=== PATIENT | male | born 1945 | race Caucasian/White ===

== ENCOUNTER 2016-10-14 09:47 | Inpatient (IN) | payer MEDICARE, OTHER ==
[~2016-10-14] VITALS: Ht 167.6 cm; Wt 84.5 kg
[2016-10-14] VITALS (12 sets, daily range): BP systolic 137–160; BP diastolic 47–70; PULSE 82–99; RESP 12–20; O2SAT 96–100
--- NOTE | 2016-10-14 09:10 | PCM.HPANE ---
Patient Data Date of Service: Oct 14, 2016 Surgeon Admitting Provider: Attending Provider:Norberto Arora DO Primary Care Physician:Tata Doll MD Other Provider:Kelly Veags Anesthesia Reason for Visit Right Wrist Swelling And Stiffness Ht/WT & BMI Height (Feet): 5 Height (Inches): 6 Weight (Kilograms): 83.552 Body Mass Index 29.00 Allergies Coded Allergies: colchicine (Verified Adverse Reaction, Severe, gi upset, 10/13/16) niacin (Verified Adverse Reaction, Severe, GI UPSET, 10/13/16) Uncoded Allergies: SEASONAL ALLERGIES (Allergy, Severe, ITCH/RASH, 10/13/16) Past Anesthesia History Anesthesia History: Denies:: Abnormal Airway, Anesthesia Reactions, Difficult Intubation, Fam Anesthesia Reaction, Fam Malignant Hypertherm, Malignant Hyperthermia Diabetes History Hx Diabetes?: No MRSA MRSA: No Medications Active Scripts Docusate Sodium (Colace)100 Mg Qfsgunm023 Mg PO BID PRN For Constipation #100 CAPSULE Ref 0 Prov:Unruly Chaparro DO 01/15/16 Ascorbic Acid (Vitamin C)500 Mg Capsule.er500 Mg PO BID 30 Days Prov:Unruly Chaparro DO 01/15/16 Potassium Chloride ER (Klor-Con M10)10 Meq Tabsr10 Meq PO DAILYWM #30 Ref 1 Prov:Thiago Gale MD 08/12/14 Reported Medications Spironolactone 50 Mg Zqatuq96 Mg PO DAILY #30 TABLET Ref 0 10/13/16 oxyCODONE 5 Mg Tablet5 Mg PO Q3H PRN For Pain Ref 0 10/13/16 [Ketaconazole Shampoo] No Conflict Check1 Applic TP WEEKLY 2% 10/13/16 Indomethacin 25 Mg Ntdlyik36 Mg PO TID Ref 0 10/13/16 Gabapentin 300 Mg Bsfqgmh101 Mg PO TID Ref 0 TAKES 300MG AM, NOON & 600MG PM 10/13/16 [Lasix] No Conflict Check40 Mg PO BID PRN PRN 10/13/16 Fluticasone Propionate (Flonase Allergy Relief)50 Mcg/Actuation [place].susp9.9 Ml NS DAILY 10/13/16 Multivitamin (Multivitamins)1 Each Capsule1 Each PO DAILY 01/13/16 Cholecalciferol (Vitamin D3) (Vitamin D3)5,000 Unit Capsule5,000 Unit PO 09/23/15 Sulfacetamide Sodium (Sodium Sulfacetamide)10 % Clnsr.mhj507 Ml TP BID 09/23/15 Spironolactone 50 Mg Wplzqh16 Mg PO DAILY #30 TABLET Ref 0 09/23/15 Discontinued Reported Medications Polyvinyl Alcohol/Povidone/Pf (Refresh Classic Eye Drops)1 Each Droperette1 Each OP PRN For Eye Irritation 01/13/16 Discontinued Scripts Colchicine 0.6 Mg Capsule0.6 Mg PO ONCE #1 CAPSULE Prov:Devon Santacruz MD 07/07/16 Ferrous Sulfate 325 Mg [place]656 Mg PO BID 30 Days Ref 0 Prov:Unruly Chaparro DO 01/15/[address] (Protonix)40 Mg Rkrbnb73 Mg PO BID 30 Days Ref 0 Prov:Unruly Chaparro DO 01/14/16 Furosemide (Lasix)40 Mg Rarhxg38 Mg PO DAILY #30 TABLET Ref 1 Prov:Thiago Gale MD 08/12/14 [Oxycodone Hcl] (Roxycodone)5 MG TABLET No Conflict Check5-15 Mg PO Q4H PRN For Pain #90 TABLET Ref 0 Prov:Thiago Gale MD 08/12/14 Gabapentin (Neurontin)300 Mg Wfldfja579 Mg PO TID #90 CAPSULE Ref 0 Prov:Thiago Gale MD 08/12/14 History History of ENT Problems?: Yes HEENT History: Positive for:: Cataracts (S/P B/L EXTRACTIONS) Sinus Problem Denies:: Abnormal Airway Difficult Intubation Dysphagia Hearing Problem Other HEENT Pertinent History: S/P TONSILLECTOMY Hx of Heart Problems?: Yes Cardiovascular History: Positive for:: Edema Peripheral Vascular (HX B/L VENOUS STASIS ULCERS LE'S) Denies:: AICD Atrial Fibrillation Cardiac Surgery Chest Pain Congestive Heart Failure Heart Murmur (ECHO 11/2013 EF 60-65%) Hypertension Irregular Heartbeat Pacemaker Thrombophlebitis Valvular Heart Disease Other Cardiac History: HX THROMBOCYTOPENIA Hx of Respiratory Problem?: Yes Respiratory History: Positive for:: Pneumonia ( CHILD) Denies:: Asthma COPD Chest Surgery Cough Dyspnea Emphysema Hemoptysis Tuberculosis Use of C-PAP Machine (SNORES) Hx Neurologic Problems?: No Neurological History: Denies:: Alzheimer's Disease CVA Dementia Dizziness Headaches Parkinson's Disease Seizures Hx of GI Problems?: Yes Gastrointestinal History: Positive for:: Cirrhosis (ETOH-INDUCED) Gastrointestinal Bleeding Liver Disease (ETOH hepatitis/cirhosis) Rectal Bleeding (RECENT BLACK STOOL) Denies:: Diverticulitis Gastroesphageal Reflux Heartburn Hepatitis Hiatal Hernia Other GI Pertinent History: S/P APPY Hx of Problems?: Yes Genitourinary History: Positive for:: Urinary Tract Infection (REMOTELY) Denies:: HX of Hemodialysis Kidney Stones HX of Peritoneal Dialysis: No Male Hx: Denies:: Prostate Problems Scrotal Mass Testicular Surgery Skin History: Denies:: History Skin Disorders? (rosacea, psoriasis, exposed to agent orange) Pressure Ulcers (LR VENOUS STASIS ULCERATIONS S/P I&D/DEBRIDEMENT) Hx Musculoskeletal Problems?: Yes Musculoskeletal History: Positive for:: Back Injury (C/OF LOWER BACK PAIN) Musculoskeletal Trauma (shrapnel injuries from [place] S/P LT KNEE SCOPE) Denies:: Joint Replacement Hx of Psycho/Social Problems?: No Psycho Social History: Positive for:: Anxiety (PTSD) Denies:: Bipolar Disorder Hx Depression Suicide Attempt Hx Surgeries?: Yes (eye surgery, back surgery (sciatic nerve) appendectomy,LT KNEE RPR,TONSILS,) Hx Any Other Health Problems?: Yes Other History: Positive for:: Hospitalization Denies:: Cancer Endocrine Disease Thyroid Disease History Blood Transfusions: Denies:: Blood Transfuse Reaction Blood Transfusions Hx Diabetes: No Hx Alcohol Use: Yes (1-3 beers daily (PT SAYS QUIT IN 2014; SAYS DRINKING)) Hx Substance Use: No Smoking Status: Former Smoker Have You Smoked inLast 12 mo: No Stop/Bang Treated for Sleep Apnea?: No Do You Have a CPAP Machine?: No S-Snoring: Do You Snore Loudly: Yes T-Tired: feel tired, fatigued: No O-Obsered: Observed not breath: No P-Blood Pressure: treated: No B- Body Mass Index > 35 kg/m2: No A- Age over 50: Yes N- Neck Large Circumference: No G- Gender Male: Yes AMRITA Total Score: 3 AMRITA Risk Assessment: Low Risk, <3 Yes AMRITA Category 1: Yes Risk Assessment Category Category 1A: Patient has history of documented sleep apnea, and HAS NOT received any narcotic, sedative or anesthesia administration during this stay. Category 1B: Patient has history of documented sleep apnea, and HAS received any narcotic , sedative or anesthesia administration during this stay Category 2: Patient has SUSPECTED Obstructive Sleep Apnea, and HAS received any narcotic , sedative or anesthesia administration during this stay. Category 3: Patient has SUSPECTED Obstructive Sleep Apnea and HAS NOT received narcotic, sedative or anesthesia administration during this stay. Category 4: Outpatient in Procedural Areas with known sleep apnea or who screen positive for High Risk via the STOP/BANG questionnaire. Exam Exam General Appearance: Alert, Oriented X3, Cooperative, No Acute Distress HEENT/AIRWAY: MP 1 Lungs: Clear to Auscultation, Clear to Percussion Heart: Exam Unremarkable, Normal S1, Normal S2 Meds/Labs/Diagnostics Additional Information Cardiac records reviewed: 2017 ECG unchanged from 2016 tracing, NRS, abrupt trnsition, No acute abn EST 2010 77% Ef with normal perfusion TTE 2013 60% EF without valvular abn Plan Impression Patient chart reviewed, patient interviewed and anesthestic plan with risks, benefits, and alternatives discussed, and informed consent obtained. ASA Physical Status: ASA3 Severe Disease Anesthetic Plan: GA Bene/Risks/Altern/Consents: Yes HP Complete Prior to Induction: Yes Unruly José DO Oct 14, 2016 09:10
[~2016-10-14 09:47] MED LIST: ASCO500C6 PO; CHOL5000 PO; CeFAZolin Inj 2 GM in IV Premix 1 EACH IV ONE; DOCU-41 PO; FLUT9.9S NASAL; GABA-502 PO; INDO25CA PO; KETACONAZOLE SHAMPOO TP; LASIX PO; Lactated Ringer's 1,000 ML IV SCH; MULT1CAP33 PO; OXYC5TAB72 PO; POTA10TA14 PO; SPIR50TA2 PO; [UNRECOGNIZED DRUG - CODE] TP
[2016-10-14] MEDS ORDERED: Lactated Ringer's 500 ML IV PRN (10:48)
[2016-10-14] MEDS ORDERED: Lactated Ringer's 1,000 ML IV SCH (10:48)
[2016-10-14] MEDS ORDERED: Atropine 0.4 mg/mL Inj IVPUSH PRN (10:50)
[2016-10-14] MEDS ORDERED: HYDROmorphone 1 mg/mL Inj IVPUSH PRN ×2 (10:50→19:00)
[2016-10-14] MEDS ORDERED: MetoCLOpramide 5 mg/mL 2 mL Inj IVPUSH PRN (10:50)
[2016-10-14] MEDS ORDERED: Ondansetron 2 mg/mL 2 mL Inj IVPUSH PRN ×2 (10:50→19:00)
[2016-10-14] MEDS ORDERED: Labetalol 5 mg/mL 4 mL Inj IV PRN (10:50)
[2016-10-14] MEDS ORDERED: Dexamethasone 4 mg/mL Inj IVPUSH PRN (10:50)
[2016-10-14] MEDS ORDERED: EPHEDrine Sulfate 50 mg/mL Inj IVPUSH PRN (10:50)
[2016-10-14] MEDS ORDERED: Phenylephrine 10,000 mCg/mL Inj IVPUSH PRN (10:50)
[2016-10-14] MEDS ORDERED: Lactated Ringer's 1,000 ML IV ONE (10:52)
[2016-10-14] MEDS ORDERED: CeFAZolin Inj 2 gm / 50mL D5W IV ONE (11:13)
[2016-10-14] MEDS: fentaNYL-PF 50 mCg/mL 2 mL Inj IVPUSH PRN ×3 (13:50→14:45)
--- NOTE | 2016-10-14 14:45 | PCM.ANEP1 ---
Post Anesthesia Phase 1 PACU Phase 1 Assessment Date of Service: Oct 14, 2016 Vital Signs Vital Signs Date Time Temp Pulse Resp B/P Pulse Ox O2 Delivery O2 Flow Rate FiO2 10/14/16 14:29 88 15 147/67 97 Nasal Cannula 3 10/14/16 14:15 89 16 137/47 97 Nasal Cannula 4 10/14/16 14:00 92 17 149/56 99 Nasal Cannula 4 10/14/16 13:45 90 13 143/51 98 Nasal Cannula 4 10/14/16 13:40 87 13 146/59 97 Simple Mask 10 10/14/16 13:35 90 17 140/63 96 Simple Mask 10 10/14/16 13:30 36.5 88 15 146/55 96 Simple Mask 10 10/14/16 10:50 36.5 82 14 148/56 99 Room Air Anesthetic Administered: GA Level of Alertness: Awake, talking TAFOYA's with Equal Strength: Yes Pain: No Nausea or Vomiting: No Oxygen Delivery: Simple Mask Lungs: Clear to Auscultation, Clear to Percussion Dermatome Level: Full Sensation Unruly José DO Oct 14, 2016 14:45
[2016-10-14] MEDS ORDERED: Polyethylene Glycol (PEG) 17 Gm Powder PO PRN (14:55)
[2016-10-14] MEDS ORDERED: Alum-Mag Hydrox-Simeth 30 mL Suspension PO PRN (14:55)
--- NOTE | 2016-10-14 14:59 | PCM.ANEP2 ---
Post Anesthesia Evaluation ASA/CMS Post Anesthesia Date of Service: Oct 14, 2016 VS in Patient's Normal Range?: Yes Resp Stable; Airway Patent?: Yes CV Function & Hydration Stable: Yes Mental Status Recovered?: Yes Pain control Satisfactory?: Yes N/V Control Satisfactory?: Yes Unruly José DO Oct 14, 2016 14:59
[2016-10-14] MEDS ORDERED: Phenylephrine/NS-PF 100 mCg/mL 5 mL Syringe IVPUSH ONE (15:46)
[2016-10-14] MEDS ORDERED: Ondansetron 2 mg/mL 2 mL Inj ONE (15:46)
[2016-10-14] MEDS ORDERED: MeTOProlol 1 mg/mL 5 mL Inj ONE (15:46)
[2016-10-14] MEDS ORDERED: fentaNYL-PF 50 mCg/mL 2 mL Inj ONE (15:46)
[2016-10-14] MEDS ORDERED: Propofol 10,000 mCg/mL 20 mL Inj ONE (15:46)
[2016-10-14] MEDS ORDERED: Dexamethasone 4 mg/mL Inj ONE (15:46)
[2016-10-14 15:47] LABS: BASOPHILS % (AUTO) 0.3 % (0-3); EOSINOPHILS % (AUTO) 0.3 % (0-5); MONOCYTES % (AUTO) 2.4 % (4-12); Mean Corpuscular Hemoglobin 29.9 pg (27.0-35.0); Mean Corpuscular Volume 89.2 fL (81-100); NEUTROPHILS % (AUTO) 87.7 % (40-74); Platelet Count 111 bil/L (150-400)
[2016-10-14] MEDS ORDERED: DAPTOmycin Inj 500 MG in 0.9% Sodium Chloride 50 ML IV SCH (16:10)
[2016-10-14] MEDS ORDERED: Piperacillin-Tazo 3.375 Gm Inj 3.375 GM in Dextrose 5% Minibag Plus 50 ML IV SCH (16:30)
--- NOTE | 2016-10-14 17:19 | PCM.HPMED ---
Subjective Date of Service Oct 14, 2016 Primary Provider: Admitting Physician: Norberto Arora DO Primary Care Physician: Tata Doll MD Attending Physician: Norberto Arora DO Admit Status: Direct Admit Chief Complaint: Right wrist pain and swelling/2 month Status post incision and drainage of right wrist today History of Present Illness: 71-year-old gentleman with past medical history of alcoholic cirrhosis, history of GI bleeding, history of venous stasis ulcer was admitted for elective right wrist incision and drainage. Patient has been having right wrist painful swelling and stiffness for the past 2 months. Swelling sudden onset end of June. Denies trauma. Denies fever He has been followed by orthopedics. MRI was done on 10/07/16 which showed highly suspicious for carpal septic arthritis, with multifocal osteomyelitis of the carpal bones, distal radius and ulna, second through fourth proximal metacarpals. Admitted for elective incision and drainage. Copious amount of pus drained reportedly. Hospitalist service requested for admission for septic arthritis and suspected osteomyelitis. Review of Systems: A comprehensive review of systems performed, pertinent positives and negatives included in history of present illness Allergies Coded Allergies: colchicine (Verified Adverse Reaction, Severe, gi upset, 10/13/16) niacin (Verified Adverse Reaction, Severe, GI UPSET, 10/13/16) Uncoded Allergies: SEASONAL ALLERGIES (Allergy, Severe, ITCH/RASH, 10/13/16) Home Medications Vitamin C 500 mg by mouth daily Potassium chloride 10 make a commitment daily Spironolactone 50 mg by mouth daily oxycodone 5 mg every 4h indomethacin 5 mg by mouth daily Lasix 40 mg by mouth daily Vitamin D3 5000 units daily PMH History of alcohol cirrhosis. On Lasix and spironolactone. No history of significant ascites. History of alcohol abuse. Venous stasis ulcer GI bleeding History of thrombocytopenia Gout Left ankle septic arthritis Anemia Surgical History Appendectomy 1967 Left ankle arthrotomy, irrigation debridement of the peroneal tendon sheath Knee arthroscopy, incision and drainage Tonsillectomy 1952 Left GSV radiofrequency ablation 06/19/2014 Family History Reviewed and unremarkable Social History Hx Alcohol Use: Yes (1-3 beers daily (PT SAYS QUIT IN 2014; SAYS DRINKING)) Hx Substance Use: No Hx Tobacco Use: No (quit 1975) Smoking Status: Former Smoker Exam Vital Signs Vital Sign - Last Date Time Temp Pulse Resp B/P Pulse Ox O2 Delivery O2 Flow Rate FiO2 10/14/16 15:28 36.8 90 12 160/70 100 Nasal Cannula 3.00 Exam Gen. patient is lying comfortably in hospital bed HEENT: Head is normocephalic atraumatic, Pupils equal and reactive, extraocular movements intact, Lungs clear to auscultation bilaterally Heart regular rate and rhythm without murmurs gallops or rubs Abdomen soft nontender without hepatosplenomegaly Extremities right wrist incision and drainage site cleanly dressed ,intact pulses bilaterally Psych alert and oriented to person place and time Neuro cranial nerves II through XII are grossly intact Lymph: There is no lymphadenopathy appreciated in the cervical supra infraclavicular regions : no redd Lab and Diagnostics Result Diagram: 10/14/16 1537 10/14/16 1537 X-Rays, CTs and MRIs MRI WRIST IMPRESSION: 1. Findings highly suspicious for carpal septic arthritis, with multifocal osteomyelitis of the carpal bones, distal radius and ulna, second through fourth proximal metacarpals. 2. Findings suspicious for full thickness tear of the scapholunate ligament. 3. Nonvisualization of the triangular fibrocartilage may be secondary to chronic extensive tear, remote surgical resection, or destruction from septic arthritis. 4. Flexor carpi radialis moderate tenosynovitis. 5. Subluxation of the extensor carpi ulnaris tendon with respect to the distal ulna. Dictated by: Javid Ordonez M.D. on 10/07/2016 at 14:37 Assessment & Plan 71-year-old gentleman with past medical history of alcoholic cirrhosis, history of GI bleeding, history of venous stasis ulcer was admitted for elective right wrist incision and drainage. # Wrist wrist septic arthritis and osteomyelitis of multiple bones now s/p I&D on 10/14/16,poa,subacute -s/p I&D and copious amount of pus drained, -ID consulted by ortho -started on Zosyn and daptomycin by ID -NS at 80ml/h -pain control with dilaudid -culture from wound and blood cultures pending -wbc 6.2 ,neutrophils 87%, -MRI:multifocal osteomyelitis of the carpal bones, distal radius and ulna, second through fourth proximal metacarpals. # History of cirrhosis, chronic, stable -No stigmata of cirrhosis -No significant ascites, unclear if he still needs Lasix and spironolactone. Patient states he has been taking both. Will hold off for now #Thrombocytopenia, chronic, stable #Anemia, chronic, stable # History of alcohol abuse -Patient states he quit drinking 2 1/2 yrs ago when he was diagnosed with cirrhosis. reportedly stated he continues to drink. Will need to verify information. -Watch out for withdrawal Full code, verified with patient Patient admitted under inpatient status with expected length of stay > 2 midnights for severity of present symptoms, complexities of treatment plan and risk for adverse events Pain Evaluation: Adequate Pain Control Resuscitation Status: CPR: Attempt Resuscitation Time spent 55 minutes copies to: Norberto Arora DO; Tata Doll MD, Melaku MD Oct 14, 2016 17:18
--- NOTE | 2016-10-14 17:49 | CONS ---
[address] [address] CONSULTATION REPORT PATIENT: BON CUNHA : 1945 MR#: [id number] ADMIT: 10/14/2016 JOB ID: [id number] DATE OF SERVICE: 10/14/2016 INFECTIOUS DISEASE CONSULTATION: I thank Dr. Arora of [facility] for this consult. REASON FOR CONSULTATION: Septic right wrist. HISTORY OF PRESENT ILLNESS: The patient is a 71-year-old gentleman in compensated health with underlying alcoholic cirrhosis, recurrent venous stasis ulcers of the lower extremities, and gout as his primary history. The patient says he has just recovering from his surgery during which the surprising finding of probable septic arthritis with osteo of the right wrist was made. He still seems to have a bit of a lingering anesthesia effect but can be roused to give the semi reliable history. He tells me that about 2-1/2 or so months ago his right wrist began to hurt. There is interestingly an ER note from July 07, which would be about three months ago, that relates how he came and complained of right wrist pain which had started during the last week of June so this would seem to verify the patient's history. He was told during his ER visit, as well as an urgent care visit apparently, that this was probably gout as he does have a long history of gout and it was managed accordingly. The patient tells me that his wrist really never got better and it continued to worsen until he was evaluated and felt to require a surgical exploration of the right wrist. Today he was taken to the OR by Dr. Arora for an elective evaluation of the tissues in and around the right wrist and to his surprise he found a great deal of purulent material. This is according to a conversation I just had with the PA, who actually asked me for the consultation today. They had not been anticipating a septic joint and so went ahead and washed it out and then placed a large dressing in place and returned the patient to the [place]. Of interest, there is a wrist MRI scan from one week ago today which was done because of chronic right wrist swelling. This showed findings suspicious for a septic arthritis with multifocal osteo of the carpal bone, distal radius, ulna, and 2nd through 4th metacarpals. Some moderate tenosynovitis in the flexor carpi radialis was also seen. The patient is not a good historian at this point, and I am not certain if this is due to his alcoholic liver disease and perhaps some component of hepatic encephalopathy, or whether it is due to the anesthesia. He is really unable to tell me what happened between July 06 when he first started to notice his right wrist hurt and what led him to go to the operating room today under the care of Dr. Arora. He tells me he has not had fevers, chills, or sweats, however, and denies any real constitutional symptoms consistent with infection. He denies having taken any antibiotics up to that time of today's surgery. He states that even though his right wrist has been hurting for almost three months, he has been able to open jars, write out checks, and do other activities as he is a dominant right hand gentleman and really aside from some pain and some stiffness it has not been all that bad. He denies any drainage from that right wrist. He notes that he has had infections in his legs which have required antibiotics and debridement in the past but apparently he has not had any such issue with the wrist. Multiple times during my attempts to obtain a history from the patient he nodded off to sleep and I had to awaken him almost constantly which I think is a function of the anesthesia he received which may have had a really salutary effect given his liver disease. PAST MEDICAL HISTORY: 1. Alcoholic cirrhosis. 2. Venous ulcers of the lower extremities for which he has been [facility]. 3. Gout. 4. History of GI bleeding. 5. History of psoriasis. 6. Thrombocytopenic disorder. 7. History of Agent Newell exposure in [place]. SOCIAL HISTORY: The patient lives with his in the [facility]. He has reportedly stopped drinking, though there are notes from 2016 at least in the chart that suggest that may not be entirely accurate. He is a nonsmoker since his days about 40 years ago. He does not use illicit drugs and he is a retired [employer] employee. FAMILY HISTORY: Negative for tuberculosis and as far as he knows that extends to his parents and siblings. REVIEW OF SYSTEMS: Was done but was difficult as I had to reawaken the patient after every question. He currently denies headache or visual change. He denies sore throat, dysphagia, or odynophagia. He denies significant cough, shortness of breath, or chest pain. He has no fevers, chills, or sweats by his report and has not had any recently. He does not have dysuria or urgency and in fact tells me now he has to urinate as we broached the subject. He notes that his legs are often swollen and he has had trouble with infections in his legs but not lately. He tells me unequivocally that he can get up and walk without any great difficulty. He notes that he has a chronic rash on his face of rosacea type. The remainder of the review of systems was either unobtainable or negative. PHYSICAL EXAMINATION: Physical exam reveals an affable but slightly confused and somewhat somnolent gentleman who appears his stated age of 71. He has changes consistent with acne rosacea on his face. He is oriented x3 and able to provide some history, but as noted he nods off easily. Examination of the skin reveals classic spider angiomata lesions over the upper chest as well as the acne rosacea on the face. His head is without evidence of trauma. His pupils are equal and reactive bilaterally. No conjunctival or scleral abnormalities. His oral cavity is without thrush or hairy leukoplakia. His neck is without adenopathy and is relatively supple. The patient's lungs are clear both anteriorly and posteriorly. His cardiac tones are regular rate and rhythm with a 1/6 systolic murmur heard best along the lower left sternal border. His abdomen is slightly distended, but without clear-cut ascites. I do not appreciate hepatomegaly or splenomegaly. His penis and scrotum are examined and appear normal. The patient does not have any significant cervical, supraclavicular, or inguinal adenopathy. His lower extremities are both notable for some mild edema below the knees, which is equal bilaterally. There are no venous ulcers or skin breakdown noted on the lower extremities. He does have some fungal nail disease on the toenails. The patient's right wrist is in a large inflexible splint which was just placed within the last hour by Dr. Arora. I did not remove this as it was literally just placed moments ago in the operating room. The fingers protruding below the splint are viable and warm and the arm above the elbow on the right side also appears relatively normal. Neurologically, the patient is strong in terms of his lower extremities and is able to provide a somewhat drifty but apparently accurate history. The remainder of the physical exam is noncontributory. LABORATORY DATA: White count 6200, platelets 111, hematocrit 33, the differential white count 87% segs. Chemistry is currently pending and to the pending chemistries I have added a procalcitonin. Urinalysis has not been done. Micro studies include the Gram stain sent from the OR which shows few polys and no organisms on two separate samples. A fungal culture is also pending. In reviewing his micro from prior years, the patient has grown stenotrophomonas, Pseudomonas, and Serratia from leg ulcers in the past but the most recent of these was now a full two years ago. The only imaging we have is the MRI that I discussed earlier which showed findings consistent for carpal septic arthritis with multifocal osteo of the carpal bones. IMPRESSION: This is a difficult case of a gentleman with three months of right wrist pain. The patient is an immunosuppressed host by virtue of his alcoholic liver disease. It was felt that this likely represented arthritis of some type, or particularly the possibility of gouty arthritis, but it sounds as if the pain has waxed and waned but in general the pain and swelling in his right wrist has gotten worse over the past three months. An MRI scan done last week raised the possibility of infection. Today Dr. Arora explored the right wrist to obtain samples and find out more anatomic information and there was a considerable amount of purulence encountered according to the oral report I have from the [facility]. The operative note is not yet available. This is certainly an indolent septic joint if that is the case. Most septic joints are due to Staphylococcus or occasionally Streptococcus and are fairly rapidly destructive and if one is to believe the patient has history he says his wrist was pretty usable up until very recently, with fairly slow progression from where it started three months ago. This would seem perhaps consistent with an organism of less virulence such as possibly a mycobacteria or a fungal process. Though I am reluctant to spend too much money on esoteric laboratory tests, I think this may be a good occasion to use the PCR test available through the [facility]. Our initial Gram stain of the material obtained from the wrist earlier today shows no organisms and few polys, and I am concerned that we may have trouble figuring this one out. The tenosynovitis and wrist involvement is pretty classical for what see sometimes with atypical mycobacteria and this can be a real problem in people with alcoholic liver disease. Also a possibility here would be fungal infection, as it could be very indolent, Staphylococcus or Streptococcus is possible, but this would be an awfully slow progression for that. RECOMMENDATIONS: 1. I have changed the antibiotics to daptomycin and Zosyn, instead of the cefazolin, because the patient has grown some fairly esoteric organisms. 2. Procalcitonin has been added to the laboratory request. 3. A gonorrhea and chlamydia urine sample has been requested. I realize it is a far-fetched possibility but gonococcal arthritis can never be neglected as a possibility. 4. I will order the special studies to be sent to [facility] for bacterial, fungal, and mycobacterial PCR studies. Thank you very much. I look forward to working with you on this complex case as we come up with a plan for treatment.
[2016-10-14] MEDS ORDERED: HYDROcodone-APAP 7.5-325 mg Tablet PO PRN (18:55)
[2016-10-14] MEDS ORDERED: HYDROcodone-APAP 5-325 mg Tablet PO PRN (18:55)
[2016-10-14 19:09] LABS: APPEARANCE,URINE CLEAR (CLEAR,HAZY); COLOR,URINE YELLOW (YELLOW); OCCULT BLOOD,URINE NEGATIVE (NEGATIVE); PH,URINE 7.5 (5.0-8.0)
--- NOTE | 2016-10-14 19:10 | NUR ---
Arrival to Floor Patient arrived to floor from PACU sleepy but abusable by voice. Patient able to follow commands. Patient transferred to OSC bed, pulse oximeter placed. O2 sats upper 90s on 3L via NC. Patient surgical dressing at arm clean dry and intact, with no sign of drainage. Patient able to move affected extremity. IV patient. Patient denies pain, nausea. Care is ongoing.
[2016-10-14] MEDS ORDERED: 0.9% Sodium Chloride 250 ML ONE (19:19)
--- NOTE | 2016-10-14 20:40 | CONS ---
[address] [address] CONSULTATION REPORT PATIENT: BON CUNHA : 1945 MR#: [id number] ADMIT: 10/14/2016 JOB ID: [id number] DATE OF SERVICE: 10/14/2016 CHIEF COMPLAINT: Right wrist pain. HISTORY OF PRESENT ILLNESS: This is a pleasant 71-year-old male that originally presented to me two weeks ago with a nearly three months history of right wrist pain and swelling. He denied any trauma or change in activity and had difficulty moving his hand and wrist due to a significant amount of swelling and pain. He presented multiple times to the emergency department as well as urgent cares and was diagnosed with rheumatoid versus gout and then eventually diagnosis with cellulitis. He was started on multiple medications including colchicine, but had a reaction to the colchicine. He was also prescribed multiple p.o. antibiotics without any resolution in his symptoms. As he presented to me a few months out from his initiating symptoms without any relief and continued to have the persistent symptoms, I ordered an MRI as well as baseline labs for the patient. The patient's labs came back normal as far as his white count, CRP and ESR. The patient's MRI did demonstrate significant effusion with localized pockets of fluid as well as evidence of high likelihood of multifocal osteomyelitis to the carpals and the metacarpals. I discussed with the patient that although his labs were normal that there is a chance that he has an indolent infection. I discussed with him proceeding with an incision and drainage of the right wrist with bone biopsies. He understood the risks include, but are not limited to, neurovascular injury, tendon injury, and failure to resolve the infection, stiffness, persistent pain all of which may require further intervention. The patient had all questions answered. The patient was scheduled for an outpatient surgery. Intraoperatively, it was noted there was a significant amount of purulence. Cultures were obtained as well as tissue sent to Pathology. Bone biopsy was also obtained from the capitate as well as the 3rd metacarpal base. This was all sent off to Pathology. With the amount of purulence that emanated from the wound, I made the decision to ask the hospitalist service who was gracious enough to admit the patient with Infectious Disease to consult. Discussed with the patient's daughter that he will likely need to be hospitalized for a few days and will likely require prolonged IV antibiotic therapy due to the septic arthritis as well as the likelihood of osteomyelitis. PAST MEDICAL HISTORY: 1. Cirrhosis. 2. Peripheral edema. 3. Anemia. 4. History of lower extremity ulcers. 5. History of cellulitis. 6. Anxiety. PAST SURGICAL HISTORY: 1. Appendectomy. 2. Knee arthroscopy. 3. Tonsillectomy. 4. Incision and drainage of the left ankle. 5. Debridement of lower extremity ulcers. FAMILY HISTORY: Noncontributory. SOCIAL HISTORY: The patient denies any current tobacco, alcohol or illicit drug use. He is . MEDICATIONS: Please see electronic medical record for full list of patient medications. ALLERGIES: 1. COLCHICINE. 2. NIACIN. REVIEW OF SYSTEMS: The patient denies any fevers, sweats, chills, chest pain, shortness of breath, nausea, vomiting, diarrhea. Complains mainly of right wrist pain and swelling, as described in the history of present illness. PHYSICAL EXAMINATION: General: The patient is alert, oriented, in no apparent distress. HEENT: Normocephalic, atraumatic. Extraocular movements intact. Nares patent. Lungs: No audible wheezes. No overt signs of respiratory distress. Neuro: Cranial nerves are intact. Extremities: To gross observation of the patient's right wrist, there is a significant amount of swelling and fluctuance of the ulnar and dorsal aspect of the hand and wrist. There is no palpable fluctuance. No erythema, active drainage or signs of obvious infection. Skin is perfused with palpable distal, radial and ulnar pulses. He demonstrates intact sensation in the median, radial, and ulnar nerve distribution. There is tenderness to palpation throughout the wrist including the dorsal aspect of the FL and the LC articulation. There is pain and significant instability with DRUJ Shuck test. Mild tenderness overlying the ulnar aspect of the wrist. Patient cannot demonstrate a full composite fist as he is approximately 2 cm from tip of the palm but may be also limited secondary to the amount of swelling to the hand. Range of motion of the wrist is limited with supination to 10 degrees, full pronation, 10 degrees of dorsiflexion and 10 degrees of volar flexion. DIAGNOSTIC STUDIES: MRI of the right wrist was obtained which demonstrates evidence of effusion as well as cystic changes with an underlying diagnosis of osteomyelitis of the carpals and metacarpals. Previous white count obtained on September 11, 2016 was normal at 9.7. Previous CRP as well as ESR were also obtained and were within normal limits. The patient's CRP was 4.3 on September 28, 2016 and an ESR of 10 on September 28, 2016. IMPRESSION: Status post incision and drainage of the right wrist secondary to septic arthritis as well as multifocal osteomyelitis of the carpals and metacarpals. PLAN: Discussed with the patient and family at length his diagnosis and the findings intraoperatively. He will be admitted to the hospitalist service. Infectious Disease has been consulted and the patient is started on IV antibiotics. We are awaiting final cultures as well as sensitivities. The patient also will likely require prolonged IV antibiotic therapy, but we will await the final culture of sensitives and Infectious Disease's recommendations. The patient's drain will be pulled tomorrow on postoperative day number one, as well as the splint, and he will be started with occupational therapy for range of motion of the hand and wrist.
[2016-10-14] MEDS ORDERED: hydrOXYzine Pamoate 25 mg Capsule PO PRN (21:20)
--- NOTE | 2016-10-14 22:04 | OP ---
[address] [address] OPERATIVE REPORT PATIENT: BON CUNHA : 1945 MR#: [id number] ADMIT: 10/14/2016 JOB ID: [id number] DATE OF SURGERY: 10/14/2016 PREOPERATIVE DIAGNOSIS(ES): Right wrist swelling and stiffness. POSTOPERATIVE DIAGNOSIS(ES): 1. Right wrist septic arthritis. 2. 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 PROCEDURE: 1. Incision and drainage of right wrist septic arthritis. 2. Bone biopsy of the capitate as well as the 3rd metacarpal base. SURGEON: Norberto Arora D.O. ANESTHESIA: General. HISTORY: The patient is a 71-year-old male with a three-month history of right wrist pain and swelling. He denies any specific trauma or change in activity with the onset of his symptoms. He awoke one morning with these complaints. He was seen multiple times in the emergency department as well as urgent care and was diagnosed with gout and also cellulitis. He was treated with colchicine without any relief in his symptoms. He actually had a reaction to the colchicine. He was also treated with anti-inflammatories as well as antibiotics. He continued to not have any improvement in his symptoms and was thus referred to be about two weeks prior. The patient had labs ordered and his labs including a white count, CRP and ESR were all within normal limits. I did order an MRI to further evaluate the joint as well as the ligaments to the wrist. He returned with the results of the MRI which demonstrated significant wrist effusion with multiple pockets of fluid as well as evidence of possible multifocal osteomyelitis to the carpals as well as the metacarpal bases. I discussed with the patient the risks, benefits and indications to proceed with incision and drainage of right wrist with bone biopsy to rule out septic arthritis as well as underlying osteomyelitis. He understood the risks include, but are not limited to, neurovascular injury, tendon injury, infection, failure to resolve the infection, stiffness, and persistent pain all which may require further intervention. The patient had all questions answered. Consent was signed and placed in the chart. PROCEDURE IN DETAIL: The patient was brought to the operating suite and placed supine on the operating table. Surgical time-out was then performed. After appropriate anesthesia was obtained, a right upper arm tourniquet was applied and the right upper extremity was prepped and draped in sterile fashion. Right upper extremity was then elevated and a tourniquet inflated to 250 mmHg. A dorsal longitudinal incision was then made centered at the wrist in line with the 3rd metacarpal as well as ulnar to Silvio's tubercle. Dissection was carried down to the extensor retinaculum. The third dorsal compartment was identified, and the extensor pollicis longus tendon released from the 3rd compartment. The EPL tendon was then retracted radially. The 4th extensor compartment was then elevated off of the distal radius and retracted in ulnar direction. This exposed the capsule, the capsule was entered with an inverted T-shaped capsulotomy. Significant amount of purulence emanated from the wound. Cultures were obtained, both superficial and deep, within the joint. The cultures were sent for Gram stain, aerobic and anaerobic cultures as well as Mycobacterium and fungal. The dissection was carried out through the mid carpal joint. No further purulence was appreciated. Six liters of normal saline was then used to irrigate out the wrist including the radial carpal and the mid carpal joint. There was some erosion to the dorsal distal radial aspect of the capitate. A curette was then used to perform a bone biopsy to this area of erosion. The bone was then sent off to Pathology. A significant amount of synovium was also debrided with a rongeur and sent off to Pathology. Attention was then turned towards the 3rd metacarpal base. Periosteum was elevated. The cortex of the 3rd metacarpal base was intact and a 3.0 mm drill was used to perforate the cortex, and a curette was used to perform a bone biopsy. The cancellous contents were also sent off to Pathology. Further irrigation was then performed. A deep Angus drain was then placed and the capsule closed with 0-Vicryl. Additional superficial drain was placed just superficial to the extensor retinaculum which was closed with 2-0 Monocryl in a [id number] fashion leaving the EPL tendon outside of the sheath. The skin was then loosely closed with 4-0 nylon and the patient placed into a well-padded, well-molded volar resting splint. ESTIMATED BLOOD LOSS: Less than 5 cc. COMPLICATIONS: None. DISPOSITION: The patient tolerated the procedure well. Anesthesia was reversed. The patient was transferred back to recovery. SPECIMENS: The superficial and deep culture from the wrist was sent for aerobic and anaerobic cultures as well as Gram stain, fungal and Mycobacterium. There was additional fluid that was also sent for cell count with differential, as well as crystal analysis. Several pathology specimens were sent including the synovium, bone from the capitate, and bone from the 3rd metacarpal base. POSTOPERATIVE PLAN: The hospitalist service has agreed graciously to admit the patient with ortho consult. We have also asked that Infectious Disease also consult to make further recommendations, but the patient is likely to require long-term IV antibiotic treatment. Postoperative day number one, the splint will be removed and the two drains will be pulled and the patient can start working on outpatient therapy for range of motion of the hand and wrist.
[2016-10-15 00:17] VITALS: BP 131/63; PULSE 89; RESP 18; O2SAT 97
[2016-10-15] MEDS: oxyCODONE-Acetamin 5-325 mg Tablet PO PRN ×3 (00:27→20:05)
[2016-10-15] MEDS ORDERED: Piperacillin-Tazo 3.375 Gm Inj 3.375 GM in Dextrose 5% Minibag Plus 50 ML IV SCH (04:00)
[2016-10-15 04:53] VITALS: BP 131/52; PULSE 81; RESP 20; O2SAT 97
--- NOTE | 2016-10-15 05:13 | NUR ---
Monitor for CIWA necessity Pt states no recent ETOH, per report "2 yr" sober. Pt drowsy but oriented at start of shift, CSM intact to R hand and no visible drainage on KARINA wrap. IV patent, infusing ABX and NS TKO. Pt uses call light appropriately, ambulates to BR 1x assist w/ no device. PRN oxy for pain 1 tablet with vistaril is effective for pain relief. BLE edema, compression stockings from home are on. Pt weaned from 2Lnc to RA and 93%saO2. No SOB/chest pain/GI distress this shift. Awaiting results of culture (cancel orders to [facility] if plates +). Care continues
[2016-10-15 08:49] LABS: BASOPHILS % (AUTO) 0 % (0-3); EOSINOPHILS % (AUTO) 0 % (0-5); MONOCYTES % (AUTO) 8.5 % (4-12); Mean Corpuscular Hemoglobin 29.4 pg (27.0-35.0); Mean Corpuscular Volume 88.5 fL (81-100); NEUTROPHILS % (AUTO) 80.1 % (40-74); Platelet Count 127 bil/L (150-400)
[2016-10-15 09:12] LABS: Magnesium 1.9 mg/dL (1.6-2.6)
--- NOTE | 2016-10-15 09:49 | NUR ---
Evaluation completed. Please go to "Notes" then click on "Assessments and Notes" (bottom left corner of screen). Then select appropriate discipline tab on top of screen.
--- NOTE | 2016-10-15 11:00 | PCM.PNORTH ---
Subjective Date of Service: Oct 15, 2016 Visit Information: Reason for Visit Right Wrist Swelling And Stiffness Surgery/Surgery Date Post-Op Day # Date of Admission: Oct 14, 2016 at 15:45 Hospital Day # Objective Exam Vital Signs and I/O Vital Sign - Last Date Time Temp Pulse Resp B/P Pulse Ox O2 Delivery O2 Flow Rate FiO2 10/15/16 04:53 36.8 81 20 131/52 97 Room Air 10/15/16 00:17 2.00 Intake and Output 10/14/16 10/14/16 10/15/16 Cumulative From/Thru 15:00 23:00 07:00 10/13/16 10:17 - 10/15/16 06:46 Intake Total 1000 ml 851 ml 1851 ml Output Total 750 ml 1400 ml 2150 ml Balance 1000 ml -750 ml -549 ml -299 ml Intake Oral 500 ml 500 ml IV Total 1000 ml 351 ml 1351 ml Output Urine Total 750 ml 1400 ml 2150 ml # Bowel Movements 0 0 Lab & Micro Results Laboratory Tests Test 10/14/16 15:37 10/14/16 17:03 10/14/16 18:44 White Blood Count 6.2th/mm3 (3.8-10.1) Red Blood Count 3.61mil/mm3 (4.40-5.80) Hemoglobin 10.8g/dL (13.8-17.2) Hematocrit 32.2% (41.0-50.0) Mean Corpuscular Volume 89.2fL (81-100) Mean Corpuscular Hemoglobin 29.9pg (27.0-35.0) Mean Corpuscular Hemoglobin Concent 33.5% (32.0-37.0) Red Cell Distribution Width 15.9% (12.3-15.4) Platelet Count 111bil/L (150-400) Neutrophils (%) (Auto) 87.7% (40-74) Lymphocytes (%) (Auto) 9.0% (14-46) Monocytes (%) (Auto) 2.4% (4-12) Eosinophils (%) (Auto) 0.3% (0-5) Basophils (%) (Auto) 0.3% (0-3) Sodium Level 133mEq/L (134-144) Potassium Level 4.5mEq/L (3.5-5.2) Chloride Level 100mEq/L (97-108) Carbon Dioxide Level 21mmol/L (18-29) Blood Urea Nitrogen 14mg/dL (8-27) Creatinine 0.60mg/dL (0.76-1.27) Estimat Glomerular Filtration Rate 142mL/min (>59) Glucose Level 123mg/dL (60-99) Calcium Level 8.7mg/dL (8.5-10.1) Total Bilirubin 1.0mg/dL (0.0-1.2) Aspartate Amino Transf (AST/SGOT) 20U/L (0-50) Alanine Aminotransferase (ALT/SGPT) 9U/L (0-44) Alkaline Phosphatase 78U/L (25-160) Total Protein 7.3g/dL (6.4-8.4) Albumin 3.1g/dL (3.4-5.0) Procalcitonin 0.10ng/mL (0.00-0.08) Ammonia 41ug/dL (18-53) Hold [place] Top Tube Received (Received) Urine Color Yellow (YELLOW) Urine Appearance Clear (CLEAR,HAZY) Urine pH 7.5 (5.0-8.0) Urine Specific [place] 1.015 (1.003-1.035) Urine Protein Negativemg/dL (NEG,TRACE) Urine Glucose (UA) Negativemg/dL (NEGATIVE) Urine Ketones Negativemg/dL (NEGATIVE) Urine Occult Blood Negative (NEGATIVE) Urine Nitrite Negative (NEGATIVE) Urine Bilirubin Negative (NEGATIVE) Urine Urobilinogen 1.0mg/dL (NORMAL) Urine Leukocyte Esterase Negative (NEGATIVE) Urine RBC 0-2/hpf (0-2) Urine WBC 0-5/hpf (0-5) Urine Epithelial Cells None/hpf (NONE-MOD) Urine Crystals None seen (NONE SEEN) Urine Bacteria Few/hpf (NONE-FEW) Urine Hyaline Casts None/lpf (NONE) Urine Granular Casts None seen (NONE SEEN) Urine Waxy Casts None seen (NONE SEEN) Urine Red Blood Cell Casts None seen (NONE SEEN) Urine White Blood Cell Casts None seen (NONE SEEN) Urine Mucus None seen (None Seen) Urine Trichomonas None seen (NONE SEEN) Urine Yeast None (NONE SEEN) Urinalysis Comment None Urine Culture Reflexed Not indicated Microbiology 10/14/16 Blood Culture, Received Pending 10/14/16 Fungal Culture, Received Pending Result Diagram: 10/14/16 1537 10/14/16 1537 SURGICAL WOUND : Drain Location Body Site: Wrist Wound Drainage Type: Angus Assessment & Plan Plan Postop day # 1 from right wrist I&D with bone biopsy performed by Dr. Norberto Arora on 10/14/2016. Weight bearing status: Nonweightbearing on the right upper extremity. No ballistic activities including pushing, pulling, lifting. He may pursue gentle range of motion at wrist hand and fingers. Mobility aid: Single-point cane at left hand. Immobilization: None Precautions: Physical therapy: Physical therapy has evaluated this morning and found patient to be mobile and safe with left hand single-point cane and will not pursue further physical therapy. Occupational therapy will evaluate the patient this morning for range of motion and mobility at the right hand and fingers. Pain control: Continue by mouth pain medication as needed. DVT prophylaxis: Heparin 5000U. Hospitalist to write and manage. Wound care: There is an approximately 4 inch long surgical incision at the dorsal aspect of the right wrist which is closed with nylon suture. Angus drains are removed this morning as well as lower splint and wound is covered with Xeroform with 4 x 4's and a light wrap. No laura bleeding is noted. Infectious DZ: Dr. Drew is consulted on this case and will review pending cultures results from tissue samples obtained in the OR on 10/14/2016 with recommendations for antibiotics. Anticipate possible PICC line placement and 6 weeks IV antibiotics. [place]: None Dressing: Right wrist and splint and dressing are removed this morning and Angus drains are removed. Light flexible dressing is replaced. Drain: None Abduction wedge: None ALEXA hose: None Nursing communication: No mechanical DVT prophy at this time. 2-week follow-up: TBD 6-week follow-up: TBD Plan: Patient will remain in-house until culture results and sensitivities are available from tissue samples taken on 10/14/2016. Dr. Drew will review for antibiotic choices. Orthopedics thanks hospitalist service for their help in the medical management of this patient. Discharge instructions: TBD Discharge plan: Patient will likely discharge early next week when antibiotic selection and routes are determined. VTE Prophylaxis: Sub-Q Heparin (Unfractionated) Resuscitation Status: CPR: Attempt Resuscitation Dar Beck PA-C Oct 15, 2016 08:13
--- NOTE | 2016-10-15 11:53 | PROG NOTE ---
[address] [address] PROGRESS NOTE PATIENT: BON CUNHA : 1945 MR#: [id number] ADMIT: 10/14/2016 JOB ID: [id number] DATE: 10/15/2016 REASON FOR FOLLOWUP: Septic right wrist with osteomyelitis. INTERVAL HISTORY: Overnight, the patient has become more awake, as his anesthetics have worn off. This morning, he says he feels relatively well except for the postop pain in his right wrist. He tells me for weeks his wrist has been steadily declining and becoming less functional. This was not associated apparently with much in the way of fevers, chills, or sweats. Today, he has no new pulmonary or GI symptoms. PHYSICAL EXAMINATION: Reveals an afebrile gentleman, temperature 36.8, pulse 81, respiratory rate 20, blood pressure 131/52. He is saturating well on room air. He is much more alert than yesterday. His oral cavity unremarkable. He continues to have the spider angiomata over his upper chest as expected. His lungs are clear. His cardiac tones are regular rate and rhythm without murmur. His abdomen is soft and nontender without ascites. His right wrist and forearm are in a large postop contraption which I did not remove. He can wiggle the fingers and has sensation in his right hand. LABORATORIES: Include white count 8800, platelets a bit low at 127. His creatinine is 0.53. The blood cultures are negative. The wrist cultures are growing Staph aureus, and we await susceptibilities on these cultures. IMPRESSION: This patient has an extensive septic joint with associated osteomyelitis. He will require six weeks of therapy. Unfortunately, this will need to be intravenous therapy in this rather complex patient with underlying severe alcoholic liver disease. Also note that he lives at home in town with his who is on dialysis and is somewhat debilitated. The patient believes he will be able to manage with IV antibiotics at home. We discussed the implications of long-term antibiotics. Right now, we do not know if this is methicillin-sensitive Staphylococcus aureus or methicillin-resistant Staphylococcus aureus. If this is methicillin-resistant Staphylococcus aureus, I would not be in favor of using vancomycin, even though it would be the standard agent, because I would be very worried about precipitating renal injury and possible hepatorenal syndrome which could prove fatal. Ceftaroline or daptomycin would be reasonable options if this is methicillin-resistant Staphylococcus aureus. Hopefully this will be methicillin-sensitive Staphylococcus aureus and we can treat him with Ancef 2 g IV q.8 h. for the six week duration. RECOMMENDATIONS: 1. Will DC piperacillin today. 2. Will continue with daptomycin daily until we have susceptibilities. 3. A PICC line can be placed tomorrow if his blood cultures remain negative. 4. Once the PICC line is placed and the patient is stable, he can be discharged home. I will be out of town the next three days, unfortunately not returning until the morning of the , so that will not be able to write his specific home infusion orders, as we do not yet know the antibiotic. But in general, we would set him up for home IV antibiotics with either Ancef 2 g IV q.8 h. or daptomycin 500 mg a day to be continued for a full six weeks. 5. Regardless of which antibiotic the patient goes home on, he should see me in clinic on October 27. 6. The patient will need weekly blood work. If he goes home on daptomycin, will need CBC, CMP, CPK, and CRP weekly. If he goes home on Ancef, we can drop the CPK, and all he will need will be CRP, CMP, and CBC. Those labs should be done every Tuesday and sent to my office. 7. Either the infusion solution or the [facility] can be involved to give him the home IV antibiotics. I will be following up with this patient either Tuesday the if he is still here or on an outpatient basis October 27. Note that I will be out of town the next three days. I can be reached by telephone to discuss this or any other patient.
[2016-10-15] MEDS: Heparin 5,000 Unit/mL Inj SUBQ SCH ×2 (12:14→16:47)
[2016-10-15 15:17] VITALS: BP 143/61; PULSE 83; RESP 19; O2SAT 99
--- NOTE | 2016-10-15 18:16 | NUR ---
Pain Patient reported some pain during shift, increased after OT session. Patient states that ordered oral pain medications control pain well. Dressing clean, dry and intact. Care is ongoing.
[2016-10-15 20:39] VITALS: BP 140/61; PULSE 80; RESP 20; O2SAT 98
--- NOTE | 2016-10-15 23:13 | PCM.PNMED ---
Subjective Date of Service Oct 15, 2016 Subjective Patient has no new complaints. He has some postoperative pain in his right wrist to be expected. Exam Vital Signs Vital Sign - Last Date Time Temp Pulse Resp B/P Pulse Ox O2 Delivery O2 Flow Rate FiO2 10/15/16 20:39 36.4 80 20 140/61 98 Room Air 10/15/16 00:17 2.00 Intake and Output 10/14/16 10/14/16 10/15/16 Cumulative From/Thru 15:00 23:00 07:00 10/13/16 10:17 - 10/15/16 06:46 Intake Total 1000 ml 851 ml 1851 ml Output Total 750 ml 1400 ml 2150 ml Balance 1000 ml -750 ml -549 ml -299 ml Intake Oral 500 ml 500 ml IV Total 1000 ml 351 ml 1351 ml Output Urine Total 750 ml 1400 ml 2150 ml # Bowel Movements 0 0 Exam General: Patient is in no apparent distress lying supine in bed with his head elevated approximately 45. HEENT: Head is atraumatic and normocephalic. Eyes: Pupils are equally round and reactive to light and accommodation. Extraocular muscles are intact. Sclera are white, anicteric. Subconjunctival mucosa is pink. Ears and nose are unremarkable. Oropharynx: There is no mucosal lesions, there is no thrush, there is no pharyngitis. Neck: Is supple, there are no nodes, or masses or tenderness. Chest: Is clear to auscultation and percussion. There are no rales, rhonchi, wheezes or rubs. Heart: Rate, rhythm is regular. There is no murmur, rub or gallop. Abdomen: Good bowel sounds are present. Abdomen is soft, nontender, no organomegaly or masses were appreciated. Extremities: The right upper extremity wrist area is bandaged in a postoperative wrap. The dressing is clean dry and intact. There is no swelling or erythema of the hand or digits of that extremity. Patient has support hose on both lower extremities which are significant for 1+ edema with no asymmetry. Neurologic: There are no focal neurological deficits. Cranial nerves II through XII are intact. There are no sensory or motor deficits. Psychiatric: Patients mood is calm and shows no sign of agitation. Genital: Deferred Rectal: Deferred Lab and Diagnostics Result Diagram: 10/15/1683210/15/16832 Microbiology Name: BON CUNHA Age/Sex: 71/M Attend Dr: Norberto Arora DO Acct: [id number] Unit: [id number] Status: ADM IN Location: [facility] 1006-1 Re10/14/16 Disch: Specimen: [id number] Collected: 10/14/16-UNK Status: RES Req#: [id number] Received: 10/14/16135 Source: WRIST Sp Desc : Subm Dr: Norberto Arora DO Ordered: CS & ANAC & GS Comments: Collected by Nurse/Unit? Y/N Y Comment: RIGHT WRIST DEEP Procedure Result Verified Site Microbiology TARIQ GS (GRAM STAIN) Final 10/14/16-1429 GRAM STAIN RESULT RARE POLYS NO ORGANISMS SEEN TARIQ CULT AEROBIC Preliminary 10/15/16-833 PRELIMINARY ID STAPH, PROBABLE STAPH AUREUS COLONY COUNT/QUANTITY SCANT GROWTH Name: BON CUNHA Age/Sex: 71/M Attend Dr: Norberto Arora DO Acct: [id number] Unit: [id number] Status: ADM IN Location: [facility] 1006-1 Re10/14/16 Disch: Specimen: [id number] Collected: 10/14/16 Status: RES Req#: [id number] Received: 10/14/16 Source: BLOOD Sp Desc : KODI Dutta Dr: Balta Lopez MD Ordered: WENDY Comments: Collected by Nurse/Unit? Y/N N Procedure Result Verified Site Microbiology TARIQ CULTURE BLOOD Preliminary 10/15/16-1810 NO GROWTH AFTER 24 HOURS X-Rays, CTs and MRIs MRI WRIST IMPRESSION: 1. Findings highly suspicious for carpal septic arthritis, with multifocal osteomyelitis of the carpal bones, distal radius and ulna, second through fourth proximal metacarpals. 2. Findings suspicious for full thickness tear of the scapholunate ligament. 3. Nonvisualization of the triangular fibrocartilage may be secondary to chronic extensive tear, remote surgical resection, or destruction from septic arthritis. 4. Flexor carpi radialis moderate tenosynovitis. 5. Subluxation of the extensor carpi ulnaris tendon with respect to the distal ulna. Dictated by: Javid Ordonez M.D. on 10/07/2016 at 14:37 Assessment & Plan 71-year-old gentleman with past medical history of alcoholic cirrhosis, history of GI bleeding, history of venous stasis ulcer was admitted for elective right wrist incision and drainage. # Wrist wrist septic arthritis and osteomyelitis of multiple bones now s/p I&D on 10/14/16,poa,subacute -Patient is s/p I&D and copious amount of pus drained, -ID consulted by ortho -Patient is started on Zosyn and daptomycin by ID will continue pending culture results. -Continue NS at 80ml/h -We will continue pain control with dilaudid when necessary -We will check culture from wound and blood cultures pending. It appears the patient has a staph aureus infection final identification and susceptibilities are pending -MRI:multifocal osteomyelitis of the carpal bones, distal radius and ulna, second through fourth proximal metacarpals. # History of cirrhosis, chronic, stable -No stigmata of cirrhosis -No significant ascites, unclear if he still needs Lasix and spironolactone. Patient states he has been taking both. Will hold off for now #Thrombocytopenia, chronic, stable -We will monitor daily CBCs #Anemia, chronic, stable -Monitor daily CBCs # History of alcohol abuse -Patient states he quit drinking 2 1/2 yrs ago when he was diagnosed with cirrhosis. reportedly stated he continues to drink. Will need to verify information. -Watch out for withdrawal -We will add thiamine and folic acid and multivitamin to patient's daily regimen. Full code, verified with patient Disposition: Patient will require long-term IV antibiotics which will depend on culture results and need for further debridement. Pain Evaluation: Adequate Pain Control VTE Prophylaxis: Sub-Q Heparin (Unfractionated) Resuscitation Status: CPR: Attempt Resuscitation LoriBarney MD Oct 15, 2016 23:13
[2016-10-16] MEDS: Heparin 5,000 Unit/mL Inj SUBQ SCH ×3 (01:20→17:27)
[2016-10-16] MEDS: oxyCODONE-Acetamin 5-325 mg Tablet PO PRN ×2 (01:20→18:10)
[2016-10-16] MEDS ORDERED: 0.9% Sodium Chloride 250 ML ONE ×2 (02:10→21:59)
[2016-10-16] MEDS: DAPTOmycin Inj 500 MG in 0.9% Sodium Chloride 50 ML IV SCH (02:18)
--- NOTE | 2016-10-16 04:08 | NUR ---
Pain pt has reported pain in his R hand 4-5/10 in intensity. he manjarrez taken 1-2 Percocet for pain and reports good pain control on oral medication. dressing is C/D/I
[2016-10-16 05:30] VITALS: BP 158/78; PULSE 75; RESP 20; O2SAT 98
[2016-10-16 05:53] LABS: BASOPHILS % (AUTO) 0.3 % (0-3); EOSINOPHILS % (AUTO) 1.9 % (0-5); MONOCYTES % (AUTO) 9.1 % (4-12); Mean Corpuscular Hemoglobin 29.9 pg (27.0-35.0); Mean Corpuscular Volume 89.8 fL (81-100); NEUTROPHILS % (AUTO) 64.9 % (40-74); Platelet Count 65 bil/L (150-400)
[2016-10-16 06:04] LABS: Magnesium 1.8 mg/dL (1.6-2.6)
[2016-10-16 07:16] LABS: ERYTHROCYTE SEDIMENTATION RATE 54 mm/hr (0-30)
[2016-10-16 09:09] VITALS: BP 136/56; PULSE 78; RESP 17; O2SAT 98
--- NOTE | 2016-10-16 10:59 | DRSVH ---
PROCEDURE: X-RAY PICC LINE PLACEMENT BY NURSE ([id number]) INDICATIONS: POOR VENOUS ACCESS COMPARISON: None. FINDINGS: PICC was placed by the intravenous therapy team from the left side. Fluoroscopic spot jamaal m demonstrates tip of PICC projected over the superior vena cava at the cavoatrial junction. IMPRESSION: Tip of PICC is projected over the cavoatrial junction. Dictated by: Quita Quintanilla M.D. on 10/16/2016 at 10:57 Approved by: Quita Quintanilla M.D. on 10/16/2016 at 10:57
--- NOTE | 2016-10-16 11:22 | PCM.PNORTH ---
Subjective Date of Service: Oct 16, 2016 Visit Information: Reason for Visit Right Wrist Swelling And Stiffness Surgery/Surgery Date Post-Op Day # 2 Date of Admission: Oct 14, 2016 at 15:45 Hospital Day # Subjective Patient states he is about to get a PICC line placed. He denies any increased pain or discomfort. He concerns at this time. Postop General: No Complaints, No Shortness of Breath, No Chest Pain Pain Management: PO Objective Exam Objective Patient sitting in wheelchair prior to transport Vital Signs and I/O Vital Sign - Last Date Time Temp Pulse Resp B/P Pulse Ox O2 Delivery O2 Flow Rate FiO2 10/16/16 09:09 36.3 78 17 136/56 98 Room Air 10/15/16 00:17 2.00 Intake and Output 10/15/16 10/15/16 10/16/16 Cumulative From/Thru 15:00 23:00 07:00 10/13/16 10:17 - 10/16/16 06:49 Intake Total 736 ml 465 ml 3052 ml Output Total 640 ml 650 ml 3440 ml Balance 96 ml -185 ml -388 ml Intake Oral 736 ml 400 ml 1636 ml IV Total 65 ml 1416 ml Output Urine Total 640 ml 650 ml 3440 ml # Voids 1 2 3 # Bowel Movements 1 1 Lab & Micro Results Laboratory Tests Test 10/16/16 05:21 White Blood Count 5.7th/mm3 (3.8-10.1) Red Blood Count 3.64mil/mm3 (4.40-5.80) Hemoglobin 10.9g/dL (13.8-17.2) Hematocrit 32.7% (41.0-50.0) Mean Corpuscular Volume 89.8fL (81-100) Mean Corpuscular Hemoglobin 29.9pg (27.0-35.0) Mean Corpuscular Hemoglobin Concent 33.3% (32.0-37.0) Red Cell Distribution Width 16.1% (12.3-15.4) Platelet Count 65bil/L (150-400) Neutrophils (%) (Auto) 64.9% (40-74) Lymphocytes (%) (Auto) 23.6% (14-46) Monocytes (%) (Auto) 9.1% (4-12) Eosinophils (%) (Auto) 1.9% (0-5) Basophils (%) (Auto) 0.3% (0-3) Erythrocyte Sedimentation Rate 54mm/hr (0-30) Sodium Level 137mEq/L (134-144) Potassium Level 4.1mEq/L (3.5-5.2) Chloride Level 104mEq/L (97-108) Carbon Dioxide Level 22mmol/L (18-29) Blood Urea Nitrogen 16mg/dL (8-27) Creatinine 0.51mg/dL (0.76-1.27) Estimat Glomerular Filtration Rate 171mL/min (>59) Glucose Level 119mg/dL (60-99) Calcium Level 8.9mg/dL (8.5-10.1) Magnesium Level 1.8mg/dL (1.6-2.6) Total Bilirubin 0.8mg/dL (0.0-1.2) Aspartate Amino Transf (AST/SGOT) 19U/L (0-50) Alanine Aminotransferase (ALT/SGPT) 7U/L (0-44) Alkaline Phosphatase 74U/L (25-160) Ammonia 130ug/dL (18-53) C-Reactive Protein 3.4mg/dL (0.0-0.5) Total Protein 7.0g/dL (6.4-8.4) Albumin 3.2g/dL (3.4-5.0) Microbiology 10/14/16 Blood Culture - Preliminary, Resulted NO GROWTH AFTER 24 HOURS 10/14/16 Fungal Culture, Received Pending Result Diagram: 10/16/1652010/16/16520 General Appearance: Alert, Oriented X3, Cooperative, No Acute Distress Extremities: Distal Pulses Palpable, Tenderness/Swelling Noted (Fingers/hand/ wrist are moderately swollen) Postop Sensory Motor: Distal Motor Intact, Movement in Fingers, Distal Sensation Intact, NVI Distally SURGICAL WOUND : Drain Location Body Site: Wrist Incision General Appearance: No Direct Observation Assessment & Plan Impression POD#2 left wrist incision and drainage with Dr. Arora Problems: Plan Cultures came back positive for MRSA. Patient is currently being transported to get a PICC line placed. Dr. Garcia is currently out of town but has left detailed instructions on for antibiotic therapy and follow-up with ID. Weightbearing: No strenuous activity with the left hand/wrist. Continue to work on ROM with OT. Wound care: Reinforce as needed Analgesia: Oral pain management preferred. Discharge plan: Discharge when medically stable, will defer to hospitalist team. Ortho is very appreciative of hospitalist team's medical management of this patient as well as Dr. Drew's recommendations. Follow-up plan: In 2 weeks at [facility] with Dr. Arora in 2 weeks, no xrays VTE Prophylaxis: Sub-Q Heparin (Unfractionated) Resuscitation Status: CPR: Attempt Resuscitation Elaina Archer PA-C Oct 16, 2016 11:07
[2016-10-16] MEDS: Lactulose 20 Gm/30 mL 30 mL Syrup PO SCH ×2 (11:53→20:25)
--- NOTE | 2016-10-16 14:31 | NUR ---
ACTIVITY Patient reports pain in R wrist is 1-2/10 and tolerable, hurts more when accidentally banged wrist against chair. Independent in room, good at maintaining NWB to R hand. Has been trying to do ROM exercises with wrist. PICC line placed today in LUE in anticipation of 6 wk IV antibiotic course.
[2016-10-16 15:07] VITALS: BP 132/60; PULSE 83; RESP 17; O2SAT 98
--- NOTE | 2016-10-16 16:06 | NUR ---
SHAKA signed. URIEL Will
--- NOTE | 2016-10-16 16:17 | NUR ---
Social Work-initial assessment: Data:See initial assessment. Pt is a 71 y/o male who was admitted on 10/14/16 for right wrist swelling per H&P. Pt's insurance is [employer] and PCP is Tata Doll MD. EMR Reviewed. Pt's readmission score is 2. SW met with pt and granddaughter Veronika [phone] at bedside to discuss discharge planning, SW role explained. Pt is alert and oriented x3. Pt resides at home with his where he remains independent with ADLs. Pt drives and does cane and fww at baseline. Pt has history with services with [facility] and has been to [facility] in the past. Pt has no intermediate care insurance or VA benefits. SW discussed DPOA/ advanced directive, pt states he has the forms, but needs to complete them. PT and OT have cleared pt for home no needs. MD anticipates pt will need IV abx at discharge. PICC line placed today. SW discussed with pt and granddaughter, Infusion choice list provided. Granddaughter is unsure if this is something that pt will be able to manage at home, but would like company to check benefit. Granddaughter able to help out, but works during the day. SW unsure how often infusion will be, SW to check with MD. Pt and granddaughter have no agency preference, SW referred to rotating calendar and made referral to [facility]. SW called answering service and made referral, access given. [facility] to check benefit and get back with SW. SW to follow up with pt and family. Pt's daughter to provide transport home. SW provided phone number and plan on white board in room. SW will continue to follow. Assessment:Pt who will need IV abx at discharge. Plan:Pt to likely discharge home when medically stable. Referral made to [facility] for home IV abx, [facility] to check pt's insurance benefit and get back to SW. ISA will continue to follow. URIEL Will Addendum: 10/16/16 at 1627 by ALISON SOLIS Amended: Links added.
--- NOTE | 2016-10-16 16:32 | NUR ---
Infusion Choice list provided. URIEL Will
--- NOTE | 2016-10-16 18:55 | PCM.PNMED ---
Subjective Date of Service Oct 16, 2016 Subjective Patient has no new complaints. He has been ambulating in hallway with physical therapy today. The patient's right wrist pain is minimal postoperatively. Exam Vital Signs Vital Sign - Last Date Time Temp Pulse Resp B/P Pulse Ox O2 Delivery O2 Flow Rate FiO2 10/16/16 15:07 36.5 83 17 132/60 98 Room Air 10/15/16 00:17 2.00 Intake and Output 10/15/16 10/15/16 10/16/16 Cumulative From/Thru 15:00 23:00 07:00 10/13/16 10:17 - 10/16/16 06:49 Intake Total 736 ml 465 ml 3052 ml Output Total 640 ml 650 ml 3440 ml Balance 96 ml -185 ml -388 ml Intake Oral 736 ml 400 ml 1636 ml IV Total 65 ml 1416 ml Output Urine Total 640 ml 650 ml 3440 ml # Voids 1 2 3 # Bowel Movements 1 1 Exam General: Patient is in no apparent distress lying supine in bed with his head elevated approximately 45. HEENT: Head is atraumatic and normocephalic. Eyes: Pupils are equally round and reactive to light and accommodation. Extraocular muscles are intact. Sclera are white, anicteric. Subconjunctival mucosa is pink. Ears and nose are unremarkable. Oropharynx: There is no mucosal lesions, there is no thrush, there is no pharyngitis. Neck: Is supple, there are no nodes, or masses or tenderness. Chest: Is clear to auscultation and percussion. There are no rales, rhonchi, wheezes or rubs. Heart: Rate, rhythm is regular. There is no murmur, rub or gallop. Abdomen: Good bowel sounds are present. Abdomen is soft, nontender, no organomegaly or masses were appreciated. Extremities: The right upper extremity wrist area is bandaged in a postoperative wrap. The dressing remains clean dry and intact. There is no swelling or erythema of the hand or digits of that extremity. Patient has support hose on both lower extremities which are significant for 1+ edema with no asymmetry. Neurologic: There are no focal neurological deficits. Cranial nerves II through XII are intact. There are no sensory or motor deficits. Psychiatric: Patients mood is calm and shows no sign of agitation. Genital: Deferred Rectal: Deferred Lab and Diagnostics Result Diagram: 10/16/1652010/16/16 0521 Microbiology Name: BON CUNHA Age/Sex: 71/M Attend Dr: Norberto Arora DO Acct: [id number] Unit: [id number] Status: [place] [facility] [place] Disch: Specimen: [id number] Collected: 10/14/16-UNK Status: RES Req#: [id number] Received: 10/14/16-1354 Source: WRIST Sp Desc : Subm Dr: Norberto Arora DO Ordered: CS & ANAC & GS Comments: Collected by Nurse/Unit? Y/N Y Comment: RIGHT WRIST DEEP Procedure Result Verified Site Microbiology TARIQ GS (GRAM STAIN) Final 10/14/16-1429 GRAM STAIN RESULT RARE POLYS NO ORGANISMS SEEN TARIQ CULT AEROBIC Preliminary 10/16/16 Organism 1 METHICILLIN RESISTANT S AUREUS COLONY COUNT/QUANTITY LIGHT GROWTH METHICILLIN RESISTANT S AUREUS For sensitivities see culture done on same day ANAEROBIC CULTURE Preliminary 10/16/16 No ANAEROBES recovered at 48 hours hold for futher observation Name: BON CUNHA Age/Sex: 71/M Attend Dr: Norberto Arora DO Acct: [id number] Unit: [id number] Status: ADM [place] [facility] [place] Re10/14/16 Disch: Specimen: [id number] Collected: 10/14/16-UNK Status: COMP Req#: [id number] Received: 10/14/16 Source: [facility] Sp Desc : Subm Dr: Norberto Arora DO Ordered: CS & GS Comments: Collected by Nurse/Unit? Y/N Y Comment: RIGHT WRIST SUPERFICIAL Procedure Result Verified Site Microbiology TARIQ GS (GRAM STAIN) Final 10/14/16-1430 GRAM STAIN RESULT FEW POLYS NO ORGANISMS SEEN TARIQ CULT AEROBIC Final 10/16/16-0657 Organism 1 METHICILLIN RESISTANT S AUREUS COLONY COUNT/QUANTITY MODERATE GROWTH Organism 2 WITH NORMAL COLONY COUNT/QUANTITY LIGHT GROWTH Resistance of staphylococci to OXACILLIN predicts resistance to (a) other beta-lactamase stable penicillins such as cloxacillin and dicloxacillin (b)B-lactam/B-lactamase inhibitor combinations such as augmentin and unasyn, (c)cephems such as Cephalexim and cefuroxime and (d)carbapenems such as imipenem and meropenem.(CLSI 2011 M100 S21) 1. METHICILLIN RESISTANT S AUREUS M.I.C Interp --------- ------ * CEFAZOLIN R * CLINDAMYCIN <=0.25 S * ERYTHROMYCIN >=8 R * LINEZOLID 2 S * OXACILLIN TARIQ >=4 R * RIFAMPIN <=0.5 S * TETRACYCLINE <=1 S * TRIMETHOPRIM/SULFAMETHOXAZOLE <=10 S * VANCOMYCIN 1 S X-Rays, CTs and MRIs MRI WRIST IMPRESSION: 1. Findings highly suspicious for carpal septic arthritis, with multifocal osteomyelitis of the carpal bones, distal radius and ulna, second through fourth proximal metacarpals. 2. Findings suspicious for full thickness tear of the scapholunate ligament. 3. Nonvisualization of the triangular fibrocartilage may be secondary to chronic extensive tear, remote surgical resection, or destruction from septic arthritis. 4. Flexor carpi radialis moderate tenosynovitis. 5. Subluxation of the extensor carpi ulnaris tendon with respect to the distal ulna. Dictated by: Javid Ordonez M.D. on 10/07/2016 at 14:37 Assessment & Plan 71-year-old gentleman with past medical history of alcoholic cirrhosis, history of GI bleeding, history of venous stasis ulcer was admitted for elective right wrist incision and drainage. 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 -Patient is s/p I&D and copious amount of pus drained, -ID consulted by ortho -Patient is started on Zosyn and daptomycin by ID will continue pending culture results. -Continue NS at 80ml/h -We will continue pain control with dilaudid when necessary -We will check final culture result. -MRI:multifocal osteomyelitis of the carpal bones, distal radius and ulna, second through fourth proximal metacarpals. # History of cirrhosis, chronic, stable -No stigmata of cirrhosis -No significant ascites, unclear if he still needs Lasix and spironolactone. Patient states he has been taking both. Will hold off for now -We will start lactulose 15 mL twice a day #Thrombocytopenia, chronic, on decline? -We will monitor daily CBCs #Anemia, chronic, stable -Monitor daily CBCs # History of alcohol abuse -Patient states he quit drinking 2 1/2 yrs ago when he was diagnosed with cirrhosis. reportedly stated he continues to drink. Will need to verify information. -Watch out for withdrawal -We will add thiamine and folic acid and multivitamin to patient's daily regimen. Full code, verified with patient Disposition: Patient will require long-term IV antibiotics which will depend on culture results and need for further debridement. Pain Evaluation: Adequate Pain Control VTE Prophylaxis: Sub-Q Heparin (Unfractionated) VTE Mechanical Devices: Anti-Embolic stockings Resuscitation Status: CPR: Attempt Resuscitation Barney Sandoval MD Oct 16, 2016 18:55
[2016-10-16 20:28] VITALS: BP 159/65; PULSE 86; RESP 20; O2SAT 94
[2016-10-16] MEDS: Multivit-Miner-Folic Acid-Iron Tablet PO SCH (22:10)
[2016-10-17] MEDS: DAPTOmycin Inj 500 MG in 0.9% Sodium Chloride 50 ML IV SCH (00:51)
[2016-10-17] MEDS: Heparin 5,000 Unit/mL Inj SUBQ SCH ×3 (01:02→17:34)
[2016-10-17 04:56] LABS: BASOPHILS % (AUTO) 0.5 % (0-3); EOSINOPHILS % (AUTO) 4.7 % (0-5); MONOCYTES % (AUTO) 13.9 % (4-12); Mean Corpuscular Hemoglobin 29.4 pg (27.0-35.0); Mean Corpuscular Volume 90.2 fL (81-100); NEUTROPHILS % (AUTO) 48.2 % (40-74); Platelet Count 116 bil/L (150-400)
[2016-10-17 05:08] VITALS: BP 153/76; PULSE 68; RESP 14; O2SAT 96
[2016-10-17 05:18] LABS: Magnesium 1.6 mg/dL (1.6-2.6)
[2016-10-17] MEDS: Multivit-Miner-Folic Acid-Iron Tablet PO SCH (07:49)
[2016-10-17] MEDS: oxyCODONE-Acetamin 5-325 mg Tablet PO PRN ×2 (07:49→21:02)
[2016-10-17] MEDS: Lactulose 20 Gm/30 mL 30 mL Syrup PO SCH ×2 (08:56→20:49)
--- NOTE | 2016-10-17 09:17 | NUR ---
Social Work-continued d/c planning: Data:EMR Reviewed. Pt is on day 3 of hospitalization for right wrist swelling per H&P. Pt is not medically stable anticipate several more days. PT and OT recommending home no needs. MD anticipates pt will need IV abx at discharge. PICC Line placed yesterday. ISA followed up with Leslee from [employer] this morning who states that liaison Blake Martin will call SW tomorrow and provide information regarding cost,etc. Family would like to know information prior to making a decision. SW will continue to follow. Assessment:Pt who will need IV abx at discharge. Plan:Pt to likely discharge home when medically stable. [employer] to follow up with SW tomorrow regarding IV abx. SW will continue to follow. URIEL Will Addendum: 10/17/16 at 1220 by NILDA BREWER SS ISA spoke with Mary DREW who informs ISA that pt's 2 week post-op appointment is already scheduled for 10/[address] Arora. Cecilia Brewer [employer]
--- NOTE | 2016-10-17 12:04 | PCM.PNORTH ---
Subjective Date of Service: Oct 17, 2016 Visit Information: Reason for Visit Right Wrist Swelling And Stiffness Surgery/Surgery Date Post-Op Day # 3 Date of Admission: Oct 14, 2016 at 15:45 Hospital Day # Subjective Patient states he is feeling less pain than yesterday. He states his hand is still swollen but it is not bothering him. No concerns Postop General: No Complaints, No Shortness of Breath, No Chest Pain, Good Appetite Pain Management: PO Objective Exam Objective Patient sitting up in chair Vital Signs and I/O Vital Sign - Last Date Time Temp Pulse Resp B/P Pulse Ox O2 Delivery O2 Flow Rate FiO2 10/17/16 05:08 36.3 68 14 153/76 96 Room Air 10/15/16 00:17 2.00 Intake and Output 10/16/16 10/16/16 10/17/16 Cumulative From/Thru 14:59 22:59 06:59 10/13/16 10:17 - 10/17/16 06:26 Intake Total 836 ml 425 ml 4313 ml Output Total 400 ml 450 ml 4290 ml Balance 436 ml -25 ml 23 ml Intake Oral 836 ml 300 ml 2772 ml IV Total 125 ml 1541 ml Output Urine Total 400 ml 450 ml 4290 ml # Voids 1 4 # Bowel Movements 1 0 2 Lab & Micro Results Laboratory Tests Test 10/17/16 04:35 White Blood Count 4.0th/mm3 (3.8-10.1) Red Blood Count 3.37mil/mm3 (4.40-5.80) Hemoglobin 9.9g/dL (13.8-17.2) Hematocrit 30.4% (41.0-50.0) Mean Corpuscular Volume 90.2fL (81-100) Mean Corpuscular Hemoglobin 29.4pg (27.0-35.0) Mean Corpuscular Hemoglobin Concent 32.6% (32.0-37.0) Red Cell Distribution Width 16.1% (12.3-15.4) Platelet Count 116bil/L (150-400) Neutrophils (%) (Auto) 48.2% (40-74) Lymphocytes (%) (Auto) 32.5% (14-46) Monocytes (%) (Auto) 13.9% (4-12) Eosinophils (%) (Auto) 4.7% (0-5) Basophils (%) (Auto) 0.5% (0-3) Sodium Level 136mEq/L (134-144) Potassium Level 3.7mEq/L (3.5-5.2) Chloride Level 101mEq/L (97-108) Carbon Dioxide Level 23mmol/L (18-29) Blood Urea Nitrogen 11mg/dL (8-27) Creatinine 0.44mg/dL (0.76-1.27) Estimat Glomerular Filtration Rate 202mL/min (>59) Glucose Level 90mg/dL (60-99) Calcium Level 8.6mg/dL (8.5-10.1) Magnesium Level 1.6mg/dL (1.6-2.6) Total Bilirubin 0.7mg/dL (0.0-1.2) Aspartate Amino Transf (AST/SGOT) 20U/L (0-50) Alanine Aminotransferase (ALT/SGPT) 8U/L (0-44) Alkaline Phosphatase 66U/L (25-160) Total Protein 6.4g/dL (6.4-8.4) Albumin 2.9g/dL (3.4-5.0) Microbiology 10/14/16 Blood Culture - Preliminary, Resulted No growth at 2 days; culture examined... 10/14/16 Fungal Culture, Received Pending Result Diagram: 10/17/165 10/17/16 0435 General Appearance: Alert, Oriented X3, Cooperative, No Acute Distress Extremities: Distal Pulses Palpable, No Compartment Syndrom Noted, Tenderness/ Swelling Noted (Moderate swelling in fingers and hand) Postop Sensory Motor: Distal Motor Intact, Movement in Fingers, Distal Sensation Intact, NVI Distally SURGICAL WOUND : Wound Location/Description Gauze and soft roll dressing clean, dry and intact. Drain Location Body Site: Wrist Incision General Appearance: No Direct Observation Assessment & Plan Impression POD#3 I&D of the right wrist Problems: Plan A PICC line has been placed. Dr. Drew is currently out of town but has left detailed instructions on for antibiotic therapy and follow-up with ID. Weightbearing: No strenuous activity with the left hand/wrist. Continue to work on ROM with OT. Wound care: Change if saturated, probable change before discharge. Analgesia: Oral pain management preferred. Discharge plan: Discharge when medically stable, will defer to hospitalist team. Ortho is very appreciative of hospitalist team's medical management of this patient as well as Dr. Drew's recommendations. Follow-up plan: In 2 weeks at [facility] with Dr. Arora in 2 weeks, no xrays VTE Prophylaxis: Sub-Q Heparin (Unfractionated) Resuscitation Status: CPR: Attempt Resuscitation Elaina Archer PA-C Oct 17, 2016 12:04
[2016-10-17 13:07] VITALS: BP 147/88; PULSE 75; RESP 17; O2SAT 98
[2016-10-17] MEDS: Vancomycin Dose per Pharmacist XX SCH (14:35)
--- NOTE | 2016-10-17 14:46 | PCM.PNMED ---
Subjective Date of Service Oct 17, 2016 Subjective Follow-up follow right upper extremity osteomyelitis, septic arthritis. Patient seen and examined at bedside, plan of care discussed with nursing staff. He is afebrile, no new complaint, no significant overnight events. Exam Vital Signs Vital Sign - Last Date Time Temp Pulse Resp B/P Pulse Ox O2 Delivery O2 Flow Rate FiO2 10/17/16 13:07 36.5 75 17 147/88 98 Room Air 10/15/16 00:17 2.00 Intake and Output 10/16/16 10/16/16 10/17/16 Cumulative From/Thru 15:00 23:00 07:00 10/13/16 10:17 - 10/17/16 06:26 Intake Total 836 ml 425 ml 4313 ml Output Total 400 ml 450 ml 4290 ml Balance 436 ml -25 ml 23 ml Intake Oral 836 ml 300 ml 2772 ml IV Total 125 ml 1541 ml Output Urine Total 400 ml 450 ml 4290 ml # Voids 1 4 # Bowel Movements 1 0 2 Exam General: Patient in bed comfortably, not in distress, pleasant Neck: Supple no JVD, no carotid. Trachea is midline Chest respiratory effort Lung: Clear to auscultation, no wheezing. Heart: S1-S2 regular rhythm no gallop or murmur no rales Abdomen: soft nontender nondistended, audible bowel sounds all quadrants Extremity: Right hand with dressing in place. Fingers are swollen. No cyanosis Neuro: Grossly nonfocal Lab and Diagnostics Result Diagram: 10/17/16 0435 10/17/16 0435 Microbiology Name: BON CUNHA Age/Sex: 71/M Attend Dr: Norberto Arora DO Acct: [id number] Unit: [id number] Status: [place] [facility] [place]10[place] Disch: Specimen: [id number] Collected: 10/14/16-UNK Status: RES Req#: [id number] Received: 10/14/16 Source: WRIST Sp Desc : Subm Dr: Norberto Arora DO Ordered: CS & ANAC & GS Comments: Collected by Nurse/Unit? Y/N Y Comment: RIGHT WRIST DEEP Procedure Result Verified Site Microbiology TARIQ GS (GRAM STAIN) Final 10/14/16 GRAM STAIN RESULT RARE POLYS NO ORGANISMS SEEN TARIQ CULT AEROBIC Preliminary 10/16/16 Organism 1 METHICILLIN RESISTANT S AUREUS COLONY COUNT/QUANTITY LIGHT GROWTH METHICILLIN RESISTANT S AUREUS For sensitivities see culture done on same day ANAEROBIC CULTURE Preliminary 10/16/16 No ANAEROBES recovered at 48 hours hold for futher observation Name: BON CUNHA Age/Sex: 71/M Attend Dr: Norberto Arora DO Acct: [id number] Unit: [id number] Status: ADM [place] [facility] [place] Re10/14/[place] Disch: Specimen: [id number] Collected: 10/14/16-UNK Status: COMP Req#: [id number] Received: 10/14/16-[facility] Source: [facility]RIST Sp Desc : Subm Dr: Norberto Arora DO Ordered: CS & GS Comments: Collected by Nurse/Unit? Y/N Y Comment: RIGHT WRIST SUPERFICIAL Procedure Result Verified Site Microbiology TARIQ GS (GRAM STAIN) Final 10/14/16-1430 GRAM STAIN RESULT FEW POLYS NO ORGANISMS SEEN TARIQ CULT AEROBIC Final 10/16/16-0657 Organism 1 METHICILLIN RESISTANT S AUREUS COLONY COUNT/QUANTITY MODERATE GROWTH Organism 2 WITH NORMAL COLONY COUNT/QUANTITY LIGHT GROWTH Resistance of staphylococci to OXACILLIN predicts resistance to (a) other beta-lactamase stable penicillins such as cloxacillin and dicloxacillin (b)B-lactam/B-lactamase inhibitor combinations such as augmentin and unasyn, (c)cephems such as Cephalexim and cefuroxime and (d)carbapenems such as imipenem and meropenem.(CLSI 2010 M100 S21) 1. METHICILLIN RESISTANT S AUREUS M.I.C Interp --------- ------ * CEFAZOLIN R * CLINDAMYCIN <=0.25 S * ERYTHROMYCIN >=8 R * LINEZOLID 2 S * OXACILLIN TARIQ >=4 R * RIFAMPIN <=0.5 S * TETRACYCLINE <=1 S * TRIMETHOPRIM/SULFAMETHOXAZOLE <=10 S * VANCOMYCIN 1 S X-Rays, CTs and MRIs MRI WRIST IMPRESSION: 1. Findings highly suspicious for carpal septic arthritis, with multifocal osteomyelitis of the carpal bones, distal radius and ulna, second through fourth proximal metacarpals. 2. Findings suspicious for full thickness tear of the scapholunate ligament. 3. Nonvisualization of the triangular fibrocartilage may be secondary to chronic extensive tear, remote surgical resection, or destruction from septic arthritis. 4. Flexor carpi radialis moderate tenosynovitis. 5. Subluxation of the extensor carpi ulnaris tendon with respect to the distal ulna. Dictated by: Javid Ordonez M.D. on 10/07/2016 at 14:37 Assessment & Plan 71-year-old gentleman with past medical history of alcoholic cirrhosis, history of GI bleeding, history of venous stasis ulcer was admitted for elective right wrist incision and drainage. # Wrist wrist septic arthritis and osteomyelitis of multiple bones now s/p I&D on 10/14/16, secondary to MRSA and other "normal " present on admission, subacute -Culture grew MRSA. Blood culture 2 is negative -Patient is s/p I&D and copious amount of pus drained, seen by infectious disease -Initially started on Zosyn and daptomycin by ID and now switched to vancomycin . My intention is to discharge this patient on vancomycin and he will follow- up as outpatient with infectious disease on October 27 as outpatient. -Discontinue IV fluid. # History of cirrhosis, chronic, stable -No stigmata of cirrhosis. Patient stated this to drinking long time ago #Thrombocytopenia, chronic likely secondary to alcoholism and liver disease #Anemia, chronic, stable # History of alcohol abuse -Patient states he quit drinking 2 1/2 yrs ago when he was diagnosed with cirrhosis. reportedly stated he continues to drink. -No withdrawal symptom to date. en. Patient is overall stable and doing better. Culture and sensitivity report reviewed. Antibiotic adjusted Patient anticipated within 24 hours since her management is made for outpatient IV antibiotics. Orthopedist follow-up recommendation noted Pain Evaluation: Adequate Pain Control VTE Prophylaxis: Sub-Q Heparin (Unfractionated) VTE Mechanical Devices: Anti-Embolic stockings Resuscitation Status: CPR: Attempt Resuscitation Time spent 35 minutes Bon Oliva MD Oct 17, 2016 14:46
[2016-10-17 15:45] VITALS: BP 155/87; PULSE 80; RESP 17; O2SAT 98
[2016-10-17] MEDS ORDERED: Vancomycin Inj 1,500 MG in 0.9% Sodium Chloride 500 ML IV ONE (16:30)
--- NOTE | 2016-10-17 17:37 | PCM.CONPHA ---
Subjective Requesting Provider: Thiago Oliva MD Right wrist pain and swelling/2 month Status post incision and drainage of right wrist today Reason for Pharmacy Consult: Vancomycin Dosing Assessment/Plan Assessment/Plan Vancomycin for patient with MRSA osteomyelitis of multiple bones: Ht=66 inches Wt=83K Serum Cr=0.44 (0.8 used for calculations) Creatinine Clearance>100ml/min Vancomycin 1500mg x 1 load then 1250mg IV q 12 hours should produce a trough of approximately 18, within the goal range of 15-20 for osteomyelitis ( calculations confirmed in [facility]). A trough has been ordered for 0430 . A pharmacist will evaluate this and adjust dosing as necessary. Princess Muir [facility] Oct 17, 2016 17:37
--- NOTE | 2016-10-17 18:42 | NUR ---
POST-OP PROGRESS Percocet 2 tabs PO has been effective for pain control. Tolerating liquids PO and his diet well. Denies nausea. No emesis noted. Denies SOB. Patient has been able to ambulate in the room with SBA and a cane. Tolerated activity well. PICC 1 lumen has brisk blood draw and flushes without any problems. Dressing is CDI. Contact precautions continues.
[2016-10-17 20:00] VITALS: BP 187/104; PULSE 82; RESP 17; O2SAT 97
[2016-10-17 20:01] VITALS: BP 151/85
[2016-10-18] MEDS: Heparin 5,000 Unit/mL Inj SUBQ SCH ×3 (01:34→17:17)
[2016-10-18] MEDS: oxyCODONE-Acetamin 5-325 mg Tablet PO PRN ×2 (01:35→21:09)
--- NOTE | 2016-10-18 03:56 | NUR ---
Pain Wrist pain is adequately controlled with prn Percocet, arm elevated on pillows. PICC line patent with brisk blood return. IV antibiotics in use. Hourly rounding ongoing.
[2016-10-18] MEDS ORDERED: 0.9% Sodium Chloride 250 ML ONE (05:40)
[2016-10-18 05:45] VITALS: BP 125/67; PULSE 70; RESP 17; O2SAT 95
[2016-10-18] MEDS: Vancomycin Inj 1,250 MG in 0.9% Sodium Chloride 250 ML IV SCH ×2 (05:50→17:17)
[2016-10-18 06:56] LABS: Magnesium 1.6 mg/dL (1.6-2.6)
[2016-10-18 07:03] LABS: BASOPHILS % (AUTO) 0.7 % (0-3); EOSINOPHILS % (AUTO) 6.7 % (0-5); MONOCYTES % (AUTO) 15.4 % (4-12); Mean Corpuscular Hemoglobin 29.5 pg (27.0-35.0); Mean Corpuscular Volume 90.6 fL (81-100); NEUTROPHILS % (AUTO) 47.3 % (40-74)
[2016-10-18] MEDS: Vancomycin Dose per Pharmacist XX SCH (07:39)
[2016-10-18] MEDS: Multivit-Miner-Folic Acid-Iron Tablet PO SCH (07:39)
[2016-10-18] MEDS: Lactulose 20 Gm/30 mL 30 mL Syrup PO SCH ×2 (08:38→21:09)
--- NOTE | 2016-10-18 10:48 | PCM.PNORTH ---
Subjective Date of Service: Oct 18, 2016 Visit Information: Reason for Visit Right Wrist Swelling And Stiffness Surgery/Surgery Date Right wrist I&D 10/14/2016 Post-Op Day # 4 Date of Admission: Oct 14, 2016 at 15:45 Hospital Day # Subjective He reports swelling is improving. Pain is controlled with Percocet. Postop General: No Complaints, No Shortness of Breath, No Chest Pain, Good Appetite Pain Management: PO Objective Exam Objective Patient is seen sitting up in chair with arm elevated on pillows.He is alert, oriented and cooperative to exam. Afebrile. Right wrist: Dressing is removed. Sutures are intact. There is a small amount of dried serous and sanguinous drainage on the bandage. The wound is cleansed with hydrogen peroxide and dressed with xeroform, 4x4 gauze, miguel a and stockinette. There was a drop or two of sanguinous drainage from the mid-portion of the wound. No purulence seen. There is swelling of the fingers. Sensation is intact to light touch. Radial pulse is 2+. Fingertips are pink and warm. Vital Signs and I/O Vital Sign - Last Date Time Temp Pulse Resp B/P Pulse Ox O2 Delivery O2 Flow Rate FiO2 10/18/16 05:45 36.4 70 17 125/67 95 Room Air 10/15/16 00:17 2.00 Intake and Output 10/17/16 10/17/16 10/18/16 Cumulative From/Thru 15:00 23:00 07:00 10/13/16 10:17 - 10/18/16 05:44 Intake Total 879 ml 450 ml 5642 ml Output Total 800 ml 750 ml 5840 ml Balance 79 ml -300 ml -198 ml Intake Oral 822 ml 450 ml 4044 ml IV Total 57 ml 1598 ml Output Urine Total 800 ml 750 ml 5840 ml # Voids 4 # Bowel Movements 0 2 Lab & Micro Results Laboratory Tests Test 10/18/16 05:45 10/18/16 08:46 White Blood Count 2.9th/mm3 (3.8-10.1) Red Blood Count 3.93mil/mm3 (4.40-5.80) Hemoglobin 11.6g/dL (13.8-17.2) Hematocrit 35.6% (41.0-50.0) Mean Corpuscular Volume 90.6fL (81-100) Mean Corpuscular Hemoglobin 29.5pg (27.0-35.0) Mean Corpuscular Hemoglobin Concent 32.6% (32.0-37.0) Red Cell Distribution Width 16.3% (12.3-15.4) Platelet Count jamar/L (150-400) Neutrophils (%) (Auto) 47.3% (40-74) Lymphocytes (%) (Auto) 29.5% (14-46) Monocytes (%) (Auto) 15.4% (4-12) Eosinophils (%) (Auto) 6.7% (0-5) Basophils (%) (Auto) 0.7% (0-3) Sodium Level 139mEq/L (134-144) Potassium Level 3.8mEq/L (3.5-5.2) Chloride Level 104mEq/L (97-108) Carbon Dioxide Level 24mmol/L (18-29) Blood Urea Nitrogen 10mg/dL (8-27) Creatinine 0.53mg/dL (0.76-1.27) Estimat Glomerular Filtration Rate 163mL/min (>59) Glucose Level 100mg/dL (60-99) Calcium Level 8.4mg/dL (8.5-10.1) Magnesium Level 1.6mg/dL (1.6-2.6) Total Bilirubin 0.7mg/dL (0.0-1.2) Aspartate Amino Transf (AST/SGOT) 19U/L (0-50) Alanine Aminotransferase (ALT/SGPT) 8U/L (0-44) Alkaline Phosphatase 67U/L (25-160) Total Protein 6.1g/dL (6.4-8.4) Albumin 2.8g/dL (3.4-5.0) Ammonia 63ug/dL (18-53) Microbiology 10/14/16 Blood Culture - Preliminary, Resulted No growth at 2 days; culture examined... 10/14/16 Fungal Culture, Received Pending Result Diagram: 10/18/1645 10/18/1645 SURGICAL WOUND : Drain Location Body Site: Dressing & Drainage Status: Changed Catheters: None Assessment & Plan Impression s/p Right wrist I&D POD #4 Problems: Plan A PICC line is in place. Dr. Drew is currently out of town but has left detailed instructions on for antibiotic therapy and follow-up with ID. Weightbearing: No strenuous activity with the right hand/wrist. Continue to work on ROM with OT. Elevate right hand above the elbow to help decrease swelling Wound care: Change if saturated, change before discharge. At discharge, the dressing should be changed every 3 days with xeroform, 4x4 gauze and stockinette Analgesia: Oral pain management preferred. Patient is currently taking Percocet Discharge plan: Discharge when medically stable, will defer to hospitalist team. Ortho is very appreciative of hospitalist team's medical management of this patient as well as Dr. Drew's recommendations. Ortho will sign off for now. If any wound issues arise, please call us. Follow-up plan: In 2 weeks at [facility] with Dr. Arora, no xrays needed Pain Management: Percocet VTE Prophylaxis: Sub-Q Heparin (Unfractionated) Resuscitation Status: CPR: Attempt Resuscitation [place] PA-C Oct 18, 2016 10:48
--- NOTE | 2016-10-18 14:01 | NUR ---
Social Work-continued d/c planning: Data:EMR Reviewed. Pt is on day 4 of hospitalization for right wrist swelling per h&P. Pt is not medically stable, anticipate 1-2 days. PT and OT have cleared pt for home no needs. Pt will need IV abx at discharge, MD to check in with ID regarding this. ISA spoke with Blake from [facility] who state pt would have $150 deducible and then it would be $75 a week. SW updated pt at bedside who requested SW to call his Ana María. SW called Ana aMría to discuss. Ana María is concerned about the cost and would like to speak with [facility] regarding further information. SW explored alternative options with coming into [facility] daily or going to SNF. feels like they may be able to afford this. SW placed a call to granddaughter Veronika and left message as well. SW to follow up with pt regarding HH as well. SW will continue to follow. Assessment:Pt who will need IV abx. Plan:Pt to discharge home when medically stable via POV. [facility] to follow up with pt and today. SW has left message for granddaughter Veronika as well. SW to follow regarding HH. SW will continue to follow. URIEL Will
[2016-10-18 14:30] VITALS: BP 183/82; PULSE 71; RESP 16; O2SAT 99
--- NOTE | 2016-10-18 14:47 | PATH ---
SURGICAL PATHOLOGY Attending Physician:Norberto Arora MD CASE STATUS: Signed Out PATIENT NAME: BON CUNHA PID: [id number] : 1945 DATE COLLECTED:10/14/2016 22:27 SPECIMEN: 1: Synovium 2: Bone, Biopsy 3: Bone, Biopsy CLINICAL HISTORY: RIGHT WRIST SWELLING AND STIFFNESS 1). SYNOVIUM RIGHT WRIST 2). BONE RIGHT WRIST FROM CAPITATE 3). THIRD METACARPAL BONE BIOPSY FINAL DIAGNOSIS: 1.SYNOVIUM, RIGHT WRIST BIOPSY: SEVERE DIFFUSE CHRONIC ACTIVE INFLAMMATION WITH FIBROSIS AND NEOVASCULARIZATION. 2.BONE RIGHT WRIST FROM CAPITATE: SEVERE DIFFUSE CHRONIC ACTIVE OSTEOMYELITIS WITH AREAS OF BONE EROSION. 3.THIRD METACARPAL BONE BIOPSY: SEVERE DIFFUSE CHRONIC ACTIVE OSTEOMYELITIS WITH PROMINENT BONE DESTRUCTION AND NECROSIS. ICD10 CODE M86.68 GROSS DESCRIPTION: The specimen is received in three formalin filled containers labeled with the patient's name. 1). The specimen is sublabeled "synovium right wrist" and consists of multiple portions of tissue which aggregate to 2.0 x 1.5 x 0.6 CM. The specimen is inked blue. Multiple medical collections representative sections are submitted in cassette 1A. 2). The specimen is sublabeled "right wrist bone from capitate" and consists of 3 portions of trotter-duncan tissue and or bone which aggregate to 0.4 x 0.4 x 0.3 CM. The specimen is entirely submitted in cassette 2A. The specimen will be placed in decal for softening. 3). The specimen is sublabeled "third metacarpal bone" and consists of multiple light duncan fragments of tissue and or bone which aggregate to 0.8 x 0.5 x 0.3 CM. The specimen is entirely submitted in cassette 3A. The specimen placed in decal for softening. 10/15/2016 [facility] MICRO DESCRIPTION: See diagnosis. ICD-9 CODES: CPT CODES: 1: 16626 2: 48289, 04445 3: 98174, 98185 Electronically Signed Out Garrett Ambrocio MD [facility] [address], [place] [address] Technical component performed at [facility], [facility] [address], [place], [address]
--- NOTE | 2016-10-18 15:26 | PCM.PNMED ---
Subjective Date of Service Oct 18, 2016 Subjective Follow-up posttraumatic of the right hand, hepatic encephalopathy. Patient seen and examined at bedside. No significant overnight events. He has no new complaint. Afebrile Exam Vital Signs Vital Sign - Last Date Time Temp Pulse Resp B/P Pulse Ox O2 Delivery O2 Flow Rate FiO2 10/18/16 05:45 36.4 70 17 125/67 95 Room Air 10/15/16 00:17 2.00 Intake and Output 10/17/16 10/17/16 10/18/16 Cumulative From/Thru 15:00 23:00 07:00 10/13/16 10:17 - 10/18/16 05:44 Intake Total 879 ml 450 ml 5642 ml Output Total 800 ml 750 ml 5840 ml Balance 79 ml -300 ml -198 ml Intake Oral 822 ml 450 ml 4044 ml IV Total 57 ml 1598 ml Output Urine Total 800 ml 750 ml 5840 ml # Voids 4 # Bowel Movements 0 2 Exam General: Well-nourished male, not in distress, pleasant Neck: Supple no JVD, no carotid. Trachea is midline Chest respiratory effort, no chest wall tenderness Lung: Clear to auscultation, no wheezing., No crackles Heart: S1-S2 regular rate rhythm, no gallop, murmur no rales Abdomen: soft nontender nondistended, bowel sounds normal quadrant Extremity: Right hand with dressing in place. Fingers are swollen. No cyanosis Neuro: Awake and alert. Grossly nonfocal IVs and Medications Medications Reviewed: Medications were reviewed in detail Lab and Diagnostics Result Diagram: 10/18/16 0545 10/18/16 0545 Microbiology Name: BON CUNHA Age/Sex: 71/M Attend Dr: Norberto Arora DO Acct: [id number] Unit: [id number] Status: ADM IN Location: [facility] [place] 1006-1 Re10/14/16 Disch: Specimen: [id number] Collected: 10/14/16-UNK Status: RES Req#: [id number] Received: 10/14/16 Source: WRIST Sp Desc : Subm Dr: Norberto Arora DO Ordered: CS & ANAC & GS Comments: Collected by Nurse/Unit? Y/N Y Comment: RIGHT WRIST DEEP Procedure Result Verified Site Microbiology TARIQ GS (GRAM STAIN) Final 10/14/16 GRAM STAIN RESULT RARE POLYS NO ORGANISMS SEEN TARIQ CULT AEROBIC Preliminary 10/16/16 Organism 1 METHICILLIN RESISTANT S AUREUS COLONY COUNT/QUANTITY LIGHT GROWTH METHICILLIN RESISTANT S AUREUS For sensitivities see culture done on same day ANAEROBIC CULTURE Preliminary 10/16/16 No ANAEROBES recovered at 48 hours hold for futher observation Name: BON CUNHA Age/Sex: 71/M Attend Dr: Norberto Arora DO Acct: [id number] Unit: [id number] Status: ADM IN Location: [facility] [place] 1006-1 Re10/14/16 Disch: Specimen: [id number] Collected: 10/14/16 Status: SAMANTHA Req#: [id number] Received: 10/14/161352 Source: WRIST Sp Desc : Subm Dr: Norberto Arora DO Ordered: CS & GS Comments: Collected by Nurse/Unit? Y/N Y Comment: RIGHT WRIST SUPERFICIAL Procedure Result Verified Site Microbiology TARIQ GS (GRAM STAIN) Final 10/14/16-1430 GRAM STAIN RESULT FEW POLYS NO ORGANISMS SEEN TARIQ CULT AEROBIC Final 10/16/16-0657 Organism 1 METHICILLIN RESISTANT S AUREUS COLONY COUNT/QUANTITY MODERATE GROWTH Organism 2 WITH NORMAL COLONY COUNT/QUANTITY LIGHT GROWTH Resistance of staphylococci to OXACILLIN predicts resistance to (a) other beta-lactamase stable penicillins such as cloxacillin and dicloxacillin (b)B-lactam/B-lactamase inhibitor combinations such as augmentin and unasyn, (c)cephems such as Cephalexim and cefuroxime and (d)carbapenems such as imipenem and meropenem.(CLSI 2011 M100 S21) 1. METHICILLIN RESISTANT S AUREUS M.I.C Interp --------- ------ * CEFAZOLIN R * CLINDAMYCIN <=0.25 S * ERYTHROMYCIN >=8 R * LINEZOLID 2 S * OXACILLIN TARIQ >=4 R * RIFAMPIN <=0.5 S * TETRACYCLINE <=1 S * TRIMETHOPRIM/SULFAMETHOXAZOLE <=10 S * VANCOMYCIN 1 S X-Rays, CTs and MRIs MRI WRIST IMPRESSION: 1. Findings highly suspicious for carpal septic arthritis, with multifocal osteomyelitis of the carpal bones, distal radius and ulna, second through fourth proximal metacarpals. 2. Findings suspicious for full thickness tear of the scapholunate ligament. 3. Nonvisualization of the triangular fibrocartilage may be secondary to chronic extensive tear, remote surgical resection, or destruction from septic arthritis. 4. Flexor carpi radialis moderate tenosynovitis. 5. Subluxation of the extensor carpi ulnaris tendon with respect to the distal ulna. Dictated by: Javid Ordonez M.D. on 10/07/2016 at 14:37 Additional Diagnostics Pathology report noted: Chronic inactive osteomyelitis Assessment & Plan 71-year-old gentleman with past medical history of alcoholic cirrhosis, history of GI bleeding, history of venous stasis ulcer was admitted for elective right wrist incision and drainage. # Wrist wrist septic arthritis and osteomyelitis of multiple bones now s/p I&D on 10/14/16, secondary to MRSA and other "normal " present on admission, subacute -Culture grew MRSA. Blood culture 2 is negative. Pathology report positive for osteomyelitis -Initially started on Zosyn and daptomycin by ID and now switched to vancomycin . On vancomycin for now . Linezolid has been considered as a second option . We will discuss with infectious diseases Dr. Drew about option of antibiotics and discharge .a Orthopedist follow-up recommendation noted # History of cirrhosis, chronic, stable -No stigmata of cirrhosis. Patient stated this to drinking long time ago #Thrombocytopenia, chronic likely secondary to alcoholism and liver disease #Anemia, chronic, stable # Hepatic encephalopathy : Ammonia level 130 on presentation now down to 60s. Continue lactulose # History of alcohol abuse -Patient states he quit drinking 2 1/2 yrs ago when he was diagnosed with cirrhosis. reportedly stated he continues to drink. -No withdrawal symptom to date. Patient is somewhat better today. Ammonia level down to 60 on lactulose. Repeat ammonia level in a.m. Infectious diseases follow-up anticipated for tomorrow and final recommendation for long-term antibiotics Orthopedist follow-up recommendation noted Discharge anticipated within 24 hours VTE Prophylaxis: Sub-Q Heparin (Unfractionated) VTE Mechanical Devices: Anti-Embolic stockings Resuscitation Status: CPR: Attempt Resuscitation Time spent 25 minutes Bon Oliva MD Oct 18, 2016 15:26
[2016-10-18 16:03] VITALS: BP 168/84; PULSE 73
--- NOTE | 2016-10-18 16:16 | NUR ---
Social Work-continued d/c planning: Data:EMR reviewed. Pt is on day 4 of hospitalization for right wrist swelling per H&P. Anticipate 1-2 more days of hsopitalization. Blake from [facility] met with pt and spoke with on phone. Blake also planning on reaching out with granddaughter. SW followed up with pt at bedside to discuss HH, HH choice list provided. Pt will need wound care dressing changes. Pt has uses [facility] in the past and would like to use them again. ISA made referral to Dean Ayala with [facility] [phone] and provided referral for RN,PT, and OT, access given. F2F in folder. SW will continue to follow. Assessment:Pt who will need HH and IV abx. plan:Pt to discharge home when medically stable via POV. [facility] following for home IV abx. Referral made to [facility] for RN,Pt, and OT. F2F in folder. SW will continue to follow. URIEL Will
--- NOTE | 2016-10-18 17:53 | NUR ---
POD4 Patient denies pain. Patient has been tolerating his liquids PO and his diet well. Denies nausea. No emesis noted. Denies SOB. Patient has been ambulating in the hallway with SBA and a cane. Dressing in his R wrist was changed by Felipe Figueroa from Ortho. Mepilex placed over on his skin tear on his L arm. Voiding without any problems.
[2016-10-18 19:52] VITALS: BP 131/77; PULSE 83; RESP 17; O2SAT 98
[2016-10-19] MEDS: Heparin 5,000 Unit/mL Inj SUBQ SCH ×3 (00:16→16:26)
[2016-10-19] MEDS: oxyCODONE-Acetamin 5-325 mg Tablet PO PRN ×4 (03:33→22:53)
--- NOTE | 2016-10-19 04:29 | NUR ---
NOC-PT slept well. PICC in place and flushed and draws great. However, around 0300, there was bleeding noted at insertion site. PRessure dressing applied. Will re-evaluate. Medicated with percocet for R wrist pain with good relief. Afebrile. V/S WNL. Will CTM.
[2016-10-19] MEDS ORDERED: Vancomycin Serum Trough XX ONE (05:00)
[2016-10-19 05:16] LABS: BASOPHILS % (AUTO) 0.5 % (0-3); EOSINOPHILS % (AUTO) 7.4 % (0-5); MONOCYTES % (AUTO) 12.7 % (4-12); Mean Corpuscular Hemoglobin 29.3 pg (27.0-35.0); NEUTROPHILS % (AUTO) 50.2 % (40-74)
[2016-10-19 05:37] VITALS: BP 128/74; PULSE 82; RESP 17; O2SAT 96
[2016-10-19 05:57] LABS: Magnesium 1.7 mg/dL (1.6-2.6)
[2016-10-19] MEDS: Vancomycin Inj 1,250 MG in 0.9% Sodium Chloride 250 ML IV SCH (06:27)
[2016-10-19] MEDS: Multivit-Miner-Folic Acid-Iron Tablet PO SCH (08:27)
[2016-10-19] MEDS: Lactulose 20 Gm/30 mL 30 mL Syrup PO SCH ×2 (08:28→22:42)
[2016-10-19] MEDS: Vancomycin Dose per Pharmacist XX SCH (08:30)
--- NOTE | 2016-10-19 09:01 | NUR ---
SHAKA signed. URIEL Will
--- NOTE | 2016-10-19 11:28 | NUR ---
Social Work-readiness for discharge Data:EMR Reviewed. Pt is on day 5 of hospitalization for right wrist swelling per H&P. Pt may be medically stable later today or tomorrow. SW followed up with pt's granddaughter Veronika this morning regarding assistance with home IV abx. Veronika states she does not feel like she can commit to this because she works long hours. SW spoke with again who feels like she would likely be able to assist with this at home. SW spoke with Blake from [facility] who confirms that he will be down later today and he will re-discuss with pt and to see if they can manage. ID MD Drew to see pt today and make final recommendations. Pt has PICC line in place. Referral made to [facility] for RN,PT and OT, access given. F2F in folder. SW will continue to follow. Assessment:Pt who will need IV abx and HH. Plan:Pt to discharge home when medically stable via POV. [facility] following for home IV abx. Blake from [facility] to come and see pt and speak with again today. Referral made to [facility] for RN,PT and OT, access given. F2F in folder. SW will continue to follow. URIEL Will Addendum: 10/19/16 at 1620 by ALISON SMITH Blake met with family and he feels like family is able to manage assisting pt with this at home. Blake informed SW that cost of IV abx has increased and he will follow up with family regarding cost. ID to see pt today and make final recommendations. SW will continue to follow. URIEL Will
--- NOTE | 2016-10-19 14:40 | PCM.PNMED ---
Subjective Date of Service Oct 19, 2016 Subjective Patient seen and examined at bedside. No interval changes. afebrile Exam Vital Signs Vital Sign - Last Date Time Temp Pulse Resp B/P Pulse Ox O2 Delivery O2 Flow Rate FiO2 10/19/16 05:37 36.6 82 17 128/74 96 Room Air 10/15/16 00:17 2.00 Intake and Output 10/18/16 10/18/16 10/19/16 Cumulative From/Thru 15:00 23:00 07:00 10/13/16 10:17 - 10/19/16 05:36 Intake Total 1380 ml 800 ml 7822 ml Output Total 1 ml 650 ml 6491 ml Balance 1379 ml 150 ml 1331 ml Intake Oral 810 ml 800 ml 5654 ml IV Total 570 ml 2168 ml Output Urine Total 1 ml 650 ml 6491 ml # Voids 2 6 # Bowel Movements 0 2 Exam General: Chronically ill-appearing. Neck: Supple no JVD, no carotid. Trachea is midline Chest : respiratory effort, no chest wall tenderness, no use of accessory muscle Lung: Clear to auscultation bilaterally, no crackles, no wheezing. Heart: S1-S2 regular rhythm no gallop or murmur no rales Abdomen: soft non tender non distended, audible bowel sounds all quadrants Extremity: Right hand with dressing in place. Fingers are swollen. No cyanosis Neuro: Grossly non focal. No acute deficits Lab and Diagnostics Result Diagram: 10/19/1644410/19/16444 Microbiology Name: BON CUNHA Age/Sex: 71/M Attend Dr: Norberto Arora DO Acct: [id number] Unit: [id number] Status: ADM IN Location: [facility] [place] 1006-1 Re10/14/16 Disch: Specimen: [id number] Collected: 10/14/16-UNK Status: RES Req#: [id number] Received: 10/14/16 Source: WRIST Sp Desc : Subm Dr: Norberto Arora DO Ordered: CS & ANAC & GS Comments: Collected by Nurse/Unit? Y/N Y Comment: RIGHT WRIST DEEP Procedure Result Verified Site Microbiology TARIQ GS (GRAM STAIN) Final 10/14/16 GRAM STAIN RESULT RARE POLYS NO ORGANISMS SEEN TARIQ CULT AEROBIC Preliminary 10/16/16 Organism 1 METHICILLIN RESISTANT S AUREUS COLONY COUNT/QUANTITY LIGHT GROWTH METHICILLIN RESISTANT S AUREUS For sensitivities see culture done on same day ANAEROBIC CULTURE Preliminary 10/16/16 No ANAEROBES recovered at 48 hours hold for futher observation Name: BON CUNHA Age/Sex: 71/M Attend Dr: Norberto Arora DO Acct: [id number] Unit: [id number] Status: ADM IN Location: [facility] [place] 1006-1 Re10/14/16 Disch: Specimen: [id number] Collected: 10/14/16-UNK Status: COMP Req#: [id number] Received: 10/14/16[facility] Source: WRIST Sp Desc : Subm Dr: Norberto Arora DO Ordered: CS & GS Comments: Collected by Nurse/Unit? Y/N Y Comment: RIGHT WRIST SUPERFICIAL Procedure Result Verified Site Microbiology TARIQ GS (GRAM STAIN) Final 10/14/16-1430 GRAM STAIN RESULT FEW POLYS NO ORGANISMS SEEN TARIQ CULT AEROBIC Final 10/16/16-0657 Organism 1 METHICILLIN RESISTANT S AUREUS COLONY COUNT/QUANTITY MODERATE GROWTH Organism 2 WITH NORMAL COLONY COUNT/QUANTITY LIGHT GROWTH Resistance of staphylococci to OXACILLIN predicts resistance to (a) other beta-lactamase stable penicillins such as cloxacillin and dicloxacillin (b)B-lactam/B-lactamase inhibitor combinations such as augmentin and unasyn, (c)cephems such as Cephalexim and cefuroxime and (d)carbapenems such as imipenem and meropenem.(CLSI 2010 M100 S21) 1. METHICILLIN RESISTANT S AUREUS M.I.C Interp --------- ------ * CEFAZOLIN R * CLINDAMYCIN <=0.25 S * ERYTHROMYCIN >=8 R * LINEZOLID 2 S * OXACILLIN TARIQ >=4 R * RIFAMPIN <=0.5 S * TETRACYCLINE <=1 S * TRIMETHOPRIM/SULFAMETHOXAZOLE <=10 S * VANCOMYCIN 1 S X-Rays, CTs and MRIs MRI WRIST IMPRESSION: 1. Findings highly suspicious for carpal septic arthritis, with multifocal osteomyelitis of the carpal bones, distal radius and ulna, second through fourth proximal metacarpals. 2. Findings suspicious for full thickness tear of the scapholunate ligament. 3. Nonvisualization of the triangular fibrocartilage may be secondary to chronic extensive tear, remote surgical resection, or destruction from septic arthritis. 4. Flexor carpi radialis moderate tenosynovitis. 5. Subluxation of the extensor carpi ulnaris tendon with respect to the distal ulna. Dictated by: Javid Ordonez M.D. on 10/07/2016 at 14:37 Additional Diagnostics Pathology report noted: Chronic inactive osteomyelitis Assessment & Plan 71-year-old gentleman with past medical history of alcoholic cirrhosis, history of GI bleeding, history of venous stasis ulcer was admitted for elective right wrist incision and drainage. # Wrist wrist septic arthritis and osteomyelitis of multiple bones now s/p I&D on 10/14/16, secondary to MRSA and other "normal " present on admission, subacute -Culture grew MRSA. Blood culture 2 is negative. Pathology report positive for osteomyelitis Vancomycin change to daptomycin Infusion center contacted by ID for close verification. Orthopedist follow-up recommendation noted # History of cirrhosis, chronic, stable -No stigmata of cirrhosis. Patient stated this to drinking long time ago #Thrombocytopenia, chronic likely secondary to alcoholism and liver disease #Anemia, chronic, stable # Hepatic encephalopathy : Ammonia level 130 on presentation now down to 23.. Patient will remain on a maintenance dose of lactulose for his chronic hyperammonemia secondary to liver cirrhosis. # History of alcohol abuse -Patient states he quit drinking 2 1/2 yrs ago when he was diagnosed with cirrhosis. reportedly stated he continues to drink. -No withdrawal symptom to date. Patient is hemodynamically and chronically improved. Ammonia level within normal limits now . Discussed with IV about long-term antibiotics. Possible daptomycin for 6-8 weeks Discharge anticipated within 24 hours VTE Prophylaxis: Sub-Q Heparin (Unfractionated) VTE Mechanical Devices: Anti-Embolic stockings Resuscitation Status: CPR: Attempt Resuscitation Time spent 25 minutes Bon Oliva MD Oct 19, 2016 14:40
--- NOTE | 2016-10-19 16:13 | PROG NOTE ---
[address] [address] PROGRESS NOTE PATIENT: BON CUNHA : 1945 MR#: [id number] ADMIT: 10/14/2016 JOB ID: [id number] DATE: 10/19/2016 INFECTIOUS DISEASE FOLLOW UP NOTE: REASON FOR FOLLOWUP: Severe osteomyelitis right forearm with associated septic joint due to MRSA. INTERVAL HISTORY: Over the weekend, the patient reports there has been some slow decrease in the pain following the debriding surgery done previously. He has no fevers, chills or sweats. He notes he may have been confused at one point, which he attributes to his high ammonia level. He notes that his ammonia level is now down to normal and that he feels sharper than many of the staff here. No pulmonary or GI symptoms. PHYSICAL EXAMINATION: Reveals an afebrile gentleman, in no acute distress. Temperature 36.6, pulse 82, respiratory rate 17, blood pressure 128/74. He is saturating well on room air. The patient is alert and oriented today with no hint of hepatic encephalopathy. His oral cavity unremarkable. Lungs clear. Cardiac tones regular rate and rhythm without murmur. PICC line is present and without inflammation in the left upper extremity. Abdomen essentially benign. No ascites or tenderness. His right wrist is in a large dressing. LABORATORIES: Include a white count of 4200. Platelet count not done today for unclear reasons. Our most recent platelet count was two days ago and was 116,000. His creatinine is 0.49. His LFTs are normal. His ammonia level is 46. Albumin 2.9. Urinalysis without white cells. Urine gonorrhea and chlamydia negative. The cultures from the wrist grew MRSA and I have asked the lab for additional susceptibilities including daptomycin. We know it is susceptible to vanco as well as tetracyclines and Bactrim and clinda. The path has come back on the wrist and it shows unfortunately diffuse chronic active osteo with bone destruction. This is present from both the capitate and the 3rd metacarpal bone biopsy. 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 There is extensive bone destruction and he will certainly require six weeks of IV therapy and perhaps a longer oral. There is much disagreement in ID circles as to what is the ideal drug for MRSA osteomyelitis. Vanco was a traditional choice but I am quite nervous about its use here in a patient with cirrhosis as renal issues caused by aggressive dosing of vanco could cause a lethal hepatorenal syndrome. Daptomycin may be a reasonable alternative. Linezolid would probably not be a reasonable alternative even though it is oral because his platelets are already low and taking it for several weeks would predispose him to unacceptable risks as well. RECOMMENDATIONS: 1. I have asked the micro lab to set up daptomycin susceptibility. 2. Assuming that it is susceptible to dapto, my plan would be to send the patient out with a six week course of IV dapto to be followed by probably a course of oral therapy with tetracycline probably. 3. I will be around tomorrow and I will make a final plan for discharge of this patient with the daptomycin susceptibility data in hand.
[2016-10-19] MEDS ORDERED: Vancomycin Inj 1,500 MG in 0.9% Sodium Chloride 500 ML IV SCH (18:30)
[2016-10-19 18:37] VITALS: BP 137/55; PULSE 85; RESP 18; O2SAT 97
--- NOTE | 2016-10-19 19:24 | NUR ---
Pain Patient continues to have some pain in the right wrist. Patient states that oral pain medications keep the pain at a tolerable level. Patient denies any nausea, vomiting or other difficulty. Care is ongoing.
[2016-10-19 20:23] VITALS: BP 167/90; PULSE 80; RESP 17; O2SAT 96
[2016-10-19] MEDS ORDERED: DAPTOMYCIN IV SCH (20:30)
[2016-10-19] MEDS ORDERED: SODIUM CHLORIDE 0.9% IV SCH (20:30)
[2016-10-20] MEDS: Heparin 5,000 Unit/mL Inj SUBQ SCH ×2 (01:02→09:08)
[2016-10-20 05:14] LABS: BASOPHILS % (AUTO) 1.1 % (0-3); EOSINOPHILS % (AUTO) 8.2 % (0-5); MONOCYTES % (AUTO) 14.5 % (4-12); Mean Corpuscular Hemoglobin 29.3 pg (27.0-35.0); Mean Corpuscular Volume 91.7 fL (81-100); NEUTROPHILS % (AUTO) 50.4 % (40-74); Platelet Count 96 bil/L (150-400)
[2016-10-20 05:32] VITALS: BP 114/61; PULSE 70; RESP 17; O2SAT 95
--- NOTE | 2016-10-20 05:33 | NUR ---
pain pt states his pain is well controlled with the oral percocet. R hand continues to have tremors but pt demonstrated to the nurse his hand exercises and says he feels like it is getting stronger. pt stated that he does his hand exercises every hour. he denies numbness or tingling in fingers and they are warm with good cap refill. dressing intact. care continues.
[2016-10-20 05:40] LABS: Magnesium 1.7 mg/dL (1.6-2.6)
[2016-10-20] MEDS: Multivit-Miner-Folic Acid-Iron Tablet PO SCH (09:07)
[2016-10-20] MEDS: Lactulose 20 Gm/30 mL 30 mL Syrup PO SCH (09:08)
--- NOTE | 2016-10-20 10:24 | PROG NOTE ---
[address] [address] PROGRESS NOTE PATIENT: BON CUNHA : 1945 MR#: [id number] ADMIT: 10/14/2016 JOB ID: [id number] DATE: 10/20/2016 INFECTIOUS DISEASE FOLLOW UP NOTE: REASON FOR FOLLOWUP: Right forearm osteomyelitis with septic wrist. INTERVAL HISTORY: Overnight, the patient has been stable. He denies fevers, chills or sweats. He states he has very minimal pain in his right forearm. No cough, shortness of breath, nausea, vomiting or diarrhea. No muscle ache. PHYSICAL EXAMINATION: Reveals a comfortable, afebrile gentleman. Temperature 36.6, pulse 70, respiratory rate 17, blood pressure 114/61. He is saturating well on room air. Mental status clear. Oral cavity benign. Lungs clear. Left upper extremity PICC line with some blood under the dressing which will be addressed later this morning. The right forearm and wrist in a postop type dressing, but looks benign. The patient has about a 2+/5 mica miner blasting on the right which remains very, very weak postoperatively, but some of this is likely due to pain. LABORATORIES: Include a white count stable at 3800, platelet count 96,000. He has 8% eosinophils. His creatinine is 0.45. LFTs are normal. Albumin 2.9. Vancomycin trough yesterday was 13. The culture from the wrist is growing MRSA. I have asked for daptomycin susceptibility but that will not be out until tomorrow but do note that 100% of our MRSAs we have tested over the past couple years have been quite susceptible to dapto. 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 What to do with this MRSA infection in terms of therapeutics is the difficult part. Vanco would be probably the traditional choice here but I am very concerned in this patient with cirrhosis who recently had a high ammonia level and may have some degree of decompensated hepatic cirrhosis that vanco could be quite a hazardous drug. If we were to significantly bump the patient's creatinine, there could be a risk of hepatorenal syndrome which would likely prove to be fatal. The patient is also extremely motivated to have a once a day regimen rather than b.i.d. I have discussed this case in detail with the pharmacist and they are also of the mind that vanco might not be an optimal agent in this gentleman because of the risk of renal toxicity as well as difficulties in dosing the levels. If we were to use vanco, we would have to check levels at a minimum twice a week which would pose additional difficulties. Daptomycin is not as well studied for MRSA osteo but there are certainly abundant reports of success and it is fairly widely used in some practices. RECOMMENDATIONS: 1. I have written discharge orders for dapto at a dose of 700 mg once a day for six weeks which will take us through November 30, 2016. 2. I have written for weekly laboratories including CPK, CRP, CMP and CBC to be faxed to my office. 3. I have discussed this case in person with a order entry representative from [employer] and they are working on pricing details. 4. This patient could be discharged as soon as this afternoon if everything was in progress. 5. The patient should follow up with me in clinic on October 27 which is next Tuesday to make sure all is going well.
--- NOTE | 2016-10-20 13:42 | NUR ---
Social Work-readiness for discharge Data:EMR Reviewed. Pt is on day 6 of hospitalization for right wrist swelling per H&P. Pt may be medically stable later today or tomorrow. Final recommendations have been made from ANDREW Drew that pt will need IV dapto Q 24. Blake from [facility] checked in with pt and regarding home infusion and cost or coming to [facility] daily. Blake states family to discuss and he will check back in later. Pt has PICC line in place. Referral made to [facility] for RN,PT and OT, access given. F2F in folder. SW will continue to follow. Assessment:Pt who will need IV abx and HH. Plan:Pt to discharge home when medically stable via POV. [facility] following for home IV abx. Blake from [facility] to check back in with pt and again after discussion. Referral made to [facility] for RN,PT and OT, access given. F2F in folder. SW will continue to follow. URIEL Will
[2016-10-20 14:16] VITALS: BP 156/79; PULSE 75; RESP 16; O2SAT 97
--- NOTE | 2016-10-20 14:40 | PCM.DIMED ---
Discharge Instructions Date of Service Oct 20, 2016 Dates of Hospitalization Oct 14, 2016 at 15:45 Discharge Diagnosis Discharge Diagnosis Septic right wrist, MRSA osteomyelitis, hyperammonemia, hepatic encephalopathy, thrombocytopenia, liver cirrhosis, history of alcohol abuse Diet No restrictions, Low fat, Low Sodium Activity No restrictions (no weightbearing of right hand) Call your provider Fever or Chills Patient Instructions Follow-up with orthopedist in 1 week. Follow-up with infectious diseases in 2 weeks Follow-up plan Follow-up with primary care doctor in 1 week. Monitor renal function while on daptomycin Follow-up with PCP in: 1 week (follow-up in 1 week with orthopedist) Thiago Oliva MD Oct 20, 2016 14:40
[2016-10-20] MEDS ORDERED: LACT10SO60 PO (14:43)
--- NOTE | 2016-10-20 14:50 | PCM.DC.MED ---
Discharge Summary Date of Service Oct 20, 2016 Dates of Hospitalization Date of Hospital Admission Oct 14, 2016 at 15:45 Date of Discharge: Oct 20, 2016 Providers: Admitting Physician: Norberto Arora DO Primary Care Physician: Tata Doll MD Attending Physician: Norberto Arora DO Diagnosis at Time of Discharge Diagnosis at Time of Discharge Septic right wrist, MRSA osteomyelitis, hyperammonemia, hepatic encephalopathy, thrombocytopenia, liver cirrhosis, history of alcohol abuse Consultations Orthopedist, infectious diseases, physical therapy. Procedures XRay, CTs & MRIs MRI WRIST IMPRESSION: 1. Findings highly suspicious for carpal septic arthritis, with multifocal osteomyelitis of the carpal bones, distal radius and ulna, second through fourth proximal metacarpals. 2. Findings suspicious for full thickness tear of the scapholunate ligament. 3. Nonvisualization of the triangular fibrocartilage may be secondary to chronic extensive tear, remote surgical resection, or destruction from septic arthritis. 4. Flexor carpi radialis moderate tenosynovitis. 5. Subluxation of the extensor carpi ulnaris tendon with respect to the distal ulna. Dictated by: Javid Ordonez M.D. on 10/07/2016 at 14:37 Other Diagnostics Pathology report noted: Chronic inactive osteomyelitis Brief History 71-year-old gentleman with past medical history of alcoholic cirrhosis, history of GI bleeding, history of venous stasis ulcer was admitted for elective right wrist incision and drainage. Patient has been having right wrist painful swelling and stiffness for the past 2 months. Swelling sudden onset end of June. Denies trauma. Denies fever He has been followed by orthopedics. MRI was done on 10/07/16 which showed highly suspicious for carpal septic arthritis, with multifocal osteomyelitis of the carpal bones, distal radius and ulna, second through fourth proximal metacarpals. Admitted for elective incision and drainage. Copious amount of pus drained reportedly. Hospitalist service requested for admission for septic arthritis and suspected osteomyelitis. Hospital Course 71-year-old gentleman with past medical history of alcoholic cirrhosis, history of GI bleeding, history of venous stasis ulcer was admitted for elective right wrist incision and drainage. # Wrist wrist septic arthritis and osteomyelitis of multiple bones now s/p I&D on 10/14/16, secondary to MRSA and other "normal " present on admission, subacute -Culture grew MRSA. Blood culture 2 is negative. Pathology report positive for osteomyelitis Patient is discharged on IV antibiotics: daptomycin to complete through 2016 Infusion will be done daily at patient's home Orthopedist infectious diseases follow-up as outpatient # History of cirrhosis, chronic, stable Patient stated this to drinking long time ago #Thrombocytopenia, chronic likely secondary to alcoholism and liver disease #Anemia, chronic, stable # Hepatic encephalopathy : Ammonia level down to 23 with lactulose. Patient will remain on a maintenance dose of lactulose 10 ml twice a day Patient is hemodynamically and chronically improved, afebrile and discharged home in stable condition Exam Vital Signs (Last) Date Time Temp Pulse Resp B/P Pulse Ox O2 Delivery O2 Flow Rate FiO2 10/20/16 14:16 36.8 75 16 156/79 97 Room Air 10/15/16 00:17 2.00 Exam General: Not distressed. Pleasant Neck: Supple no JVD, no carotid. Trachea is midline Chest respiratory effort, no chest wall tenderness Lung: Clear to auscultation bilaterally, no wheezing. No cortical Heart: S1-S2 regular rhythm no gallop or murmur no rales Abdomen: soft non tender non distended, no palpable mass Extremity: Right hand with dressing in place. Fingers are swollen. No cyanosis Neuro: No acute deficit Test 10/14/16 15:37 10/14/16 17:03 10/14/16 18:44 10/16/16 05:21 Procalcitonin 0.10ng/mL (0.00-0.08) Hold [place] Top Tube Received (Received) Urine Color Yellow (YELLOW) Urine Appearance Clear (CLEAR,HAZY) Urine pH 7.5 (5.0-8.0) Urine Specific [place] 1.015 (1.003-1.035) Urine Protein Negativemg/dL (NEG,TRACE) Urine Glucose (UA) Negativemg/dL (NEGATIVE) Urine Ketones Negativemg/dL (NEGATIVE) Urine Occult Blood Negative (NEGATIVE) Urine Nitrite Negative (NEGATIVE) Urine Bilirubin Negative (NEGATIVE) Urine Urobilinogen 1.0mg/dL (NORMAL) Urine Leukocyte Esterase Negative (NEGATIVE) Urine RBC 0-2/hpf (0-2) Urine WBC 0-5/hpf (0-5) Urine Epithelial Cells None/hpf (NONE-MOD) Urine Crystals None seen (NONE SEEN) Urine Bacteria Few/hpf (NONE-FEW) Urine Hyaline Casts None/lpf (NONE) Urine Granular Casts None seen (NONE SEEN) Urine Waxy Casts None seen (NONE SEEN) Urine Red Blood Cell Casts None seen (NONE SEEN) Urine White Blood Cell Casts None seen (NONE SEEN) Urine Mucus None seen (None Seen) Urine Trichomonas None seen (NONE SEEN) Urine Yeast None (NONE SEEN) Urinalysis Comment None Urine Culture Reflexed Not indicated Chlamydia trachomatis DNA (MAURISIO) Negative (Negative) Neisseria gonorrhoeae DNA (MAURISIO) Negative (Negative) Erythrocyte Sedimentation Rate 54mm/hr (0-30) C-Reactive Protein 3.4mg/dL (0.0-0.5) Test 10/19/16 04:45 10/20/16 04:55 Ammonia 46ug/dL (18-53) Total Creatine Kinase 27U/L (21-232) Vancomycin Level Trough 13.1mcg/mL White Blood Count 3.8th/mm3 (3.8-10.1) Red Blood Count 3.38mil/mm3 (4.40-5.80) Hemoglobin 9.9g/dL (13.8-17.2) Hematocrit 31.0% (41.0-50.0) Mean Corpuscular Volume 91.7fL (81-100) Mean Corpuscular Hemoglobin 29.3pg (27.0-35.0) Mean Corpuscular Hemoglobin Concent 31.9% (32.0-37.0) Red Cell Distribution Width 16.5% (12.3-15.4) Platelet Count 96bil/L (150-400) Neutrophils (%) (Auto) 50.4% (40-74) Lymphocytes (%) (Auto) 25.5% (14-46) Monocytes (%) (Auto) 14.5% (4-12) Eosinophils (%) (Auto) 8.2% (0-5) Basophils (%) (Auto) 1.1% (0-3) Sodium Level 138mEq/L (134-144) Potassium Level 4.2mEq/L (3.5-5.2) Chloride Level 103mEq/L (97-108) Carbon Dioxide Level 23mmol/L (18-29) Blood Urea Nitrogen 8mg/dL (8-27) Creatinine 0.45mg/dL (0.76-1.27) Estimat Glomerular Filtration Rate 197mL/min (>59) Glucose Level 101mg/dL (60-99) Calcium Level 8.5mg/dL (8.5-10.1) Magnesium Level 1.7mg/dL (1.6-2.6) Total Bilirubin 0.8mg/dL (0.0-1.2) Aspartate Amino Transf (AST/SGOT) 21U/L (0-50) Alanine Aminotransferase (ALT/SGPT) 8U/L (0-44) Alkaline Phosphatase 70U/L (25-160) Total Protein 6.2g/dL (6.4-8.4) Albumin 2.9g/dL (3.4-5.0) Microbiology Results Name: BNO CUNHA Age/Sex: 71/M Attend Dr: Norberto Arora DO Acct: [id number] Unit: [id number] Status: ADM IN Location: [facility] 1006-1 Re10/14/16 Disch: Specimen: [id number] Collected: 10/14/16-UNK Status: RES Req#: [id number] Received: 10/14/16-1354 Source: WRIST Sp Desc : Subm Dr: Norberto Arora DO Ordered: CS & ANAC & GS Comments: Collected by Nurse/Unit? Y/N Y Comment: RIGHT WRIST DEEP Procedure Result Verified Site Microbiology TARIQ GS (GRAM STAIN) Final 10/14/16-1429 GRAM STAIN RESULT RARE POLYS NO ORGANISMS SEEN TARIQ CULT AEROBIC Preliminary 10/16/16 Organism 1 METHICILLIN RESISTANT S AUREUS COLONY COUNT/QUANTITY LIGHT GROWTH METHICILLIN RESISTANT S AUREUS For sensitivities see culture done on same day ANAEROBIC CULTURE Preliminary 10/16/16 No ANAEROBES recovered at 48 hours hold for futher observation Name: BON CUNHA Age/Sex: 71/M Attend Dr: Norberto Arora DO Acct: [id number] Unit: [id number] Status: ADM IN Location: [facility] [place] 1006-1 Re10/14/16 Disch: Specimen: [id number] Collected: 10/14/16-UNK Status: COMP Req#: [id number] Received: 10/14/16-2 Source: WRIST Sp Desc : Subm Dr: Norberto Arora DO Ordered: CS & GS Comments: Collected by Nurse/Unit? Y/N Y Comment: RIGHT WRIST SUPERFICIAL Procedure Result Verified Site Microbiology TARIQ GS (GRAM STAIN) Final 10/14/16-1430 GRAM STAIN RESULT FEW POLYS NO ORGANISMS SEEN TARIQ CULT AEROBIC Final 10/16/16-0694 Organism 1 METHICILLIN RESISTANT S AUREUS COLONY COUNT/QUANTITY MODERATE GROWTH Organism 2 WITH NORMAL COLONY COUNT/QUANTITY LIGHT GROWTH Resistance of staphylococci to OXACILLIN predicts resistance to (a) other beta-lactamase stable penicillins such as cloxacillin and dicloxacillin (b)B-lactam/B-lactamase inhibitor combinations such as augmentin and unasyn, (c)cephems such as Cephalexim and cefuroxime and (d)carbapenems such as imipenem and meropenem.(CLSI 2011 M100 S21) 1. METHICILLIN RESISTANT S AUREUS M.I.C Interp --------- ------ * CEFAZOLIN R * CLINDAMYCIN <=0.25 S * ERYTHROMYCIN >=8 R * LINEZOLID 2 S * OXACILLIN TARIQ >=4 R * RIFAMPIN <=0.5 S * TETRACYCLINE <=1 S * TRIMETHOPRIM/SULFAMETHOXAZOLE <=10 S * VANCOMYCIN 1 S Discharge Medications Discharge Medications ([Ketaconazole Shampoo]) 1 APPLIC TP WEEKLY (Reported) 2% Ascorbic Acid (Vitamin C) 500 Mg Capsule.er 500 MG PO BID Prescribed by: SG HAMLIN DO Fluticasone Propionate (Flonase Allergy Relief) 50 Mcg/Actuation [place].susp 9.9 ML NS DAILY (Reported) Gabapentin (Gabapentin) 300 Mg Capsule 300 MG PO TID (Reported) TAKES 300MG AM, NOON & 600MG PM Indomethacin (Indomethacin) 25 Mg Capsule 25 MG PO TID (Reported) Lactulose (Lactulose) 20 Gm/30 Ml Solution 10 GM PO BID Prescribed by: BON OLIVA MD Multivitamin (Multivitamins) 1 Each Capsule 1 EACH PO DAILY (Reported) Potassium Chloride ER (Klor-Con M10) 10 Meq Tabsr 10 MEQ PO DAILYWM Prescribed by: BON KEENAN MD Spironolactone (Spironolactone) 50 Mg Tablet 50 MG PO DAILY (Reported) Sulfacetamide Sodium (Sodium Sulfacetamide) 10 % Clnsr.gel 355 ML TP BID ( Reported) As needed ([Lasix]) 40 MG PO BID PRN PRN PRN (Reported) oxyCODONE (oxyCODONE) 5 Mg Tablet 5 MG PO Q3H PRN PRN For Pain (Reported) Miscellaneous Medications Cholecalciferol (Vitamin D3) (Vitamin D3) 5,000 Unit Capsule 5,000 UNIT PO ( Reported) Followup Plan Follow-up plan Follow-up with primary care doctor in 1 week. Monitor renal function while on daptomycin Discharge Diet: No restrictions, Low fat, Low Sodium Discharge Activity: No restrictions (no weightbearing of right hand) Patient Instructions Follow-up with orthopedist in 1 week. Follow-up with infectious diseases in 2 weeks Follow-up with PCP in: 1 week (follow-up in 1 week with orthopedist) Time spent 35 minutes Bon Oliva MD Oct 20, 2016 14:50
--- NOTE | 2016-10-20 15:28 | NUR ---
Social Work-discharge: Data:EMR reviewed. Pt is on day 6 of hospitalization for right wrist swelling per H&P. Pt is medically stable to discharge today.PT and OT have cleared pt for home with HH. Blake Martin from [facility] [phone] confirms that pt and family have decided that they would like to pay the out of pocket for home infusion. Blake has all orders from MD and will have pt and family call them once he gets home to get set up for dose of IV abx this evening. ISA informed Dean Ayala liaison [phone] with [facility] of discharge and provided him with orders and F2F for RN,PT, and OT. SW updated pt at bedside, he is agreeable to plan. Pt aware that he will need to call [facility] once he gets home. SW called pt's Ana María and went over plan with her. Ana María states their daughter will come and pick pt up this afternoon. SW updated RN. All updated and agreeable to plan. Assessment:pt who will need home IV abx and HH. Plan:Pt to discharge home today via POV. Home infusion has been set up with [facility], all orders have been received and they will meet with pt at home this evening. Pt and agreeable to cost associated with Home infusion. F2F and orders given to [facility] for RN,PT, and OT. All updated and agreeable to plan. URIEL Will
--- NOTE | 2016-10-20 16:04 | NUR ---
Discharge To home with daughter via private vehicle at 16:00. Steady transfer to wheelchair. Pt and daughter express understanding of all discharge instructions, including medications and followup. Appt scheduled with Dr Drew. Rx given. PICC line left in place for Daptomycin home infusions. R wrist dressing changed per instructions prior to discharge.
== END 2016-10-20 16:00 | disposition home health service (06) | DRG 506 ==
LOC: SAS 09:47 → OSC 15:45
PROVIDERS: ADMIT Orthopaedic Surgery; ATTEND Internal Medicine
PROC: 0PB Upper Bones, Excision (ICD-10-PCS; 2016-10-14)
PROC: 0PB Upper Bones, Excision (ICD-10-PCS; 2016-10-14)
PROC: 0RB Upper Joints, Excision (ICD-10-PCS; 2016-10-14)
PROC: 0R9N0ZZ Drainage of Right Wrist Joint, Open Approach (ICD-10-PCS; principal; 2016-10-14 12:00)
DX: M00.031 Staphylococcal arthritis, right wrist (principal); M86.8X3 Other osteomyelitis, forearm; E72.20 Disorder of urea cycle metabolism, unspecified; K72.90 Hepatic failure, unspecified without coma; Z87.891 Personal history of nicotine dependence; K70.30 Alcoholic cirrhosis of liver without ascites; D69.6 Thrombocytopenia, unspecified; B95.62 Methicillin resistant Staphylococcus aureus infection as the cause of diseases classified elsewhere

== ENCOUNTER 2016-11-05 19:35 | Inpatient (IN) | payer MEDICARE, OTHER ==
[~2016-11-05] VITALS: Ht 170.2 cm; Wt 82.3 kg
[~2016-11-05 19:35] MED LIST changes: -CeFAZolin Inj 2 GM in IV Premix 1 EACH IV ONE; -DOCU-41 PO; +LACT10SO60 PO; -Lactated Ringer's 1,000 ML IV SCH
[2016-11-05 19:41] VITALS: BP 99/51; PULSE 87; RESP 17; O2SAT 95
[2016-11-05] MEDS ORDERED: 0.9% Sodium Chloride 1,000 ML IV ONE ×2 (20:07→23:15)
--- NOTE | 2016-11-05 20:09 | ED.REPORT ---
HPI-General Illness Date of Service Nov 05, 2016 ED Provider: Grayson Rhoades DO 71 year old male with a history of a Septic right wrist, MRSA osteomyelitis currently on IV Daptomycin, hyperammonemia, hepatic encephalopathy, thrombocytopenia, liver cirrhosis, history of alcohol abuse who presents to the ER referred from his PCP, Dr. Doll, due to bilat upper lobe pneumonia diagnosed via chest x-ray. Pt reports generalized weakness and shaking chills. Nursing Notes Stated Complaint: PNEUMONIA Chief Complaint: Respiratory Complaints Nursing Notes Reviewed: Yes Allergies: Coded Allergies: colchicine (Verified Adverse Reaction, Severe, gi upset, 11/05/16) niacin (Verified Adverse Reaction, Severe, GI UPSET, 11/05/16) Uncoded Allergies: SEASONAL ALLERGIES (Allergy, Severe, ITCH/RASH, 10/13/16) Scheduled Ascorbic Acid (Vitamin C) 500 Mg Capsule.er 500 MG PO BID Cholecalciferol (Vitamin D3) (Vitamin D3) 5,000 Unit Capsule 5,000 UNIT PO DAILY Daptomycin (Daptomycin) 500 Mg Vial 700 MG IV HS Fluticasone Propionate (Flonase Allergy Relief) 50 Mcg/Actuation [place].susp 1 SPRAY NASAL DAILY Furosemide (Furosemide) 20 Mg Tab 40 MG PO DAILY Gabapentin (Gabapentin) 300 Mg Capsule 300 MG PO BID AM, NOON Gabapentin (Gabapentin) 300 Mg Capsule 600 MG PO QPM 6PM Ketoconazole (Ketoconazole) 120 Ml Shampoo 1 APPLIC TP WEEKLY Lactulose (Lactulose) 20 Gm/30 Ml Solution 10 GM PO BID Multivitamin (Multivitamins) 1 Each Capsule 1 EACH PO DAILY Pantoprazole DR (Pantoprazole DR) 40 Mg Tablet.dr 40 MG PO BID Potassium Chloride ER (Klor-Con M10) 10 Meq Tabsr 10 MEQ PO DAILYWM Spironolactone (Spironolactone) 50 Mg Tablet 50 MG PO DAILY Sulfacetamide Sodium (Sodium Sulfacetamide) 10 % Clnsr.gel 1 APPLIC TP BID for rosacea Scheduled PRN oxyCODONE (oxyCODONE) 5 Mg Tablet 5 MG PO Q3H PRN PRN For Pain General Time Seen by MD: 20:07 Chief Complaint Weakness, Other (chills) Hx Obtained From: Patient, Primary care provider Arrived By: Walk-in Sudden in Onset?: No Symptom Duration: Since onset Pertinent Negative: Relieved by nothing Past Medical History Past Medical History Alcoholic hepatic cirrhosis Anxiety Gout Venous stasis ulcer Thrombocytopenic disorder Past Surgical History Appendicitis Left Knee derangement Agent orange exposure Miltary serice [place] Smoking History Former Smoker Social History Alcohol Use: In recovery Drug Use: Denies drug use Ambulatory Status Independent Review of Systems Full Review of Systems Constitutional: Reports: Chills, Weakness - generalized Neurologic: Reports: Shaking Complete sys rev & neg: except as marked. Physical Exam Vital Signs Vital Signs Date Time Temp Pulse Resp B/P Pulse Ox O2 Delivery O2 Flow Rate FiO2 11/05/16 19:41 37.7 87 17 99/51 95 Room Air Initial VS: Reviewed Head / Eyes: Atraumatic, Normocephalic, PERRL ENT: Conjunctiva normal, No scleral icterus Neck: Full range of motion Cardiovascular: Regular rate & rhythm, Heart sounds normal, Intact distal pulses Abdomen / GI: Soft, Non-tender Skin: Warm, Dry Psychiatric: Behavior normal, Normal thought content General/Constitutional: Awake, Alert Active shaking chills Communicating Elderly Frail Respiratory / Chest: No respiratory distress Coarse breath sounds bilat Upper Extremities Upper Extremity / MS: Neurologic intact, Vascular intact Skinny limbs IV left arm Neurologic: Oriented X3, Speech NL baseline tremor Interpretation & Diagnostics X-ray from earlier today showed bilat upper lobe pneumonia. Lab Results Interpretation Result Diagram: 11/05/16202311/05/162023 Test 11/05/16 20:24 White Blood Count 9.3th/mm3 (3.8-10.1) Red Blood Count 3.71mil/mm3 (4.40-5.80) Hemoglobin 10.9g/dL (13.8-17.2) Hematocrit 31.8% (41.0-50.0) Mean Corpuscular Volume 85.7fL (81-100) Mean Corpuscular Hemoglobin 29.4pg (27.0-35.0) Mean Corpuscular Hemoglobin Concent 34.3% (32.0-37.0) Red Cell Distribution Width 15.9% (12.3-15.4) Platelet Count 136bil/L (150-400) Neutrophils (%) (Auto) 63.5% (40-74) Lymphocytes (%) (Auto) 12.3% (14-46) Monocytes (%) (Auto) 12.6% (4-12) Eosinophils (%) (Auto) 10.5% (0-5) Basophils (%) (Auto) 0.8% (0-3) Sodium Level 128mEq/L (134-144) Potassium Level 3.3mEq/L (3.5-5.2) Chloride Level 91mEq/L (97-108) Carbon Dioxide Level 23mmol/L (18-29) Blood Urea Nitrogen 10mg/dL (8-27) Creatinine 0.56mg/dL (0.76-1.27) Estimat Glomerular Filtration Rate 153mL/min (>59) Glucose Level 106mg/dL (60-99) Lactic Acid Level 1.3mmol/L (0.4-2.0) Calcium Level 8.4mg/dL (8.5-10.1) Magnesium Level 1.6mg/dL (1.6-2.6) Total Bilirubin 1.6mg/dL (0.0-1.2) Aspartate Amino Transf (AST/SGOT) 48U/L (0-50) Alanine Aminotransferase (ALT/SGPT) 19U/L (0-44) Alkaline Phosphatase 83U/L (25-160) Troponin T 0.014ug/L (0.0-0.011) Pro-B-Type Natriuretic Peptide 100.8pg/mL (0-376) Total Protein 7.2g/dL (6.4-8.4) Albumin 3.2g/dL (3.4-5.0) Procalcitonin 0.08ng/mL (0.00-0.08) General Lab Results Interp 1: Labs reviewed Pulse Oximetry Interpretation Pulse Oximetry: Pulse Ox normal (95), On room air ECG Interpretation Time: 22:04 Interpreted by: ED physician Normal ECG Interpretation: Normal rate (84), Normal sinus rhythm, No acute ischemic changes Rhythm Strip Interpretation : Time: 22:04 Rhythm Strip Interpretation: Interpreted by me, Rate (84), Normal sinus rhythm Re-Eval/Medical Decision Time of Eval: 23:14 Re-Evaluation/Progress Note: Recommended admission. Pt understands and agrees with plan. All questions addressed. Consultation : Referral / Consult Name: Natalie Welch DO Consulted With: Hospitalist Call Returned at: 23:14 Travel Insurance Agent: Will see patient, Agrees with eval, Agrees with plan, Accepts admit Counseled Regarding: Diagnosis, Lab results, Need for admission Discharge & Departure Primary Impression: Bilateral pneumonia Pneumonia type: due to unspecified organism Lung location: upper lobe of lung Qualified Code: J18.9 - Pneumonia, unspecified organism Disposition: ADMITTED TO HOSPITAL Discharge Condition All VS Reviewed: Yes Referrals: Tata Doll MD (PCP) Scribe Attestation Portions of this note were transcribed by Naomy Chaparro. I, (Dr. Rhoades) personally performed the history, physical exam and medical decision-making; I reviewed and confirmed the accuracy of the information in the transcribed note. Signed by: Naomy Chaparro. Liz, 11/05/2016, 2283 copies to: Tata Doll MD, Todd P DO Nov 05, 2016 20:09 Naomy Chaparro Nov 05, 2016 21:13
[2016-11-05] MEDS ORDERED: levoFLOXacin Inj 750 MG in IV Premix 1 EACH IV ONE (20:25)
[2016-11-05] MEDS ORDERED: Cefepime Inj 2 GM in IV Premix 1 EACH IV ONE (20:30)
[2016-11-05] MEDS ORDERED: Cefepime Inj 2 GM in IV Premix 1 EACH IV SCH (20:30)
[2016-11-05 20:34] LABS: BASOPHILS % (AUTO) 0.8 % (0-3); EOSINOPHILS % (AUTO) 10.5 % (0-5); MONOCYTES % (AUTO) 12.6 % (4-12); Mean Corpuscular Hemoglobin 29.4 pg (27.0-35.0); Mean Corpuscular Volume 85.7 fL (81-100); NEUTROPHILS % (AUTO) 63.5 % (40-74); Platelet Count 136 bil/L (150-400)
[2016-11-05 21:05] LABS: TROPONIN T 0.014 ug/L (0.0-0.011)
[2016-11-05] MEDS ORDERED: KETO120S3 TP (21:12)
[2016-11-05] MEDS ORDERED: FUR20 PO (21:12)
[2016-11-05] MEDS ORDERED: GABA-502 PO (21:12)
[2016-11-05] MEDS ORDERED: PANT40TA3 PO (21:15)
[2016-11-05] MEDS ORDERED: DAPT500V2 IV (21:15)
[2016-11-05 21:16] LABS: Magnesium 1.6 mg/dL (1.6-2.6)
[2016-11-05 21:25] VITALS: PULSE 84; RESP 16; O2SAT 93
[2016-11-05 22:12] VITALS: BP 108/55; PULSE 85; RESP 15; O2SAT 93
[2016-11-05] MEDS ORDERED: Ondansetron 2 mg/mL 2 mL Inj IVPUSH PRN (23:25)
[2016-11-05] MEDS ORDERED: Alum-Mag Hydrox-Simeth 30 mL Suspension PO PRN (23:25)
[2016-11-05] MEDS ORDERED: Polyethylene Glycol (PEG) 17 Gm Powder PO PRN (23:25)
[2016-11-05 23:36] VITALS: BP 108/55; PULSE 83; RESP 16; O2SAT 92
[2016-11-05 23:49] VITALS: BP 106/45; PULSE 79; RESP 16; O2SAT 93; O2SAT 95
[2016-11-06] VITALS (7 sets, daily range): BP systolic 113–130; BP diastolic 51–57; PULSE 69–80; RESP 15–20; O2SAT 93–95
[2016-11-06 00:14] LABS: APPEARANCE,URINE CLEAR (CLEAR,HAZY); COLOR,URINE DARK YELLOW (YELLOW); ICTOTEST,URINE POSITIVE (Negative); OCCULT BLOOD,URINE NEGATIVE (NEGATIVE); PH,URINE 5.5 (5.0-8.0)
[2016-11-06] MEDS ORDERED: 0.9% Sodium Chloride 500 ML IV ONE (01:10)
[2016-11-06] MEDS: Vancomycin Dose per Pharmacist XX SCH ×2 (01:15→08:12)
[2016-11-06] MEDS ORDERED: KCl 40 mEq/100 mL (CENTRAL) 40 MEQ in IV Premix 1 EACH IV ONE (01:30)
[2016-11-06] MEDS ORDERED: Potassium Chloride Inj 20 MEQ in Dextrose 5% 250 ML IV ONE (01:30)
[2016-11-06] MEDS: CeFAZolin 2 Gm/50 mL D5W IV Premix IV SCH ×2 (02:17→11:50)
[2016-11-06] MEDS: 0.9% Sodium Chloride 1,000 ML IV SCH ×3 (02:23→15:28)
--- NOTE | 2016-11-06 04:08 | PCM.HPMED ---
Subjective Date of Service Nov 06, 2016 Primary Provider: Admitting Physician: Natalie Welch DO Primary Care Physician: Tata Doll MD Attending Physician: Natalie Welch DO Chief Complaint: Progressive malaise and shortness of breath. 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 Patient reports that a little over a week ago he noticed feeling increasing malaise. He reports this increase the point that he went and saw his primary care provider on 11/04/16 of this week, and reports that blood tests were performed (noted below). He reports that at this time he was experiencing some cold symptoms. He reports its his was also experiencing some cold like symptoms about a week or 2 ago, but she has rapidly improved. Patient reports he received a phone call back from his primary care provider advising him to go to the urgent care building for chest x-ray because his shortness of breath was not improving, and blood values were abnormal. He reports at this time nonproductive cough, shortness of breath that has somewhat improved, but continued weakness/malaise. He reports that his restless legs are somewhat bothersome for which he usually takes nighttime gabapentin. He reports pain in his right wrist which has been chronic in the setting of his infection. Chest x-ray performed at urgent care concerning for pneumonia (as detailed below ). Patient is admitted under inpatient status with expected length of stay greater than 2 midnights due to severity of presenting symptoms, risk of adverse event, and complexity of treatment plan. Review of Systems: Comprehensive review of systems conducted and was negative except for the pertinent positives listed in history of present illness above. Allergies Coded Allergies: colchicine (Verified Adverse Reaction, Severe, gi upset, 11/05/16) niacin (Verified Adverse Reaction, Severe, GI UPSET, 11/05/16) Uncoded Allergies: SEASONAL ALLERGIES (Allergy, Severe, ITCH/RASH, 10/13/16) Home Medications From [employer], an [employer] rec completed: Thiago PottsLv [id number] 11/04/2016 11:30 AM 09/10 ascorbic acid ER 500 mg tablet,extended release Take 1 capsule by mouth twice daily Colace 100 mg capsule take 1 capsule by by mouth twice daily as needed for constipation fluticasone 50 mcg/actuation nasal spray,suspension spray 1 spray by intranasal route every day in each nostril for allergies furosemide 20 mg tablet take 1 tablet by oral route 2 times every day as needed for leg swelling gabapentin 300 mg capsule take 1 capsule by oral route morning, midday and 2 tablets in the evening. ketoconazole 2 % shampoo lather x 5 min then rinse qd x 1 week (when flaring), then BIW thereafter (for maintenance) oxycodone 5 mg tablet take 1 tablet by oral route 8 times every hour as needed for pain potassium chloride ER 10 mEq capsule,extended release take 1 (10MEQ) by oral route every day with food potassium chloride ER 10 mEq tablet,extended release TAKE ONE TABLET BY MOUTH DAILY WITH FOOD SPIRONOLACTONE 50MG TABS TABLET TAKE ONE TABLET BY MOUTH DAILY IN THE MORNING AT 8AM SSS 10%-5% CREAM APPLY APPLY TO AFFECTED AREA TWICE DAILY DIRECTED AFTER WASHING Vitamin D3 5,000 unit tablet take 1 tablet by oral route every day Patient is also on daptomycin as managed by Dr. Drew [facility] 1. Alcoholic cirrhosis. 2. Venous ulcers of the lower extremities for which he has been seen in [facility] repeatedly. 3. Gout. 4. History of GI bleeding. 5. History of psoriasis. 6. Thrombocytopenic disorder. 7. History of Agent [place] exposure in [place]. 8. MRSA Osteomyelitis of the right wrist (currently in outpatient treatment with Dr. Drew of infectious disease-daptomycin). 9. Chronic anemia of chronic disease Surgical History Appendectomy 1968 Left ankle arthrotomy, irrigation debridement of the peroneal tendon sheath Knee arthroscopy, incision and drainage Tonsillectomy 1952 Left GSV radiofrequency ablation 06/19/2014 Family History Negative for tuberculosis and as far as he knows that extends to his parents and siblings. Social History Hx Alcohol Use: Yes (1-3 beers daily (PT SAYS QUIT IN 2014; SAYS DRINKING)) Hx Substance Use: No Hx Tobacco Use: Yes (quit 1975) Smoking Status: Former Smoker Living Arrangement: with Family (lives with his , granddaughter and her [id number], locally) Additional Information SOCIAL HISTORY: The patient lives with his in the [place] area. He has reportedly stopped drinking, though there are notes from 2016 (in some reports from his ) at least in the chart that suggest that may not be entirely accurate. He is a nonsmoker since his [place] days about 40 years ago. He does not use illicit drugs and he is a retired [employer] employee. Reportedly exposed to agent orange in [place]. Exam Vital Signs Vital Sign - Last Date Time Temp Pulse Resp B/P Pulse Ox O2 Delivery O2 Flow Rate FiO2 11/05/16 23:49 37.2 79 16 106/45 95 Room Air Intake and Output 11/05/16 11/05/16 11/06/16 Cumulative From/Thru 15:00 23:00 07:00 11/05/16 19:41 - 11/06/16 00:00 Intake Total 1000 ml 1000 ml Balance 1000 ml 1000 ml Intake IV Total 1000 ml 1000 ml Exam General: Mildly somnolent, Oriented X3, Cooperative, No Acute Distress ( occasionally wince attributed to restless legs/sharp pain in legs, right wrist pain) Head: Normocephalic, atraumatic. External ears normal. Eyes: PERRL, EOMI. Anicteric sclerae. Conjunctivae are not injected Mouth: Mouth Normal, Mucous Membranes Moist/[place] Neck: Neck supple with full range of motion. No Thyromegaly. Chest & Lungs: Diminished breath sounds in the bases with faint crackles on the left. Otherwise normal respiratory effort without use of accessory's Cardiovascular: Regular Rate/Rhythm, Normal S1, Normal S2, No Murmurs/Rubs/ Gallops appreciated at this time. Radial pulses are 2+ bilaterally. Abdomen: Non-tender, Non-distended, No masses, Normoactive bowel tones, Soft Musculoskeletal: Grossly Normal Range of Motion Extremities: No cyanosis/clubbing/edema bilat. Single-lumen PICC in the left upper extremity. Skin: Telangiectasias over bilateral cheeks and upper chest. No jaundice. No evidence of subcutaneous venous distention. No rash. Neurological: Grossly Neurologically Intact, Cranial Nerves 2-12 Intact, Normal Speech Psych: Normal mood and affect. Thought process and content intact. Somewhat somnolent Lab and Diagnostics Labs Outpatient labs on 11/04/16 were: ESR 51, CRP 68, WBC 13.1, hemoglobin 12.1, platelets 132 Sodium 132, potassium 3.8, chloride 94, BUN 11, creatinine 0.73, carbon dioxide 21, total bilirubin 1.6. Laboratory Tests 72 Hours Test 11/05/16 20:24 11/05/16 23:50 White Blood Count 9.3th/mm3 (3.8-10.1) Red Blood Count 3.71mil/mm3 (4.40-5.80) Hemoglobin 10.9g/dL (13.8-17.2) Hematocrit 31.8% (41.0-50.0) Mean Corpuscular Volume 85.7fL (81-100) Mean Corpuscular Hemoglobin 29.4pg (27.0-35.0) Mean Corpuscular Hemoglobin Concent 34.3% (32.0-37.0) Red Cell Distribution Width 15.9% (12.3-15.4) Platelet Count 136bil/L (150-400) Neutrophils (%) (Auto) 63.5% (40-74) Lymphocytes (%) (Auto) 12.3% (14-46) Monocytes (%) (Auto) 12.6% (4-12) Eosinophils (%) (Auto) 10.5% (0-5) Basophils (%) (Auto) 0.8% (0-3) Sodium Level 128mEq/L (134-144) Potassium Level 3.3mEq/L (3.5-5.2) Chloride Level 91mEq/L (97-108) Carbon Dioxide Level 23mmol/L (18-29) Blood Urea Nitrogen 10mg/dL (8-27) Creatinine 0.56mg/dL (0.76-1.27) Estimat Glomerular Filtration Rate 153mL/min (>59) Glucose Level 106mg/dL (60-99) Lactic Acid Level 1.3mmol/L (0.4-2.0) Calcium Level 8.4mg/dL (8.5-10.1) Magnesium Level 1.6mg/dL (1.6-2.6) Total Bilirubin 1.6mg/dL (0.0-1.2) Aspartate Amino Transf (AST/SGOT) 48U/L (0-50) Alanine Aminotransferase (ALT/SGPT) 19U/L (0-44) Alkaline Phosphatase 83U/L (25-160) Troponin T 0.014ug/L (0.0-0.011) Pro-B-Type Natriuretic Peptide 100.8pg/mL (0-376) Total Protein 7.2g/dL (6.4-8.4) Albumin 3.2g/dL (3.4-5.0) Procalcitonin 0.08ng/mL (0.00-0.08) Urine Color Dark yellow (YELLOW) Urine Appearance Clear (CLEAR,HAZY) Urine pH 5.5 (5.0-8.0) Urine Specific [place] 1.025 (1.003-1.035) Urine Protein Negativemg/dL (NEG,TRACE) Urine Glucose (UA) Negativemg/dL (NEGATIVE) Urine Ketones Negativemg/dL (NEGATIVE) Urine Occult Blood Negative (NEGATIVE) Urine Nitrite Negative (NEGATIVE) Urine Bilirubin Small (NEGATIVE) Urine Ictotest Positive (Negative) Urine Urobilinogen 4.0mg/dL (NORMAL) Urine Leukocyte Esterase Negative (NEGATIVE) Urine RBC 0-2/hpf (0-2) Urine WBC 0-5/hpf (0-5) Urine Epithelial Cells Occasional/hpf (NONE-MOD) Urine Crystals None seen (NONE SEEN) Urine Bacteria None/hpf (NONE-FEW) Urine Hyaline Casts None/lpf (NONE) Urine Granular Casts None seen (NONE SEEN) Urine Waxy Casts None seen (NONE SEEN) Urine Red Blood Cell Casts None seen (NONE SEEN) Urine White Blood Cell Casts None seen (NONE SEEN) Urine Mucus None seen (None Seen) Urine Trichomonas None seen (NONE SEEN) Urine Yeast None (NONE SEEN) Urine Culture Reflexed Not indicated Result Diagram: 11/05/16202311/05/162023 Microbiology Rapid flu negative Blood culture pending Respiratory PCR negative X-Rays, CTs and MRIs Date of Service: 11/05/16 1230 PROCEDURE: X-RAY CHEST, TWO VIEWS ([id number]) IMPRESSION: 1. Bilateral upper lobe pneumonia. 2. Left-sided PICC line in position. Dictated by: Ephraim Smith M.D. 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 1. Bilateral upper lobe infiltrates on chest x-ray, acute (not noted on 2 view chest x-ray 01/2016). Present on admission. -Primary concern for atypical pneumonia, likely to be healthcare associated ( please note IDSA guidelines of 2016 mention similar microbial etiology to community acquired pneumonia). -Consideration for tuberculosis, and other nontuberculous mycobacterial infections (given the upper lobe predominance). -Alternative etiologies potentially include: hypersensitivity pneumonitis, respiratory bronchiolitis, allergic bronchopulmonary aspergillosis, pneumoconioses -Chest CT (high-resolution to assess for ILD versus with contrast to assess for lymphadenopathy) is certainly a consideration at this time (none historically) -Added hepatitis C antibody, HIV serologies, QuantiFERON Gold, and FABBY w/ Reflex -Added beta D glucan assay (to assess for fungal etiology) -As cough is nonproductive at this time, doubt we would be able to get any sputum to be sent for AFB with MAURISIO. * Consideration for bronchoscopy if no improvement on empiric antibiotics which include: -Empiric coverage with vancomycin (consideration for not using this given his underlying cirrhosis-if KERLINE, could drive hepatorenal), cefepime, levofloxacin -Await pending cultures -Add peripheral line in addition to his PICC 2. Hyponatremia and hypochloremia, acute. 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 Hypokalemia, acute. Present on admission. -Potential relation to his daily diuretic, with potential contribution from borderline magnesium -Likely related to his decreased by mouth intake over the last several days -40 mEq rider to be given via his PICC -Continue home 20 mEq by mouth. -Continue to monitor labs -Consideration for replacing magnesium 4. Hyperbilirubinemia, acute. Present on admission. -Differential includes: Hemolysis, cholestasis -We will add direct bilirubin -Continue to monitor lab -Consideration for abdominal ultrasound 5. Minimally elevated troponin, acute. Present on admission. -We will trend 3 -potentially related to stress of acute illness. 6. Borderline low blood pressure, acute. Present on admission. -The related to acute illness and decreased by mouth intake over the last several days -We will hold his antihypertensives -IVF as above Chronic conditions: Alcoholic cirrhosis.-Holding diuretics for now given his blood pressure. Checking an ammonia level (consideration for continuing lactulose) Gout. Thrombocytopenic disorder.-Continue to watch labs MRSA Osteomyelitis of the right wrist (currently in outpatient treatment with Dr. Drew of infectious disease-daptomycin).-Holding daptomycin for now, empiric antibiotics as noted above Chronic anemia of chronic disease-continue to watch labs RLS-continue gabapentin and oxycodone PRN MEDICATIONS - Bowel regimen as needed - Antiemetic as needed Patient is admitted under inpatient status with expected length of stay greater than 2 midnights due to severity of presenting symptoms, risk of adverse event, and complexity of treatment plan. Pain Evaluation: Adequate Pain Control GI Prophylaxis: Proton Pump Inhibitor VTE Prophylaxis: Sub-Q Heparin (Unfractionated) VTE Mechanical Devices: Anti-Embolic stockings Resuscitation Status: CPR: Attempt Resuscitation Attending Statement The patient was seen and examined together with house staff on 11/06/2016 and I agree with the history, exam and plan as outlined in the note above. copies to: Tata Doll MD, Collin T DO Nov 06, 2016 03:35 Natalie Welch DO Nov 06, 2016 05:54
--- NOTE | 2016-11-06 06:52 | PCM.CONPHA ---
Subjective Date of Service: Nov 06, 2016 Requesting Provider: Pedro Griggs DO Progressive malaise and shortness of breath. History of Present Illness bilateral pneumonia Reason for Pharmacy Consult: Vancomycin Dosing Objective Vital Signs Date Time Temp Pulse Resp B/P Pulse Ox O2 Delivery O2 Flow Rate FiO2 11/06/16 05:47 80 11/06/16 04:18 37.0 74 16 113/56 93 Room Air 11/05/16 23:49 37.2 79 16 106/45 95 Room Air 11/05/16 23:36 37.7 83 16 108/55 92 Room Air 11/05/16 22:12 85 15 108/55 93 Room Air 11/05/16 21:25 84 16 93 Room Air 11/05/16 19:41 37.7 87 17 99/51 95 Room Air Intake and Output 11/04/16 11/05/16 11/06/16 00:00 00:00 00:00 Intake Total 1000 ml Balance 1000 ml Weight (Kilograms): 76.900 Height (Feet): 5 Height (Inches): 7.00 Test 11/05/16 20:24 11/05/16 23:50 11/06/16 05:38 11/06/16 06:20 Lactic Acid Level 1.3mmol/L (0.4-2.0) Magnesium Level 1.6mg/dL (1.6-2.6) Pro-B-Type Natriuretic Peptide 100.8pg/mL (0-376) Urine Color Dark yellow (YELLOW) Urine Appearance Clear (CLEAR,HAZY) Urine pH 5.5 (5.0-8.0) Urine Specific [place] 1.025 (1.003-1.035) Urine Protein Negativemg/dL (NEG,TRACE) Urine Glucose (UA) Negativemg/dL (NEGATIVE) Urine Ketones Negativemg/dL (NEGATIVE) Urine Occult Blood Negative (NEGATIVE) Urine Nitrite Negative (NEGATIVE) Urine Bilirubin Small (NEGATIVE) Urine Ictotest Positive (Negative) Urine Urobilinogen 4.0mg/dL (NORMAL) Urine Leukocyte Esterase Negative (NEGATIVE) Urine RBC 0-2/hpf (0-2) Urine WBC 0-5/hpf (0-5) Urine Epithelial Cells Occasional/hpf (NONE-MOD) Urine Crystals None seen (NONE SEEN) Urine Bacteria None/hpf (NONE-FEW) Urine Hyaline Casts None/lpf (NONE) Urine Granular Casts None seen (NONE SEEN) Urine Waxy Casts None seen (NONE SEEN) Urine Red Blood Cell Casts None seen (NONE SEEN) Urine White Blood Cell Casts None seen (NONE SEEN) Urine Mucus None seen (None Seen) Urine Trichomonas None seen (NONE SEEN) Urine Yeast None (NONE SEEN) Urine Culture Reflexed Not indicated Assessment/Plan Assessment/Plan A/ - 71 y/o male patient advised to go to hospital from his PCP for increased malaise, general weakness, possible bilateral pneumonia. Patient is currently under Daptomycin treatment with Dr. Drew for MRSA osteomyelitis of R wrist - In ED, patient received once Cefepime and Levaquin, Ancef also initiated and continue - Wt: 76.9 kg, Ht: 170 cm, SCr: 0.56 mg/dL, est. clearance ~120 ml/min, Vd ~ 54 L P/ - Give Vancomycin 1.5G q 12h. Trough level ordered before 4th dose @ 1900 on 11/07. Pharmacy will continue to follow and make necessary adjustment. Thank you for consulting clinical pharmacy in the care of this patient Leo Bennett, SenD, [facility] Tony Bennett Nov 06, 2016 06:45
[2016-11-06 06:55] LABS: INR 1.3 ratio
[2016-11-06 07:07] LABS: BASOPHILS % (AUTO) 0.7 % (0-3); EOSINOPHILS % (AUTO) 10.6 % (0-5); Mean Corpuscular Hemoglobin 29.5 pg (27.0-35.0); Mean Corpuscular Volume 87.3 fL (81-100); NEUTROPHILS % (AUTO) 59.2 % (40-74); Platelet Count 70 bil/L (150-400)
[2016-11-06 07:10] LABS: TROPONIN T 0.01 ug/L (0.0-0.011)
--- NOTE | 2016-11-06 07:18 | NUR ---
Admit Note Pt arrived to PCC room 2019 around 2345, admission and med rec done prior to arrival. Pt denied pain but stated chills. BP low but stable, MD aware and ordered bolus and continuous fluids. Pt afebrile since admitted to floor. Pt started on clear liquid diet per orders and tolerating well. Tele SR 70s-80s, sats mid 90s on RA. Once interventions done pt appeared to sleep comfortably.
[2016-11-06 07:21] LABS: Phosphorus 2.6 mg/dL (2.5-4.9)
[2016-11-06] MEDS: Vancomycin Inj 1,500 MG in 0.9% Sodium Chloride 500 ML IV SCH ×2 (08:01→21:14)
[2016-11-06] MEDS: Sodium Chloride LOK Flush 10 mL Syringe IVFLUSH SCH ×2 (08:37→16:30)
[2016-11-06] MEDS: Heparin 5,000 Unit/mL Inj SUBQ SCH ×2 (08:37→17:39)
[2016-11-06] MEDS: Pantoprazole 40 mg ER24 Tablet PO SCH ×2 (08:38→21:14)
--- NOTE | 2016-11-06 12:07 | PCM.PNMED ---
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 Patient reports that a little over a week ago he noticed feeling increasing malaise. He reports this increase the point that he went and saw his primary care provider on 11/04/16 of this week, and reports that blood tests were performed (noted below). He reports that at this time he was experiencing some cold symptoms. He reports its his was also experiencing some cold like symptoms about a week or 2 ago, but she has rapidly improved. Patient reports he received a phone call back from his primary care provider advising him to go to the urgent care building for chest x-ray because his shortness of breath was not improving, and blood values were abnormal. He reports at this time nonproductive cough, shortness of breath that has somewhat improved, but continued weakness/malaise. He reports that his restless legs are somewhat bothersome for which he usually takes nighttime gabapentin. He reports pain in his right wrist which has been chronic in the setting of his infection. Chest x-ray performed at urgent care concerning for pneumonia (as detailed below ). Patient is admitted under inpatient status with expected length of stay greater than 2 midnights due to severity of presenting symptoms, risk of adverse event, and complexity of treatment plan. Exam Vital Signs Vital Sign - Last Date Time Temp Pulse Resp B/P Pulse Ox O2 Delivery O2 Flow Rate FiO2 11/06/16 09:14 72 11/06/16 08:29 36.8 16 118/56 93 Room Air Intake and Output 11/05/16 11/05/16 11/06/16 Cumulative From/Thru 15:00 23:00 07:00 11/05/16 19:41 - 11/06/16 04:57 Intake Total 1000 ml 0 ml 1000 ml Output Total 720 ml 720 ml Balance 1000 ml -720 ml 280 ml Intake Oral 0 ml 0 ml IV Total 1000 ml 1000 ml Output Urine Total 720 ml 720 ml # Bowel Movements 0 0 Exam General: Oriented X3, Cooperative, No Acute Distress (occasionally wince attributed to restless legs/sharp pain in legs, right wrist pain) Head: Normocephalic, atraumatic. External ears normal. Eyes: PERRL, EOMI. Anicteric sclerae. Conjunctivae are not injected Mouth: Mouth Normal, Mucous Membranes Moist/[place] Neck: Neck supple with full range of motion. No Thyromegaly. Chest & Lungs: Diminished breath sounds in the bases with faint crackles on the left. Otherwise normal respiratory effort without use of accessory's Cardiovascular: Regular Rate/Rhythm, Normal S1, Normal S2, No Murmurs/Rubs/ Gallops appreciated at this time. Radial pulses are 2+ bilaterally. Abdomen: Non-tender, Non-distended, No masses, Normoactive bowel tones, Soft Musculoskeletal: Grossly Normal Range of Motion Extremities: No cyanosis/clubbing/edema bilat. Single-lumen PICC in the left upper extremity. Skin: Telangiectasias over bilateral cheeks and upper chest. No jaundice. No evidence of subcutaneous venous distention. No rash. Neurological: Grossly Neurologically Intact, Cranial Nerves 2-12 Intact, Normal Speech Psych: Normal mood and affect. Thought process and content intact. Somewhat somnolent IVs and Medications Medications Reviewed: Medications were reviewed in detail Lab and Diagnostics Result Diagram: 11/06/1653711/06/16537 Microbiology Rapid flu negative Blood culture pending Respiratory PCR negative X-Rays, CTs and MRIs Date of Service: 11/05/16 1230 PROCEDURE: X-RAY CHEST, TWO VIEWS ([id number]) IMPRESSION: 1. Bilateral upper lobe pneumonia. 2. Left-sided PICC line in position. Dictated by: Ephraim Smith M.D. on 11/05/2016 at 12:45 ROCEDURE: CT ANGIO CHEST PULMONARY EMBOLISM ([id number]) INDICATIONS: dyspnea TECHNIQUE: After the administration of intravenous contrast, 2 mm thick sections acquired from the pulmonary apices to the posterior costophrenic angles. 3-dimensional maximum intensity projection (MIP) coronal and sagittal reformats were then acquired through the thorax. For radiation dose reduction, the following was used: automated exposure control, adjustment of mA and/or kV according to patient size. COMPARISON: None. FINDINGS: Image quality: Excellent. Pulmonary arteries: Pulmonary arteries are normal in size, and demonstrate no intraluminal filling defects to suggest central pulmonary embolism. Lungs and pleura: There are small bilateral pleural effusions. Severe multifocal air space opacity within the bilateral mid and upper lungs is present. Central and peripheral airways are patent. Mediastinum: Heart size is normal, without pericardial effusion. There is calcification of the coronary vasculature. No mediastinal or hilar adenopathy. Thoracic aorta is normal in caliber and enhancement. Esophagus is normal in caliber, without hiatal hernia. Bones and chest wall: No suspicious bony lesions. Ribs and thoracic spine appear intact throughout. Thyroid gland is within normal limits. No axillary or supraclavicular adenopathy. Abdomen: Visualized portions of the upper abdomen demonstrate a nodular hepatic contour, and are otherwise within normal limits. IMPRESSION: 1. No pulmonary embolus. 2. Multifocal pneumonia. Continued plain film surveillance is recommended to ensure resolution, and to exclude underlying or central malignancy. 3. Cirrhosis. Dictated by: Flakito Trujillo M.D. 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 1. Health care Associated pneumonia,poa -Bilateral upper lobe infiltrates on chest x-ray, multifocal consolidation of CT ,recent hospitalization - Consideration for tuberculosis - Pending- hepatitis C antibody, HIV serologies, QuantiFERON Gold, and FABBY w/ Reflex - Added beta D glucan assay (to assess for fungal etiology) - CXR as above. - Chest CTA multifocal pneumonia - recieved doses of cefepime, levofloxacin.will start zosyn to cover HCAP and continue vancomycin for MRSA osteomyelitis - PICC in place. 2.Recent MRSA cellulitis and osteomyelitis on home dapto -continue vanco for now 3. Hypokalemia, acute. Present on admission. Resolved. - Potential relation to his daily diuretic, with potential contribution from borderline magnesium - Likely related to his decreased by mouth intake over the last several days - 40 mEq rider to be given via his PICC - Continue home 20 mEq by mouth. - Continue to monitor labs - Consideration for replacing magnesium 4. Hyperbilirubinemia, acute. Present on admission. Improved. -due to cirrhosis - Continue to monitor lab - Consideration for abdominal ultrasound 5. Minimally elevated troponin, acute. Present on admission. resolved. - We will trend 3 - potentially related to stress of acute illness. 6. Borderline low blood pressure, acute. Present on admission. - The related to acute illness and decreased by mouth intake over the last several days - We will hold his antihypertensives - IVF as above 7. Hyponatremia and hypochloremia, acute. Present on admission. Resolved. 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 Checking an ammonia level (consideration for continuing lactulose) Gout. Thrombocytopenic disorder.-Continue to watch labs MRSA Osteomyelitis of the right wrist (currently in outpatient treatment with Dr. Drew of infectious disease-daptomycin).-Holding daptomycin for now, empiric antibiotics as noted above Chronic anemia of chronic disease-continue to watch labs RLS-continue gabapentin and oxycodone PRN MEDICATIONS - Bowel regimen as needed - Antiemetic as needed Patient is admitted under inpatient status with expected length of stay greater than 2 midnights due to severity of presenting symptoms, risk of adverse event, and complexity of treatment plan. Pain Evaluation: Adequate Pain Control GI Prophylaxis: Proton Pump Inhibitor VTE Prophylaxis: Sub-Q Heparin (Unfractionated) VTE Mechanical Devices: Anti-Embolic stockings Resuscitation Status: CPR: Attempt Resuscitation Attending Statement The patient was seen and examined together with Dr. Orta on 11/06/2016 and I agree with the history, exam and plan as outlined in the note above. SHAW ORTA DO Nov 06, 2016 12:07 Balta Lopez MD Nov 06, 2016 16:22
--- NOTE | 2016-11-06 12:37 | NUR ---
CT Scan He left [facility] 2019 about 1230 via wheelchair and transporter to get a CT scan. He returned to his room and was settled into bed about 1237. Care continues.
--- NOTE | 2016-11-06 12:37 | DRSVH ---
PROCEDURE: CT ANGIO CHEST PULMONARY EMBOLISM ([id number]) INDICATIONS: dyspnea TECHNIQUE: After the administration of intravenous contrast, 2 mm thick sections acquired from the pulmonary [place] to the posterior costophrenic angles. 3-dimensional maximum intensity projection (MIP) coronal a nd sagittal reformats were then acquired through the thorax. For radiation dose reduction, the follo wing was used: automated exposure control, adjustment of mA and/or kV according to patient size. COMPARISON: None. FINDINGS: Image quality: Excellent. Pulmonary arteries: Pulmonary arteries are normal in size, and demonstrate no intraluminal filling d efects to suggest central pulmonary embolism. Lungs and pleura: There are small bilateral pleural effusions. Severe multifocal air space opacity wi thin the bilateral mid and upper lungs is present. Central and peripheral airways are patent. Mediastinum: Heart size is normal, without pericardial effusion. There is calcification of the [place] vasculature. No mediastinal or hilar adenopathy. Thoracic aorta is normal in caliber and enhanc ement. Esophagus is normal in caliber, without hiatal hernia. Bones and chest wall: No suspicious bony lesions. Ribs and thoracic spine appear intact throughout. Thyroid gland is within normal limits. No axillary or supraclavicular adenopathy. Abdomen: Visualized portions of the upper abdomen demonstrate a nodular hepatic contour, and are oth erwise within normal limits. IMPRESSION: 1. No pulmonary embolus. 2. Multifocal pneumonia. Continued plain film surveillance is recommended to ensure resolution, and t o exclude underlying or central malignancy. 3. Cirrhosis. Dictated by: Flakito Trujillo M.D. on 11/06/2016 at 12:28 Approved by: Flakito Trujillo M.D. on 11/06/2016 at 12:31
--- NOTE | 2016-11-06 13:48 | PCM.CONORT ---
Subjective Surgeon Admitting Provider:Natalie Welch DO Attending Provider:Natalie Welch DO Primary Care Physician:Tata Doll MD Other Provider: Reason for Consultation: Right hand pain Allergy Allergies: Coded Allergies: colchicine (Verified Adverse Reaction, Severe, gi upset, 11/05/16) niacin (Verified Adverse Reaction, Severe, GI UPSET, 11/05/16) Uncoded Allergies: SEASONAL ALLERGIES (Allergy, Severe, ITCH/RASH, 10/13/16) Medications Ascorbic Acid (Vitamin C) 500 Mg Capsule.er 500 MG PO BID Prescribed by: SG HAMLIN DO Last Taken: Unknown Dose on 11/05/16 0800 Cholecalciferol (Vitamin D3) ( Vitamin D3) 5,000 Unit Capsule 5,000 UNIT PO DAILY (Reported) Last Taken: Unknown Dose on 11/05/16 0800 Daptomycin (Daptomycin) 500 Mg Vial 700 MG IV HS (Reported) Last Taken: Unknown Dose on 11/04/16 1900 Fluticasone Propionate (Flonase Allergy Relief) 50 Mcg/Actuation [place].susp 1 SPRAY NASAL DAILY (Reported) Last Taken: Unknown Dose on Unknown Date & Time Furosemide (Furosemide) 20 Mg Tab 40 MG PO DAILY (Reported) Last Taken: Unknown Dose on 11/05/16 0800 Gabapentin (Gabapentin) 300 Mg Capsule 300 MG PO BID (Reported) AM, NOON Last Taken: Unknown Dose on 11/05/16 0800 Gabapentin (Gabapentin) 300 Mg Capsule 600 MG PO QPM (Reported) 6PM Last Taken: Unknown Dose on 11/04/16 1800 Ketoconazole (Ketoconazole) 120 Ml Shampoo 1 APPLIC TP WEEKLY (Reported) Last Taken: Unknown Dose on 11/01/16 0800 Lactulose (Lactulose) 20 Gm/30 Ml Solution 10 GM PO BID Prescribed by: BON STARKS MD Last Taken: Unknown Dose on 11/05/16 0800 Multivitamin (Multivitamins) 1 Each Capsule 1 EACH PO DAILY (Reported) Last Taken: Unknown Dose on 11/05/[address] (Pantoprazole DR) 40 Mg Tablet.dr 40 MG PO BID (Reported) Last Taken: Unknown Dose on 11/05/16 0800 Potassium Chloride ER (Klor-Con M10 ) 10 Meq Tabsr 10 MEQ PO DAILYWM Prescribed by: BON KEENAN MD Last Taken: Unknown Dose on 11/04/16 0800 Spironolactone (Spironolactone) 50 Mg Tablet 50 MG PO DAILY (Reported) Last Taken: Unknown Dose on 11/05/16 0800 Sulfacetamide Sodium (Sodium Sulfacetamide) 10 % Clnsr.gel 1 APPLIC TP BID (Reported) for rosacea Last Taken: Unknown Dose on 11/05/16 0800 oxyCODONE (oxyCODONE) 5 Mg Tablet 5 MG PO Q3H PRN PRN For Pain (Reported) Last Taken: Unknown Dose on Unknown Date & Time Discontinued Medications ([Lasix]) 40 MG PO BID PRN PRN PRN (Reported) ([Ketaconazole Shampoo]) 1 APPLIC TP WEEKLY (Reported) 2% Indomethacin (Indomethacin) 25 Mg Capsule 25 MG PO TID (Reported) History History of ENT Problems?: Yes HEENT History: Positive for:: Cataracts (S/P B/L EXTRACTIONS) Sinus Problem Denies:: Abnormal Airway Difficult Intubation Dysphagia Hearing Problem Hx of Heart Problems?: Yes Cardiovascular History: Positive for:: Edema Denies:: AICD Atrial Fibrillation Cardiac Surgery Chest Pain Congestive Heart Failure Heart Murmur (ECHO 11/2013 EF 60-65%) Hypertension Irregular Heartbeat Pacemaker Thrombophlebitis Valvular Heart Disease Hx of Respiratory Problem?: Yes Respiratory History: Positive for:: Pneumonia Denies:: Asthma COPD Chest Surgery Cough Dyspnea Emphysema Hemoptysis Tuberculosis Use of C-PAP Machine (SNORES) Hx Neurologic Problems?: No Neurological History: Denies:: Alzheimer's Disease CVA Dementia Dizziness Headaches Parkinson's Disease Seizures Hx of GI Problems?: Yes Gastrointestinal History: Positive for:: Cirrhosis (ETOH-INDUCED) Gastrointestinal Bleeding Rectal Bleeding (RECENT BLACK STOOL) Denies:: Diverticulitis Gastroesphageal Reflux Heartburn Hepatitis Hiatal Hernia Hx of Problems?: Yes Genitourinary History: Positive for:: Urinary Tract Infection (REMOTELY) Denies:: HX of Hemodialysis Kidney Stones HX of Peritoneal Dialysis: No Male Hx: Denies:: Prostate Problems Scrotal Mass Testicular Surgery Skin History: Denies:: History Skin Disorders? 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 This has been progressing over the past several weeks after he developed osteomyelitis of the right wrist with subsequent irrigation and debridement of by Dr. Arora 3 weeks ago. Moreover, the pain is exacerbated by activities, especially with others grabbing his hand. Rest seems to improve the symptoms. There is no reports numbness, tingling, or weakness to the affected distal upper extremity. He reports that his pain has not increased since his surgery and is simply a dull ache currently being treated with antibiotics with mild improvement. Hx of Psycho/Social Problems?: Yes Psycho Social History: Positive for:: Anxiety (PTSD) Denies:: Bipolar Disorder Hx Depression Suicide Attempt Hx Surgeries?: Yes (eye surgery, back surgery (sciatic nerve) appendectomy,LT KNEE RPR,TONSILS,) Hx Any Other Health Problems?: Yes Other History: Positive for:: Hospitalization Denies:: Cancer Endocrine Disease Thyroid Disease History Blood Transfusions: Positive for:: Accept Blood Products? Denies:: Blood Transfuse Reaction Blood Transfusions Hx Diabetes: No Hx Alcohol Use: Yes (1-3 beers daily (PT SAYS QUIT IN 2014; SAYS DRINKING)) Hx Substance Use: No Smoking Status: Former Smoker Have You Smoked inLast 12 mo: No Objective Exam Vital Signs & I/O Vital Sign- Last 8 Hours Date Time Temp Pulse Resp B/P Pulse Ox O2 Delivery O2 Flow Rate FiO2 11/06/16 09:14 72 11/06/16 08:29 36.8 69 16 118/56 93 Room Air 11/06/16 05:47 80 Intake and Output- Last 8 Hour 11/06/16 Cumulative From/Thru 07:00 11/05/16 19:41 - 11/06/16 04:57 Intake Total 0 ml 1000 ml Output Total 720 ml 720 ml Balance -720 ml 280 ml Intake Oral 0 ml 0 ml IV Total 1000 ml Output Urine Total 720 ml 720 ml # Bowel Movements 0 0 Lab & Micro Results Laboratory Tests Test 11/05/16 20:24 11/05/16 23:50 11/06/16 05:38 11/06/16 06:20 White Blood Count 9.3th/mm3 (3.8-10.1) 5.6th/mm3 (3.8-10.1) Red Blood Count 3.71mil/mm3 (4.40-5.80) 3.22mil/mm3 (4.40-5.80) Hemoglobin 10.9g/dL (13.8-17.2) 9.5g/dL (13.8-17.2) Hematocrit 31.8% (41.0-50.0) 28.1% (41.0-50.0) Mean Corpuscular Volume 85.7fL (81-100) 87.3fL (81-100) Mean Corpuscular Hemoglobin 29.4pg (27.0-35.0) 29.5pg (27.0-35.0) Mean Corpuscular Hemoglobin Concent 34.3% (32.0-37.0) 33.8% (32.0-37.0) Red Cell Distribution Width 15.9% (12.3-15.4) 15.6% (12.3-15.4) Platelet Count 136bil/L (150-400) 70bil/L (150-400) Neutrophils (%) (Auto) 63.5% (40-74) 59.2% (40-74) Lymphocytes (%) (Auto) 12.3% (14-46) 15.1% (14-46) Monocytes (%) (Auto) 12.6% (4-12) 14.0% (4-12) Eosinophils (%) (Auto) 10.5% (0-5) 10.6% (0-5) Basophils (%) (Auto) 0.8% (0-3) 0.7% (0-3) Sodium Level 128mEq/L (134-144) 134mEq/L (134-144) Potassium Level 3.3mEq/L (3.5-5.2) 3.9mEq/L (3.5-5.2) Chloride Level 91mEq/L (97-108) 100mEq/L (97-108) Carbon Dioxide Level 23mmol/L (18-29) 21mmol/L (18-29) Blood Urea Nitrogen 10mg/dL (8-27) 8mg/dL (8-27) Creatinine 0.56mg/dL (0.76-1.27) 0.53mg/dL (0.76-1.27) Estimat Glomerular Filtration Rate 153mL/min (>59) 163mL/min (>59) Glucose Level 106mg/dL (60-99) 97mg/dL (60-99) Lactic Acid Level 1.3mmol/L (0.4-2.0) Calcium Level 8.4mg/dL (8.5-10.1) 7.9mg/dL (8.5-10.1) Magnesium Level 1.6mg/dL (1.6-2.6) Total Bilirubin 1.6mg/dL (0.0-1.2) 1.3mg/dL (0.0-1.2) Aspartate Amino Transf (AST/SGOT) 48U/L (0-50) 36U/L (0-50) Alanine Aminotransferase (ALT/SGPT) 19U/L (0-44) 15U/L (0-44) Alkaline Phosphatase 83U/L (25-160) 70U/L (25-160) Troponin T 0.014ug/L (0.0-0.011) 0.010ug/L (0.0-0.011) Pro-B-Type Natriuretic Peptide 100.8pg/mL (0-376) Total Protein 7.2g/dL (6.4-8.4) 6.0g/dL (6.4-8.4) Albumin 3.2g/dL (3.4-5.0) 2.7g/dL (3.4-5.0) Procalcitonin 0.08ng/mL (0.00-0.08) 0.06ng/mL (0.00-0.08) Urine Color Dark yellow (YELLOW) Urine Appearance Clear (CLEAR,HAZY) Urine pH 5.5 (5.0-8.0) Urine Specific [place] 1.025 (1.003-1.035) Urine Protein Negativemg/dL (NEG,TRACE) Urine Glucose (UA) Negativemg/dL (NEGATIVE) Urine Ketones Negativemg/dL (NEGATIVE) Urine Occult Blood Negative (NEGATIVE) Urine Nitrite Negative (NEGATIVE) Urine Bilirubin Small (NEGATIVE) Urine Ictotest Positive (Negative) Urine Urobilinogen 4.0mg/dL (NORMAL) Urine Leukocyte Esterase Negative (NEGATIVE) Urine RBC 0-2/hpf (0-2) Urine WBC 0-5/hpf (0-5) Urine Epithelial Cells Occasional/hpf (NONE-MOD) Urine Crystals None seen (NONE SEEN) Urine Bacteria None/hpf (NONE-FEW) Urine Hyaline Casts None/lpf (NONE) Urine Granular Casts None seen (NONE SEEN) Urine Waxy Casts None seen (NONE SEEN) Urine Red Blood Cell Casts None seen (NONE SEEN) Urine White Blood Cell Casts None seen (NONE SEEN) Urine Mucus None seen (None Seen) Urine Trichomonas None seen (NONE SEEN) Urine Yeast None (NONE SEEN) Urine Culture Reflexed Not indicated Urine Legionella pneumophilia Ag Negative (Negative) Prothrombin Time 14.0sec (8.1-12.5) Prothromb Time International Ratio 1.30ratio Phosphorus Level 2.6mg/dL (2.5-4.9) Ammonia 76ug/dL (18-53) Microbiology 11/05/16 Blood Culture, Received Pending 11/05/16 Influenza Screen - Final, Complete 11/05/16 Streptococcus pneumoniae Ag Screen - Final, Complete Result Diagram: 11/06/16 0538 11/06/16 0538 Review of Systems: Constitutional: Negative, except as otherwise mentioned in the history above. Ophthalmologic: Negative, except as otherwise mentioned in the history above. Cardiovascular: Negative, except as otherwise mentioned in the history above. Respiratory: Negative, except as otherwise mentioned in the history above. Gastrointestinal: Negative, except as otherwise mentioned in the history above. Genitourinary: Negative, except as otherwise mentioned in the history above. Musculoskeletal: Negative, except as otherwise mentioned in the history above. Neurological: Negative, except as otherwise mentioned in the history above. Psychiatric: Negative, except as otherwise mentioned in the history above. Hematologic/Lymphatic: Negative, except as otherwise mentioned in the history above. Allergic/Immunologic: Negative, except as otherwise mentioned in the history above. H&P Surgical Exam Exam Musculoskeletal: CONST: WD,WN, NAD, A+OX3 OCULAR: EOMI, no conjunctivitis/icterus ENT: no deformities, scars or lesions CARDIAC: Pulse is regular. No cyanosis,clubbing,edema RESP: regular,unlabored MSK: normal light touch median, ulnar, radial, lateral antebrachial, axillary nerve distribution. Intact AIN, PIN, u, r, ax motor. C5-T1 intact, 2+ r/u pulse Right hand : Healed dorsal vertical scars, -discoloration/temp, - swelling, - atrophy or asymmetry, - cascade sign, no global ligamentous laxity, TTP mildly along incision site ROM right Ext-flex Resisted Strength/Pain 0-85 MCP 5/5 / - 0-110 PIP 5/5 / - 0-65 DIP 5/5 / - 60 -60 Wrist 5/5 / - 50 deg of radioulnar arc mild painful arc, - crepitus Signs grind:- Aubrey's sign: - [facility] test: - Schaefer's test: Gamekeeper's test: - Tinel's test: - Phalen's test: - Froment's test: - Wartenberg's: - H&P Preop Plan Impression Right wrist pain, history of septic arthritis status post irrigation debridement 3 weeks ago Problems: Risks & Benefits * We have reviewed the risks and benefits as well as the alternatives to surgery. All questions were answered to the patient's satisfaction and a counseling note to that effect. The patient has provided informed consent. * I have counseled the patient regarding the deleterious effects that smoking during the perioperative period can have upon wound healing, infection rates, and the overall rate of complications. Plan Continue weight-bear as tolerated right upper extremity Continue antibiotics per Dr. Drew Recommend repeat x-rays and/or MRI with contrast if symptoms worsen Patient can follow up in clinic as an outpatient in 1-2 weeks Please keep the affected extremity elevated when possible. You may use ice and/or heat as needed for comfort. All questions and concerns were addressed. Please feel free to call with any questions, comments, and/or concerns. Barney Hooker MD Nov 06, 2016 13:48
--- NOTE | 2016-11-06 15:30 | NUR ---
Social Work-initial assessment: Data & Assessment: See initial assessment. EMR Reviewed. Pt is a 71 y/o male who was admitted on 11/05/16 for bilateral pneumonia H&P. Pt's insurance is [employer]. and PCP is Tata Doll MD. SW met with patient and patient's to discuss discharge planning, SW role explained, and initial assessment complete. Pt is alert and oriented x3. Pt resides at home with in a single level home with three steps to enter where pt remains independent with basic ADLs. Pt has a cane that he is supposed to use at baseline and does drive. Patient's reported that patient does not always use his cane. Patient is on service with [facility] and has been to [facility] in the past. Pt has not completed DPOA/ advanced directive and accepted information. Pt has no roasterman care insurance. Patient does have VA benefits. Patient to resume home health with [facility] when discharged. SW gave [facility] access. Pt's family to provide transport home at discharge. SW provided phone number and plan on white board in room. SW will continue to follow. Plan:Pt to likely discharge home and resume [facility]. Pt's family is supportive. SW will continue to follow. Miles Church LMSW, BARBARA Addendum: 11/07/16 at 1541 by MILES CHURCH SS Amended: Links added.
[2016-11-06] MEDS: Piperacillin-Tazo 3.375 Gm Inj 3.375 GM in Dextrose 5% Minibag Plus 50 ML IV SCH (17:40)
[2016-11-06] MEDS ORDERED: Sodium Chloride LOK Flush 10 mL Syringe IVFLUSH PRN ×2 (17:55)
[2016-11-07] VITALS (9 sets, daily range): BP systolic 103–126; BP diastolic 42–55; PULSE 66–78; RESP 15–20; O2SAT 92–98
[2016-11-07] MEDS: Heparin 5,000 Unit/mL Inj SUBQ SCH ×3 (00:30→17:01)
[2016-11-07] MEDS: Piperacillin-Tazo 3.375 Gm Inj 3.375 GM in Dextrose 5% Minibag Plus 50 ML IV SCH ×3 (01:08→17:01)
[2016-11-07] MEDS: Sodium Chloride LOK Flush 10 mL Syringe IVFLUSH SCH ×3 (01:08→17:01)
[2016-11-07] MEDS: LacriLube S.O.P. 3.5 Gm Ophthalmic Ointment BOTH_EYES PRN (01:22)
[2016-11-07] MEDS: 0.9% Sodium Chloride 1,000 ML IV SCH (03:35)
[2016-11-07 05:17] LABS: BASOPHILS % (AUTO) 1.3 % (0-3); EOSINOPHILS % (AUTO) 15.3 % (0-5); MONOCYTES % (AUTO) 10.9 % (4-12); Mean Corpuscular Hemoglobin 29.2 pg (27.0-35.0); Mean Corpuscular Volume 87.5 fL (81-100); NEUTROPHILS % (AUTO) 56.8 % (40-74); Platelet Count 126 bil/L (150-400)
[2016-11-07 05:40] LABS: Magnesium 1.6 mg/dL (1.6-2.6); Phosphorus 2.5 mg/dL (2.5-4.9)
--- NOTE | 2016-11-07 07:55 | NUR ---
Tele/Pain Pt had no c/o chest pain, tele SR 70s, MT reported 5 beats VTach, pt asymptomatic. aware and also notified that Mag was borderline when last checked. MD ordered Mag to labs for this morning. Pt given PRN oxycodone x2 for 8 wrist pain. This seemed effective as pt was noted to sleep and appeared comfortable after med. Addendum: 11/08/16 at 0642 by JENNI DE LEON RN Daptomycin added to allergy list with concern for pulmonary toxicity per Dr. Drew. Night aware.
[2016-11-07] MEDS: Vancomycin Dose per Pharmacist XX SCH (08:30)
[2016-11-07] MEDS: Vancomycin Inj 1,500 MG in 0.9% Sodium Chloride 500 ML IV SCH ×2 (09:30→21:28)
[2016-11-07] MEDS: Pantoprazole 40 mg ER24 Tablet PO SCH ×2 (09:31→21:32)
--- NOTE | 2016-11-07 11:57 | PCM.PNMED ---
Subjective Date of Service Nov 07, 2016 Subjective Afebrile. Breathing improving. CT scan shows multifocal bilateral upper lobe pneumonia. Exam Vital Signs Vital Sign - Last Date Time Temp Pulse Resp B/P Pulse Ox O2 Delivery O2 Flow Rate FiO2 11/07/16 09:57 68 11/07/16 09:30 36.4 20 115/53 94 Room Air Intake and Output 11/06/16 11/06/16 11/07/16 Cumulative From/Thru 15:00 23:00 07:00 11/05/16 19:41 - 11/07/16 04:40 Intake Total 999 ml 2574 ml 320 ml 4893 ml Output Total 1900 ml 950 ml 3570 ml Balance 999 ml 674 ml -630 ml 1323 ml Intake Oral 1040 ml 320 ml 1360 ml IV Total 999 ml 1534 ml 3533 ml Output Urine Total 1900 ml 950 ml 3570 ml # Bowel Movements 2 1 3 Exam General: Oriented X3, Cooperative, No Acute Distress (occasionally wince attributed to restless legs/sharp pain in legs, right wrist pain) Head: Normocephalic, atraumatic. External ears normal. Eyes: PERRL, EOMI. Anicteric sclerae. Conjunctivae are not injected Mouth: Mouth Normal, Mucous Membranes Moist/[place] Neck: Neck supple with full range of motion. No Thyromegaly. Chest & Lungs: Diminished breath sounds in the bases with faint crackles on the left. Otherwise normal respiratory effort without use of accessory's Cardiovascular: Regular Rate/Rhythm, Normal S1, Normal S2, No Murmurs/Rubs/ Gallops appreciated at this time. Radial pulses are 2+ bilaterally. Abdomen: Non-tender, Non-distended, No masses, Normoactive bowel tones, Soft Musculoskeletal: Grossly Normal Range of Motion,right wrist surgical site clean ,mild tenderness on passive movement of right wrist Extremities: No cyanosis/clubbing/edema bilat. Single-lumen PICC in the left upper extremity. Skin: Telangiectasias over bilateral cheeks and upper chest. No jaundice. No evidence of subcutaneous venous distention. No rash. Neurological: Grossly Neurologically Intact, Cranial Nerves 2-12 Intact, Normal Speech Psych: Normal mood and affect. Thought process and content intact. Somewhat somnolent IVs and Medications Medications Reviewed: Medications were reviewed in detail Lab and Diagnostics Result Diagram: 11/07/16 0505 11/07/16 0505 Microbiology Rapid flu negative Blood culture pending Respiratory PCR negative X-Rays, CTs and MRIs Date of Service: 11/05/16 1230 PROCEDURE: X-RAY CHEST, TWO VIEWS ([id number]) IMPRESSION: 1. Bilateral upper lobe pneumonia. 2. Left-sided PICC line in position. Dictated by: Ephraim Smith M.D. on 11/05/2016 at 12:45 ROCEDURE: CT ANGIO CHEST PULMONARY EMBOLISM ([id number]) INDICATIONS: dyspnea TECHNIQUE: After the administration of intravenous contrast, 2 mm thick sections acquired from the pulmonary apices to the posterior costophrenic angles. 3-dimensional maximum intensity projection (MIP) coronal and sagittal reformats were then acquired through the thorax. For radiation dose reduction, the following was used: automated exposure control, adjustment of mA and/or kV according to patient size. COMPARISON: None. FINDINGS: Image quality: Excellent. Pulmonary arteries: Pulmonary arteries are normal in size, and demonstrate no intraluminal filling defects to suggest central pulmonary embolism. Lungs and pleura: There are small bilateral pleural effusions. Severe multifocal air space opacity within the bilateral mid and upper lungs is present. Central and peripheral airways are patent. Mediastinum: Heart size is normal, without pericardial effusion. There is calcification of the coronary vasculature. No mediastinal or hilar adenopathy. Thoracic aorta is normal in caliber and enhancement. Esophagus is normal in caliber, without hiatal hernia. Bones and chest wall: No suspicious bony lesions. Ribs and thoracic spine appear intact throughout. Thyroid gland is within normal limits. No axillary or supraclavicular adenopathy. Abdomen: Visualized portions of the upper abdomen demonstrate a nodular hepatic contour, and are otherwise within normal limits. IMPRESSION: 1. No pulmonary embolus. 2. Multifocal pneumonia. Continued plain film surveillance is recommended to ensure resolution, and to exclude underlying or central malignancy. 3. Cirrhosis. Dictated by: Flakito Trujillo M.D. 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 1. Health care Associated pneumonia,poa -Bilateral upper lobe infiltrates on chest x-ray, multifocal consolidation on CT ,recent hospitalization - Consideration for tuberculosis - hepatitis C antibody and HIV negative, pending QuantiFERON Gold, and FABBY w/ Reflex - Added beta D glucan assay (to assess for fungal etiology) -He has eosinophilia.Dr Drew called and discussed case. Daptomycin can cause eosinophilia. Initiation of steroid to treat possible Eosinophilic interstitial pneumonitis can be considered if patient worsens . Daptomycin switched to vancomycin on admission. - CXR as above. - Chest CTA multifocal pneumonia - recieved doses of cefepime, levofloxacin.now on zosyn to cover HCAP and continue vancomycin for MRSA osteomyelitis -strept pneumo Ag negative, blood culture negative, viral PCR negative - PICC in place. 2.Recent MRSA cellulitis and osteomyelitis on home dapto -continue vanco for now 3,Alcoholic cirrhosis.-Holding diuretics for now given his blood pressure. Checking an ammonia level (consideration for continuing lactulose) 4. Hyperbilirubinemia, acute. Present on admission. Improved. -due to cirrhosis - Continue to monitor lab 5. Minimally elevated troponin, acute. Present on admission. resolved. - We will trend 3 - potentially related to stress of acute illness. 6. Borderline low blood pressure, acute. Present on admission. - The related to acute illness and decreased by mouth intake over the last several days - We will hold his antihypertensives - IVF as above 7. Hyponatremia and hypochloremia, acute. Present on admission. Resolved. 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 Discontinue now - Continue to monitor labs closely 7. Hypokalemia, acute. Present on admission. Resolved. - Potential relation to his daily diuretic, with potential contribution from borderline magnesium - Likely related to his decreased by mouth intake over the last several days - Continue home 20 mEq by mouth. Chronic conditions: Gout. Thrombocytopenic disorder.-Continue to watch labs MRSA Osteomyelitis of the right wrist (currently in outpatient treatment with Dr. Drew of infectious disease-daptomycin).-Holding daptomycin for now, empiric antibiotics as noted above Chronic anemia of chronic disease-continue to watch labs RLS-continue gabapentin and oxycodone PRN MEDICATIONS - Bowel regimen as needed - Antiemetic as needed Possible discharge in 2-3 days. Will be continued on vancomycin or daptomycin upon discharge. GI Prophylaxis: Proton Pump Inhibitor VTE Prophylaxis: Sub-Q Heparin (Unfractionated) VTE Mechanical Devices: Anti-Embolic stockings Resuscitation Status: CPR: Attempt Resuscitation Balta Lopez MD Nov 07, 2016 11:57
--- NOTE | 2016-11-07 12:51 | NUR ---
[facility] Signed
--- NOTE | 2016-11-07 18:43 | NUR ---
Diet/Pain Diet changed from clear liquid to heart healthy/Carb consistent. Pt tolerating eating half a burger with a side salad for dinner. Pt report 3/10 wrist pain but sating being fine for now. No pain med requested. right extremity elevated on pillow.
[2016-11-07] MEDS ORDERED: Vancomycin Serum Trough XX ONE (19:00)
[2016-11-08] VITALS (7 sets, daily range): BP systolic 106–127; BP diastolic 48–60; PULSE 69–80; RESP 18–20; O2SAT 92–95
[2016-11-08] MEDS: Heparin 5,000 Unit/mL Inj SUBQ SCH ×3 (01:15→17:28)
[2016-11-08] MEDS: Piperacillin-Tazo 3.375 Gm Inj 3.375 GM in Dextrose 5% Minibag Plus 50 ML IV SCH ×2 (01:15→08:26)
[2016-11-08] MEDS: Sodium Chloride LOK Flush 10 mL Syringe IVFLUSH SCH ×3 (01:16→17:28)
--- NOTE | 2016-11-08 06:42 | NUR ---
Pain/Activity Pt reported 8/10 wrist pain at start of shift, given oxycodone x1 w/ effective pain relief as pt able to sleep for some time after. Pt appeared to rest comfortably between care interventions most of the night. No further pain complaints. Pt up to BR w/ SBA and FWW. Pt had steady gait and able to stand on own. Pt reported he was not SOB w/ activity. All vitals stable.
[2016-11-08] MEDS ORDERED: Vancomycin Serum Trough XX ONE (07:00)
[2016-11-08] MEDS: Pantoprazole 40 mg ER24 Tablet PO SCH ×2 (08:24→21:23)
[2016-11-08] MEDS: Vancomycin Dose per Pharmacist XX SCH (08:30)
[2016-11-08] MEDS: Vancomycin Inj 1,500 MG in 0.9% Sodium Chloride 500 ML IV SCH (08:40)
--- NOTE | 2016-11-08 15:44 | NUR ---
Evaluation completed. Please go to "Notes" then click on "Assessments and Notes" (bottom left corner of screen). Then select appropriate discipline tab on top of screen.
[2016-11-08] MEDS ORDERED: predniSONE 20 mg Tablet PO SCH (16:15)
[2016-11-08] MEDS ORDERED: DEXTROSE 5% IV SCH (16:15)
[2016-11-08] MEDS ORDERED: DOXYCYCLINE IV SCH (16:15)
[2016-11-08] MEDS: predniSONE 10 mg Tablet PO SCH (20:07)
--- NOTE | 2016-11-08 20:34 | PCM.PNMED ---
Subjective Date of Service Nov 08, 2016 Subjective Hospital Day 4 Overnight: No acute events Today: The patient states that he has no pain as long as nobody grabs his right wrist. He believes that his breathing has improved. He states that he understands his MRSA osteomyelitics needs to have a new antibiotic added for avoid nephrotoxicity. Review of [employer] records indicate that Dr. Drew of [place] had considered Vancomycin but wanted to avoid the nephrotoxicity. Given the likelyhood of nephrotoxicity on Vancomycin and Zosyn the patient will be converted to Linezolid IV today. Exam Vital Signs Vital Sign - Last Date Time Temp Pulse Resp B/P Pulse Ox O2 Delivery O2 Flow Rate FiO2 11/08/16 03:41 36.8 73 18 118/52 92 Room Air Intake and Output 11/07/16 11/07/16 11/08/16 Cumulative From/Thru 15:00 23:00 07:00 11/05/16 19:41 - 11/08/16 06:25 Intake Total 1538 ml 1430 ml 1624 ml 9485 ml Output Total 1100 ml 650 ml 5320 ml Balance 1538 ml 330 ml 974 ml 4165 ml Intake Oral 880 ml 100 ml 2340 ml IV Total 1538 ml 550 ml 1524 ml 7145 ml Output Urine Total 1100 ml 650 ml 5320 ml # Voids 1 1 # Bowel Movements 1 4 Exam General: Alert and Oriented X3, Cooperative, No Acute Distress (occasionally wince if right wrist is manipulated) Head: Normocephalic, atraumatic. External ears normal. Eyes: PERRL, EOMI. Anicteric sclerae. Conjunctivae are not injected Mouth: Mouth Normal, Mucous Membranes Moist/[place] Neck: Neck supple with full range of motion. No Thyromegaly. Chest & Lungs: Diminished breath sounds in the bases with faint crackles in superior lung michelle bilaterally. Otherwise normal respiratory effort without use of accessory muscles Cardiovascular: Regular Rate/Rhythm, Normal S1, Normal S2, No Murmurs/Rubs/ Gallops appreciated at this time. Radial pulses are 2+ bilaterally at radial and dorsalis pedis Abdomen: Non-tender, Non-distended, No masses, Normoactive bowel tones, Soft Musculoskeletal: Grossly Normal Range of Motion in left upper extremity, decreased collections professional ROM and supination of right wrist Extremities: No cyanosis/clubbing/edema bilat. Single-lumen PICC in the left upper extremity. Right wrist with intact sensation and cap refill less than 3 seconds with good radial pulse Skin: Telangiectasias over bilateral cheeks and upper chest. No jaundice. No evidence of subcutaneous venous distention. No rash. Neurological: Grossly Neurologically Intact, Cranial Nerves 2-12 Intact, Normal Speech Psych: Normal mood and affect. Thought process and content intact. Lab and Diagnostics Result Diagram: 11/07/16 0505 11/07/16 0505 Microbiology Rapid flu negative Blood culture pending Respiratory PCR negative X-Rays, CTs and MRIs Date of Service: 11/05/16 1230 PROCEDURE: X-RAY CHEST, TWO VIEWS ([id number]) IMPRESSION: 1. Bilateral upper lobe pneumonia. 2. Left-sided PICC line in position. Dictated by: Ephraim Smith M.D. on 11/05/2016 at 12:45 ROCEDURE: CT ANGIO CHEST PULMONARY EMBOLISM ([id number]) INDICATIONS: dyspnea TECHNIQUE: After the administration of intravenous contrast, 2 mm thick sections acquired from the pulmonary apices to the posterior costophrenic angles. 3-dimensional maximum intensity projection (MIP) coronal and sagittal reformats were then acquired through the thorax. For radiation dose reduction, the following was used: automated exposure control, adjustment of mA and/or kV according to patient size. COMPARISON: None. FINDINGS: Image quality: Excellent. Pulmonary arteries: Pulmonary arteries are normal in size, and demonstrate no intraluminal filling defects to suggest central pulmonary embolism. Lungs and pleura: There are small bilateral pleural effusions. Severe multifocal air space opacity within the bilateral mid and upper lungs is present. Central and peripheral airways are patent. Mediastinum: Heart size is normal, without pericardial effusion. There is calcification of the coronary vasculature. No mediastinal or hilar adenopathy. Thoracic aorta is normal in caliber and enhancement. Esophagus is normal in caliber, without hiatal hernia. Bones and chest wall: No suspicious bony lesions. Ribs and thoracic spine appear intact throughout. Thyroid gland is within normal limits. No axillary or supraclavicular adenopathy. Abdomen: Visualized portions of the upper abdomen demonstrate a nodular hepatic contour, and are otherwise within normal limits. IMPRESSION: 1. No pulmonary embolus. 2. Multifocal pneumonia. Continued plain film surveillance is recommended to ensure resolution, and to exclude underlying or central malignancy. 3. Cirrhosis. Dictated by: Flakito Trujillo M.D. 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 1. 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, present on admission , improving - less likely Health care Associated pneumonia given procalcitonin was not evelated - review of records indicate that the patient has had a significant eosinophilia 4 weeks after starting Daptomycin which causes Eosinophilic Pneumonia - Bilateral upper lobe infiltrates on chest x-ray, multifocal bilateral upper lobe consolidation on CT - Consideration for tuberculosis - hepatitis C antibody and HIV negative, pending QuantiFERON Gold, and FABBY w/ Reflex - Added beta D glucan assay and cryptococcal assay (to assess for fungal etiology) - Dr Drew called by previous hospitalist and and discussed case. Daptomycin can cause Eosinophilic Pneumonia. Initiation of steroid to treat possible Eosinophilic interstitial pneumonitis can be considered if patient worsens . Daptomycin switched to vancomycin and Zosyn on admission. Given eosinophilia of >2500 likely diagnosis is eosinophilic pneumonia or ABPA however ABPA less likely given the rapid course of lung involvement and improvement without antifungal medicine - recieved doses of cefepime, levofloxacin.now on zosyn to cover HCAP and vancomycin for MRSA osteomyelitis, both converted to Linezolid IV with oral prednisone and monitor - strep pneumo Ag negative, blood culture negative, viral PCR negative - PICC in place, will discuss with ID on return 2. Recent MRSA cellulitis and osteomyelitis, - cultures and sensitivities from prior surgical cultures in October 2016 - on home daptomycin DC due to above eosinophilic pneumonia - DC vanco due to risk of nephrotoxicity and started Linezolid IV - PICC in place, will discuss with ID on return - continue home oxycodone for pain 3. possible Alcoholic cirrhosis, present on admission, under evaluation - elevated Bili, INR suppressed platelets all consistent with liver pathology - US in 01/18 showed heterogeneous liver - Hepatitis panel ordered - Holding diuretics for now given his blood pressure. - monitor ammonia level (consideration for continuing lactulose) 4. Hyperbilirubinemia, acute. Present on admission. Improved. - due to cirrhosis - Continue to monitor lab 5. Minimally elevated troponin, acute. Present on admission. resolved. - We will trend 3 - potentially related to stress of acute illness. 6. Borderline low blood pressure, acute. Present on admission. - The related to acute illness and decreased by mouth intake over the last several days - We will hold his antihypertensives - IVF as above 7. Hyponatremia and hypochloremia, acute. Present on admission. Resolved. 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 Discontinue /5 - Continue to monitor labs closely 8. Hypokalemia, acute. Present on admission. Resolved. - Potential relation to his daily diuretic, with potential contribution from borderline magnesium - Likely related to his decreased by mouth intake over the last several days - Continue home KCL 20 mEq by mouth. 9. thrombocytopenia, presnet on admission, chronic - likely due to cirrhosis -Continue to watch labs 10 anemia of chronic disease, chronic - continue to watch labs 11 Restless Leg Syndrome - continue gabapentin PRN MEDICATIONS - Bowel regimen as needed - Antiemetic as needed Possible discharge in 2-3 days. Will be continued on linezolid upon discharge pending ID approval, could be converted to minocycline and rifampin oral however no good evidence on ID recommendations online. GI Prophylaxis: Proton Pump Inhibitor VTE Prophylaxis: Sub-Q Heparin (Unfractionated) VTE Mechanical Devices: Anti-Embolic stockings Resuscitation Status: CPR: Attempt Resuscitation Attending Statement The patient was seen and examined together with Dr. Salinas on 11/08/2016 and I agree with the history, exam and plan as outlined in the note above. . Eros Salinas DO Nov 08, 2016 07:50 Trell Lovell MD Nov 13, 2016 16:29
[2016-11-08] MEDS ORDERED: 0.9% Sodium Chloride 250 ML ONE (20:41)
[2016-11-08] MEDS: Linezolid Inj 600 MG in IV Premix 1 EACH IV SCH (21:23)
--- NOTE | 2016-11-08 23:15 | NUR ---
Arrived to [facility] rm 1031 at 2310 in own bed. Report received from Vidhya ROSSI at 2250. Chart, belongings, and medications arrived with pt. Pt stable, AOx3, and oriented to room and unit. Care continues
--- NOTE | 2016-11-09 00:13 | NUR ---
transfer Patient transferred with belongings, chart, and medication down to 1031. Transfer uneventful. Report to Natalie ROSSI.
[2016-11-09] MEDS: Sodium Chloride LOK Flush 10 mL Syringe IVFLUSH SCH ×3 (00:38→17:06)
[2016-11-09] MEDS: Heparin 5,000 Unit/mL Inj SUBQ SCH ×3 (00:38→17:06)
[2016-11-09 05:25] VITALS: BP 130/62; PULSE 70; RESP 20; O2SAT 94
[2016-11-09 06:10] LABS: BASOPHILS % (AUTO) 0.3 % (0-3); EOSINOPHILS % (AUTO) 0.3 % (0-5); MONOCYTES % (AUTO) 2.6 % (4-12); Mean Corpuscular Hemoglobin 29.1 pg (27.0-35.0); Mean Corpuscular Volume 86.4 fL (81-100); NEUTROPHILS % (AUTO) 78.6 % (40-74); Platelet Count 140 bil/L (150-400)
--- NOTE | 2016-11-09 08:19 | DRSVH ---
PROCEDURE: X-RAY CHEST ONE VIEW, PORTABLE ([id number]) INDICATIONS: pneumonia TECHNIQUE: One view of the chest was acquired. COMPARISON: [facility], CR, XR CHEST 2VW, 11/05/2016, 12:27. FINDINGS: Surgical changes and devices: No change in position of left PICC. Lungs and pleura: Upper lobe airspace opacities present and slightly decreased from prior examination . New air space opacity involves the left lung base. No pneumothorax. Mediastinum: Mediastinal contours appear normal. Heart size is normal. Bones and chest wall: No suspicious bony lesions. Overlying soft tissues appear unremarkable. IMPRESSION: 1. Slight decrease in upper lobe confluent airspace opacities with new density within the left lung b ase suspicious for aspiration versus pneumonia. Dictated by: Gonsalo CALIXTO Interpreted: Bela Vázquez MD on 11/09/2016 at 8:17 Transcribed by: CASSIE on 11/09/2016 at 8:19 Approved by: Bela Vázquez M.D. on 11/11/2016 at 16:06
--- NOTE | 2016-11-09 08:28 | NUR ---
Social Work Note: Readiness for Discharge Data& Assessment: Per pt is getting closer to being medically ready for discharge. SW met with pt at bedside to confirm discharge plan and assess for any unmet needs. Per pt will likely discharge with continued IV abx. Pt states that he is already open with [facility] and he prefers to continue with their services. Pt also confirmed he would like to continue [facility] services at time of discharge as well. Access has already been provided to [facility] and [facility]. SW to notify [facility] liaison of MD final IV abx recommendations for pt and of estimate discharge date. Pt confirmed his family will be transporting him home when medically ready. Pt denies any other needs at this time. SW to continue to follow if any needs arise. Plan: Per pt is getting closer to being medically ready for discharge. Anticipated discharge home via POV with resume [facility] for IV ABX and resume [facility] and RN. Pt denies any other needs at this time. SW to continue to follow if any needs arise. Neha Montenegro MSW
[2016-11-09] MEDS ORDERED: 0.9% Sodium Chloride 250 ML ONE (10:54)
[2016-11-09] MEDS: Linezolid Inj 600 MG in IV Premix 1 EACH IV SCH (11:03)
[2016-11-09] MEDS: Pantoprazole 40 mg ER24 Tablet PO SCH ×2 (11:04→21:40)
[2016-11-09] MEDS: predniSONE 10 mg Tablet PO SCH (11:18)
--- NOTE | 2016-11-09 13:08 | PCM.CHPMED ---
Subjective Date of Service: Nov 09, 2016 Primary Physician: Admitting Physician: Natalie Welch DO Primary Care Physician: Tata Doll MD Attending Physician: Natalie Welch DO Chief Complaint: Chief Complaint: Pneumonia. . History of Present Illness: Pulmonary Consultation Note: Attending Dr. Moreno. Thiago Potts is a 71-year-old male with a past medical history significant for alcoholic cirrhosis and secondary complications including thrombocytopenia, history of GI bleed, and anemia, recent MRSA osteomyelitis of the right wrist on daptomycin until time of admission and psoriasis who presented to [facility] Emergency Department on 11/06/2016 at the recommendation of his PCP for 1 week of progressive shortness of breath and malaise. The patient reports that 4 days prior to going to his PCPs office on November 04 he began to experience shortness of breath, generalized weakness, and productive cough of yellow sputum. He describes pleuritic chest pain when coughing or sneezing. He also had accompanying rhinitis, fever, chills, and drenching night sweats 3 days. He reports that his had a "bad cold" prior to him becoming ill. The patient was being treated as an outpatient for osteomyelitis of his right wrist with daptomycin per infectious disease, Dr. Drwe. Exposure History: Review of Systems: A comprehensive review of systems was conducted with the patient and found to be negative except as above in the History of Present Illness. . [facility] Past Medical History 1. Alcoholic cirrhosis. 2. Venous ulcers of the lower extremities for which he has been seen [facility] repeatedly. 3. Gout. 4. History of GI bleeding. 5. History of psoriasis. 6. Thrombocytopenic disorder. 7. History of Agent Benson exposure in [place]. 8. MRSA Osteomyelitis of the right wrist (Dr. Drew of infectious disease was treating as an outpatient with daptomycin). 9. Anemia of chronic disease. 10. Rosacea. . Surgical History 1. Appendectomy 1967. 2. Left ankle arthrotomy, irrigation debridement of the peroneal tendon sheath 08/22/2012. 3. Knee arthroscopy, incision and drainage. 4. Tonsillectomy 1952. 5. Left GSV radiofrequency ablation . Allergies: Coded Allergies: daptomycin (Verified Allergy, Severe, Pulmonary toxicity, 11/06/16) colchicine (Verified Adverse Reaction, Severe, gi upset, 11/05/16) niacin (Verified Adverse Reaction, Severe, GI UPSET, 11/05/16) Uncoded Allergies: SEASONAL ALLERGIES (Allergy, Severe, ITCH/RASH, 10/13/16) Social History Hx Alcohol Use: Yes (1-3 beers daily (PT SAYS QUIT IN 2014; SAYS DRINKING)) Hx Substance Use: NoHx Tobacco Use: Yes (quit 1975) Smoking Status: Former Smoker Living Arrangement: with Family (lives with his , granddaughter and her [id number], locally) Exam Vital Signs Vital Sign - Last Date Time Temp Pulse Resp B/P Pulse Ox O2 Delivery O2 Flow Rate FiO2 11/09/16 05:25 36.4 70 20 130/62 94 Room Air Intake and Output 11/08/16 11/08/16 11/09/16 Cumulative From/Thru 15:00 23:00 07:00 11/05/16 19:41 - 11/09/16 06:49 Intake Total 1080 ml 200 ml 64443 ml Output Total 700 ml 1200 ml 7220 ml Balance 380 ml -1000 ml 3545 ml Intake Oral 530 ml 200 ml 3070 ml IV Total 550 ml 7695 ml Output Urine Total 700 ml 1200 ml 7220 ml # Voids 1 # Bowel Movements 4 General: Alert, Oriented X3, Cooperative, No Acute Distress Head: Normal Eyes: PERRLA, EOMI, Scleral Anicteric Nose: Mucous Membr Moist/Coral, Other (rosacea) Chest & Lungs: Coarse breath sounds (bilaterally in upper anterior and posterior lung michelle, no wheeze or rales) Cardiovascular: Regular Rate/Rhythm, Normal S1, Normal S2, No Murmurs/Rubs/ Gallops Pulses: NL carotid, radial, femoral, DP, PT Abdomen: Non-tender, Non-distended, Normoactive bowel tones, Soft Genitourinary: Madison Absent Musculoskeletal: Wrist (right wrist swollen and slightly erythematous vertical surgical scar on the dorsum of hand healing well) Extremities: No cyanosis/clubbing/edma bilat, Other (bilateral stasis dermatitis) Neurological: Cranial Nerves 2-12 Intact, Normal Speech Lab and Diagnostics Labs Item Value Date Time Calcium Level 8.6 mg/dL 11/09/16 0545 Total Bilirubin 0.8 mg/dL 11/09/16 0545 Aspartate Amino Transf (AST/SGOT) 26 U/L 11/09/16 05 Alanine Aminotransferase (ALT/SGPT) 13 U/L 11/09/16 05 Alkaline Phosphatase 74 U/L 11/09/16544 Total Protein 6.5 g/dL 11/09/16 05 Albumin 3.0 g/dL L 11/09/16544 Result Diagram: 11/09/1654411/09/16544 Assessment & Plan Pain Evaluation: Adequate Pain Control GI Prophylaxis: Proton Pump Inhibitor VTE Prophylaxis: Sub-Q Heparin (Unfractionated) VTE Mechanical Devices: Anti-Embolic stockings Resuscitation Status: CPR: Attempt Resuscitation Yadira Rodriguez DO Nov 09, 2016 13:08
[2016-11-09 14:18] VITALS: BP 104/53; PULSE 70; RESP 18; O2SAT 93
--- NOTE | 2016-11-09 15:34 | NUR ---
NUTRITION ASSESSMENT: ASSESS: 71YO M admit with pneumonia. PMHX: Cirrhosis, GI bleed, gout, anemia, venous ulcer of lower extremity DIET: Heart Healthy Diabetic. PO 75-100% LABS: Glu 174, Alb 3.0, Cr 0.59, Na 132, Ammonia 76 MEDS: Reviewed. GI: 1 bm / WEIGHT: 80.9kg; admit wt:76.9kg BMI: 27.9 EST.NEEDS: CIRRHOSIS 9230-1990 kcal, 90-115g pro NUTRITION DIAGNOSIS: (1) Increased energy/protein needs related to increased demand for nutrients as evidenced by Cirrhosis. INTERVENTION: (1) Snacks added BID. MONITOR/EVALUATE: PO intake, lab values. F/U per moderate risk.
--- NOTE | 2016-11-09 16:39 | PCM.PNMED ---
Subjective Date of Service Nov 09, 2016 Subjective no overnight event, remained HD stable, afebrile, Exam Vital Signs Vital Sign - Last Date Time Temp Pulse Resp B/P Pulse Ox O2 Delivery O2 Flow Rate FiO2 11/09/16 14:18 36.5 70 18 104/53 93 Room Air Intake and Output 11/08/16 11/08/16 11/09/16 Cumulative From/Thru 15:00 23:00 07:00 11/05/16 19:41 - 11/09/16 06:49 Intake Total 1080 ml 200 ml 84773 ml Output Total 700 ml 1200 ml 7220 ml Balance 380 ml -1000 ml 3545 ml Intake Oral 530 ml 200 ml 3070 ml IV Total 550 ml 7695 ml Output Urine Total 700 ml 1200 ml 7220 ml # Voids 1 # Bowel Movements 4 Exam NAD, comfortably laying down on the bed no JVD, MMM, no LAD RRR, nl s1, s2 no mrg CTAB, no w,c S,ND,NT,normoactive BS+ warm, no edema, pulses 2/2 MSK: LUE distally, scabbed ulcer, mild edema on Rt wrist, tender IVs and Medications Medications Reviewed: Medications were reviewed in detail Lab and Diagnostics Result Diagram: 11/09/16 0545 11/09/16 0545 Microbiology Rapid flu negative Blood culture pending Respiratory PCR negative X-Rays, CTs and MRIs Date of Service: 11/05/16 1230 PROCEDURE: X-RAY CHEST, TWO VIEWS ([id number]) IMPRESSION: 1. Bilateral upper lobe pneumonia. 2. Left-sided PICC line in position. Dictated by: Ephraim Smith M.D. on 11/05/2016 at 12:45 ROCEDURE: CT ANGIO CHEST PULMONARY EMBOLISM ([id number]) INDICATIONS: dyspnea TECHNIQUE: After the administration of intravenous contrast, 2 mm thick sections acquired from the pulmonary apices to the posterior costophrenic angles. 3-dimensional maximum intensity projection (MIP) coronal and sagittal reformats were then acquired through the thorax. For radiation dose reduction, the following was used: automated exposure control, adjustment of mA and/or kV according to patient size. COMPARISON: None. FINDINGS: Image quality: Excellent. Pulmonary arteries: Pulmonary arteries are normal in size, and demonstrate no intraluminal filling defects to suggest central pulmonary embolism. Lungs and pleura: There are small bilateral pleural effusions. Severe multifocal air space opacity within the bilateral mid and upper lungs is present. Central and peripheral airways are patent. Mediastinum: Heart size is normal, without pericardial effusion. There is calcification of the coronary vasculature. No mediastinal or hilar adenopathy. Thoracic aorta is normal in caliber and enhancement. Esophagus is normal in caliber, without hiatal hernia. Bones and chest wall: No suspicious bony lesions. Ribs and thoracic spine appear intact throughout. Thyroid gland is within normal limits. No axillary or supraclavicular adenopathy. Abdomen: Visualized portions of the upper abdomen demonstrate a nodular hepatic contour, and are otherwise within normal limits. IMPRESSION: 1. No pulmonary embolus. 2. Multifocal pneumonia. Continued plain film surveillance is recommended to ensure resolution, and to exclude underlying or central malignancy. 3. Cirrhosis. Dictated by: Flakito Trujillo M.D. 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 review of records indicate that the patient has had a significant eosinophilia 4 weeks after starting Daptomycin which causes Eosinophilic Pneumonia. Bilateral upper lobe infiltrates on chest x-ray, multifocal bilateral upper lobe consolidation on CT -today pt remained stable respiratory stand point, 93%on RA, -O2 supplement as needed, target>95% -continue prednisone 40mg daily for now -awaits infectious w/u so far ngtd: hepatitis C antibody and HIV negative, pending QuantiFERON Gold, and FABBY w/ Reflex - Added beta D glucan assay and cryptococcal assay (to assess for fungal etiology),strep pneumo Ag negative, blood culture negative, viral PCR negative -s/p cefepime, levofloxacin.switched to zosyn to cover HCAP and vancomycin for MRSA osteomyelitis, both converted to Linezolid IV #Recent MRSA cellulitis and osteomyelitis, cultures and sensitivities from prior surgical cultures in October 2016, s/p home daptomycin DC due to above eosinophilic pneumonia. DC vanco due to risk of nephrotoxicity and started Linezolid IV - PICC in place, appreciate ID recs on abx choice - continue home oxycodone for pain #Borderline low blood pressure, acute. Present on admission. [id number], held antihypertensives chronic, stable #possible Alcoholic cirrhosis, POA, elevated Bili, INR suppressed platelets all consistent with liver pathology-US in 01/18 showed heterogeneous liver. viral hep panel so far ngtd. - Holding diuretics for now given his blood pressure. - no signs of HE, hold off on lactulose. #Hyperbilirubinemia, acute. Present on admission. in the setting of acute illness, resolved #Minimally elevated troponin, acute. Present on admission. likely demand ischemia, resolved. #Hyponatremia and hypochloremia, acute. Present on admission. Resolved. suspected SIADH, s/p IVF stopped 11/07. # Hypokalemia, likely due to GI loss, Present on admission. Resolved. Continue home KCL 20 mEq by mouth. #thrombocytopenia, presnet on admission, chronic, likely due to cirrhosis #anemia of chronic disease, chronic #Restless Leg Syndrome, continue gabapentin dispo: appreciate ID recs, likely 1-2days as pt is clinically stable dvt ppx: HSQ diet:DASH, diabetic Full Code GI Prophylaxis: Proton Pump Inhibitor VTE Prophylaxis: Sub-Q Heparin (Unfractionated) VTE Mechanical Devices: Anti-Embolic stockings Resuscitation Status: CPR: Attempt Resuscitation Time spent 35min Meeta Powers MD Nov 09, 2016 16:14
--- NOTE | 2016-11-09 19:06 | NUR ---
Activity Pain well controlled today and rated 0/10 consistently. Denies SOB and reports a return to his baseline energy level. Pt up to chair for dinner and tolerated well. Pt states "it feels like I'm walking on stubs". SBA from bed to chair. Encouraged pt to ambulate before getting back in to bed for the night.
--- NOTE | 2016-11-09 19:06 | CONS ---
[address] [address] CONSULTATION REPORT PATIENT: BON CUNHA : 1945 MR#: [id number] ADMIT: 11/05/2016 JOB ID: [id number] DATE OF SERVICE: 11/09/2016 INFECTIOUS DISEASE FOLLOWUP NOTE: I thank Dr. Salinas for this timely consult. REASON FOR CONSULTATION: Pulmonary infiltrates in a patient receiving daptomycin for MRSA osteomyelitis. HISTORY OF THE PRESENT ILLNESS: The patient is a 71-year-old gentleman well known to me from an admission last month. During that admission it was discovered the patient had a very extensive MRSA osteomyelitis of his right forearm involving the right wrist. Because of underlying cirrhosis and thrombocytopenia, I wanted to avoid the use of vancomycin for fear of producing hepatorenal syndrome and also avoid linezolid for fear of causing worsening of his baseline thrombocytopenia. For that reason I decided to treat the patient with daptomycin as a single IV outpatient antibiotic. During the course of his last admission, which lasted from October 14 through October 20, the patient did quite well, but towards the end of that admission he started to have some mild eosinophilia. I saw the patient in my clinic after discharge one time on October 27 and he was doing quite well. Unfortunately, on or about October 31 or he started to develop progressive fatigue, shortness of breath, and a dry cough. This eventually led to his outpatient physician, Dr. Doll, ordering a chest x-ray which confirmed that he had progressive pulmonary infiltrates and he was readmitted on November 06 with concern for pneumonia. The patient reports that both he and his had developed a cold on or about October 31 or October 27 and that, though she got better in terms of her sneezing and upper respiratory tract symptoms, he progressively just got worse and worse with respect to his increasing shortness of breath which was most notable with exertion. Despite this increasing shortness of breath with exertion and dry cough, the patient states he had no fevers, chills, or sweats, and no sputum production at all. There was no associated GI toxicity, no skin rash, and just diffuse weakness. He did not have, however, myalgias or arthralgias specifically but just a general feeling of weakness. Since admission the patient has been switched off of daptomycin. I was on vacation in [place] but was contacted by e-mail and telephone about this patient and recommended that the daptomycin be stopped and the patient be labeled as DAPTOMYCIN ALLERGIC as I felt that the eosinophilia he had developed subsequent to starting daptomycin might be a marker for a daptomycin-induced eosinophilic pneumonia which is a life-threatening and very rare reaction. Since the patient's dapto has been stopped, and he has been switched to other antimicrobial agents directed at hospital-associated pneumonia, he has dramatically improved and today tells me he is rapidly approaching his baseline respiratory status. PAST MEDICAL HISTORY: 1. MRSA osteomyelitis right forearm and wrist diagnosed October 2016 after a three month history of worsening pain. 2. Alcoholic cirrhosis. 3. Venous ulcers of the lower extremities. 4. Gout. 5. History of GI bleeds. 6. Psoriasis. 7. Thrombocytopenia. SOCIAL HISTORY: The patient and his live here in [facility]. The patient states he is no longer drinking alcohol, though there are some mixed views about that in the record over the last few months. He was stationed in [place] during the [place] and quit smoking at that time, about 40 years ago. He is a retired [employer] employee and does not use illicit drugs. FAMILY HISTORY: Negative for TB in 1st-degree relatives. REVIEW OF SYSTEMS: Was done. The patient denies headache or visual problems. He has no sore throat, dysphagia, or odynophagia. He does note he has a dry cough which has been present for a week or two and was getting worse until his readmission and is now getting better. No sputum production whatsoever. No pleuritic chest pain. No fevers, chills, or sweats. No symptoms. Denies urgency frequency or dysuria. He has recurrent swelling of his lower extremities, which is a chronic problem, and he has had infections in his legs before but not lately. He denies any recent problems with ambulation except for his increasing shortness of breath which has limited his ambulatory status. The remainder of the review of systems is negative. PHYSICAL EXAMINATION: Reveals an afebrile gentleman. He was readmitted on the . At that time his temperature was 37.7, but he has been completely afebrile ever since and is currently 36.5. Pulse 76, respiratory rate 18, blood pressure 104/53, saturating 93% on room air. Mental status exam: The patient is completely clear this afternoon. He is in a good mood and denies any confusion or clouding of the sensorium. His head is without trauma notable. No notable abnormalities. Eyes: Without scleral icterus or conjunctivitis. Nose: Normal. Oral cavity: No thrush, pharyngitis, or hairy leukoplakia. Neck: Supple, without adenopathy. Lungs: Notable for a few fine crackles diffusely. Cardiac: Regular rate and rhythm, without any murmur. Abdomen: Without overt ascites, though he did have more of that as I recall during his last admission, but today not much in the way of ascites. No hepatosplenomegaly is noted. He does not have a Madison catheter. Does not have suprapubic fullness. Lower extremities are edematous, though it is improved over when I saw him in clinic on October 27, when he had considerable lower extremity edema. There is no evidence for cellulitis or skin breakdown of the lower extremities. His strength is 4+/5 bilaterally and reasonably intact. No evidence of synovitis or inflammation of the joints, except for his right wrist. The patient's right wrist is much less tender than it was three weeks ago, when I first saw it, and he has increasing educational consultant strength which is now bout 3.5/5, which is much better than what it was a month ago. He has increasing flexibility in the right wrist as well, and the wrist is neither warm nor tender, nor is his forearm. LABORATORIES: Include white blood count 3100, hematocrit 32, platelet count 140,000 which has actually improved over his prior levels. Creatinine 0.59. LFTs normal. Albumin 3.0. Procalcitonin 0.09. HIV and hep C are negative. QuantiFERON Gold is pending. Micro studies include a MRSA screen of the nose that was just done and negative. Pneumococcal urine antigen is negative. Blood cultures negative. Respiratory viral PCR panel negative. Recall that back on October 14 his right wrist was explored and the cultures grew MRSA, which was susceptible to daptomycin. We did not check ceftaroline unfortunately. Vanco TARIQ was 1 for that organism. IMAGING: Includes a CT of the chest that was done on November 06, shortly after readmission, that shows multifocal pneumonia. It is a scattered interstitial type of process. A repeat chest x-ray was done today which shows slight decrease in the upper lobe airspace opacities. IMPRESSION: This patient was readmitted on November 06 with increasing shortness of breath and new pulmonary infiltrates. This in association with a worsening eosinophilia that he has had since he started on daptomycin suggests to me the very rare entity of eosinophilic pneumonia secondary to daptomycin. This has only reported a couple dozen times in the 15 years or so that daptomycin has been on the market, but it seems to be a real entity, which can be fatal if the daptomycin therapy is not stopped. When I was contacted about this case while on vacation the last few days in [facility], I recommended that the daptomycin be stopped and the patient be labeled as DAPTOMYCIN ALLERGIC. I communicated this to the nurses. I also recommended that if he did not get better, steroids be started. He was improving as of yesterday, but one of the house staff went ahead and added steroids anyway, which of course has led to complete resolution of his eosinophilia. RECOMMENDATIONS: 1. The patient's chart has been labeled DAPTOMYCIN ALLERGIC and he should not receive any additional daptomycin. 2. What to do about his MRSA osteo, which is nursing home done being treated, is now the problem. I notice that he has been started on linezolid at this time, but I am not comfortable with that given the risk of thrombocytopenia and/or metabolic acidosis in this cirrhotic patient who already has low platelets. 3. I had originally avoided the use of vancomycin in this patient because I was concerned about renal toxicity and possible hepatorenal syndrome, but I think that now represent our best option, will go ahead and ask the pharmacy to appropriately dose vancomycin with an intention of going through November 30. 4. I do not think any additional therapy for his pulmonary infiltrates is indicated, as I suspect they are not infectious, but rather secondary to this rare reaction to daptomycin. 5. If his pulmonary status should fail to adequately improve, it may be reasonable to consult pulmonary and consider a bronch, but at this point I do not think it is necessary. 6. How long to continue his steroids is unclear. I have reviewed some literature on daptomycin-induced lung injury, but these cases are so sporadic and few and far between it is hard to know what the best therapy is beyond stopping daptomycin. I think it is reasonable to probably give a few days of steroids but would probably not favor its long-term years in this patient with a history of cirrhosis and GI bleeding in the past.
[2016-11-09 20:18] VITALS: BP 113/61; PULSE 76; RESP 20; O2SAT 94
[2016-11-10] MEDS: Sodium Chloride LOK Flush 10 mL Syringe IVFLUSH SCH ×4 (01:18→23:29)
[2016-11-10] MEDS: Heparin 5,000 Unit/mL Inj SUBQ SCH ×3 (01:21→18:05)
--- NOTE | 2016-11-10 04:47 | NUR ---
Activity Up in chair for dinner, ambulates to BR and bed with SBA. No complaints of pain, SOB, or chest pain. PICC line intact and awaiting IV Therapy for dressing change, peripheral IV DC'd. Addendum: 11/10/16 at 0631 by AYAAN MEZA RN Pt informs RN of itching redness in groin, no drainage at this time. Calmoseptine provided to thigh crease and baby powder. Pt reports relief of itching sensation.
[2016-11-10 05:05] VITALS: BP 107/52; PULSE 77; RESP 16; O2SAT 94
[2016-11-10 06:06] LABS: BASOPHILS % (AUTO) 1.6 % (0-3); EOSINOPHILS % (AUTO) 8.5 % (0-5); Mean Corpuscular Hemoglobin 28.7 pg (27.0-35.0); Mean Corpuscular Volume 87.9 fL (81-100); NEUTROPHILS % (AUTO) 61.6 % (40-74); Platelet Count 131 bil/L (150-400)
[2016-11-10 06:24] LABS: Magnesium 1.8 mg/dL (1.6-2.6)
[2016-11-10] MEDS: Pantoprazole 40 mg ER24 Tablet PO SCH ×2 (10:00→20:00)
--- NOTE | 2016-11-10 10:42 | PROG NOTE ---
[address] [address] PROGRESS NOTE PATIENT: BON CUNHA : 1945 MR#: [id number] ADMIT: 11/05/2016 JOB ID: [id number] DATE: 11/10/2016 INFECTIOUS DISEASE FOLLOWUP NOTE: REASON FOR FOLLOWUP: Severe MRSA infection, right forearm and wrist, as well as daptomycin pulmonary toxicity. INTERVAL HISTORY: The patient reports he is continuing to feel better and stronger. He has no additional fevers, chills, or sweats. He states he really has no cough or shortness of breath at this point, and he feels his lungs are rapidly getting back to normal. No GI toxicity. He has good appetite. No nausea, vomiting, or diarrhea. PHYSICAL EXAMINATION: The patient's temperature is 36.4, he has been afebrile. Blood pressure 107/52. He is saturating well on room air. Mental status is clear. Oral cavity negative. Lungs clear to auscultation posteriorly. Cardiac tones without new murmur. Abdomen is slightly distended, without clear-cut ascites, and nontender. LABORATORIES: Include a white count of 4900. His neutrophil count has rebounded to 8% despite being on steroids. Creatinine is 0.7. LFT entirely normal. Albumin 2.8. Procalcitonin has been less than 0.01 on two occasions. Fungitell negative. Hep C negative. HIV negative. Urine legionella antigen negative. MRSA screen negative. Urine pneumococcal antigen negative. Blood cultures negative. Respiratory viral PCR panel negative. IMAGING: Chest x-ray done yesterday shows decrease in the pulmonary infiltrates. 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 He is about correction into his expected six weeks of daptomycin therapy with improvement in his right wrist when he developed progressive shortness of breath and malaise. Chest x-ray showed multifocal infiltrate which I strongly suspect is due to daptomycin, as he also developed eosinophilia in conjunction with these infiltrates, and he is improved now that the daptomycin has been stopped. Unfortunately, the treatment of methicillin-resistant Staphylococcus aureus osteomyelitis is a very unclear science. Vancomycin is regarded as a traditional agent but has a fairly high failure rate. Vancomycin will be difficult to use in this patient because of his cirrhosis and concerns about the possibility of developing hepatorenal syndrome through the use of a nephrotoxic agents, so will need to be very careful. Daptomycin is clearly out, as this can be a life-threatening pneumonia and can never be used again in this patient. Linezolid would be hazardous, as he has a baseline thrombocytopenia due to his cirrhosis and splenomegaly. Ceftaroline has not been well studied but would likely work based on the limited animal studies that have been published but it would involve treatment every 8 hours, and would be very difficult and expensive for the patient. Overall, I think the easiest way to do this is with vancomycin and close followup. RECOMMENDATIONS: 1. I have asked the Pharmacy to try and dose the vancomycin once a day but if we have to, we will give it twice a day IV with an intention of going through November 30. 2. Once the vancomycin dosing is figured out, I think the patient could be discharged with close followup in my clinic. 3. I plan to put the patient on oral doxycycline after he finishes with his prolonged course of IV daptomycin and vancomycin, which will end, I expect, on November 30. 4. Will continue to follow this patient with you and hope to discharge him this week as his vancomycin levels are in dosing or adjusted. It will be of paramount importance here to be very careful with respect to his vancomycin and not produce nephrotoxicity, which could lead him to hepatorenal syndrome and .
[2016-11-10] MEDS ORDERED: Vancomycin Inj 1,750 MG in 0.9% Sodium Chloride 500 ML IV ONE (11:00)
[2016-11-10] MEDS: Vancomycin Dose per Pharmacist XX SCH (11:01)
[2016-11-10] MEDS: predniSONE 20 mg Tablet PO SCH (11:34)
--- NOTE | 2016-11-10 11:50 | PCM.PNMED ---
Subjective Date of Service Nov 10, 2016 Subjective no overnight event, decreasing pain on Rt wrist, no fever overnight, Exam Vital Signs Vital Sign - Last Date Time Temp Pulse Resp B/P Pulse Ox O2 Delivery O2 Flow Rate FiO2 11/10/16 05:05 36.4 77 16 107/52 94 Room Air Intake and Output 11/09/16 11/09/16 11/10/16 Cumulative From/Thru 15:00 23:00 07:00 11/05/16 19:41 - 11/10/16 05:19 Intake Total 436 ml 01566 ml Output Total 450 ml 7670 ml Balance -14 ml 3531 ml Intake Oral 436 ml 3506 ml IV Total 7695 ml Output Urine Total 450 ml 7670 ml # Voids 1 # Bowel Movements 4 Exam NAD, comfortably laying down on the bed no JVD, MMM, no LAD RRR, nl s1, s2 no mrg CTAB, no w,c S,ND,NT,normoactive BS+ warm, no edema, pulses 2/2 MSK: LUE distally, scabbed ulcer, mild edema on Rt wrist, mildly tender --- improved from yesterday IVs and Medications Medications Reviewed: Medications were reviewed in detail Lab and Diagnostics Result Diagram: 11/10/16 0550 11/10/16 0550 Microbiology Rapid flu negative Blood culture pending Respiratory PCR negative X-Rays, CTs and MRIs Date of Service: 11/05/16 1230 PROCEDURE: X-RAY CHEST, TWO VIEWS ([id number]) IMPRESSION: 1. Bilateral upper lobe pneumonia. 2. Left-sided PICC line in position. Dictated by: Ephraim Smith M.D. on 11/05/2016 at 12:45 ROCEDURE: CT ANGIO CHEST PULMONARY EMBOLISM ([id number]) INDICATIONS: dyspnea TECHNIQUE: After the administration of intravenous contrast, 2 mm thick sections acquired from the pulmonary apices to the posterior costophrenic angles. 3-dimensional maximum intensity projection (MIP) coronal and sagittal reformats were then acquired through the thorax. For radiation dose reduction, the following was used: automated exposure control, adjustment of mA and/or kV according to patient size. COMPARISON: None. FINDINGS: Image quality: Excellent. Pulmonary arteries: Pulmonary arteries are normal in size, and demonstrate no intraluminal filling defects to suggest central pulmonary embolism. Lungs and pleura: There are small bilateral pleural effusions. Severe multifocal air space opacity within the bilateral mid and upper lungs is present. Central and peripheral airways are patent. Mediastinum: Heart size is normal, without pericardial effusion. There is calcification of the coronary vasculature. No mediastinal or hilar adenopathy. Thoracic aorta is normal in caliber and enhancement. Esophagus is normal in caliber, without hiatal hernia. Bones and chest wall: No suspicious bony lesions. Ribs and thoracic spine appear intact throughout. Thyroid gland is within normal limits. No axillary or supraclavicular adenopathy. Abdomen: Visualized portions of the upper abdomen demonstrate a nodular hepatic contour, and are otherwise within normal limits. IMPRESSION: 1. No pulmonary embolus. 2. Multifocal pneumonia. Continued plain film surveillance is recommended to ensure resolution, and to exclude underlying or central malignancy. 3. Cirrhosis. Dictated by: Flakito Trujillo M.D. 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 review of records indicate that the patient has had a significant eosinophilia 4 weeks after starting Daptomycin which causes Eosinophilic Pneumonia. Bilateral upper lobe infiltrates on chest x-ray, multifocal bilateral upper lobe consolidation on CT -today pt remained stable respiratory stand point, 93%on RA, -O2 supplement as needed, target>95% -continue prednisone 40mg daily for now -awaits infectious w/u so far ngtd: hepatitis C antibody and HIV negative, pending QuantiFERON Gold, and FABBY w/ Reflex - Added beta D glucan assay and cryptococcal assay (to assess for fungal etiology),strep pneumo Ag negative, blood culture negative, viral PCR negative -s/p cefepime, levofloxacin.switched to zosyn to cover HCAP and vancomycin for MRSA osteomyelitis, both converted to Linezolid IV then eventually vancomycin. no abx needed per ID for PNA. #Recent MRSA cellulitis and osteomyelitis, cultures and sensitivities from prior surgical cultures in October 2016, s/p home daptomycin DC due to above eosinophilic pneumonia. DC vanco due to risk of nephrotoxicity and started Linezolid IV - PICC in place, appreciate ID recs on abx choice, currently on vancomycin iv, clinically stable. - continue home oxycodone for pain #Borderline low blood pressure, acute. Present on admission. 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 viral hep panel so far ngtd. - Holding diuretics for now given his blood pressure. - no signs of HE, hold off on lactulose. #Hyperbilirubinemia, acute. Present on admission. in the setting of acute illness, resolved #Minimally elevated troponin, acute. Present on admission. likely demand ischemia, resolved. #Hyponatremia and hypochloremia, acute. Present on admission. Resolved. suspected SIADH, s/p IVF stopped 11/07. # Hypokalemia, likely due to GI loss, Present on admission. Resolved. Continue home KCL 20 mEq by mouth. #thrombocytopenia, presnet on admission, chronic, likely due to cirrhosis #anemia of chronic disease, chronic #Restless Leg Syndrome, continue gabapentin dispo: likely 1-2days once optimizing vancomycin dose check trough prior to 4th dose per pharm dvt ppx: HSQ diet:DASH, diabetic Full Code GI Prophylaxis: Proton Pump Inhibitor VTE Prophylaxis: Sub-Q Heparin (Unfractionated) VTE Mechanical Devices: Anti-Embolic stockings Resuscitation Status: CPR: Attempt Resuscitation Time spent 35min Meeta Powers MD Nov 10, 2016 11:50
--- NOTE | 2016-11-10 13:09 | PCM.CONPHA ---
Assessment/Plan Assessment/Plan Pharmacy Kinetic Dosing Vancomycin Indication: extensive methicillin-resistant Staphylococcus aureus infection of his right wrist and forearm including osteomyelitis Vanc goal trough: 15-20mcg/mL Pt wt: 80.6 kg Other ABX: NONE Cultures: Blood ALL NEGATIVE SCr: 91.8 mg/dL PER BARRERA: This patient has extensive methicillin-resistant Staphylococcus aureus infection of his right wrist and forearm including osteomyelitis. Vancomycin will be difficult to use in this patient because of his cirrhosis and concerns about the possibility of developing hepatorenal syndrome through the use of a nephrotoxic agents, so will need to be very careful. I had originally avoided the use of vancomycin in this patient because I was concerned about renal toxicity and possible hepatorenal syndrome, but I think that now represent our best option, will go ahead and ask the pharmacy to appropriately dose vancomycin with an intention of going through November 30 Assessment/Plan: - Loading dose of Vancomycin 1750 mg given (20 mg/kg dosing) -Will continue Vancomycin 1250 mg Q12H (15 mg/kg dosing) with trough scheduled prior to 4th dose on @2300 Pharmacy appreciates consult and will continue to monitor. Natalie Toro PharmD Nov 10, 2016 13:09
[2016-11-10 13:37] VITALS: BP 119/54; PULSE 69; RESP 18; O2SAT 93
--- NOTE | 2016-11-10 16:40 | NUR ---
Social Work Note/Discharge Readiness: D&A: Reviewed chart. Discussed case in AM rounds and it is anticipated that pt. will need IV vanco thru 3-28. MACHINERY ENGINEER notified Blake with [facility]. He reports that they will continue to follow and coordinate infusion. P: Anticipate home with IV abx through [facility] when stable. URIEL Suazo
--- NOTE | 2016-11-10 19:19 | NUR ---
Pain Pt denies pain in RUE most of the time but reports occasional "tightness in arm" that radiates from wrist to mid bicep. Roxicodone given and was effective.
[2016-11-10 19:40] VITALS: BP 124/55; PULSE 77; RESP 17; O2SAT 96
[2016-11-10] MEDS: Nystatin 100,000 Unit/Gm 15 Gm Powder TOPICAL SCH (20:30)
[2016-11-10] MEDS: Vancomycin Inj 1,250 MG in 0.9% Sodium Chloride 250 ML IV SCH (23:29)
[2016-11-10] MEDS: LacriLube S.O.P. 3.5 Gm Ophthalmic Ointment BOTH_EYES PRN (23:34)
--- NOTE | 2016-11-11 00:25 | NUR ---
Nystatin Order for Nystatin Powder BID. Per pharmacy, we don't have any Nystatin currently in stock. Unsure when it will be restocked. Addendum: 11/11/16 at 1517 by SEUN CHAUDHARI RN Nystatin powder delivered this afternoon, currently in pt room for application.
[2016-11-11] MEDS: Heparin 5,000 Unit/mL Inj SUBQ SCH (01:15)
[2016-11-11 05:41] VITALS: BP 129/59; PULSE 75; RESP 17; O2SAT 93
[2016-11-11 06:10] LABS: BASOPHILS % (AUTO) 0.3 % (0-3); MONOCYTES % (AUTO) 10.1 % (4-12); Mean Corpuscular Hemoglobin 28.7 pg (27.0-35.0); NEUTROPHILS % (AUTO) 73.8 % (40-74); Platelet Count 121 bil/L (150-400)
[2016-11-11 06:28] LABS: Magnesium 1.7 mg/dL (1.6-2.6); Phosphorus 3.1 mg/dL (2.5-4.9)
[2016-11-11] MEDS: Nystatin 100,000 Unit/Gm 15 Gm Powder TOPICAL SCH ×2 (08:30→20:30)
[2016-11-11] MEDS: Vancomycin Dose per Pharmacist XX SCH (08:30)
--- NOTE | 2016-11-11 09:30 | PROG NOTE ---
[address] [address] PROGRESS NOTE PATIENT: BON CUNHA : 1945 MR#: [id number] ADMIT: 11/05/2016 JOB ID: [id number] DATE: 11/11/2016 INFECTIOUS DISEASE FOLLOW UP NOTE: REASON FOR FOLLOW UP: A daptomycin-induced eosinophilic pneumonia. INTERVAL HISTORY: Overnight, the patient has been doing quite well. He is being transitioned back to vancomycin. We are attempting to figure out the proper dose in preparation for discharge. Meanwhile the patient reports no fevers, chills or sweats. He notes that his cough and shortness of breath have completely resolved at this point. He had no GI symptoms. No urinary symptoms. PHYSICAL EXAMINATION: Reveals a comfortable gentleman lying in his bed. He is afebrile as he has been really since admission. Temperature 36.9, pulse 75, respiratory rate 17, blood pressure 129/59, saturating well on room air. Examination of the oral cavity is unremarkable. The patient does have numerous spider type lesions over his upper chest consistent with his history of cirrhosis. His lungs are quite clear. Cardiac tones without new murmur. Abdomen soft and nontender without obvious ascites. He does have a great deal of inguinal Sunni and topical nystatin has been ordered to deal with this. His lungs are quite clear today. LABORATORIES: Include white count 6000, platelet count 121, creatinine is 0.65 and stable. LFTs are normal. Galactomannan has come back negative. Fungitell is negative. Hepatitis C, HIV negative. Micro studies include negative MRSA and blood cultures which are negative. IMAGING: Includes the chest x-ray from the which was yesterday which we reviewed carefully on the view screen ourselves. It shows decreasing infiltrates. IMPRESSION: This patient has MRSA osteo of his right wrist and forearm. We have treated with daptomycin for about 2-1/2 weeks before the patient was admitted with any eosinophilic pneumonia which I believe is secondary to the dapto. He has been improving ever since he was switched from dapto back to vanco. Steroids were started fairly late in this process and he was already improving so I am not certain we need to continue these and I think continuing the steroids could actually be somewhat hazardous in this cirrhotic gentleman. RECOMMENDATIONS: 1. Will be checking a vanco trough tonight and if that is okay I think we will make tentative plans to get the patient out tomorrow if the hospitalist agrees. 2. The total duration of the vanco will be through November 30, and at that point, I will switch him to oral doxycycline for a somewhat longer course of oral antibiotics. 3. The prednisone can be stopped at this time. 4. I agree with nystatin for the groin Sunni. I would probably not give this patient any systemic agent for antifungal purposes as he already has rather severe liver disease and has suffered a life-threatening complication of one antibiotic already this month.
[2016-11-11] MEDS: Pantoprazole 40 mg ER24 Tablet PO SCH ×2 (10:18→20:29)
[2016-11-11] MEDS: predniSONE 20 mg Tablet PO SCH (10:18)
[2016-11-11] MEDS: Sodium Chloride LOK Flush 10 mL Syringe IVFLUSH SCH ×2 (10:18→16:30)
[2016-11-11] MEDS ORDERED: 0.9% Sodium Chloride 250 ML ONE (12:54)
[2016-11-11 13:11] VITALS: BP 128/61; PULSE 71; RESP 18; O2SAT 94
[2016-11-11] MEDS: Vancomycin Inj 1,250 MG in 0.9% Sodium Chloride 250 ML IV SCH (13:27)
--- NOTE | 2016-11-11 15:17 | NUR ---
Mepilex on sacrum Pt sacrum reddened, placed mepilex foam prophylactically to reduce redness. Also, dressed abrasion on R elbow with non-stick gauze and tegaderm. Encouraged pt to turn and move more frequently. Pt currently sitting up in chair. WCTM for skin irritation/breakdown.
--- NOTE | 2016-11-11 16:04 | PCM.PNMED ---
Subjective Date of Service Nov 11, 2016 Subjective no overnight event Exam Vital Signs Vital Sign - Last Date Time Temp Pulse Resp B/P Pulse Ox O2 Delivery O2 Flow Rate FiO2 11/11/16 13:11 36.4 71 18 128/61 94 Room Air Intake and Output 11/10/16 11/10/16 11/11/16 Cumulative From/Thru 15:00 23:00 07:00 11/05/16 19:41 - 11/11/16 05:40 Intake Total 1036 ml 826 ml 1057 ml 32144 ml Output Total 650 ml 550 ml 550 ml 9420 ml Balance 386 ml 276 ml 507 ml 4700 ml Intake Oral 536 ml 826 ml 800 ml 5668 ml IV Total 500 ml 257 ml 8452 ml Output Urine Total 650 ml 550 ml 550 ml 9420 ml # Voids 2 6 1 10 # Bowel Movements 1 1 6 Exam NAD, comfortably laying down on the bed no JVD, MMM, no LAD RRR, nl s1, s2 no mrg CTAB, no w,c S,ND,NT,normoactive BS+ warm, no edema, pulses 2/2 MSK: LUE distally, scabbed ulcer, mild edema on Rt wrist, mildly tender --- improved from yesterday IVs and Medications Medications Reviewed: Medications were reviewed in detail Lab and Diagnostics Result Diagram: 11/11/16 0530 11/11/16 0530 Microbiology Rapid flu negative Blood culture pending Respiratory PCR negative X-Rays, CTs and MRIs Date of Service: 11/05/16 1230 PROCEDURE: X-RAY CHEST, TWO VIEWS ([id number]) IMPRESSION: 1. Bilateral upper lobe pneumonia. 2. Left-sided PICC line in position. Dictated by: Ephraim Smith M.D. on 11/05/2016 at 12:45 ROCEDURE: CT ANGIO CHEST PULMONARY EMBOLISM ([id number]) INDICATIONS: dyspnea TECHNIQUE: After the administration of intravenous contrast, 2 mm thick sections acquired from the pulmonary apices to the posterior costophrenic angles. 3-dimensional maximum intensity projection (MIP) coronal and sagittal reformats were then acquired through the thorax. For radiation dose reduction, the following was used: automated exposure control, adjustment of mA and/or kV according to patient size. COMPARISON: None. FINDINGS: Image quality: Excellent. Pulmonary arteries: Pulmonary arteries are normal in size, and demonstrate no intraluminal filling defects to suggest central pulmonary embolism. Lungs and pleura: There are small bilateral pleural effusions. Severe multifocal air space opacity within the bilateral mid and upper lungs is present. Central and peripheral airways are patent. Mediastinum: Heart size is normal, without pericardial effusion. There is calcification of the coronary vasculature. No mediastinal or hilar adenopathy. Thoracic aorta is normal in caliber and enhancement. Esophagus is normal in caliber, without hiatal hernia. Bones and chest wall: No suspicious bony lesions. Ribs and thoracic spine appear intact throughout. Thyroid gland is within normal limits. No axillary or supraclavicular adenopathy. Abdomen: Visualized portions of the upper abdomen demonstrate a nodular hepatic contour, and are otherwise within normal limits. IMPRESSION: 1. No pulmonary embolus. 2. Multifocal pneumonia. Continued plain film surveillance is recommended to ensure resolution, and to exclude underlying or central malignancy. 3. Cirrhosis. Dictated by: Flakito Trujillo M.D. 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 review of records indicate that the patient has had a significant eosinophilia 4 weeks after starting Daptomycin which causes Eosinophilic Pneumonia. Bilateral upper lobe infiltrates on chest x-ray, multifocal bilateral upper lobe consolidation on CT -today pt remained stable respiratory stand point, -O2 supplement as needed, target>95% -continue prednisone 40mg daily for now -awaits infectious w/u so far ngtd: hepatitis C antibody and HIV negative, pending QuantiFERON Gold, and FABBY w/ Reflex - Added beta D glucan assay and cryptococcal assay (to assess for fungal etiology),strep pneumo Ag negative, blood culture negative, viral PCR negative -s/p cefepime, levofloxacin.switched to zosyn to cover HCAP and vancomycin for MRSA osteomyelitis, both converted to Linezolid IV then eventually vancomycin. no abx needed per ID for PNA. #Recent MRSA cellulitis and osteomyelitis, cultures and sensitivities from prior surgical cultures in October 2016, s/p home daptomycin DC due to above eosinophilic pneumonia. DC vanco due to risk of nephrotoxicity and started Linezolid IV - PICC in place, appreciate ID recs on abx choice, currently on vancomycin iv, clinically stable. - continue home oxycodone for pain - determine dosage prior to d/c tomorrow, appreciate pharmacy input #Borderline low blood pressure, acute. Present on admission. 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 viral hep panel so far ngtd. - Holding diuretics for now given his blood pressure. - no signs of HE, hold off on lactulose. #Hyperbilirubinemia, acute. Present on admission. in the setting of acute illness, resolved #Minimally elevated troponin, acute. Present on admission. likely demand ischemia, resolved. #Hyponatremia and hypochloremia, acute. Present on admission. Resolved. suspected SIADH, s/p IVF stopped 11/07. # Hypokalemia, likely due to GI loss, Present on admission. Resolved. Continue home KCL 20 mEq by mouth. #thrombocytopenia, presnet on admission, chronic, likely due to cirrhosis #anemia of chronic disease, chronic #Restless Leg Syndrome, continue gabapentin dispo: likely tomorrow home infusion. dvt ppx: HSQ diet:DASH, diabetic Full Code GI Prophylaxis: Proton Pump Inhibitor VTE Prophylaxis: Sub-Q Heparin (Unfractionated) VTE Mechanical Devices: Anti-Embolic stockings Resuscitation Status: CPR: Attempt Resuscitation Time spent 35min Meeta Powers MD Nov 11, 2016 16:04
[2016-11-11 19:25] VITALS: BP 123/63; PULSE 74; RESP 20; O2SAT 95
[2016-11-11] MEDS ORDERED: Vancomycin Serum Trough XX ONE (23:00)
[2016-11-12] MEDS: Sodium Chloride LOK Flush 10 mL Syringe IVFLUSH SCH ×2 (01:26→11:30)
[2016-11-12] MEDS: Vancomycin Inj 1,250 MG in 0.9% Sodium Chloride 250 ML IV SCH ×2 (02:04→11:30)
--- NOTE | 2016-11-12 02:04 | PCM.PHAPRO ---
Progress Pneumonia. . VANCOMYCIN DOSING PER PHARMACY Vanc trough: 16.1 Will continue vancomycin 1250mg q12hrs. Pharmacy will continue to monitor. Max Quintana Nov 12, 2016 02:04
--- NOTE | 2016-11-12 02:18 | NUR ---
Vancomycin Per pharmacist, hold off on drawing Vancomycin trough until 0100 d/t last dose being hung later. Vanco trough back at 16.1. Pharmacist okay with hanging current dose.
[2016-11-12 04:30] LABS: BASOPHILS % (AUTO) 0.3 % (0-3); EOSINOPHILS % (AUTO) 1.3 % (0-5); MONOCYTES % (AUTO) 10.6 % (4-12); Mean Corpuscular Hemoglobin 28.5 pg (27.0-35.0); Mean Corpuscular Volume 88.4 fL (81-100); Platelet Count 156 bil/L (150-400)
[2016-11-12 05:03] VITALS: BP 143/55; PULSE 69; RESP 20; O2SAT 98
[2016-11-12 05:13] LABS: Magnesium 1.8 mg/dL (1.6-2.6); Phosphorus 3.1 mg/dL (2.5-4.9)
--- NOTE | 2016-11-12 08:23 | PROG NOTE ---
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 INTERVAL HISTORY: Overnight, the patient has felt quite well. No fevers, chills, shortness of breath, cough or chest pain. His right wrist continues to slowly but steadily improve. No GI symptoms and no problems with the PICC line. PHYSICAL EXAMINATION: Reveals an afebrile gentleman, temperature 36.6, pulse 69, respiratory rate 20, blood pressure 143/55. He is in no acute distress. Awake and alert. Oral cavity negative. Lungs clear. Cardiac tones without new murmur. PICC line left upper extremity benign. Abdomen soft and nontender. Right wrist without significant tenderness, warmth or erythema. Increasing range of motion of right wrist is noted. LABORATORIES: Include a white count of 5900, hematocrit 30, platelet count 156,000 which is his best in quite a while. Creatinine 0.72. LFTs are normal. Procalcitonin 0.09. Last night's vanco level was 16.1 on a dose of 1250 q.12. Follow up cultures are entirely negative including blood cultures and a MRSA screen of the nares. IMPRESSION: This patient has done quite well with respect to his dapto induced eosinophilic pneumonia. He did receive a couple days of steroids but improvement had started even before that just with the withdrawal of the daptomycin. This is an extremely rare toxicity and the patient should never ever again receive daptomycin under any circumstance. Because MRSA osteo is difficult to treat, we are forced to use vanco in this patient which I am not enthusiastic about because of the attendant risk of nephrotoxicity in this cirrhotic gentleman. Nonetheless we have little in the way of viable options and will continue very carefully with this as an outpatient. RECOMMENDATIONS: 1. The patient can be discharged from an ID point of view. 2. I have rewritten his home IV antibiotic orders in great detail for the home infusion company. Because of the risk of nephrotoxicity, we are going to check creatinine and vanco troughs twice a week and I have written these orders. 3. I need to see the patient in my office on November 24 with the completion date of the vanco tentatively scheduled for November 30. 4. Note that following completion of the IV vanco on November 30 I intend to keep the patient on a month or so long course of oral doxycycline. This is not completely standard in the literature but I do think that in view of the severity and chronicity of the right wrist forearm infection it would be prudent.
[2016-11-12] MEDS: Vancomycin Dose per Pharmacist XX SCH (08:30)
[2016-11-12] MEDS ORDERED: PRED-508 PO (08:46)
[2016-11-12] MEDS ORDERED: VANC1.5P11 IV (08:46)
--- NOTE | 2016-11-12 09:28 | PCM.DIMED ---
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 Your condition has improved, stable on new antibiotics. Please note that new IV antibiotics will be continued until as per infectious disease doctor . Please also follow up with in the clinic. Follow-up plan Please follow-up with her primary doctor in 2 weeks Follow-up Provider: Ludwig Drew MD Follow-up with PCP in: 2 weeks Provider: Tata Doll MD, Jongwoo MD Nov 12, 2016 09:26
--- NOTE | 2016-11-12 10:47 | NUR ---
Social Work- Discharge Data: EMR reviewed. Pt is on day 7 of hospitalization for bilateral pneumonia per H&P. Pt to discharge today. Pt is open with [facility] and [facility]. ISA faxed orders to [facility] for IV vanco. ISA received call from Gonsalo at [facility] stating that he will be meeting with pt at pt's home this afternoon, requested that RN hold 2 pm vanco dose. ISA called Dean Ayala, [facility] liaison, updating him of pt's discharge and resume HH RN PT OT orders. ISA updated RN and pt, all agreeable to plan. Pt to discharge home with granddaughter Veronika to transport home via POV. Assessment: Pt who will resume services with [facility] RN PT OT and IV abx with [facility] Plan: Pt to discharge home with [facility] PT OT and [facility]. RN to hold pt's 2 pm vanco dose. ISA updated RN and pt, all agreeable to plan. Pt to discharge home with granddaughter Veronika to transport home via POV. Cecilia Brewer KITCHEN STEWARDESS
[2016-11-12 11:55] VITALS: BP 110/45; PULSE 74; RESP 20; O2SAT 94
[2016-11-12] MEDS: predniSONE 20 mg Tablet PO SCH (12:00)
[2016-11-12] MEDS: Pantoprazole 40 mg ER24 Tablet PO SCH (12:00)
[2016-11-12] MEDS: Nystatin 100,000 Unit/Gm 15 Gm Powder TOPICAL SCH (12:09)
--- NOTE | 2016-11-12 13:24 | PCM.DC.MED ---
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 Bilateral upper lobe pneumonia. 2. Left-sided PICC line in position. Dictated by: Ephraim Smith M.D. on 11/05/2016 at 12:45 ROCEDURE: CT ANGIO CHEST PULMONARY EMBOLISM ([id number]) INDICATIONS: dyspnea TECHNIQUE: After the administration of intravenous contrast, 2 mm thick sections acquired from the pulmonary apices to the posterior costophrenic angles. 3-dimensional maximum intensity projection (MIP) coronal and sagittal reformats were then acquired through the thorax. For radiation dose reduction, the following was used: automated exposure control, adjustment of mA and/or kV according to patient size. COMPARISON: None. FINDINGS: Image quality: Excellent. Pulmonary arteries: Pulmonary arteries are normal in size, and demonstrate no intraluminal filling defects to suggest central pulmonary embolism. Lungs and pleura: There are small bilateral pleural effusions. Severe multifocal air space opacity within the bilateral mid and upper lungs is present. Central and peripheral airways are patent. Mediastinum: Heart size is normal, without pericardial effusion. There is calcification of the coronary vasculature. No mediastinal or hilar adenopathy. Thoracic aorta is normal in caliber and enhancement. Esophagus is normal in caliber, without hiatal hernia. Bones and chest wall: No suspicious bony lesions. Ribs and thoracic spine appear intact throughout. Thyroid gland is within normal limits. No axillary or supraclavicular adenopathy. Abdomen: Visualized portions of the upper abdomen demonstrate a nodular hepatic contour, and are otherwise within normal limits. IMPRESSION: 1. No pulmonary embolus. 2. Multifocal pneumonia. Continued plain film surveillance is recommended to ensure resolution, and to exclude underlying or central malignancy. 3. Cirrhosis. Dictated by: Flakito Trujillo M.D. 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 Patient reports that a little over a week ago he noticed feeling increasing malaise. He reports this increase the point that he went and saw his primary care provider on 11/04/16 of this week, and reports that blood tests were performed (noted below). He reports that at this time he was experiencing some cold symptoms. He reports its his was also experiencing some cold like symptoms about a week or 2 ago, but she has rapidly improved. Patient reports he received a phone call back from his primary care provider advising him to go to the urgent care building for chest x-ray because his shortness of breath was not improving, and blood values were abnormal. He reports at this time nonproductive cough, shortness of breath that has somewhat improved, but continued weakness/malaise. He reports that his restless legs are somewhat bothersome for which he usually takes nighttime gabapentin. He reports pain in his right wrist which has been chronic in the setting of his infection. Chest x-ray performed at urgent care concerning for pneumonia (as detailed below ). Patient is admitted under inpatient status with expected length of stay greater than 2 midnights due to severity of presenting symptoms, risk of adverse event, and complexity of treatment plan. 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 review of records indicate that the patient has had a significant eosinophilia 4 weeks after starting Daptomycin which causes Eosinophilic Pneumonia. Bilateral upper lobe infiltrates on chest x-ray, multifocal bilateral upper lobe consolidation on CT. patient received cefepime, levofloxacin.switched to zosyn to cover HCAP and vancomycin for MRSA osteomyelitis, both converted to Linezolid IV then eventually vancomycin. no abx indicated per ID for PNA. patient was started on [id number], this will be continued for unknown duration, pt remained stable from respiratory stand point, didn't require-O2 supplement, safe for d/c home. #Recent MRSA cellulitis and osteomyelitis, cultures and sensitivities from prior surgical cultures in October 2016, s/p home daptomycin DC due to above eosinophilic pneumonia. patient started Linezolid IV but stopped given cirrhosis with thrombocytopenia then switch to vancomycin iv, renal function was stable, didn't have allergy or infusion reaction. PICC was placed. plan is to continue vancomycin 1250mg q12h until 11/30 then likely switch to doxycyclin per ID, home infusion were set up, Rx sent by . patient also will be follow up by in the clinic. chronic problems #possible Alcoholic cirrhosis, POA, elevated Bili, INR suppressed platelets all consistent with liver pathology-US in 01/18 showed heterogeneous liver. viral hep panel so far ngtd, held diuretics due to low BP then resumed upon d/c as HD was more stable. #Hyperbilirubinemia, acute. Present on admission. in the setting of acute illness, resolved #Minimally elevated troponin, acute. Present on admission. likely demand ischemia, resolved. #Hyponatremia and hypochloremia, acute. Present on admission. Resolved. suspected SIADH, s/p IVF stopped 11/07. # Hypokalemia, likely due to GI loss, Present on admission. Resolved. Continue home KCL 20 mEq by mouth. #thrombocytopenia, presnet on admission, chronic, likely due to cirrhosis #anemia of chronic disease, chronic #Restless Leg Syndrome, continue gabapentin Exam Vital Signs (Last) Date Time Temp Pulse Resp B/P Pulse Ox O2 Delivery O2 Flow Rate FiO2 11/12/16 05:03 36.6 69 20 143/55 98 Room Air Exam NAD, comfortably laying down on the bed no JVD, MMM, no LAD RRR, nl s1, s2 no mrg CTAB, no w,c S,ND,NT,normoactive BS+ warm, no edema, pulses 2/2 MSK: LUE distally, scabbed ulcer, mild edema on Rt wrist, nontender Test 11/05/16 20:24 11/05/16 23:50 11/06/16 05:38 11/06/16 06:20 Lactic Acid Level 1.3mmol/L (0.4-2.0) Pro-B-Type Natriuretic Peptide 100.8pg/mL (0-376) Urine Color Dark yellow (YELLOW) Urine Appearance Clear (CLEAR,HAZY) Urine pH 5.5 (5.0-8.0) Urine Specific [place] 1.025 (1.003-1.035) Urine Protein Negativemg/dL (NEG,TRACE) Urine Glucose (UA) Negativemg/dL (NEGATIVE) Urine Ketones Negativemg/dL (NEGATIVE) Urine Occult Blood Negative (NEGATIVE) Urine Nitrite Negative (NEGATIVE) Urine Bilirubin Small (NEGATIVE) Urine Ictotest Positive (Negative) Urine Urobilinogen 4.0mg/dL (NORMAL) Urine Leukocyte Esterase Negative (NEGATIVE) Urine RBC 0-2/hpf (0-2) Urine WBC 0-5/hpf (0-5) Urine Epithelial Cells Occasional/hpf (NONE-MOD) Urine Crystals None seen (NONE SEEN) Urine Bacteria None/hpf (NONE-FEW) Urine Hyaline Casts None/lpf (NONE) Urine Granular Casts None seen (NONE SEEN) Urine Waxy Casts None seen (NONE SEEN) Urine Red Blood Cell Casts None seen (NONE SEEN) Urine White Blood Cell Casts None seen (NONE SEEN) Urine Mucus None seen (None Seen) Urine Trichomonas None seen (NONE SEEN) Urine Yeast None (NONE SEEN) Urine Culture Reflexed Not indicated Urine Legionella pneumophilia Ag Negative (Negative) Prothrombin Time 14.0sec (8.1-12.5) Prothromb Time International Ratio 1.30ratio Troponin T 0.010ug/L (0.0-0.011) Fungal Antibodies 42pg/mL (.) Hepatitis C Antibody 0.2s/co ratio (0.0-0.9) HIV (1&2) Ag and Ab, 4th Generation Non reactive (Non Reactive) Ammonia 76ug/dL (18-53) Test 11/08/16 05:40 11/08/16 08:10 11/09/16 05:45 11/12/16 00:55 TB Test (QFT) Gold In Tube Negative (Negative) TB Test (QFT) Incubation Comment (.) TB Test (QFT) Mitogen 4.14IU/mL (.) TB Test (QFT) Antigen 0.06IU/mL (.) TB Test (QFT) Antigen Minus Nil 0.00IU/mL (.) TB Test (QFT) TB - Nil 0.06IU/mL (.) TB Test (QFT) Positive Criteria Comment (.) TB Test (QFT) Interpretation Comment (.) Aspergillus galactomannan Antigen 0.04Index (0.00-0.49) Procalcitonin 0.09ng/mL (0.00-0.08) Vancomycin Level Trough 16.1mcg/mL Test 11/12/16 04:20 White Blood Count 5.9th/mm3 (3.8-10.1) Red Blood Count 3.37mil/mm3 (4.40-5.80) Hemoglobin 9.6g/dL (13.8-17.2) Hematocrit 29.8% (41.0-50.0) Mean Corpuscular Volume 88.4fL (81-100) Mean Corpuscular Hemoglobin 28.5pg (27.0-35.0) Mean Corpuscular Hemoglobin Concent 32.2% (32.0-37.0) Red Cell Distribution Width 16.1% (12.3-15.4) Platelet Count 156bil/L (150-400) Neutrophils (%) (Auto) 72.0% (40-74) Lymphocytes (%) (Auto) 15.5% (14-46) Monocytes (%) (Auto) 10.6% (4-12) Eosinophils (%) (Auto) 1.3% (0-5) Basophils (%) (Auto) 0.3% (0-3) Sodium Level 135mEq/L (134-144) Potassium Level 4.0mEq/L (3.5-5.2) Chloride Level 104mEq/L (97-108) Carbon Dioxide Level 21mmol/L (18-29) Blood Urea Nitrogen 13mg/dL (8-27) Creatinine 0.72mg/dL (0.76-1.27) Estimat Glomerular Filtration Rate 115mL/min (>59) Glucose Level 102mg/dL (60-99) Calcium Level 8.6mg/dL (8.5-10.1) Phosphorus Level 3.1mg/dL (2.5-4.9) Magnesium Level 1.8mg/dL (1.6-2.6) Total Bilirubin 0.5mg/dL (0.0-1.2) Aspartate Amino Transf (AST/SGOT) 20U/L (0-50) Alanine Aminotransferase (ALT/SGPT) 12U/L (0-44) Alkaline Phosphatase 61U/L (25-160) Total Protein 6.0g/dL (6.4-8.4) Albumin 2.9g/dL (3.4-5.0) Microbiology Results Rapid flu negative Blood culture pending Respiratory PCR negative Discharge Medications Discharge Medications Ascorbic Acid (Vitamin C) 500 Mg Capsule.er 500 MG PO BID Prescribed by: SG HAMLIN DO Cholecalciferol (Vitamin D3) (Vitamin D3) 5,000 Unit Capsule 5,000 UNIT PO DAILY (Reported) Fluticasone Propionate (Flonase Allergy Relief) 50 Mcg/Actuation [place].susp 1 SPRAY NASAL DAILY (Reported) Furosemide (Furosemide) 20 Mg Tab 40 MG PO DAILY (Reported) Gabapentin (Gabapentin) 300 Mg Capsule 300 MG PO BID (Reported) AM, NOON Gabapentin (Gabapentin) 300 Mg Capsule 600 MG PO QPM (Reported) 6PM Ketoconazole (Ketoconazole) 120 Ml Shampoo 1 APPLIC TP WEEKLY (Reported) Lactulose (Lactulose) 20 Gm/30 Ml Solution 10 GM PO BID Prescribed by: BON STARKS MD Multivitamin (Multivitamins) 1 Each Capsule 1 EACH PO DAILY (Reported) Pantoprazole DR (Pantoprazole DR) 40 Mg Tablet.dr 40 MG PO BID (Reported) Potassium Chloride ER (Klor-Con M10) 10 Meq Tabsr 10 MEQ PO DAILYWM Prescribed by: BON KEENAN MD Prednisone (Deltasone) 20 Mg Tablet 40 MG PO DAILY Prescribed by: METEA FINNEY MD Spironolactone (Spironolactone) 50 Mg Tablet 50 MG PO DAILY (Reported) Sulfacetamide Sodium (Sodium Sulfacetamide) 10 % Clnsr.gel 1 APPLIC TP BID ( Reported) for rosacea Vancomycin HCl/D5w (Vancomycin 1.5 Gram/250 ml-D5w) 1.5 Gram/250 Ml Plast..bag 1.25 GM IV Q12H Prescribed by: MEETA FINNEY MD As needed oxyCODONE (oxyCODONE) 5 Mg Tablet 5 MG PO Q3H PRN PRN For Pain (Reported) Additional med instructions Please continue Prednisone 40mg until you are told to stop Followup Plan Disposition: home Follow-up plan Please follow-up with her primary doctor in 2 weeks Discharge Diet: No restrictions Discharge Activity: No restrictions Patient Instructions You were hospitalized with persistent MRSA infection, lung toxicity developed from antibiotics. Your condition has improved, stable on new antibiotics. Please note that new IV antibiotics will be continued until as per infectious disease doctor . Please also follow up with in the clinic. Follow-up Provider: Ludwig Drew MD Follow-up with PCP in: 2 weeks Provider: Tata Doll MD Time spent 65min Meeta Finney MD Nov 12, 2016 11:41
--- NOTE | 2016-11-12 16:57 | NUR ---
Discharge Patient discharged home with family. Pt given discharge instructions and agrees to understanding them. Pt will have home iv antibiotics given from [facility]. Pt will follow up with infection control Dr in 2weeks as directed.
== END 2016-11-12 16:29 | disposition home health service (06) | DRG 206 ==
LOC: SED 19:35 → PCC 21:13 → OSC 11-08 22:25
PROVIDERS: ADMIT Internal Medicine; ATTEND Internal Medicine
DX: J70.4 Drug-induced interstitial lung disorders, unspecified (principal); E87.1 Hypo-osmolality and hyponatremia; M86.8X3 Other osteomyelitis, forearm; Z77.098 Contact with and (suspected) exposure to other hazardous, chiefly nonmedicinal, chemicals; E87.8 Other disorders of electrolyte and fluid balance, not elsewhere classified; E87.6 Hypokalemia; E80.6 Other disorders of bilirubin metabolism; K70.30 Alcoholic cirrhosis of liver without ascites; G25.81 Restless legs syndrome; B95.62 Methicillin resistant Staphylococcus aureus infection as the cause of diseases classified elsewhere; T36.8X5A Adverse effect of other systemic antibiotics, initial encounter

== ENCOUNTER 2017-01-04 14:55 | Inpatient (IN) | payer MEDICARE, OTHER ==
[~2017-01-04] VITALS: Ht 167.6 cm; Wt 79.1 kg
[~2017-01-04 14:55] MED LIST changes: +FUR20 PO; -INDO25CA PO; -KETACONAZOLE SHAMPOO TP; +KETO120S3 TP; -LASIX PO; +PANT40TA3 PO; +PRED-508 PO; +VANC1.5P11 IV
[2017-01-04 18:00] VITALS: BP 137/78; PULSE 97; RESP 18; O2SAT 100
[2017-01-04] MEDS ORDERED: HYDROcodone-APAP 5-325 mg Tablet PO PRN (18:25)
[2017-01-04] MEDS ORDERED: Alum-Mag Hydrox-Simeth 30 mL Suspension PO PRN (18:25)
[2017-01-04] MEDS ORDERED: Polyethylene Glycol (PEG) 17 Gm Powder PO PRN (18:25)
[2017-01-04] MEDS ORDERED: Ondansetron 2 mg/mL 2 mL Inj IVPUSH PRN (18:25)
[2017-01-04 19:06] LABS: BASOPHILS % (AUTO) 0.9 % (0-3); MONOCYTES % (AUTO) 10.9 % (4-12); Mean Corpuscular Hemoglobin 27.8 pg (27.0-35.0); Mean Corpuscular Volume 83.1 fL (81-100); NEUTROPHILS % (AUTO) 58.6 % (40-74); Platelet Count 150 bil/L (150-400)
[2017-01-04 19:25] VITALS: BP 136/71; PULSE 98; RESP 17; O2SAT 98
[2017-01-04 19:28] LABS: Magnesium 1.6 mg/dL (1.6-2.6)
[2017-01-04 19:43] LABS: TROPONIN T < 0.010 ug/L (0.0-0.011)
--- NOTE | 2017-01-04 20:20 | DRSVH ---
PROCEDURE: US VEINOUS LEG DUPLEX UNILATERAL, LEFT INDICATIONS: swelling TECHNIQUE: Real-time imaging, as well as color and pulse Doppler interrogation, were performed of the lower extr emity deep veins from the inguinal ligament to the popliteal fossa. COMPARISON: None. FINDINGS: The deep veins are normally compressible, and free of intraluminal thrombus. Color and pu lse Doppler demonstrate normal phasic intraluminal flow. There is normal augmentation response to di stal compression maneuver. There is left lateral ankle soft tissue edema. IMPRESSION: No evidence of deep venous thrombosis. Dictated by: Rickie Booker M.D. on 01/04/2017 at 20:17 Approved by: Rickie Booker M.D. on 01/04/2017 at 20:18
--- NOTE | 2017-01-04 20:36 | CONS ---
[address] [address] CONSULTATION REPORT PATIENT: BON CUNHA : 1945 MR#: [id number] ADMIT: 01/04/2017 JOB ID: [id number] DATE OF SERVICE: 01/04/[address] Maxwell as well as Dr. Norberto Arora for this consult. HISTORY OF PRESENT ILLNESS: The patient is a 71-year-old gentleman with longstanding history of alcoholic cirrhosis. I 1st met the patient back in October of this year. At that time, he had been complaining of a tender swollen right wrist which had been going on for 2-1/2 months. Eventually, the patient was taken to the operating room by Dr. Arora of Orthopedics for an exploration and, surprisingly, purulent material was found and it became obvious the patient had a septic joint, perhaps with some associated osteomyelitis. The patient was then extensively debrided by Dr. Arora and started on antibiotics. Because he had underlying alcoholic cirrhosis and chronic thrombocytopenia, I elected to use daptomycin rather than vancomycin for this MRSA. 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 The patient was subsequently readmitted after his initial discharge and treated for the eosinophilic pneumonia with a short course of steroids as well as cessation of his daptomycin. At that point, there was little else to do but to switch to vancomycin which we administered very judiciously to complete a full course of therapy. At the conclusion of this therapy at the end of six weeks in late November, the patient's wrist basically returned to normal in that he had full range of motion with essentially no tenderness. This was surprising given the degree of the chronic osteo and septic joint he had. No additional oral antibiotics were given following the cessation of the six weeks of IV antibiotics as the patient felt and looked well with a completely normal CRP, white count and absence of respiratory symptoms. Following the end of all antibiotics about one month ago, the patient reported he did fine and had return to full use of his right forearm. He notes about four days ago though, his wrist started to swell, became red and tender and painful again. This was not associated with any constitutional symptoms and specifically no fevers, chills, sweats, cough, or GI symptomatology. The patient then made an appointment with Dr. Arora and saw him today. Dr. Arora thought the patient was extremely concerned that there had been a recrudescence of his septic joint or osteo and ordered plain films which showed what appears to be progression and worsening of the osteo and infection. The patient was then emergently admitted and scheduled for surgery tomorrow. PAST MEDICAL HISTORY: 1. 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 2. Alcoholic cirrhosis. 3. Venous stasis ulcers of lower extremities. 4. Gout. 5. History of GI bleeds. 6. Psoriasis. 7. Chronic thrombocytopenia. SOCIAL HISTORY: The patient lives with his in [facility]. He has reportedly stopped drinking. He has been a nonsmoker for 40 years. He is retired from [employer] and does not use any illicit drugs. FAMILY HISTORY: Negative for tuberculosis in parents and siblings. REVIEW OF SYSTEMS: Was done. The patient says he has an occasional mild headache. No visual change. No sore throat, odynophagia or dysphagia. He has had no GI bleeding lately. No cough, shortness of breath, nausea, vomiting or diarrhea. No dysuria, urgency, or frequency. No trauma and specifically no trauma to the right wrist. He has noted some significant swelling in his left lower extremity below the knee just over the past four days which he states may have started when he dropped a mirror off a counter onto his left great toe which caused an injury there, though the rest of his foot was not impacted. He has been able to ambulate, but he has not been able to make much use of his right hand over the past four days. Remainder of the review of systems is negative. PHYSICAL EXAMINATION: Reveals an afebrile gentleman, temperature 36.4, pulse 97, respiratory rate 18, blood pressure 137/78, saturating 100% on room air. No acute distress. He is cheerful as usual and oriented. Head without trauma. Eyes without conjunctivitis. Oral cavity without thrush, hairy leukoplakia or petechia. The neck is supple. No cervical adenopathy. His upper chest has numerous spider-type lesions consistent with his psoriasis. His lungs are quite clear. Cardiac tones: Regular rate and rhythm. Abdomen: Soft and nontender. No ascites is appreciated today. No suprapubic fullness. No evidence of synovitis anywhere except, of course, in his right wrist which will be described later. The lower extremities are notable for pronounced venous stasis changes. The right lower extremity has minimal edema below the knee, but on the left it is much more pronounced. The left great toe was erythematous and he says thi relates to when he dropped a mirror onto it a few days ago. He has reasonable sensation and strength in all four extremities. The right upper extremity is notable for diffuse erythema, tenderness and warmth which envelops the right wrist and extends onto the dorsal aspect of the hand as well as several centimeters up the forearm from the right wrist. He has reduced ability to make a fist with his right hand and some pain with palpation of this erythematous wrist and adjacent structures. This was all much worse than when I saw him five weeks ago the last time in clinic. The remainder of the exam is unremarkable. Labs include pending CBC, CMP and CRP which I just ordered. Note that during his last admission we had a negative QuantiFERON Gold. Brenda just ordered a MRSA screen of his nares. Otherwise, I do not have any micro data back. Note that during his last admission, his wrist grew a MRSA which was sensitive to clindamycin, daptomycin, linezolid, rifampin, tetracycline, Bactrim and Vanco. The vancomycin TARIQ was 1 and the daptomycin TARIQ was 0.5. IMAGING: Imaging done today by Dr. Gutierrez in clinic shows multifocal osteo of the wrist similar to the MRI scan done back in October before we treated him. IMPRESSION: This patient seems to have suffered a relapse of the severe methicillin-resistant Staphylococcus aureus infection which involved his right forearm and wrist back in October. Recall that this pain and tenderness all began in the fall of 2015, but was not diagnosed as a methicillin-resistant Staphylococcus aureus osteomyelitis with septic joint until early October. At that time, there was inefficient debridement followed by a long course of antibiotics which was only complicated by the DAPTOMYCIN-induced lung toxicity. At the conclusion of all this therapy in late November, the patient's wrist had returned to an amazingly functional state and he felt great with a normal CRP. Now, just over a month later, we have a startling reactivation of this process. RECOMMENDATIONS: 1. I discussed this case in person tonight with both the hospitalist and Dr. Arora. 2. I would hold off on antibiotics until preop tomorrow and then give the patient a full loading dose of vancomycin with pharmacy to carefully follow levels so as to avoid nephrotoxicity in this cirrhotic gentleman. 3. I anticipate will once again need a PICC line and a prolonged course of antibiotics intravenously with very judicious measurement of the vancomycin levels. This would then be followed by a very long course of antibiotics which I might extend for months this time. The data about following six weeks of efficient treatment for osteo or septic joint with prolonged courses of antibiotics is really very scant and not compelling, but I think in this case we do not have much choice given what has just transpired. Possible choices for prolonged oral antibiotics here would include clindamycin or perhaps doxycycline. Note that in no event can we use DAPTOMYCIN as he had a life-threatening reaction to it last time.
--- NOTE | 2017-01-04 21:14 | PCM.HPMED ---
Subjective Date of Service January 04, 2017 Primary Provider: Admitting Physician: Tamela Maxwell DO Primary Care Physician: Tata Leonardo MD Attending Physician: Tamela Maxwell DO Admit Status: Direct Admit Chief Complaint: Septic right wrist joints History of Present Illness: 72-year-old male with past medical history of a prior recent admission for right wrist debridement, alcoholic liver disease, venous stasis ulcers is presenting with complaints of swollen right wrist, and states that when he was discharged from the hospital he was on IV antibiotics per Dr. Drew for several weeks. He recently stopped his antibiotics and he states that his symptoms have returned since then. He states that his hand and wrist are swollen much more so in the last 4 days and pain has increased he has a follow-up with Dr. leonardo and on 01/27. He states that he has no numbness or tingling in the wrist but it is some numbness in the elbow, he states that he has baseline tremor in his right hand that is not new. He states that he has some weakness very limited range of motion. Appears that he was seen by orthopedics and Dr. Darling has done an x-ray of the hand and felt that should be admitted for the procedure. Dr. Drew is familiar with the case and they ask for us to consult Dr. Drew and also obtain an MRI with and without of the right wrist. Review of Systems: Review of systems: Positive for weakness in right hand and wrist, pain in right hand and wrist, numbness and elbow, urinary difficulty and hesitancy, swollen left leg. He denies diarrhea, constipation, fevers, chills, recent weight loss, weight gain, chest pain, shortness of breath. He denies thyroid problems, heart disease, prior cancer. Allergies Coded Allergies: daptomycin (Verified Allergy, Severe, Pulmonary toxicity, 11/06/16) colchicine (Verified Adverse Reaction, Severe, gi upset, 11/05/16) niacin (Verified Adverse Reaction, Severe, GI UPSET, 11/05/16) Uncoded Allergies: SEASONAL ALLERGIES (Allergy, Severe, ITCH/RASH, 10/13/16) PMH Liver cirrhosis, alcoholic liver disease, chronic kidney disease questionable, venous stasis ulcers, gout, septic right wrist Surgical History Previous stress debridement, appendectomy, nerve surgery on the inner thigh Family History Mom's estimated from 73 patient thinks she was very fatigued Dad 89 and alive, has dementia Social History Hx Alcohol Use: Yes (1-3 beers daily (PT SAYS QUIT IN 2015; SAYS DRINKING)) Hx Substance Use: No Hx Tobacco Use: Yes (quit 1975) Smoking Status: Former Smoker Living Arrangement: with Family Exam Vital Signs Vital Sign - Last Date Time Temp Pulse Resp B/P Pulse Ox O2 Delivery O2 Flow Rate FiO2 01/04/17 18:00 36.4 97 18 137/78 100 Room Air Exam Gen.: No acute distress sitting up in bed pleasant HEENT: Normocephalic, atraumatic Heart: Regular rate and rhythm no S3-S4 murmurs Lungs: Clear to auscultation bilaterally no crackles or wheezes Abdomen: Nontender nondistended normal bowel sounds are present Extremities: Left lower extremity is more swollen than the right, Vascular: dorsalis pedis pulses are palpable MSK: 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 Denies altered sensation over the arms Psych: Negative for anxiety Neuro: No focal deficits Lab and Diagnostics X-Rays, CTs and MRIs PROCEDURE: X-RAY RIGHT WRIST, TWO VIEWS ([id number]) INDICATIONS: OSTEOMYELITIS OF RIGHT WRIST IMPRESSION: Multifocal osteomyelitis redemonstrated similar to prior MRI and worsened compared to prior wrist series dated July 2016. Dictated by: Gonsalo Archer RRBrenda Interpreted: Bela Vázquez MD on 01/04/2017 at 14: 14 Transcribed by: CASSIE on 01/04/2017 at 14:16 Assessment & Plan This is a 72-year-old male with history of prior debridement procedure for septic joint is presenting due to concern for Rolando chronic multifocal osteomyelitis, as a direct admit from Dr. Arora's office Assessment #1 worsened chronic osteomyelitis, septic joint concern, POA -- CBC, comp -- MRI with and without of the right wrist -- Dr. Drew from infectious diseases is consulted: He is aware and will see the patient -- Pro calcitonin, ESR labs -- Oxycodone for pain control -- Orthopedic consult -- EKG, chest x-ray preop workup -- Nothing by mouth after midnight -- He will not need any by mouth medications prior to surgery Assessment #2 chronic venous stasis, present on admission -- Patient takes furosemide 40 mg at night. He will be given a dose tonight -- Patient also takes spironolactone 25 mg daily, to be ordered after medications are verified -- We will order home medications tomorrow a.m. after the admission nurse reveals the home medications -- Patient takes potassium tablets in the a.m.: Will order after meds are verified Assessment #3 chronic neuropathy -- His night dose of gabapentin is given -- Will order after meds are verified Assessment #4 ALCOHOLIC liver disease, chronic -- Patient is on 10 mg daily lactulose for next gen Will order after meds are verified CODE STATUS: Full code POA: Daughter Libia IV fluids: Patient is on a lot of diuretics at home, will hold until labs return Disposition: Patient may return home after surgical procedure and antibiotic determination Pain Evaluation: Adequate Pain Control VTE Prophylaxis: Sub-Q Heparin (Unfractionated) Resuscitation Status: CPR: Attempt Resuscitation Time spent 45 minutes Tamela Maxwell DO January 04, 2017 18:35
[2017-01-04] MEDS: Heparin 5,000 Unit/mL Inj SUBQ SCH (21:26)
--- NOTE | 2017-01-04 21:36 | DRSVH ---
PROCEDURE: MRI WRIST RIGHT WITH AND WITHOUT CONTRAST ([id number]) INDICATIONS: Septic joint of right wrist TECHNIQUE: Noncontrast coronal proton density fast spin echo and T2 fast spin echo with fat saturation; coronal 3-D gradient echo, axial T1 spin echo and T2 fast spin echo with fat saturation, axial T1 spin echo w ith fat saturation, sagittal T1 spin echo through the wrist. Post-contrast axial, coronal, and sagit wendi T1 spin echo with fat saturation through the wrist. COMPARISON: [facility], CR, XR WRIST 2VW RT, 01/04/2017, 14:03. FINDINGS: Image quality: Excellent. There is extensive, diffuse marrow signal change, throughout the carpus with loss of normal fat marro w fat signal intensity on T1 weighted pulse sequences within all of the carpal bones except for the p isiform. There is also similar marrow signal change, with corresponding enhancement, seen in the dist al radius and ulna as well as the base of the second, third, fourth and fifth metacarpals. There is r elative sparing of the first metacarpal. There is fluid surrounding the extensor digitorum slips in keeping with tenosynovitis. There is thick ening and intrasubstance signal change of the flexor carpi radialis tendon in keeping with tendinopat hy. Distal radial ulnar joint effusion is seen. There is extensive diffuse synovial enhancement throughou t the carpus, and surrounding soft tissue edema. The TFCC, and the scapholunate ligament are not well -seen, possibly ruptured IMPRESSION: Marrow signal changes and enhancement pattern involving the carpal bones, metacarpals and distal radi us and ulna as detailed above, compatible with severe, diffuse osteomyelitis of the wrist. Extensor digitorum tenosynovitis. Flexor carpi radialis tendinopathy. TFCC and scapholunate ligament not well-visualized and may be ruptured. Distal radial ulnar joint effusion. Dictated by: Rickie Booker M.D. on 01/04/2017 at 21:23 Approved by: Rickie Booker M.D. on 01/04/2017 at 21:34
--- NOTE | 2017-01-04 22:34 | PCM.CONPHA ---
Subjective Date of Service: January 04, 2017 Requesting Provider: Ludwig Drew MD Septic right wrist joints Objective Vital Signs Date Time Temp Pulse Resp B/P Pulse Ox O2 Delivery O2 Flow Rate FiO2 01/04/17 19:25 36.7 98 17 136/71 98 Room Air 01/04/17 18:00 36.4 97 18 137/78 100 Room Air Weight (Kilograms): 78.100 Height (Feet): 5 Height (Inches): 6.00 Test 01/04/17 19:00 White Blood Count 5.5th/mm3 (3.8-10.1) Red Blood Count 4.13mil/mm3 (4.40-5.80) Hemoglobin 11.5g/dL (13.8-17.2) Hematocrit 34.3% (41.0-50.0) Mean Corpuscular Volume 83.1fL (81-100) Mean Corpuscular Hemoglobin 27.8pg (27.0-35.0) Mean Corpuscular Hemoglobin Concent 33.5% (32.0-37.0) Red Cell Distribution Width 17.5% (12.3-15.4) Platelet Count 150bil/L (150-400) Neutrophils (%) (Auto) 58.6% (40-74) Lymphocytes (%) (Auto) 27.1% (14-46) Monocytes (%) (Auto) 10.9% (4-12) Eosinophils (%) (Auto) 2.0% (0-5) Basophils (%) (Auto) 0.9% (0-3) Erythrocyte Sedimentation Rate 42mm/hr (0-30) Sodium Level 128mEq/L (134-144) Potassium Level 3.3mEq/L (3.5-5.2) Chloride Level 92mEq/L (97-108) Carbon Dioxide Level 21mmol/L (18-29) Blood Urea Nitrogen 11mg/dL (8-27) Creatinine 0.50mg/dL (0.76-1.27) Estimat Glomerular Filtration Rate 175mL/min (>59) Glucose Level 95mg/dL (60-99) Calcium Level 9.3mg/dL (8.5-10.1) Magnesium Level 1.6mg/dL (1.6-2.6) Total Bilirubin 1.9mg/dL (0.0-1.2) Aspartate Amino Transf (AST/SGOT) 24U/L (0-50) Alanine Aminotransferase (ALT/SGPT) 11U/L (0-44) Alkaline Phosphatase 69U/L (25-160) Troponin T < 0.010ug/L (0.0-0.011) C-Reactive Protein 2.5mg/dL (0.0-0.5) Total Protein 6.9g/dL (6.4-8.4) Albumin 3.1g/dL (3.4-5.0) Procalcitonin 0.06ng/mL (0.00-0.08) Hold [place] Top Tube Received (Received) Assessment/Plan Assessment/Plan Vanco per Rx Indication: Osteo or Septic Joint (recurrent)/MRSA To start at Pre-Op 1330 on 01/05/17 SCR 0.5 on 01/04; LD on 01/05 to be 1750mg, full dose, per Dr Drew Pharmacy to carefully monitor levels to avoid nephrotoxicity Russ Kenny PharmD January 04, 2017 22:34
--- NOTE | 2017-01-04 22:52 | CONS ---
[address] [address] CONSULTATION REPORT PATIENT: BON CUNHA : 1945 MR#: [id number] ADMIT: 01/04/2017 JOB ID: [id number] DATE OF SERVICE: 01/04/2017 CHIEF COMPLAINT: Right wrist and hand pain as well as swelling. PRESENT ILLNESS: This is a pleasant, 71-year-old male, that is well known to the clinic. I originally saw him back in late September to early October with a monthlong history of right wrist pain, swelling and stiffness similar to what he is presenting with today. MRI was obtained at that time, demonstrating evidence of septic arthritis as well as multifocal osteomyelitis. The patient was taken back for an irrigation and debridement, as well as bone biopsy. He was continued on IV antibiotics and seen by the Infectious Disease in consultation, Dr. Drew. The patient made progress following surgery and with antibiotic utilization. I last saw him in the office over a month ago and, shortly afterwards, Dr. Drew also saw the patient, and as he was not doing well, discontinued his PICC line as well as his antibiotics. He was doing very well until about four days ago. He presented to me today with this history, stating that he noticed increasing pain and swelling to the wrist and hand, and felt that it was similar to what he presented to me with initially, although he denies any constitutional symptoms including any fever, sweats or chills. He states he has not had any nausea or vomiting, and has had normal appetite as well as bowel and bladder function. His symptoms were worsening over the last few days. He has tried utilizing a compressive wrist wrap, but it has not helped with any of his symptoms. With his worsening of symptoms, I contacted the hospital and had him admitted to the hospitalist service. Dr. Drew has been be re-consulted as well as myself, with a plan after obtaining labs as well as an MRI to take the patient back to surgery for further exploration, irrigation and debridement, with the possibility of adding antibiotic-impregnated calcium sulfate to the regimen. His case was discussed with Dr. Drew. PAST MEDICAL HISTORY: Right wrist septic arthritis and multifocal osteomyelitis as stated in the history of present illness, cirrhosis, anemia, anxiety, gout. PAST SURGICAL HISTORY: Irrigation and debridement of the right wrist as well as bone biopsy as stated in the history of present illness, appendectomy, knee arthroscopy, tonsillectomy, debridement of bilateral lower extremities, arthrotomy, and irrigation and debridement of the left ankle. FAMILY HISTORY: Noncontributory. SOCIAL HISTORY: The patient admits to past treatment alcohol utilization. Denies any current tobacco or illicit drug use. MEDICATIONS: Please see electronic medical record for full list of the patient's medications. ALLERGIES: 1. COLCHICINE. 2. DAPTOMYCIN. 3. NIACIN. REVIEW OF SYSTEMS: The patient denies any fevers, sweats, chills, chest pain, short of breath nausea, vomiting, diarrhea. Complains mainly of right wrist pain, swelling and stiffness as described in history of present illness. PHYSICAL EXAMINATION: General: The patient is alert, oriented, in no apparent distress. HEENT: Normocephalic, atraumatic. Extraocular movements intact. Nares patent. Lungs: No audible wheezes or signs of respiratory distress. Neuro: Cranial nerves 2-12 intact. Extremities: In gross observation of the patient's right wrist, the previous dorsal incision has well healed. There is warmth to the right wrist as well as diffuse swelling compared to the contralateral wrist and hand. There is mild palpable fluctuance surrounding the DRUJ dorsally as well as significant DRUJ instability. The hand is perfused with palpable distal radial and ulnar pulses. He does demonstrate intact sensation in the median, radial, and ulnar nerve distribution. There is tenderness throughout the wrist including the radiocarpal articulation as well as the DRUJ. The patient has significant stiffness to the hand as well as the wrist. He is unable to demonstrate a full composite fist as he had swelling to the hand as well as the fingers. Range of motion of the wrist is also limited to neutral supination, 60 degrees of pronation and very limited dorsiflexion or volar flexion of the wrist. DIAGNOSTIC STUDIES: Two views of the right wrist was obtained in the clinic today, demonstrating significant joint space narrowing between the radiocarpal articulation as well the scapholunate interval. There is also sclerotic changes of the carpal as well as metacarpal bases with lytic lesions to the 3rd metacarpal and the capitate. There is also significant erosive changes, specifically to DRUJ. All significant findings compared to previous radiographs that were obtained. Labs obtained at hospital admission today demonstrate a normal white count 5.5. A CRP is elevated at 2.5, and an ESR also elevated at 42. IMPRESSION: Right wrist recurrent septic arthritis with multifocal osteomyelitis. PLAN: Will defer antibiotic treatment to Dr. Drew. I did discuss with him it is opted to hold off on any antibiotics until the procedure tomorrow to ensure good cultures to be obtained. His past cultures from the previous irrigation and debridement yielded MRSA that was susceptible to vancomycin. I discussed with the patient the risks, benefits, and indications to repeat the procedure for a repeat irrigation and debridement with debridement also of stone and placement of calcium sulfate-impregnated antibiotics consisting of vancomycin, to apply more local antibiotic coverage at the sites of infection. He will also likely require prolonged IV antibiotic treatment, but again will defer this to Dr. Drew. We will obtain an MRI of the right wrist to further evaluate the joints, but also to look and see if there has been progression of osteomyelitis of further surrounding bone.
[2017-01-05] VITALS (18 sets, daily range): BP systolic 110–157; BP diastolic 43–70; PULSE 71–84; RESP 12–18; O2SAT 94–100
[2017-01-05 00:19] LABS: APPEARANCE,URINE HAZY (CLEAR,HAZY); COLOR,URINE DARK YELLOW (YELLOW); OCCULT BLOOD,URINE NEGATIVE (NEGATIVE)
[2017-01-05] MEDS: Heparin 5,000 Unit/mL Inj SUBQ SCH ×3 (05:27→22:48)
[2017-01-05] MEDS ORDERED: Vancomycin Inj 1,250 MG in 0.9% Sodium Chloride 250 ML IV SCH (05:30)
[2017-01-05 06:32] LABS: Mean Corpuscular Hemoglobin 27.9 pg (27.0-35.0); Mean Corpuscular Volume 83.8 fL (81-100)
--- NOTE | 2017-01-05 09:34 | DRSVH ---
PROCEDURE: X-RAY CHEST, TWO VIEWS ([id number]) INDICATIONS: preoperative TECHNIQUE: 2 views of the chest were acquired. COMPARISON: [facility], CT, CT ANGIO CHEST PE, 11/06/2016, 12:22. [facility] S, CR, XR CHEST 2VW, 11/05/2016, 12:27. [facility], CR, XR CHEST 1VW (PORTABLE), 7, 5:53. FINDINGS: Surgical changes and devices: None. Lungs and pleura: No pleural effusions or pneumothorax. Lungs are clear. Mediastinum: Mediastinal contours are normal. Heart size is normal. Bones and chest wall: No suspicious bony abnormalities. Soft tissues appear unremarkable. IMPRESSION: No acute cardiopulmonary disease. Dictated by: Gonsalo Archer Brenda Interpreted: Den Jones MD on 01/05/2017 at 9:32 Transcribed by: SUZI on 01/05/2017 at 9:34 Approved by: Den Jones M.D. on 01/05/2017 at 11:19
[2017-01-05] MEDS ORDERED: Lactated Ringer's 500 ML IV PRN (09:43)
[2017-01-05] MEDS ORDERED: HYDROmorphone 1 mg/mL Inj IVPUSH PRN (09:45)
[2017-01-05] MEDS ORDERED: EPHEDrine Sulfate 50 mg/mL Inj IVPUSH PRN (09:45)
[2017-01-05] MEDS ORDERED: hydrALAZINE 20 mg/mL Inj IVPUSH PRN (09:45)
[2017-01-05] MEDS ORDERED: Ondansetron 2 mg/mL 2 mL Inj IVPUSH PRN (09:45)
[2017-01-05] MEDS ORDERED: Dexamethasone 4 mg/mL Inj IVPUSH PRN (09:45)
[2017-01-05] MEDS ORDERED: MetoCLOpramide 5 mg/mL 2 mL Inj IVPUSH PRN (09:45)
[2017-01-05] MEDS ORDERED: Phenylephrine 10,000 mCg/mL Inj IVPUSH PRN (09:45)
[2017-01-05] MEDS ORDERED: Labetalol 5 mg/mL 4 mL Inj IV PRN (09:45)
[2017-01-05] MEDS: Lactated Ringer's 1,000 ML IV SCH ×3 (10:06→20:25)
[2017-01-05] MEDS ORDERED: LACT10SO27 PO (12:32)
[2017-01-05] MEDS ORDERED: FURO40TA4 PO (12:32)
[2017-01-05] MEDS ORDERED: POTA10TA12 PO (12:32)
[2017-01-05] MEDS ORDERED: ASCO-294 PO (12:36)
[2017-01-05] MEDS ORDERED: Vancomycin Inj 1,750 MG in 0.9% Sodium Chloride 500 ML IV ONE (13:30)
--- NOTE | 2017-01-05 13:46 | PCM.PNMED ---
Subjective Date of Service January 05, 2017 Subjective Patient is seen and examined. He is getting IV fluids and waiting for surgery. His arm actually looks better today, he feels that because his resting it more and elevating it more. He is not yet seen the infectious diseases expecting to see them after the surgery. No other concerns today Exam Vital Signs Vital Sign - Last Date Time Temp Pulse Resp B/P Pulse Ox O2 Delivery O2 Flow Rate FiO2 01/05/17 05:30 36.6 74 17 115/64 95 Room Air Intake and Output 01/04/17 01/04/17 01/05/17 Cumulative From/Thru 14:59 22:59 06:59 01/04/17 17:59 - 01/05/17 05:30 Intake Total 0 ml 400 ml 400 ml Output Total 0 ml 650 ml 650 ml Balance 0 ml -250 ml -250 ml Intake Oral 0 ml 400 ml 400 ml Output Urine Total 0 ml 650 ml 650 ml # Bowel Movements 0 0 Exam Gen.: No acute distress laying in bed watching TV HEENT: Normocephalic, atraumatic Heart: Regular rate and rhythm no S3-S4 sounds Lungs clear to auscultation bilaterally no crackles or wheezes abdomen: Soft with sounds in all 4 quadrants, nondistended nontender Extremities: Trace edema is present Neck negative for JVD Psych negative for anxiety Neuro no focal deficits IVs and Medications IV Fluids 120 mL per hour lactated Ringer's Medications Reviewed: Medications were reviewed in detail Lab and Diagnostics Result Diagram: 01/04/17189901/04/171899 X-Rays, CTs and MRIs PROCEDURE: X-RAY RIGHT WRIST, TWO VIEWS ([id number]) INDICATIONS: OSTEOMYELITIS OF RIGHT WRIST IMPRESSION: Multifocal osteomyelitis redemonstrated similar to prior MRI and worsened compared to prior wrist series dated July 2016. Dictated by: Gonsalo CALIXTO Interpreted: Bela Vázquez MD on 01/04/2017 at 14: 14 Transcribed by: CASSIE on 01/04/2017 at 14:16 [facility] Diagnostic Imaging Department [place], [place] [id number] Patient Name: BON CUNHA MR#: [id number] [place] [facility] [place] Phys: Norberto Arora DO Date of Service: 01/04/172026 PROCEDURE: MRI WRIST RIGHT WITH AND WITHOUT CONTRAST ([id number]) I IMPRESSION: Marrow signal changes and enhancement pattern involving the carpal bones, metacarpals and distal radius and ulna as detailed above, compatible with severe , diffuse osteomyelitis of the wrist. Extensor digitorum tenosynovitis. Flexor carpi radialis tendinopathy. TFCC and scapholunate ligament not well-visualized and may be ruptured. Distal radial ulnar joint effusion. Dictated by: Rickie Booker M.D. on 01/04/2017 at 21:23 Approved by: Rickie Booker M.D. on 01/04/2017 at 21:34 Assessment & Plan This is a 72-year-old male with history of prior debridement procedure for septic joint is presenting due to concern for Rolando chronic multifocal osteomyelitis, as a direct admit from Dr. Arora's office Assessment #1 worsened chronic osteomyelitis, septic joint concern, POA -- CBC, comp -- MRI with and without of the right wrist: Showed multifocal osteomyelitis. " Marrow signal changes and enhancement pattern involving the carpal bones, metacarpals and distal radius and ulna as detailed above, compatible with severe , diffuse osteomyelitis of the wrist.Extensor digitorum tenosynovitis.vFlexor carpi radialis tendinopathy. TFCC and scapholunate ligament not well-visualized and may be ruptured. Distal radial ulnar joint effusion." -- Dr. Drew from infectious diseases is consulted: He is aware and will see the patient: We appreciate the recommendations -- Pro calcitonin, ESR labs: Elevated as expected, we will continue to trend -- Oxycodone for pain control, morphine IV for pain control -- Orthopedic consult -- EKG, chest x-ray preop workup: reviewed this AM -- Nothing by mouth after midnight -- He will not need any by mouth medications prior to surgery: Patient is awaiting surgery, labs, EKG, chest x-ray, previous echo are reviewed. Patient is cleared for surgery Assessment #2 chronic venous stasis, present on admission -- Her medications at the consult for tomorrow a.m. Assessment #3 chronic neuropathy --- Home medication gabapentin as ordered for tomorrow a.m. Assessment #4 ALCOHOLIC liver disease, chronic -- Patient is on 10 mg daily lactulose, will be continued here CODE STATUS: Full code POA: Daughter Libia IV fluids: Patient is on a lot of diuretics at home, will hold until labs return Disposition: Patient may return home after surgical procedure and antibiotic determination Pain Evaluation: Adequate Pain Control VTE Prophylaxis: Sub-Q Heparin (Unfractionated) Resuscitation Status: CPR: Attempt Resuscitation Tamela Maxwell DO January 05, 2017 06:07
[2017-01-05] MEDS ORDERED: Lactulose 20 Gm/30 mL 30 mL Syrup PO PRN (13:50)
[2017-01-05] MEDS ORDERED: Propofol 10,000 mCg/mL 20 mL Inj ONE (14:45)
[2017-01-05] MEDS ORDERED: Ondansetron 2 mg/mL 2 mL Inj ONE (14:45)
[2017-01-05] MEDS ORDERED: Phenylephrine 10,000 mCg/mL Inj ONE (14:45)
[2017-01-05] MEDS ORDERED: fentaNYL-PF 50 mCg/mL 2 mL Inj ONE (14:45)
--- NOTE | 2017-01-05 17:14 | PCM.HPANE ---
Patient Data Date of Service: January 05, 2017 Surgeon Admitting Provider:Tamela Maxwell DO Attending Provider:Tamela Maxwell DO Primary Care Physician:Tata Doll MD Other Provider: Reason for Visit Right Wrist Septic Arthritis Ht/WT & BMI Height (Feet): 5 Height (Inches): 6.00 Weight (Kilograms): 78.100 Body Mass Index 27.67 Allergies Coded Allergies: daptomycin (Verified Allergy, Severe, Pulmonary toxicity, 11/06/16) colchicine (Verified Adverse Reaction, Severe, gi upset, 11/05/16) niacin (Verified Adverse Reaction, Severe, GI UPSET, 11/05/16) Uncoded Allergies: SEASONAL ALLERGIES (Allergy, Severe, ITCH/RASH, 10/13/16) Past Anesthesia History Anesthesia History: Denies:: Abnormal Airway, Anesthesia Reactions, Difficult Intubation, Fam Anesthesia Reaction, Fam Malignant Hypertherm, Malignant Hyperthermia Diabetes History Hx Diabetes?: No MRSA MRSA: Yes (oct 2016) Medications Hypertension Medication: No Home Meds Incl Beta Grace: No Reported Medications Ascorbate Calcium (Vitamin C)500 Mg Hwvttx137 Mg PO DAILY 01/05/17 Potassium Chloride ER 10 Meq Vwwyku85 Meq PO DAILY #30 01/05/17 Furosemide 40 Mg Dvsqby83 Mg PO BID #30 01/05/17 Lactulose 10 Gm/15 Ml Vsfzfxvl25 Gm PO PRN For Constipation #473 01/05/17 Gabapentin 300 Mg Hiprzxz333 Mg PO HS 6PM 11/05/16 Ketoconazole 120 Ml Shampoo1 Applic TP WEEKLY 11/05/16 Spironolactone 50 Mg Tnxplr73 Mg PO DAILY 10/13/16 oxyCODONE 5 Mg Tablet5 Mg PO Q3H PRN For Pain 10/13/16 Gabapentin 300 Mg Pqklcbl503 Mg PO BID AM, NOON 10/13/16 Fluticasone Propionate (Flonase Allergy Relief)50 Mcg/Actuation [place].susp1 [place] NASAL DAILY CONGESTION 10/13/16 Multivitamin (Multivitamins)1 Each Capsule1 Each PO DAILY 01/13/16 Cholecalciferol (Vitamin D3) (Vitamin D3)5,000 Unit Capsule5,000 Unit PO DAILY 09/23/15 Sulfacetamide Sodium (Sodium Sulfacetamide)10 % Clnsr.gel1 Applic TP BID for rosacea 09/23/15 Discontinued Reported Medications Pantoprazole DR 40 Mg Tablet.dr40 Mg PO BID 11/05/16 Furosemide 20 Mg Tab40 Mg PO DAILY 11/05/16 Discontinued Scripts Vancomycin HCl/D5w (Vancomycin 1.5 Gram/250 ml-D5w)1.5 Gram/250 Ml Plast..bag1.25 Gm IV Q12H 19 Days Prov:Meeta Powers MD 11/12/16 Prednisone (Deltasone)20 Mg Flikjt10 Mg PO DAILY 30 Days Prov:Meeta Powers MD 11/12/16 Lactulose 20 Gm/30 Ml Rrxoeqdt05 Gm PO BID 30 Days Prov:Thiago Oliva MD 10/20/16 Ascorbic Acid (Vitamin C)500 Mg Capsule.er500 Mg PO BID 30 Days Prov:Unruly Chaparro DO 01/15/16 Potassium Chloride ER (Klor-Con M10)10 Meq Tabsr10 Meq PO DAILYWM #30 Ref 1 Prov:Thiago Gale MD 08/12/14 History History of ENT Problems?: Yes HEENT History: Positive for:: Cataracts (S/P B/L EXTRACTIONS) Sinus Problem Denies:: Abnormal Airway Difficult Intubation Dysphagia Hearing Problem Denture Type: None Teeth Condition: Missing Teeth Hx of Heart Problems?: Yes Cardiovascular History: Positive for:: Edema Denies:: AICD Atrial Fibrillation Cardiac Surgery Chest Pain Congestive Heart Failure Heart Murmur (ECHO 11/2013 EF 60-65%) Hypertension Irregular Heartbeat Pacemaker Thrombophlebitis Valvular Heart Disease Hx of Respiratory Problem?: Yes Respiratory History: 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) Denies:: Asthma COPD Chest Surgery Cough Dyspnea Emphysema Hemoptysis Tuberculosis Use of C-PAP Machine (SNORES) Hx Neurologic Problems?: No Neurological History: Denies:: Alzheimer's Disease CVA Dementia Dizziness Headaches Parkinson's Disease Seizures Hx of GI Problems?: Yes Gastrointestinal History: Positive for:: Cirrhosis Hx of Problems?: Yes Genitourinary History: Positive for:: Urinary Tract Infection (hx) Denies:: HX of Hemodialysis Kidney Stones HX of Peritoneal Dialysis: No Male Hx: Denies:: Prostate Problems Scrotal Mass Testicular Surgery Skin History: Denies:: History Skin Disorders? (rosacea, psoriasis, exposed to agent orange) Pressure Ulcers (LR VENOUS STASIS ULCERATIONS S/P I&D/DEBRIDEMENT) Other Skin Pertinent History: MRSA colinization of R wrist Oct 2016 Hx Musculoskeletal Problems?: Yes Musculoskeletal History: Positive for:: Back Injury (C/OF LOWER BACK PAIN) Musculoskeletal Trauma (shrapnel injuries from [place] S/P LT KNEE SCOPE) Denies:: Joint Replacement Hx of Psycho/Social Problems?: Yes Psycho Social History: Positive for:: Anxiety (PTSD [place]) Denies:: Bipolar Disorder Hx Depression Suicide Attempt Hx Surgeries?: Yes Hx Any Other Health Problems?: Yes Other History: Positive for:: Hospitalization Denies:: Cancer Endocrine Disease Thyroid Disease History Blood Transfusions: Denies:: Blood Transfuse Reaction Blood Transfusions Hx Diabetes: No Other Pertinent History: eye surgery, back surgery (sciatic nerve) appendectomy,LT KNEE RPR,TONSILS, I/D R wrist Hx Alcohol Use: Yes (1-3 beers daily (PT SAYS QUIT IN 2014; SAYS DRINKING)) Hx Substance Use: No Smoking Status: Former Smoker Have You Smoked inLast 12 mo: No Stop/Bang Treated for Sleep Apnea?: No Do You Have a CPAP Machine?: No AMRITA Risk Assessment: Low Risk, <3 Yes Risk Assessment Category Category 1A: Patient has history of documented sleep apnea, and HAS NOT received any narcotic, sedative or anesthesia administration during this stay. Category 1B: Patient has history of documented sleep apnea, and HAS received any narcotic , sedative or anesthesia administration during this stay Category 2: Patient has SUSPECTED Obstructive Sleep Apnea, and HAS received any narcotic , sedative or anesthesia administration during this stay. Category 3: Patient has SUSPECTED Obstructive Sleep Apnea and HAS NOT received narcotic, sedative or anesthesia administration during this stay. Category 4: Outpatient in Procedural Areas with known sleep apnea or who screen positive for High Risk via the STOP/BANG questionnaire. Exam Exam Vital Signs Vital Signs Date Time Temp Pulse Resp B/P Pulse Ox O2 Delivery O2 Flow Rate FiO2 01/05/17 14:15 36.9 71 18 110/58 95 Room Air 01/05/17 09:40 36.6 72 18 118/61 01/05/17 09:40 36.6 72 18 118/61 94 Room Air General Appearance: Alert, Oriented X3, Cooperative HEENT/AIRWAY: MP 3, Neck Movement (OK), Mouth Opening (Wide) Lungs: Clear to Auscultation, Normal Air Movement Heart: Regular Rate/Rhythm, Normal S1, Normal S2 Meds/Labs/Diagnostics Admission Meds Current Medications Heparin Sodium (Porcine) (Heparin Inj) 5,000 unit Q8H SUBQ Last administered on 01/05/17 05:27; Start 01/04/17 at 21:00 Furosemide (Lasix) 40 mg 08,1630 PO Last administered on 01/05/17 09:19; Start 01/04/17 at 18:45; Stop 01/05/17 at 13:30; Status DC Gabapentin 600 mg 600 mg HS PO Last administered on 01/04/17 21:23; Start at 21:00 Lactated Ringer's 1,000 ml @ 120 mls/hr Q8H20M IV Last administered on 10:06; Start 01/05/17 at 09:43; Stop 01/05/17 at 17:42 Potassium Chloride/Dextrose/ Water (Potassium Chloride Inj/D5W) 105 ml @ 100 mls/hr OT ONCE IV Last administered on 01/05/17 11:21; Start 01/05/17 at 10:55 ; Stop 01/05/17 at 11:57; Status DC Labs Test 01/04/17 19:00 01/05/17 00:09 01/05/17 06:00 Neutrophils (%) (Auto) 58.6% (40-74) Lymphocytes (%) (Auto) 27.1% (14-46) Monocytes (%) (Auto) 10.9% (4-12) Eosinophils (%) (Auto) 2.0% (0-5) Basophils (%) (Auto) 0.9% (0-3) Erythrocyte Sedimentation Rate 42mm/hr (0-30) Total Bilirubin 1.9mg/dL (0.0-1.2) Aspartate Amino Transf (AST/SGOT) 24U/L (0-50) Alanine Aminotransferase (ALT/SGPT) 11U/L (0-44) Alkaline Phosphatase 69U/L (25-160) Troponin T < 0.010ug/L (0.0-0.011) C-Reactive Protein 2.5mg/dL (0.0-0.5) Total Protein 6.9g/dL (6.4-8.4) Albumin 3.1g/dL (3.4-5.0) Procalcitonin 0.06ng/mL (0.00-0.08) Hold [place] Top Tube Received (Received) Urine Color Dark yellow (YELLOW) Urine Appearance Hazy (CLEAR,HAZY) Urine pH 6.0 (5.0-8.0) Urine Specific [place] 1.015 (1.003-1.035) Urine Protein Negativemg/dL (NEG,TRACE) Urine Glucose (UA) Negativemg/dL (NEGATIVE) Urine Ketones Negativemg/dL (NEGATIVE) Urine Occult Blood Negative (NEGATIVE) Urine Nitrite Negative (NEGATIVE) Urine Bilirubin Negative (NEGATIVE) Urine Urobilinogen 1.0mg/dL (NORMAL) Urine Leukocyte Esterase Negative (NEGATIVE) Urine RBC 0-2/hpf (0-2) Urine WBC 0-5/hpf (0-5) Urine Epithelial Cells Occasional/hpf (NONE-MOD) Urine Crystals None seen (NONE SEEN) Urine Bacteria None/hpf (NONE-FEW) Urine Hyaline Casts None/lpf (NONE) Urine Granular Casts None seen (NONE SEEN) Urine Waxy Casts None seen (NONE SEEN) Urine Red Blood Cell Casts None seen (NONE SEEN) Urine White Blood Cell Casts None seen (NONE SEEN) Urine Mucus None seen (None Seen) Urine Trichomonas None seen (NONE SEEN) Urine Yeast None (NONE SEEN) Urinalysis Comment None Urine Culture Reflexed Not indicated White Blood Count 3.9th/mm3 (3.8-10.1) Red Blood Count 3.65mil/mm3 (4.40-5.80) Hemoglobin 10.2g/dL (13.8-17.2) Hematocrit 30.6% (41.0-50.0) Mean Corpuscular Volume 83.8fL (81-100) Mean Corpuscular Hemoglobin 27.9pg (27.0-35.0) Mean Corpuscular Hemoglobin Concent 33.3% (32.0-37.0) Red Cell Distribution Width 17.4% (12.3-15.4) Platelet Count 135bil/L (150-400) Sodium Level 135mEq/L (134-144) Potassium Level 3.4mEq/L (3.5-5.2) Chloride Level 96mEq/L (97-108) Carbon Dioxide Level 24mmol/L (18-29) Blood Urea Nitrogen 11mg/dL (8-27) Creatinine 0.59mg/dL (0.76-1.27) Estimat Glomerular Filtration Rate 144mL/min (>59) Glucose Level 99mg/dL (60-99) Calcium Level 8.7mg/dL (8.5-10.1) Magnesium Level 1.6mg/dL (1.6-2.6) Plan Impression Patient chart reviewed, patient interviewed and anesthestic plan with risks, benefits, and alternatives discussed, and informed consent obtained. NPO per Anesth. Guidelines: Yes ASA Physical Status: ASA3 Severe Disease Bene/Risks/Altern/Consents: Yes HP Complete Prior to Induction: Yes Other Abx to be given after tissue culture obtained Smith Sim MD January 05, 2017 16:00
[2017-01-05] MEDS ORDERED: Bupivacaine-MPF 0.25%/EPI 30 mL Inj INFILTRATE ONE (19:20)
--- NOTE | 2017-01-05 19:33 | PCM.ANEP1 ---
Post Anesthesia Phase 1 PACU Phase 1 Assessment Date of Service: January 05, 2017 Vital Signs Vital Signs Date Time Temp Pulse Resp B/P Pulse Ox O2 Delivery O2 Flow Rate FiO2 01/05/17 14:15 36.9 71 18 110/58 95 Room Air Anesthetic Administered: GA Level of Alertness: Sleepy, easy to arouse TAFOYA's with Equal Strength: Yes Pain: No (SLEEPING) Nausea or Vomiting: No Cardiovascular Function and Hy: Yes Oxygen Delivery: Simple Mask Lungs: Normal Air Movement Complications: No Follow up Care: No Patient Instructions Provided: Yes Smith Sim MD January 05, 2017 19:33
[2017-01-05] MEDS ORDERED: Sodium Biphos-Phos 133 mL Enema RECTAL PRN (19:35)
[2017-01-05] MEDS ORDERED: Polyethylene Glycol (PEG) 17 Gm Powder PO PRN (19:35)
[2017-01-05] MEDS ORDERED: diphenhydrAMINE 25 mg Capsule PO PRN (19:35)
[2017-01-05] MEDS ORDERED: Magnesium Hydroxide 10 mL Oral Concentration PO PRN (19:35)
[2017-01-05] MEDS: fentaNYL-PF 50 mCg/mL 2 mL Inj IVPUSH PRN ×2 (19:50→20:15)
[2017-01-05] MEDS ORDERED: SODIUM SULFACETAMIDE TOPICAL SCH (20:30)
--- NOTE | 2017-01-05 21:04 | PCM.PHAPRO ---
Progress Date of Service: January 05, 2017 Requesting Provider: Ludwig Drew MD Septic right wrist joints Vanco per Rx LD 1750mg given @ 1730 Vd 50 eCrCl 105 Will be conservative for now, dose 1250mg Q12H 1st trough @ 0500 on 01/07/17, before the 4th dose Russ Kenny PharmD January 05, 2017 21:04
[2017-01-05] MEDS: Vancomycin Dose per Pharmacist XX SCH (22:20)
[2017-01-05] MEDS: Senna-Docusate 8.6-50 mg Tablet PO SCH (22:51)
[2017-01-06] VITALS: BP 161/69; PULSE 82; RESP 17; O2SAT 95
[2017-01-06] MEDS: Sodium Chloride LOK Flush 10 mL Syringe IV SCH ×4 (00:30→23:32)
[2017-01-06] MEDS ORDERED: Ketorolac 15 mg/mL Inj IVPUSH PRN (01:10)
[2017-01-06] MEDS ORDERED: HYDROmorphone 1 mg/mL Inj IVPUSH PRN (01:10)
[2017-01-06] MEDS: Acetaminophen IV 1,000 MG in IV Premix 1 EACH IV PRN ×2 (01:40→08:58)
[2017-01-06 05:25] LABS: BASOPHILS % (AUTO) 0.5 % (0-3); EOSINOPHILS % (AUTO) 1.1 % (0-5); MONOCYTES % (AUTO) 12.4 % (4-12); Mean Corpuscular Hemoglobin 28.2 pg (27.0-35.0); Mean Corpuscular Volume 84.7 fL (81-100); NEUTROPHILS % (AUTO) 69.2 % (40-74); Platelet Count 150 bil/L (150-400)
[2017-01-06 05:49] VITALS: BP 149/72; PULSE 85; RESP 17; O2SAT 96
[2017-01-06] MEDS: Vancomycin Inj 1,250 MG in 0.9% Sodium Chloride 250 ML IV SCH ×2 (05:51→16:33)
[2017-01-06] MEDS: Heparin 5,000 Unit/mL Inj SUBQ SCH ×3 (05:53→21:24)
[2017-01-06 07:55] VITALS: BP 103/51; PULSE 77; RESP 16; O2SAT 93
[2017-01-06] MEDS: Fluticasone 0.05% 15 Spray/2 Gm 16 Gm Nasal Spray NASAL SCH (08:30)
[2017-01-06] MEDS: Vancomycin Dose per Pharmacist XX SCH (08:30)
[2017-01-06] MEDS: Ascorbic Acid 500 mg Tablet PO SCH (09:04)
[2017-01-06] MEDS: Senna-Docusate 8.6-50 mg Tablet PO SCH ×2 (09:04→21:19)
--- NOTE | 2017-01-06 10:07 | PCM.PNORTH ---
Subjective Date of Service: January 06, 2017 Visit Information: Reason for Visit Right Wrist Septic Arthritis Surgery/Surgery Date Post-Op Day # Date of Admission: January 04, 2017 at 17:36 Hospital Day # Subjective Status post day #1 right wrist incision and drainage. Patient states that he is feeling much better than yesterday since having the Joseph wrap loosened. Patient is comfortable and states he understands he will need to wait to make sure this infection gets cleared up. Postop General: No Complaints, No Shortness of Breath, No Chest Pain Objective Exam Objective Patient is alert and oriented 3. Answering questions appropriately. Patient is sitting up and is not in acute distress today. Right wrist dressing is clean dry and intact. Patient able to wiggle fingers, 1.5+/4 residual edema of the right wrist and fingers. No erythema. Sensation and pulses intact, capillary refill less than 3 seconds. Cultures from surgery pending. Vital Signs and I/O Vital Sign - Last Date Time Temp Pulse Resp B/P Pulse Ox O2 Delivery O2 Flow Rate FiO2 01/06/17 07:55 36.6 77 16 103/51 93 01/06/17 05:49 Room Air 01/05/17 19:50 8 Intake and Output 01/05/17 01/05/17 01/06/17 Cumulative From/Thru 15:00 23:00 07:00 01/04/17 17:59 - 01/06/17 05:55 Intake Total 2062 ml 590 ml 3052 ml Output Total 1450 ml 950 ml 3050 ml Balance 612 ml -360 ml 2 ml Intake Oral 0 ml 400 ml 800 ml IV Total 2062 ml 190 ml 2252 ml Output Urine Total 1450 ml 950 ml 3050 ml # Bowel Movements 0 0 0 Lab & Micro Results Laboratory Tests Test 01/06/17 04:45 White Blood Count 5.6th/mm3 (3.8-10.1) Red Blood Count 3.86mil/mm3 (4.40-5.80) Hemoglobin 10.9g/dL (13.8-17.2) Hematocrit 32.7% (41.0-50.0) Mean Corpuscular Volume 84.7fL (81-100) Mean Corpuscular Hemoglobin 28.2pg (27.0-35.0) Mean Corpuscular Hemoglobin Concent 33.3% (32.0-37.0) Red Cell Distribution Width 17.6% (12.3-15.4) Platelet Count 150bil/L (150-400) Neutrophils (%) (Auto) 69.2% (40-74) Lymphocytes (%) (Auto) 16.4% (14-46) Monocytes (%) (Auto) 12.4% (4-12) Eosinophils (%) (Auto) 1.1% (0-5) Basophils (%) (Auto) 0.5% (0-3) Sodium Level 133mEq/L (134-144) Potassium Level 3.7mEq/L (3.5-5.2) Chloride Level 93mEq/L (97-108) Carbon Dioxide Level 25mmol/L (18-29) Blood Urea Nitrogen 8mg/dL (8-27) Creatinine 0.60mg/dL (0.76-1.27) Estimat Glomerular Filtration Rate 142mL/min (>59) Glucose Level 132mg/dL (60-99) Calcium Level 8.9mg/dL (8.5-10.1) Microbiology 01/05/17 Blood Culture - Preliminary, Resulted NO GROWTH AFTER 24 HOURS 01/05/17 MRSA (PCR) - Preliminary, Resulted Presumptive Mrsa Pcr 01/05/17 , Received Pending 01/05/17 Acid Fast Bacilli Smear, Received Pending 01/05/17 Acid Fast Bacilli Culture, Received Pending Result Diagram: 01/06/17 0445 01/06/17 0445 Assessment & Plan Impression Status post day #1 right wrist incision and drainage. Patient is stable awaiting cultures. Problems: Plan We will continue to manage pain with current antibiotic regimen. Patient will remain on IV antibiotics while cultures are pending. We will await culture results and recommendation from infectious disease. Orthopedics will plan to see the patient tomorrow, anticipate dressing change. Anticipated that the patient will remain in hospital for 1-2 more days until we have a clear outpatient plan for antibiotics once the cultures are received. Thank you to hospitalist team for managing his other medical concerns. VTE Prophylaxis: Sub-Q Heparin (Unfractionated) Resuscitation Status: CPR: Attempt Resuscitation Higinio Magdaleno PA-C January 06, 2017 10:07
--- NOTE | 2017-01-06 11:06 | PROG NOTE ---
[address] [address] PROGRESS NOTE PATIENT: BON CUNHA : 1945 MR#: [id number] ADMIT: 01/04/2017 JOB ID: [id number] DATE: 01/06/2017 REASON FOR FOLLOWUP: Extensive right wrist and forearm infection with osteomyelitis. 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 One month following cessation of antibiotics in late November, the patient developed a rather fulminant infection of the right wrist and forearm which by MRI scan was osteomyelitis with extensive destruction of bone. This led to his trip to the operating room last night. The operative note is not yet in the computer though I understand there was extensive debridement as well as incision and drainage and the cultures are pending. The patient tells me he had absolutely agonizing pain overnight which he describes as 100 on the 1-10 scale. This morning is down to about 4/10. He denies any fevers, chills, sore throat, cough, nausea, vomiting or diarrhea. PHYSICAL EXAMINATION: Reveals a reasonably comfortable gentleman sitting up with his right wrist in a complicated postop dressing, lying elevated on a pillow at his bedside. Vital signs: Temperature 36.6, pulse 76, respiratory rate 16, blood pressure 103/51. He is saturating 93% on room air. His oral cavity is unremarkable. His lungs are quite clear. His abdomen is benign. No skin rash noted. LABORATORIES: Include white count this morning 5600, platelet count 150,000. Creatinine 0.6. CRP is 2.5. Urinalysis without red cells or white cells. Micro: The patient's nasal culture is positive for MRSA. Blood cultures done on admission are negative. Tissue from the surgery is pending, but the initial Gram stain shows moderate polys, no organisms and culture pending. IMPRESSION: This patient is admitted through a debridement of his right wrist and forearm. We await the cultures and susceptibilities but in the meantime, will treat empirically for Methicillin-resistant Staphylococcus aureus. RECOMMENDATIONS: 1. We will continue with vancomycin as our sole agent at this point. 2. 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 3. We will need to carefully watch his renal function during when will probably be a very long course of vancomycin because he has underlying cirrhosis and is at risk for hepatorenal syndrome. 4. This patient should be in MRSA isolation and I am not certain why he is not, but I will order that this morning.
[2017-01-06 12:51] VITALS: BP 105/64; PULSE 88; RESP 18; O2SAT 93
--- NOTE | 2017-01-06 14:38 | PCM.PNMED ---
Subjective Date of Service January 06, 2017 Subjective Patient is seen and examined. He states that he had a lot of pain last night but medications were given and eventually the pain is not under control by this morning. He had no fevers chills. He is passing gas and tolerating normal diet. Patient is in MRSA isolation during yesterday's visit and today's visit No other concerns Exam Vital Signs Vital Sign - Last Date Time Temp Pulse Resp B/P Pulse Ox O2 Delivery O2 Flow Rate FiO2 01/06/17 12:51 36.4 88 18 105/64 93 Room Air 01/05/17 19:50 8 Intake and Output 01/05/17 01/05/17 01/06/17 Cumulative From/Thru 15:00 23:00 07:00 01/04/17 17:59 - 01/06/17 05:55 Intake Total 2062 ml 590 ml 3052 ml Output Total 1450 ml 950 ml 3050 ml Balance 612 ml -360 ml 2 ml Intake Oral 0 ml 400 ml 800 ml IV Total 2062 ml 190 ml 2252 ml Output Urine Total 1450 ml 950 ml 3050 ml # Bowel Movements 0 0 0 Exam Gen.: No acute distress sitting up eating lunch Heart regular rate and rhythm no S3-S4 sounds Lungs mild bilateral basilar crackles, no wheezing Abdomen soft, nontender Extremities: 1+ edema is present, along with venous stasis changes, he is able to move his forearm and arm but cannot move the right hand. Fingers appear swollen, not tender to touch. Skin: He has a superficial hemorrhage around his bicep tricep area on the left side Neuro no focal deficits Psychiatric negative for anxiety IVs and Medications Medications Reviewed: Medications were reviewed in detail Lab and Diagnostics Result Diagram: 01/06/175 01/06/175 X-Rays, CTs and MRIs PROCEDURE: X-RAY RIGHT WRIST, TWO VIEWS ([id number]) INDICATIONS: OSTEOMYELITIS OF RIGHT WRIST IMPRESSION: Multifocal osteomyelitis redemonstrated similar to prior MRI and worsened compared to prior wrist series dated July 2016. Dictated by: Gonsalo CALIXTO Interpreted: Bela Vázquez MD on 01/04/2017 at 14: 14 Transcribed by: CASSIE on 01/04/2017 at 14:16 [facility] Diagnostic [place] [address] Patient Name: BON CUNHA MR#: [id number] [place] [facility] [place] Ordering Phys: Maite Norberto Trav HAIDER Date of Service: 01/04/172026 PROCEDURE: MRI WRIST RIGHT WITH AND WITHOUT CONTRAST ([id number]) I IMPRESSION: Marrow signal changes and enhancement pattern involving the carpal bones, metacarpals and distal radius and ulna as detailed above, compatible with severe , diffuse osteomyelitis of the wrist. Extensor digitorum tenosynovitis. Flexor carpi radialis tendinopathy. TFCC and scapholunate ligament not well-visualized and may be ruptured. Distal radial ulnar joint effusion. Dictated by: Rickie Booker M.D. on 01/04/2017 at 21:23 Approved by: Rickie Booker M.D. on 01/04/2017 at 21:34 Assessment & Plan G This is a 72-year-old male with history of prior debridement procedure for septic joint is presenting due to concern for Rolando chronic multifocal osteomyelitis, as a direct admit from Dr. Arora's office Assessment #1 worsened chronic osteomyelitis, septic joint concern, POA -- CBC, comp -- MRI with and without of the right wrist: Showed multifocal osteomyelitis. " Marrow signal changes and enhancement pattern involving the carpal bones, metacarpals and distal radius and ulna as detailed above, compatible with severe , diffuse osteomyelitis of the wrist.Extensor digitorum tenosynovitis.vFlexor carpi radialis tendinopathy. TFCC and scapholunate ligament not well-visualized and may be ruptured. Distal radial ulnar joint effusion." -- Dr. Drew from infectious diseases is consulted: He is aware and will see the patient: We appreciate the recommendations. 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 -- Patient is now postop day #1 after right wrist incision and drainage. Currently on vancomycin per ID. Cultures from surgery are pending -- Pro calcitonin, ESR labs: Elevated as expected, we will continue to trend -- Oxycodone for pain control, morphine IV for pain control -- Orthopedic consult: -- EKG, chest x-ray preop workup: reviewed 01/05/17 AM, patient is pod#1 -- blood cx from 01/05 NG td. Gram stain, fluid crystals, acid-fast bacilli from the tissue culture from 01/05. MRSA nasal swab positive -- Patient is on Dilaudid, oxycodone for pain control per surgery Assessment #2 chronic venous stasis, present on admission -- Her medications at the consult for tomorrow a.m. Assessment #3 chronic neuropathy --- Home medication gabapentin as ordered for tomorrow a.m. Assessment #4 ALCOHOLIC liver disease, chronic -- Patient is on 10 mg daily lactulose, will be continued here CODE STATUS: Full code POA: Daughter Libia IV fluids: Disposition: Patient may return home after surgical procedure and antibiotic determination per ID Pain Evaluation: Adequate Pain Control VTE Prophylaxis: Sub-Q Heparin (Unfractionated) VTE Mechanical Devices: Anti-Embolic stockings Resuscitation Status: CPR: Attempt Resuscitation Time spent 25 minutes Tamela Maxwell DO January 06, 2017 14:38
[2017-01-06 16:41] VITALS: BP 132/75; PULSE 84; RESP 18; O2SAT 97
[2017-01-06 19:40] VITALS: BP 112/62; PULSE 83; RESP 17; O2SAT 97
--- NOTE | 2017-01-06 23:22 | OP ---
[address] [address] OPERATIVE REPORT PATIENT: BON CUNHA : 1945 MR#: [id number] ADMIT: 01/04/2017 JOB ID: [id number] DATE OF SURGERY: 01/05/2017 PREOPERATIVE DIAGNOSIS(ES): 1. Right wrist septic arthritis. 2. Right wrist multifocal osteomyelitis involving the distal radius, distal ulna, carpals and the base of the 2nd through 5th metacarpals. POSTOPERATIVE DIAGNOSIS(ES): 1. Right wrist septic arthritis. 2. Right wrist multifocal osteomyelitis involving the distal radius, distal ulna, carpals and the base of the 2nd through 5th metacarpals. PROCEDURE: 1. Irrigation and debridement of the right wrist with arthrotomy of the radial carpal and distal radial ulnar joint. 2. Irrigation and debridement with craterization of the 2nd, 3rd, 4th and 5th metacarpal bases, distal radius, distal ulna and carpal bones x5. SURGEON: Norberto Arora DO. ANESTHESIA: General. HISTORY: The patient is 71-year-old male that originally presented to me several months ago with a month-long history of right wrist pain, stiffness and swelling. MRI was ordered demonstrating evidence of septic arthritis and multifocal osteomyelitis. He was taken back for irrigation and debridement, and was placed on IV antibiotics. He progressed very well and at three months after the surgery, had near full range of motion of the right wrist and hand. He was thus discontinued off the IV antibiotics per the infectious Disease physician, Dr. Drew, and was discharged. He re-presented to me a month later with a 4-day history of recurrent symptoms. I discussed with the patient the risks, benefits, and indications to proceed with a repeat irrigation and debridement of the right wrist including the multiple bones involved with his multifocal osteomyelitis. He understood the risks include, but are not limited to, neurovascular injury, tendon injury, failure to resolve the infection, stiffness, persistent pain all of which may require further intervention. The patient had all questions answered. He was sent over to the hospital for admission and for a stat MRI and stat labs to be obtained. Infectious Disease, doctor, Dr. Drew, was also reconsulted and was aware of the patient's admission and pending surgery. PROCEDURE IN DETAIL: The patient was brought to the operative suite and placed supine on the operating table. Surgical time-out performed and everyone in the room was in agreement. After appropriate anesthesia was obtained, a right upper arm tourniquet was applied and the right upper extremity was prepped and draped in a sterile fashion. The right arm was then elevated and the tourniquet inflated to 250 mmHg. The patient's previous longitudinal dorsal incision was utilized and extended both proximally and distally. Dissection was carried down to the extensor retinaculum. Large skin flaps were then raised. The 3rd dorsal compartment was entered, and the EPL tendon retracted radially. Next, the 4th dorsal compartment was retracted ulnarly and the 2nd retracted radially. The capsule was next identified and incised in an inverted T-shaped fashion. Copious amount of purulence emanated from the joint. This was cultured and excess fluid was also sent for Gram stain, aerobic and anaerobic cultures, fungal mycobacteria and crystal analysis as well as cell count with differential. The radiocarpal and mid carpal joint was identified and copiously irrigated. There was significant hypertrophic synovium and purulence at both articulations. The scapholunate and lunotriquetral ligaments were found to be completely degraded. There was evidence of diffuse chondrosis to the carpals as well as the distal radius. Next, the DRUJ was entered and, again, copious amount of purulence emanated from this articulation. Copious irrigation was performed. Next, the bases of the 2nd through 5th metacarpals were exposed as well as their retrospective CMC joints. This was performed utilizing a longitudinal incision over the periosteum and performing a transverse capsulotomy. The bases of the 2nd through 5th metacarpals as well as the CMC joints demonstrated significant amount of purulence as well as degraded bone. Copious irrigation was performed at this point. Attention was then turned towards the areas that were identified on the MRI as having osteomyelitic changes. Silvio's tubercle was debrided and the distal radius then entered dorsally into the metaphysis. A curette was used to perform a craterization followed by copious irrigation. This procedure was also performed to the distal ulna bases of the 2nd through 5th metacarpals first by utilizing a 2.7 mm drill to broach the cortex and then utilizing multiple curets to craterize the bone and to remove any excess purulence. A smaller drill was used to penetrate the multiple carpals including the capitate, hamate, scaphoid lunate and the triquetrum. A much smaller hole was utilized due to the size of the bulge itself and only a small amount of craterization was performed. Next, a Blanco calcium sulfate substitute was mixed with 1 g of vancomycin as well as 1.2 g of tobramycin. Small pellet-sized beads were then created and packed within the areas that were previously craterized including the distal radius, the distal ulna. Smaller beads were placed within the carpals as well as the base of the 2nd through 5th metacarpals. Excess beads were placed within the DRUJ as well as dorsally overlying the carpal bones. The incisions overlying the base of the 2nd through 5th metacarpals as well as the carpal metacarpal joint joints were closed with 4-0 Monocryl. The dorsal capsule next closed with 2-0 Prolene and the extensor retinaculum also closed with 2-0 Monocryl, leaving the extensor pollicis longus outside of the retinacular sheath. Overlying skin was then closed with 4-0 nylon, and the patient placed in a well-padded, well-molded volar resting splint. ESTIMATED BLOOD LOSS: Less than 5 cc. COMPLICATIONS: None. DISPOSITION: The patient tolerated the procedure well. Anesthesia was reversed. The patient was transferred to PACU for recovery. POSTOPERATIVE PLAN: The patient will be admitted back to the floor with infectious disease consultation for likely prolonged IV antibiotics. We will monitor him along with his ESR and CRP to see if he is responding to this new treatment. I have encouraged him to work on range of motion and edema control to the fingers and will leave him in the volar resting splint until his 1st postoperative appointment in two weeks. JACOB
[2017-01-07] MEDS ORDERED: Vancomycin Serum Trough XX ONE (05:00)
[2017-01-07 05:20] LABS: Mean Corpuscular Hemoglobin 28.2 pg (27.0-35.0); Mean Corpuscular Volume 84.2 fL (81-100)
[2017-01-07] MEDS: Vancomycin Inj 1,250 MG in 0.9% Sodium Chloride 250 ML IV SCH (05:30)
[2017-01-07 06:00] LABS: Vancomycin, Trough 21.1 mcg/mL
[2017-01-07 06:01] VITALS: BP 119/70; PULSE 80; RESP 17; O2SAT 96
[2017-01-07] MEDS: Heparin 5,000 Unit/mL Inj SUBQ SCH ×3 (06:22→21:43)
--- NOTE | 2017-01-07 07:04 | PCM.PHAPRO ---
Progress Date of Service: January 07, 2017 Septic right wrist joints Vancomycin Management Per Pharmacy: Indication: Septic Arthritis Goal Trough: 15-20 mg/dL Labs: WBC: 5.6 SrCr: 0.59->0.6->0.89 (bump of 0.3 points) Sed Rate/CRP: 49/7.4 Est CrCl: ~65 mL/min Vancomycin Trough: 21.1 mg/dL (high) Vitals: All Stable Nephrotoxic Medications: Lasix and spironolactone Nephrotoxic Risk Factors: Cirrhosis Recommendation: Decrease vancomycin from 1250 mg IV Q12h to 750 mg IV Q12h due to supratherapeutic trough, bump in SrCr by 0.3 points, as well as risk of hepatorenal syndrome in this patient. Vanco Trough: Draw repeat vancomycin trough prior to 3rd adjusted dose on @ 0730. Pharmacy to continue to monitor and adjust dose as needed. Thank You, Ruchi Rodrigues, Pharm D. Ruchi Rodrigues January 07, 2017 07:04
[2017-01-07 08:02] VITALS: BP 110/68; PULSE 84; RESP 18; O2SAT 94
[2017-01-07] MEDS: Vancomycin Dose per Pharmacist XX SCH (08:30)
[2017-01-07] MEDS: Fluticasone 0.05% 15 Spray/2 Gm 16 Gm Nasal Spray NASAL SCH (08:30)
[2017-01-07] MEDS: Sodium Chloride LOK Flush 10 mL Syringe IV SCH ×2 (08:30→17:00)
[2017-01-07] MEDS: Vancomycin Inj 750 MG in 0.9% Sodium Chloride 250 ML IV SCH ×2 (09:01→21:43)
--- NOTE | 2017-01-07 09:22 | PCM.PNORTH ---
Subjective Date of Service: January 07, 2017 Visit Information: Reason for Visit Right Wrist Septic Arthritis Surgery/Surgery Date right wrist I&D 01/04/2017 Post-Op Day # 2 Date of Admission: January 04, 2017 at 17:36 Hospital Day # Subjective Pain is improving. He is in good spirits. IV access was lost this morning so he is a little late with morning dose of vancomycin. IV has been re-established. Postop General: No Complaints, No Shortness of Breath, No Chest Pain Pain Management: PO Objective Exam Objective Patient is seen sitting up in a chair with his daughter at bedside. Vital Signs and I/O Vital Sign - Last Date Time Temp Pulse Resp B/P Pulse Ox O2 Delivery O2 Flow Rate FiO2 01/07/17 08:02 36.8 84 18 110/68 94 Room Air 01/05/17 19:50 8 Intake and Output 01/06/17 01/06/17 01/07/17 Cumulative From/Thru 15:00 23:00 07:00 01/04/17 17:59 - 01/07/17 06:01 Intake Total 1440 ml 1400 ml 5892 ml Output Total 600 ml 800 ml 4450 ml Balance 840 ml 600 ml 1442 ml Intake Oral 1440 ml 1400 ml 3640 ml IV Total 2252 ml Output Urine Total 600 ml 800 ml 4450 ml # Bowel Movements 1 1 Lab & Micro Results Laboratory Tests Test 01/07/17 04:42 White Blood Count 5.6th/mm3 (3.8-10.1) Red Blood Count 3.54mil/mm3 (4.40-5.80) Hemoglobin 10.0g/dL (13.8-17.2) Hematocrit 29.8% (41.0-50.0) Mean Corpuscular Volume 84.2fL (81-100) Mean Corpuscular Hemoglobin 28.2pg (27.0-35.0) Mean Corpuscular Hemoglobin Concent 33.6% (32.0-37.0) Red Cell Distribution Width 18.1% (12.3-15.4) Platelet Count 137bil/L (150-400) Erythrocyte Sedimentation Rate 49mm/hr (0-30) Sodium Level 133mEq/L (134-144) Potassium Level 3.5mEq/L (3.5-5.2) Chloride Level 95mEq/L (97-108) Carbon Dioxide Level 27mmol/L (18-29) Blood Urea Nitrogen 16mg/dL (8-27) Creatinine 0.89mg/dL (0.76-1.27) Estimat Glomerular Filtration Rate 90mL/min (>59) Glucose Level 117mg/dL (60-99) Calcium Level 8.7mg/dL (8.5-10.1) C-Reactive Protein 7.4mg/dL (0.0-0.5) Vancomycin Level Trough 21.1mcg/mL Microbiology 01/05/17 Blood Culture - Preliminary, Resulted No growth at 2 days; culture examined... 01/05/17 MRSA (PCR) - Final, Complete Mrsa Positive By Pcr 01/05/17 , Received Pending 01/05/17 Acid Fast Bacilli Smear, Received Pending 01/05/17 Acid Fast Bacilli Culture, Received Pending Result Diagram: 01/07/1744101/07/17441 General Appearance: Alert, Oriented X3, Cooperative, No Acute Distress Extremities: Distal Pulses Palpable, Tenderness/Swelling Noted (dorsum right hand) Postop Sensory Motor: Distal Motor Intact, NVI Distally SURGICAL WOUND : Wound Location/Description Right wrist: Surgical dressing and splint are removed. There is mild serosanguineous drainage dried on the dressing. There are a couple drops of clear drainage from the wound. Sutures are intact. No purulence seen. The wound is cleansed with hydrogen peroxide and dressed with Adaptic, 4 x 4 gauze and wrapped with cast padding. There is moderate swelling of the wrist and forearm. The skin is a dusky red. There are no red streaks up the arm. Patient is able to move the fingers. Volar splint was reapplied and the hand was wrapped with elastic bandage from the MCP joints to the forearm. Catheters: None Assessment & Plan Impression Status post right wrist I&D Problems: Plan Surgical dressing was changed today Continue with splint for 2 weeks Continue antibiotics with pharmacy dosing of vancomycin per Dr. Drew We appreciate Dr. Drew management of this case If patient is still here tomorrow, I will do another wound check. Follow-up: At [facility] with Dr. Arora in 2 weeks Pain Management: Oxycodone, gabapentin VTE Prophylaxis: Sub-Q Heparin (Unfractionated) Resuscitation Status: CPR: Attempt Resuscitation [place], Laya M PA-C January 07, 2017 09:22
[2017-01-07] MEDS: Senna-Docusate 8.6-50 mg Tablet PO SCH ×2 (10:57→22:02)
[2017-01-07] MEDS: Ascorbic Acid 500 mg Tablet PO SCH (10:57)
[2017-01-07] MEDS ORDERED: Sodium Chloride LOK Flush 10 mL Syringe IVFLUSH PRN ×2 (13:20)
[2017-01-07 13:35] VITALS: BP 138/70; RESP 18; O2SAT 97
--- NOTE | 2017-01-07 15:02 | PROG NOTE ---
[address] [address] PROGRESS NOTE PATIENT: BON CUNHA : 1945 MR#: [id number] ADMIT: 01/04/2017 JOB ID: [id number] DATE: 01/07/2017 REASON FOR FOLLOWUP: Severe osteomyelitis and septic joint involving the right wrist, hand, and forearm. 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 Unfortunately following the cessation of his IV therapy, he did well for about a month and then had relapse with swelling, tenderness, and erythema. He was taken to the operating room approximately [address] Arora, who found extensive involvement of bones as well as soft tissues and a thorough debridement was done. Vancomycin-impregnated material was implanted in the wrist to try and speed healing. Today, the patient states he has some minimal pain in his right wrist which is still wrapped in a complex postop dressing. He has no fevers, chills, cough, shortness of breath, nausea, vomiting, or diarrhea. PHYSICAL EXAMINATION: Reveals an afebrile gentleman, temperature 36.8, pulse 84, respiratory rate 18, blood pressure 138/70. He is saturating well on room air. Examination of the mental status reveals it to be clear. His oral cavity is negative. Lungs are clear. Cardiac tones: Regular rate and rhythm. The abdomen is relatively benign. His right wrist is wrapped as noted and I cannot examine it though he can move the fingers that protrude from the dressing. LABORATORIES: Include a white count 5600, sed rate 49, platelet count 137 in this cirrhotic gentleman. Creatinine has jumped to 0.89 from a baseline level of about 0.5, which is of course of concern. CRP is 7.4. A vancomycin trough this morning 21. Review of the operative note by Dr. Arora shows that there was a great deal of purulent material from the joint. The scaphoid and the lunotriquetral ligaments were found to be completely dissolved or degraded. There was diffuse chondrosis to the carpals as well as the distal radius. Osteomyelitic changes were also noted in multiple areas and these areas were appropriately debrided. All in all, I spoke to Dr. Arora about this and he said that the wrist was really a mess with diffuse involvement of soft tissues, joints, and bones. Tentative early culture results were just relayed to me by the micro lab, and they report there appears to Staph aureus now growing from the wound. IMPRESSION: This is a horrible case of a gentleman who had months of wrist pain and was eventually found to have a methicillin-resistant Staphylococcus aureus septic joint with osteomyelitis. He was treated appropriately with six weeks of antibiotics. We had hoped to use daptomycin to avoid nephrotoxicity in this cirrhotic gentleman, but nursing home through our daptomycin course, he developed daptomycin-induced eosinophilic pneumonia which was quite severe and we were forced to finish out with vancomycin which seemed to work. Unfortunately, one month after finishing all this therapy, he relapsed and now has even worse destruction of the soft tissues and bones involving the right wrist and adjacent structures. Management of this case will be difficult as we cannot use daptomycin and vancomycin is fraught with hazard in nephrotic gentleman whose creatinine is already starting to bump. RECOMMENDATIONS: 1. Will continue with vancomycin as our work-horse antibiotic here. 2. A recent article in [facility] suggested that clindamycin and vancomycin can be synergistic in certain cases of serious MRSA infection, and I think it may be worth trying here given the rapidity with which he relapsed and our complete inability to cure him with our last course of vancomycin. 3. Our main backup here would be ceftaroline, and I have asked the micro lab to check on ceftaroline susceptibilities. 4. A PICC line is reasonable and I have ordered that. 5. I would keep the patient around, at least until January 10, to make absolutely sure his creatinine has stabilized and that we can proceed with the vancomycin. The other option, of course, is we will have to switch to ceftaroline, which has not been terribly well studied in this situation.
--- NOTE | 2017-01-07 16:22 | DRSVH ---
PROCEDURE: X-RAY PICC LINE PLACEMENT BY NURSE ([id number]) INDICATIONS: abx COMPARISON: None. FINDINGS: PICC was placed by the intravenous therapy team from the left side. Fluoroscopic spot jamaal m demonstrates tip of PICC in the mid SVC. IMPRESSION: Tip of PICC lies within the expected location. Dictated by: Ephraim Smith M.D. on 01/07/2017 at 16:20 Approved by: Ephraim Smith M.D. on 01/07/2017 at 16:21
[2017-01-07] MEDS ORDERED: 0.9% Sodium Chloride 250 ML ONE (16:54)
[2017-01-07] MEDS: Clindamycin Inj 900 MG in IV Premix 1 EACH IV SCH (17:00)
--- NOTE | 2017-01-07 17:26 | PCM.PNMED ---
Subjective Date of Service January 07, 2017 Subjective Patient is doing well. States he is up and moving. No nausea vomiting no fevers or chills. Denies shortness of breath had a large bowel movement yesterday. Pain is under control. Exam Vital Signs Vital Sign - Last Date Time Temp Pulse Resp B/P Pulse Ox O2 Delivery O2 Flow Rate FiO2 01/06/17 19:40 36.7 83 17 112/62 97 Room Air 01/05/17 19:50 8 Intake and Output 01/06/17 01/06/17 01/07/17 Cumulative From/Thru 15:00 23:00 07:00 01/04/17 17:59 - 01/07/17 00:32 Intake Total 1440 ml 4492 ml Output Total 600 ml 3650 ml Balance 840 ml 842 ml Intake Oral 1440 ml 2240 ml IV Total 2252 ml Output Urine Total 600 ml 3650 ml # Bowel Movements 0 Exam Gen.: No acute distress sitting up eating lunch Heart regular rate and rhythm no S3-S4 sounds Lungs mild bilateral basilar crackles, no wheezing Abdomen soft, nontender Extremities: 1+ edema is present, along with venous stasis changes, he is able to move his forearm and arm but cannot move the right hand. Fingers appear swollen, not tender to touch. Skin: He has a superficial hemorrhage around his bicep tricep area on the left side,. Positive for onychomycosis Neuro no focal deficits Psychiatric negative for anxiety IVs and Medications IV Fluids None Medications Reviewed: Medications were reviewed in detail Lab and Diagnostics Result Diagram: 01/07/1744101/07/17441 X-Rays, CTs and MRIs PROCEDURE: X-RAY RIGHT WRIST, TWO VIEWS ([id number]) INDICATIONS: OSTEOMYELITIS OF RIGHT WRIST IMPRESSION: Multifocal osteomyelitis redemonstrated similar to prior MRI and worsened compared to prior wrist series dated July 2016. Dictated by: Gonsalo Archer RRBrenda Interpreted: Bela Vázquez MD on 01/04/2017 at 14: 14 Transcribed by: CASSIE on 01/04/2017 at 14:[address] [facility] Diagnostic Imaging Department [place], [place] [id number] Patient Name: BON CUNHA MR#: [id number] [place] [facility] [place] Phys: Norberto Arora DO Date of Service: 01/04/172026 PROCEDURE: MRI WRIST RIGHT WITH AND WITHOUT CONTRAST ([id number]) I IMPRESSION: Marrow signal changes and enhancement pattern involving the carpal bones, metacarpals and distal radius and ulna as detailed above, compatible with severe , diffuse osteomyelitis of the wrist. Extensor digitorum tenosynovitis. Flexor carpi radialis tendinopathy. TFCC and scapholunate ligament not well-visualized and may be ruptured. Distal radial ulnar joint effusion. Dictated by: Rickie Booker M.D. on 01/04/2017 at 21:23 Approved by: Rickie Booker M.D. on 01/04/2017 at 21:34 Assessment & Plan G This is a 72-year-old male with history of prior debridement procedure for septic joint is presenting due to concern for Rolando chronic multifocal osteomyelitis, as a direct admit from Dr. Arora's office Assessment #1 worsened chronic osteomyelitis, septic joint concern, POA -- CBC, comp -- MRI with and without of the right wrist: Showed multifocal osteomyelitis. " Marrow signal changes and enhancement pattern involving the carpal bones, metacarpals and distal radius and ulna as detailed above, compatible with severe , diffuse osteomyelitis of the wrist.Extensor digitorum tenosynovitis.vFlexor carpi radialis tendinopathy. TFCC and scapholunate ligament not well-visualized and may be ruptured. Distal radial ulnar joint effusion." -- Dr. Drew from infectious diseases is consulted: He is aware and will see the patient: We appreciate the recommendations. 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 -- Patient is now postop day #1 after right wrist incision and drainage. Currently on vancomycin per ID. Cultures from surgery are pending -- Pro calcitonin, ESR labs: Elevated as expected, we will continue to trend -- Oxycodone for pain control, morphine IV for pain control -- Orthopedic consult: -- EKG, chest x-ray preop workup: reviewed 01/05/17 AM, patient is pod#1 -- blood cx from 01/05 NG td. Gram stain, fluid crystals, acid-fast bacilli from the tissue culture from 01/05. MRSA nasal swab positive -- Patient is on Dilaudid, oxycodone for pain control per surgery -- Blood cultures are still NGT d on 01/07. Patient now has a PICC line -- Per Dr. Drew's note, he would like to try clindamycin and vancomycin for synergistic effect. Possible DC on 01/10 -- Decreased pain medication Dilaudid 0.5 mg every 4 hours when necessary Assessment #2 chronic venous stasis, present on admission -- Continue home medications Assessment #3 chronic neuropathy --- Home medication gabapentin as ordered for tomorrow a.m. Assessment #4 ALCOHOLIC liver disease, chronic -- Patient is on 10 mg daily lactulose, will be continued here CODE STATUS: Full code POA: Daughter Libia IV fluids: Disposition: Patient may return home after surgical procedure and antibiotic determination per ID. It appears the current plan is to discharge him home on on Vanc+clinda after monitoring his renal function closely. Dr. Coronel will check Teflaro sensitivities as an alternative Pain Evaluation: Adequate Pain Control VTE Prophylaxis: Sub-Q Heparin (Unfractionated) VTE Mechanical Devices: Anti-Embolic stockings Resuscitation Status: CPR: Attempt Resuscitation Time spent 20 minutes Tamela Maxwell DO January 07, 2017 05:50
[2017-01-07 19:40] VITALS: BP 122/74; PULSE 79; RESP 17; O2SAT 95
[2017-01-07] MEDS ORDERED: HYDROmorphone 0.5 mg/0.5 mL iSecure Syringe IVPUSH PRN (20:40)
[2017-01-08] MEDS: Sodium Chloride LOK Flush 10 mL Syringe IV SCH ×3 (00:22→17:01)
[2017-01-08] MEDS: Clindamycin Inj 900 MG in IV Premix 1 EACH IV SCH ×3 (01:02→17:01)
[2017-01-08 05:44] VITALS: BP 100/64; PULSE 82; RESP 17; O2SAT 93
[2017-01-08] MEDS: Heparin 5,000 Unit/mL Inj SUBQ SCH ×3 (06:05→21:04)
[2017-01-08] MEDS ORDERED: Vancomycin Serum Trough XX ONE (07:30)
[2017-01-08] MEDS: Vancomycin Dose per Pharmacist XX SCH (08:30)
[2017-01-08] MEDS: Fluticasone 0.05% 15 Spray/2 Gm 16 Gm Nasal Spray NASAL SCH (08:30)
[2017-01-08] MEDS: Vancomycin Inj 1,000 MG in IV Premix 1 EACH IV SCH ×2 (08:30→21:07)
--- NOTE | 2017-01-08 09:14 | PCM.PHAPRO ---
Progress Septic right wrist joints Vancomycin trough returned at 0730 on 01/08 of 15.6. previous dose late admin thus created false elevation. True value likely below 15.6. Adjusting to 1g q12. Pharmacy will continue to follow. Landon Bethea Pharm.D January 08, 2017 09:14
[2017-01-08] MEDS ORDERED: Potassium Chloride 20 mEq SR Tablet PO ONE (09:25)
[2017-01-08] MEDS ORDERED: Magnesium Sulf 2 Gm/50mL Water 2 GM in IV Premix 1 EACH IV ONE (10:25)
[2017-01-08] MEDS: Senna-Docusate 8.6-50 mg Tablet PO SCH ×2 (10:32→21:03)
[2017-01-08] MEDS: Ascorbic Acid 500 mg Tablet PO SCH (10:33)
--- NOTE | 2017-01-08 13:10 | PCM.PNORTH ---
Subjective Date of Service: January 08, 2017 Visit Information: Reason for Visit Right Wrist Septic Arthritis Surgery/Surgery Date right wrist I&D 01/05/2017 Post-Op Day # 3 Date of Admission: January 04, 2017 at 17:36 Hospital Day # Subjective Patient reports there is decreased pain. He denies fevers, chills or night sweats. He is moving the fingers frequently throughout the day. Postop General: No Complaints, No Shortness of Breath, No Chest Pain Pain Management: PO Objective Exam Objective Patient is seen sitting up in bed with right hand elevated on pillows Vital Signs and I/O Vital Sign - Last Date Time Temp Pulse Resp B/P Pulse Ox O2 Delivery O2 Flow Rate FiO2 01/08/17 05:44 36.6 82 17 100/64 93 Room Air 01/05/17 19:50 8 Intake and Output 01/07/17 01/07/17 01/08/17 Cumulative From/Thru 15:00 23:00 07:00 01/04/17 17:59 - 01/08/17 05:44 Intake Total 394 ml 1436 ml 7722 ml Output Total 1490 ml 5940 ml Balance 394 ml -54 ml 1782 ml Intake Oral 1436 ml 5076 ml IV Total 394 ml 2646 ml Output Urine Total 1490 ml 5940 ml # Bowel Movements 0 1 Lab & Micro Results Laboratory Tests Test 01/08/17 07:45 01/08/17 09:25 Sodium Level 132mEq/L (134-144) Potassium Level 3.3mEq/L (3.5-5.2) Chloride Level 90mEq/L (97-108) Carbon Dioxide Level 26mmol/L (18-29) Blood Urea Nitrogen 11mg/dL (8-27) Creatinine 0.70mg/dL (0.76-1.27) Estimat Glomerular Filtration Rate 118mL/min (>59) Glucose Level 104mg/dL (60-99) Calcium Level 8.9mg/dL (8.5-10.1) Vancomycin Level Trough 15.6mcg/mL Magnesium Level 1.3mg/dL (1.6-2.6) Microbiology 01/05/17 Blood Culture - Preliminary, Resulted No growth at 2 days; culture examined... 01/05/17 MRSA (PCR) - Final, Complete Mrsa Positive By Pcr 01/05/17 , Received Pending 01/05/17 Acid Fast Bacilli Smear, Received Pending 01/05/17 Acid Fast Bacilli Culture, Received Pending Result Diagram: 01/07/17 0442 01/08/17 0745 General Appearance: Alert, Oriented X3, Cooperative, No Acute Distress Extremities: Distal Pulses Palpable Postop Sensory Motor: Distal Motor Intact, NVI Distally SURGICAL WOUND : Wound Location/Description Right wrist: Dressing is removed. There is a small amount of serosanguineous drainage on the bandage. There is no purulence seen. There is a large blister on the dorsum of the hand that has a mild amount of fluid in it. It does not appear to be purulent. Overall swelling is decreased throughout the forearm, wrist and hand. Wound was dressed with adaptic over the incision and blister, 4x4's, cast padding and a new Orthoglass short arm volar splint was applied. Incision General Appearance: Sutures, Intact Dressing & Drainage Status: Changed, Serosanguineous Drainage, No Purulent Drainage, No Odor Catheters: None Assessment & Plan Impression Status post right wrist I&D and placement of antibiotic beads Problems: Plan Surgical dressing was changed today. New Orthoglass splint is applied. Theres is mild drainage from the wound and a large blister on the dorsum of the hand. Swelling is improving. Continue with elevation of the right hand on pillows. Continue with splint for 2 weeks Continue antibiotics with pharmacy dosing of vancomycin per Dr. Drew We appreciate Dr. Drew and Dr. Maxwell management of this case Follow-up: At [facility] with Dr. Arora in 2 weeks VTE Prophylaxis: Sub-Q Heparin (Unfractionated) Resuscitation Status: CPR: Attempt Resuscitation CayugaLaya christine PA-C January 08, 2017 13:10
[2017-01-08 13:19] VITALS: BP 125/78; PULSE 84; RESP 16; O2SAT 92
[2017-01-08 20:33] VITALS: BP 149/78; PULSE 94; RESP 18; O2SAT 97
--- NOTE | 2017-01-08 23:11 | PCM.PNMED ---
Subjective Date of Service January 08, 2017 Subjective Is descended and examined. On minute visit #1 he was in the bathroom. On visit #2 is laying in bed. He states that his arm is improved in terms of swelling, the redness has not changed since postop day 1. He has good pain control and once no further increase in pain medications Exam Vital Signs Vital Sign - Last Date Time Temp Pulse Resp B/P Pulse Ox O2 Delivery O2 Flow Rate FiO2 01/08/17 20:33 36.4 94 18 149/78 97 Room Air 01/05/17 19:50 8 Intake and Output 01/07/17 01/07/17 01/08/17 Cumulative From/Thru 15:00 23:00 07:00 01/04/17 17:59 - 01/08/17 05:44 Intake Total 394 ml 1436 ml 7722 ml Output Total 1490 ml 5940 ml Balance 394 ml -54 ml 1782 ml Intake Oral 1436 ml 5076 ml IV Total 394 ml 2646 ml Output Urine Total 1490 ml 5940 ml # Bowel Movements 0 1 Exam Gen.: No acute distress sitting up eating lunch Heart regular rate and rhythm no S3-S4 sounds Lungs mild bilateral basilar crackles, no wheezing Abdomen soft, nontender Extremities: 1+ edema is present, along with venous stasis changes, he is able to move his forearm and arm but cannot move the right hand. Fingers appear swollen, not tender to touch. Skin: He has a superficial hemorrhage around his bicep tricep area on the left side,. Erythema all the way up to radiate below his elbow joint more visible today they are less swollen. Feet are Positive for onychomycosis Neuro no focal deficits Psychiatric negative for anxiety IVs and Medications Medications Reviewed: Medications were reviewed in detail Lab and Diagnostics Laboratory Tests Test 01/08/17 07:45 01/08/17 09:25 Sodium Level 132mEq/L (134-144) Potassium Level 3.3mEq/L (3.5-5.2) Chloride Level 90mEq/L (97-108) Carbon Dioxide Level 26mmol/L (18-29) Blood Urea Nitrogen 11mg/dL (8-27) Creatinine 0.70mg/dL (0.76-1.27) Estimat Glomerular Filtration Rate 118mL/min (>59) Glucose Level 104mg/dL (60-99) Calcium Level 8.9mg/dL (8.5-10.1) Vancomycin Level Trough 15.6mcg/mL Magnesium Level 1.3mg/dL (1.6-2.6) Microbiology 01/05/17 Blood Culture - Preliminary, Resulted No growth at 2 days; culture examined... 01/05/17 MRSA (PCR) - Final, Complete Mrsa Positive By Pcr 01/05/17 , Received Pending 01/05/17 Acid Fast Bacilli Smear, Received Pending 01/05/17 Acid Fast Bacilli Culture, Received Pending Result Diagram: 01/07/17 0442 01/08/17 0745 X-Rays, CTs and MRIs PROCEDURE: X-RAY RIGHT WRIST, TWO VIEWS ([id number]) INDICATIONS: OSTEOMYELITIS OF RIGHT WRIST IMPRESSION: Multifocal osteomyelitis redemonstrated similar to prior MRI and worsened compared to prior wrist series dated July 2016. Dictated by: Gonsalo Archer RRBrenda Interpreted: Bela Vázquez MD on 01/04/2017 at 14: 14 Transcribed by: CASSIE on 01/04/2017 at 14:16 [facility] Diagnostic [place] [address] Patient Name: BON CUNHA MR#: [id number] [place] [facility] [place] Ordering Phys: Norberto Arora DO Date of Service: 01/04/172026 PROCEDURE: MRI WRIST RIGHT WITH AND WITHOUT CONTRAST ([id number]) I IMPRESSION: Marrow signal changes and enhancement pattern involving the carpal bones, metacarpals and distal radius and ulna as detailed above, compatible with severe , diffuse osteomyelitis of the wrist. Extensor digitorum tenosynovitis. Flexor carpi radialis tendinopathy. TFCC and scapholunate ligament not well-visualized and may be ruptured. Distal radial ulnar joint effusion. Dictated by: Rickie Booker M.D. on 01/04/2017 at 21:23 Approved by: Rickie Booker M.D. on 01/04/2017 at 21:34 Assessment & Plan G This is a 72-year-old male with history of prior debridement procedure for septic joint is presenting due to concern for Rolando chronic multifocal osteomyelitis, as a direct admit from Dr. Arora's office Assessment #1 worsened chronic osteomyelitis, septic joint concern, POA -- CBC, comp -- MRI with and without of the right wrist: Showed multifocal osteomyelitis. " Marrow signal changes and enhancement pattern involving the carpal bones, metacarpals and distal radius and ulna as detailed above, compatible with severe , diffuse osteomyelitis of the wrist.Extensor digitorum tenosynovitis.vFlexor carpi radialis tendinopathy. TFCC and scapholunate ligament not well-visualized and may be ruptured. Distal radial ulnar joint effusion." -- Dr. Drew from infectious diseases is consulted: He is aware and will see the patient: We appreciate the recommendations. 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 -- Patient is now postop day #1 after right wrist incision and drainage. Currently on vancomycin per ID. Cultures from surgery are pending -- Pro calcitonin, ESR labs: Elevated as expected, we will continue to trend -- Oxycodone for pain control, morphine IV for pain control -- Orthopedic consult: -- EKG, chest x-ray preop workup: reviewed 01/05/ AM, patient is pod#1 -- blood cx from 01/05 NG td. Gram stain, fluid crystals, acid-fast bacilli from the tissue culture from 01/05. MRSA nasal swab positive -- Patient is on Dilaudid, oxycodone for pain control per surgery -- Blood cultures are still NGT d on 01/07. Patient now has a PICC line -- Per Dr. Drew's note, he would like to try clindamycin and vancomycin for synergistic effect. Possible DC on 01/10 -- Decreased pain medication Dilaudid 0.5 mg every 4 hours when necessary: Patient is only taking by mouth meds for pain Assessment #2 chronic venous stasis, present on admission -- Continue home medications Assessment #3 chronic neuropathy --- Home medication gabapentin as ordered f Assessment #4 ALCOHOLIC liver disease, chronic -- Patient is on 10 mg daily lactulose, will be continued here CODE STATUS: Full code POA: Najma Reza IV fluids: Disposition: Patient may return home after surgical procedure and antibiotic determination per ID. It appears the current plan is to discharge him home on on Vanc+clinda after monitoring his renal function closely. Dr. Drew will check Teflaro sensitivities as an alternative Pain Evaluation: Adequate Pain Control VTE Prophylaxis: Sub-Q Heparin (Unfractionated) VTE Mechanical Devices: Anti-Embolic stockings Resuscitation Status: CPR: Attempt Resuscitation Tamela Maxwell DO January 08, 2017 23:11
[2017-01-09] MEDS: Sodium Chloride LOK Flush 10 mL Syringe IV SCH ×3 (01:12→17:30)
[2017-01-09] MEDS: Clindamycin Inj 900 MG in IV Premix 1 EACH IV SCH ×3 (01:12→17:31)
[2017-01-09] MEDS: Heparin 5,000 Unit/mL Inj SUBQ SCH ×3 (05:06→19:54)
[2017-01-09 06:21] VITALS: BP 128/73; PULSE 81; RESP 18; O2SAT 95
[2017-01-09] MEDS: Fluticasone 0.05% 15 Spray/2 Gm 16 Gm Nasal Spray NASAL SCH (08:12)
[2017-01-09] MEDS: Senna-Docusate 8.6-50 mg Tablet PO SCH ×2 (08:14→19:54)
[2017-01-09] MEDS: Ascorbic Acid 500 mg Tablet PO SCH (08:15)
[2017-01-09] MEDS: Vancomycin Inj 1,000 MG in IV Premix 1 EACH IV SCH (10:42)
[2017-01-09] MEDS: Vancomycin Dose per Pharmacist XX SCH (10:43)
--- NOTE | 2017-01-09 10:56 | PCM.PNMED ---
Subjective Date of Service January 09, 2017 Subjective Patient is seen and examined. His arm looks improved compared to yesterday . He has some erythema up in the arm proximally from the elbow joint, this appears to be new after the surgery however he also has a hematoma right above the elbow but may be bleeding into the area due to gravity as his resting it on a pillow. Later in the day, followed surgery then they were changing the dressings, and his arm appears much more improved in day light. Asked RAJENDRA Baez to draw the demarkation with a line. Exam Vital Signs Vital Sign - Last Date Time Temp Pulse Resp B/P Pulse Ox O2 Delivery O2 Flow Rate FiO2 01/09/17 06:21 37.2 81 18 128/73 95 Room Air 01/05/17 19:50 8 Intake and Output 01/08/17 01/08/17 01/09/17 Cumulative From/Thru 15:00 23:00 07:00 01/04/17 17:59 - 01/09/17 06:21 Intake Total 740 ml 1485 ml 660 ml 76124 ml Output Total 1025 ml 650 ml 7615 ml Balance 740 ml 460 ml 10 ml 2992 ml Intake Oral 1423 ml 350 ml 6849 ml IV Total 740 ml 62 ml 310 ml 3758 ml Output Urine Total 1025 ml 650 ml 7615 ml # Bowel Movements 0 1 2 Exam Gen.: No acute distress laying in bed with this right arm resting on a pillow elevated HEENT: Normocephalic, atraumatic Heart: Regular rate and rhythm no S3-S4 murmurs Lungs: Clear to auscultation no crackles or wheezes abdomen soft, nontender normal bowel sounds are present Musculoskeletal: Limited range of motion in the elbow and hand on the right side. Right hand And fingers are Tender to movement. He denies numbness and tingling in the hand Skin: Improved arm erythema ans swelling since last visit Psych: Negative for anxiety and agitation next: Neuro no focal deficits Extremities: Lower extremities slight swelling is present in both lower extremities also venous stasis changes without pruritus or infection IVs and Medications Medications Reviewed: Medications were reviewed in detail Lab and Diagnostics Result Diagram: 01/07/17 0442 01/09/17 0520 X-Rays, CTs and MRIs PROCEDURE: X-RAY RIGHT WRIST, TWO VIEWS ([id number]) INDICATIONS: OSTEOMYELITIS OF RIGHT WRIST IMPRESSION: Multifocal osteomyelitis redemonstrated similar to prior MRI and worsened compared to prior wrist series dated July 2016. Dictated by: Gonsalo Archer [facility] Interpreted: Bela Vázquez MD on 01/04/2017 at 14: 14 Transcribed by: CASSIE on 01/04/2017 at 14:16 [facility] Diagnostic [place] [address] Patient Name: BON CUNHA MR#: [id number] Location: [facility] [place] Ordering Phys: Norberto Arora DO Date of Service: 01/04/172026 PROCEDURE: MRI WRIST RIGHT WITH AND WITHOUT CONTRAST ([id number]) I IMPRESSION: Marrow signal changes and enhancement pattern involving the carpal bones, metacarpals and distal radius and ulna as detailed above, compatible with severe , diffuse osteomyelitis of the wrist. Extensor digitorum tenosynovitis. Flexor carpi radialis tendinopathy. TFCC and scapholunate ligament not well-visualized and may be ruptured. Distal radial ulnar joint effusion. Dictated by: Rickie Booker M.D. on 01/04/2017 at 21:23 Approved by: Rickie Booker M.D. on 01/04/2017 at 21:34 Assessment & Plan G This is a 72-year-old male with history of prior debridement procedure for septic joint is presenting due to concern for Rolando chronic multifocal osteomyelitis, as a direct admit from Dr. Arora's office Assessment #1 worsened chronic osteomyelitis, septic joint concern, POA -- CBC, comp -- MRI with and without of the right wrist: Showed multifocal osteomyelitis. " Marrow signal changes and enhancement pattern involving the carpal bones, metacarpals and distal radius and ulna as detailed above, compatible with severe , diffuse osteomyelitis of the wrist.Extensor digitorum tenosynovitis.vFlexor carpi radialis tendinopathy. TFCC and scapholunate ligament not well-visualized and may be ruptured. Distal radial ulnar joint effusion." -- Dr. Drew from infectious diseases is consulted: He is aware and will see the patient: We appreciate the recommendations. 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 -- Patient is now postop day #1 after right wrist incision and drainage. Currently on vancomycin per ID. Cultures from surgery are pending -- Pro calcitonin, ESR labs: Elevated as expected, we will continue to trend -- Oxycodone for pain control, morphine IV for pain control -- Orthopedic consult: -- EKG, chest x-ray preop workup: reviewed 01/05/17 AM, patient is pod#1 -- blood cx from 01/05 NG td. Gram stain, fluid crystals, acid-fast bacilli from the tissue culture from 01/05. MRSA nasal swab positive -- Patient is on Dilaudid, oxycodone for pain control per surgery -- Blood cultures are still NGT d on 01/07. Patient now has a PICC line -- Per Dr. Drew's note, he would like to try clindamycin and vancomycin for synergistic effect. Possible DC on 01/10, patient has a PICC line. -- Discontinued IV Dilaudid as he is not needing it Assessment #2 chronic venous stasis, present on admission -- Continue home medications Assessment #3 chronic neuropathy --- Home medication gabapentin as ordered f Assessment #4 ALCOHOLIC liver disease, chronic -- Patient is on 10 mg daily lactulose, will be continued here Assessment #5 chronic hypokalemia, likely due to furosemide by mouth medication -- Restart home potassium supplementation daily 10 meq CODE STATUS: Full code POA: Daughter Libia IV fluids: Disposition: Patient may return home after surgical procedure and antibiotic determination per ID. It appears the current plan is to discharge him home on on Vanc+clinda after monitoring his renal function closely. Dr. Drew will check Teflaro sensitivities as an alternative Patient already has a PICC line Pain Evaluation: Adequate Pain Control VTE Prophylaxis: Sub-Q Heparin (Unfractionated) VTE Mechanical Devices: Anti-Embolic stockings Resuscitation Status: CPR: Attempt Resuscitation Tamela Maxwell DO January 09, 2017 10:56
--- NOTE | 2017-01-09 12:24 | PCM.PNORTH ---
Subjective Date of Service: January 09, 2017 Visit Information: Reason for Visit Right Wrist Septic Arthritis Surgery/Surgery Date right wrist I and D 01/05/2017 Post-Op Day # 4 Date of Admission: January 04, 2017 at 17:36 Hospital Day # Subjective Patient reports minimal pain. He feels that the redness is getting better. He reports increased swelling fingers. Postop General: No Complaints, No Shortness of Breath, No Chest Pain Pain Management: PO Objective Exam Objective Patient is seen sitting up in bed with right upper extremity elevated on pillows Vital Signs and I/O Vital Sign - Last Date Time Temp Pulse Resp B/P Pulse Ox O2 Delivery O2 Flow Rate FiO2 01/09/17 06:21 37.2 81 18 128/73 95 Room Air 01/05/17 19:50 8 Intake and Output 01/08/17 01/08/17 01/09/17 Cumulative From/Thru 15:00 23:00 07:00 01/04/17 17:59 - 01/09/17 06:21 Intake Total 740 ml 1485 ml 660 ml 18205 ml Output Total 1025 ml 650 ml 7615 ml Balance 740 ml 460 ml 10 ml 2992 ml Intake Oral 1423 ml 350 ml 6849 ml IV Total 740 ml 62 ml 310 ml 3758 ml Output Urine Total 1025 ml 650 ml 7615 ml # Bowel Movements 0 1 2 Lab & Micro Results Laboratory Tests Test 01/09/17 05:20 Erythrocyte Sedimentation Rate 63mm/hr (0-30) Sodium Level 133mEq/L (134-144) Potassium Level 3.4mEq/L (3.5-5.2) Chloride Level 90mEq/L (97-108) Carbon Dioxide Level 30mmol/L (18-29) Blood Urea Nitrogen 10mg/dL (8-27) Creatinine 0.74mg/dL (0.76-1.27) Estimat Glomerular Filtration Rate 111mL/min (>59) Glucose Level 111mg/dL (60-99) Calcium Level 9.1mg/dL (8.5-10.1) C-Reactive Protein 4.8mg/dL (0.0-0.5) Microbiology 01/05/17 Blood Culture - Preliminary, Resulted No growth at 2 days; culture examined... 01/05/17 MRSA (PCR) - Final, Complete Mrsa Positive By Pcr 01/05/17 , Received Pending 01/05/17 Acid Fast Bacilli Smear, Received Pending 01/05/17 Acid Fast Bacilli Culture, Received Pending Result Diagram: 01/07/17 0442 01/09/17 0520 General Appearance: Alert, Oriented X3, Cooperative, No Acute Distress Extremities: Distal Pulses Palpable Postop Sensory Motor: Distal Motor Intact, Movement in Fingers SURGICAL WOUND : Wound Location/Description Increased swelling of the thumb and fingers. The elastic bandage appears to have been a little tight at the base of the thumb. Patient is able to wiggle the fingers. Blister on the dorsum of the hand has decreased fluid within it. It is approximally 4 x 4 centimeters in size.Swelling and redness of the forearm are decreasing. Redness is outlined with a pen. Incision General Appearance: Sutures, Intact Dressing & Drainage Status: Changed (and redness of the wrist and hand outlined with a pen), Serosanguineous Drainage (minimal), No Purulent Drainage, No Odor Catheters: None Assessment & Plan Impression Status post I&D right wrist Problems: Plan Surgical dressing was changed today. Orthoglass splint is reapplied. Theres is mild drainage from the wound. The large blister on the dorsum of the hand has less fluid within it today. Swelling is improving. Continue with elevation of the right hand on pillows. Continue with splint for 2 weeks Intra-op cultures positive for MRSA sensitive to vanco Continue antibiotics with pharmacy dosing of vancomycin per Dr. Drew We appreciate Dr. Drew and Dr. Maxwell management of this case Follow-up: At [facility] with Dr. Arora at 2 weeks post op VTE Prophylaxis: Sub-Q Heparin (Unfractionated) Resuscitation Status: CPR: Attempt Resuscitation Laya Walsh PA-C January 09, 2017 12:24
[2017-01-09 13:53] VITALS: BP 131/68; PULSE 79; RESP 16; O2SAT 96
[2017-01-09] MEDS ORDERED: Vancomycin Serum Trough XX ONE (20:00)
[2017-01-09 20:06] VITALS: BP 126/68; PULSE 87; RESP 18
[2017-01-09] MEDS ORDERED: Vancomycin Inj 750 MG in 0.9% Sodium Chloride 250 ML IV SCH (20:30)
--- NOTE | 2017-01-09 21:07 | PCM.PHAPRO ---
Progress Date of Service: January 09, 2017 Septic right wrist joints Dx: Osteo or septic joint Trough 21.4 Goal 15-20 above goal decrease dose to vancomycin 750mg IV q12h draw next trough 8AM on 01/11 per pharmacy Erik Ordonez PharmD Erik Ordonez January 09, 2017 21:07
[2017-01-10] MEDS: Clindamycin Inj 900 MG in IV Premix 1 EACH IV SCH ×2 (00:28→08:40)
[2017-01-10] MEDS: Sodium Chloride LOK Flush 10 mL Syringe IV SCH ×2 (00:28→08:40)
[2017-01-10] MEDS: Heparin 5,000 Unit/mL Inj SUBQ SCH ×2 (05:30→13:00)
[2017-01-10 05:52] VITALS: BP 135/66; PULSE 83; RESP 18; O2SAT 93
[2017-01-10 06:11] LABS: BASOPHILS % (AUTO) 0.6 % (0-3); EOSINOPHILS % (AUTO) 5.6 % (0-5); MONOCYTES % (AUTO) 15.1 % (4-12); Mean Corpuscular Hemoglobin 28.1 pg (27.0-35.0); Mean Corpuscular Volume 84.2 fL (81-100); Platelet Count 144 bil/L (150-400)
[2017-01-10] MEDS ORDERED: Potassium Chloride 20 mEq SR Tablet PO ONE (06:55)
--- NOTE | 2017-01-10 07:26 | PCM.PHAPRO ---
Progress Date of Service: January 10, 2017 Septic right wrist joints Vancomycin Management Per Pharmacy: Indication: Septic Arthritis Goal Trough: 15-20 mg/dL Labs: WBC: 5.6->4.8 SrCr: 0.59->0.6->0.89->0.7->0.64 mg/dL Sed Rate: 49 CRP: 7.4->4.8 Vancomycin Trough: 21.4 mg/dL - artificially high as prior dose given late and trough drawn early Est CrCl: ~90 mL/min Vitals: All Stable Nephrotoxic Medications: Lasix and spironolactone Nephrotoxic Risk Factors: Cirrhosis Recommendation: Increase back to vancomycin 1000 mg IV Q12h Vanco Trough: Will draw repeat vancomycin trough on 01/11/17 @ 2000 Pharmacy to continue to monitor and adjust dose as needed. Thank You, Ruchi Rodrigues, Pharm D. Ruchi Rodrigues January 10, 2017 07:26
[2017-01-10 08:12] VITALS: BP 106/90; PULSE 76; RESP 18; O2SAT 94
[2017-01-10] MEDS: Senna-Docusate 8.6-50 mg Tablet PO SCH (08:30)
[2017-01-10] MEDS ORDERED: Vancomycin 1 Gm/200 mL NS Premix IV SCH (08:30)
[2017-01-10] MEDS: Fluticasone 0.05% 15 Spray/2 Gm 16 Gm Nasal Spray NASAL SCH (08:40)
[2017-01-10] MEDS: Ascorbic Acid 500 mg Tablet PO SCH (08:43)
--- NOTE | 2017-01-10 09:38 | PCM.PNORTH ---
Subjective Date of Service: January 10, 2017 Visit Information: Reason for Visit Right Wrist Septic Arthritis Surgery/Surgery Date right wrist I&D 01/05/2017 Post-Op Day # 5 Date of Admission: January 04, 2017 at 17:36 Hospital Day # Subjective Patient had an episode of increased pain last night after he fell asleep and his arm came off pillows. Pain is relieved with oxycodone. He complains of intermittent numbness and burning at the surgical site. He is able to wiggle the fingers. Postop General: No Shortness of Breath, No Chest Pain, Good Appetite Pain Management: PO Objective Exam Objective Patient is seen sitting up in a chair with right arm elevated on pillows Vital Signs and I/O Vital Sign - Last Date Time Temp Pulse Resp B/P Pulse Ox O2 Delivery O2 Flow Rate FiO2 01/10/17 08:12 36.9 76 18 106/90 94 Room Air 01/05/17 19:50 8 Intake and Output 01/09/17 01/09/17 01/10/17 Cumulative From/Thru 14:59 22:59 06:59 01/04/17 17:59 - 01/10/17 06:27 Intake Total 1750 ml 750 ml 74150 ml Output Total 1100 ml 1250 ml 9965 ml Balance 650 ml -500 ml 3142 ml Intake Oral 1346 ml 750 ml 8945 ml IV Total 404 ml 4162 ml Output Urine Total 1100 ml 1250 ml 9965 ml # Bowel Movements 0 1 3 Lab & Micro Results Laboratory Tests Test 01/09/17 19:40 01/10/17 05:40 Vancomycin Level Trough 21.4mcg/mL White Blood Count 4.8th/mm3 (3.8-10.1) Red Blood Count 3.42mil/mm3 (4.40-5.80) Hemoglobin 9.6g/dL (13.8-17.2) Hematocrit 28.8% (41.0-50.0) Mean Corpuscular Volume 84.2fL (81-100) Mean Corpuscular Hemoglobin 28.1pg (27.0-35.0) Mean Corpuscular Hemoglobin Concent 33.3% (32.0-37.0) Red Cell Distribution Width 17.9% (12.3-15.4) Platelet Count 144bil/L (150-400) Neutrophils (%) (Auto) 50.0% (40-74) Lymphocytes (%) (Auto) 27.9% (14-46) Monocytes (%) (Auto) 15.1% (4-12) Eosinophils (%) (Auto) 5.6% (0-5) Basophils (%) (Auto) 0.6% (0-3) Sodium Level 131mEq/L (134-144) Potassium Level 3.4mEq/L (3.5-5.2) Chloride Level 89mEq/L (97-108) Carbon Dioxide Level 30mmol/L (18-29) Blood Urea Nitrogen 9mg/dL (8-27) Creatinine 0.64mg/dL (0.76-1.27) Estimat Glomerular Filtration Rate 131mL/min (>59) Glucose Level 107mg/dL (60-99) Calcium Level 9.0mg/dL (8.5-10.1) Total Bilirubin 1.2mg/dL (0.0-1.2) Aspartate Amino Transf (AST/SGOT) 24U/L (0-50) Alanine Aminotransferase (ALT/SGPT) 10U/L (0-44) Alkaline Phosphatase 70U/L (25-160) Total Protein 6.0g/dL (6.4-8.4) Albumin 3.0g/dL (3.4-5.0) Microbiology 01/05/17 Blood Culture - Final, Complete NO GROWTH AFTER 5 DAYS 01/05/17 MRSA (PCR) - Final, Complete Mrsa Positive By Pcr 01/05/17 , Received Pending 01/05/17 Acid Fast Bacilli Smear, Received Pending 01/05/17 Acid Fast Bacilli Culture, Received Pending Result Diagram: 01/10/17 0540 01/10/17 0540 General Appearance: Alert, Oriented X3, Cooperative, No Acute Distress Extremities: Distal Pulses Palpable Postop Sensory Motor: Movement in Fingers, NVI Distally SURGICAL WOUND : Incision General Appearance: Sutures, Intact Dressing & Drainage Status: Changed (and redness of the wrist and hand outlined with a pen), Serosanguineous Drainage (minimal), No Purulent Drainage, No Odor Catheters: None Assessment & Plan Impression POD-5 right wrist I&D and placement of antibiotic beads Problems: Plan Surgical dressing was changed today. Orthoglass splint is reapplied. Theres is mild drainage from the wound. No purulence seen. The large blister on the dorsum of the hand is unchanged. Swelling is improving. Continue with elevation of the right hand on pillows. Continue with splint for 2 weeks. Nursing to change dressing daily with Adaptic to cover the blister and incision, 4x4 gauze, cast padding and reapply splint. Intra-op cultures positive for MRSA sensitive to vanco Continue antibiotics Dr Drew We appreciate Dr. Drew and Dr. Maxwell management of this case Follow-up: At [facility] with Dr. Arora on 01/17 or 01/18 VTE Prophylaxis: Sub-Q Heparin (Unfractionated) Resuscitation Status: CPR: Attempt Resuscitation TopockLaya Myers PA-C January 10, 2017 09:38
[2017-01-10] MEDS: Vancomycin Dose per Pharmacist XX SCH (10:50)
[2017-01-10 13:31] VITALS: BP 125/66; PULSE 80; RESP 18; O2SAT 96
--- NOTE | 2017-01-10 13:37 | PCM.DIMED ---
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 Please continue vancomycin 1 g twice daily IV on February 17. Please continue clindamycin 300 mg 4 times a day through February 17. Please continue mupirocin nasal ointment for 4 days. Please follow-up with Dr. Drew in 1-2 weeks. Please follow-up At [facility] with Dr. Arora on 01/17 or 01/18 Follow-up plan Please follow-up with Dr. Drew 1-2 weeks. Follow-up Provider: Tata Doll MD Follow-up with PCP in: 2 weeks Provider: Ludwig Drew MD Follow-up in: 1 week Mid-level Provider (F9): Norberto Arora DO Follow-up with Mid-level in: 1 week Balta Lopez MD January 10, 2017 13:37
[2017-01-10] MEDS ORDERED: MUPI1OIN5 NASAL (13:39)
[2017-01-10] MEDS ORDERED: VANC1PLA10 IV (13:39)
[2017-01-10] MEDS ORDERED: CLIN-78 PO ×2 (13:39→13:42)
--- NOTE | 2017-01-10 13:50 | PCM.DC.MED ---
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 Dictated by: Gonsalo Archer [facility] Interpreted: Bela Vázquez MD on 01/04/2017 at 14: 14 Transcribed by: CASSIE on 01/04/2017 at 14:[address] [facility] Diagnostic Imaging Department [place], [place] [id number] Patient Name: BON CUNHA MR#: [id number] Location: [facility] Ordering Phys: Norberto Arora DO Date of Service: 01/04/172026 PROCEDURE: MRI WRIST RIGHT WITH AND WITHOUT CONTRAST ([id number]) I IMPRESSION: Marrow signal changes and enhancement pattern involving the carpal bones, metacarpals and distal radius and ulna as detailed above, compatible with severe , diffuse osteomyelitis of the wrist. Extensor digitorum tenosynovitis. Flexor carpi radialis tendinopathy. TFCC and scapholunate ligament not well-visualized and may be ruptured. Distal radial ulnar joint effusion. Dictated by: Rickie Booker M.D. on 01/04/2017 at 21:23 Approved by: Rickie Booker M.D. on 01/04/2017 at 21:34 Invasive Procedures DATE OF SURGERY: 01/05/2017 PREOPERATIVE DIAGNOSIS(ES): 1. Right wrist septic arthritis. 2. Right wrist multifocal osteomyelitis involving the distal radius, distal ulna, carpals and the base of the 2nd through 5th metacarpals. POSTOPERATIVE DIAGNOSIS(ES): 1. Right wrist septic arthritis. 2. Right wrist multifocal osteomyelitis involving the distal radius, distal ulna, carpals and the base of the 2nd through 5th metacarpals. PROCEDURE: 1. Irrigation and debridement of the right wrist with arthrotomy of the radial carpal and distal radial ulnar joint. 2. Irrigation and debridement with craterization of the 2nd, 3rd, 4th and 5th metacarpal bases, distal radius, distal ulna and carpal bones x5. SURGEON: Norberto Arora DO. Brief History per HPI 72-year-old male with past medical history of a prior recent admission for right wrist debridement, alcoholic liver disease, venous stasis ulcers is presenting with complaints of swollen right wrist, and states that when he was discharged from the hospital he was on IV antibiotics per Dr. Drew for several weeks. He recently stopped his antibiotics and he states that his symptoms have returned since then. He states that his hand and wrist are swollen much more so in the last 4 days and pain has increased he has a follow-up with Dr. leonardo and on 01/27. He states that he has no numbness or tingling in the wrist but it is some numbness in the elbow, he states that he has baseline tremor in his right hand that is not new. He states that he has some weakness very limited range of motion. Appears that he was seen by orthopedics and Dr. Darling has done an x-ray of the hand and felt that should be admitted for the procedure. Dr. Drew is familiar with the case and they ask for us to consult Dr. Drew and also obtain an MRI with and without of the right wrist. Hospital Course This is a 72-year-old male with history of prior debridement procedure for septic joint is presenting due to concern for Rolando chronic multifocal osteomyelitis, as a direct admit from Dr. 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 "Marrow signal changes and enhancement pattern involving the carpal bones, metacarpals and distal radius and ulna as detailed above, compatible with severe , diffuse osteomyelitis of the wrist.Extensor digitorum tenosynovitis.vFlexor carpi radialis tendinopathy. TFCC and scapholunate ligament not well-visualized and may be ruptured. 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 -- s/p I&D -- Oxycodone for pain control, morphine IV for pain control -- blood cx from 01/05 NG td. Gram stain, fluid crystals, acid-fast bacilli from the tissue culture from 01/05. MRSA nasal swab positive -- Patient is on Dilaudid, oxycodone for pain control per surgery -- Blood cultures are still NGTD on 01/07. Patient now has a PICC line -- Per Dr. Drew, he will be on vancomycin 1 g IV twice a day and clindamycin 300 mg 4 times a day through February 17. Mupirocin nasal ointment for 4 days -Follow-up CBCs CMP twice weekly -Follow-up with Dr. Drew in 1-2 weeks. Follow with orthopedics on January 17 or Assessment #2 chronic venous stasis, present on admission -- Continue home medications Assessment #3 chronic neuropathy --- Home medication gabapentin as ordered f Assessment #4 cirrhosis of unknown etiology, chronic -- Patient is on 10 mg daily lactulose, will be continued here Assessment #5 chronic hypokalemia, likely due to furosemide by mouth medication -- Restart home potassium supplementation daily 10 meq CODE STATUS: Full code POA: Daughter Libia IV fluids: Disposition: Discharged home with home health Condition on discharge stable Exam Vital Signs (Last) Date Time Temp Pulse Resp B/P Pulse Ox O2 Delivery O2 Flow Rate FiO2 01/10/17 13:31 36.5 80 18 125/66 96 Room Air 01/05/17 19:50 8 Exam Gen.: No acute distress laying in bed with this right arm resting on a pillow elevated HEENT: Normocephalic, atraumatic Heart: Regular rate and rhythm no S3-S4 murmurs Lungs: Clear to auscultation no crackles or wheezes abdomen soft, nontender normal bowel sounds are present Musculoskeletal: Limited range of motion in the wrist right side. Right hand And fingers are Tender to movement. He denies numbness and tingling in the hand Skin: Improved arm erythema and swelling Psych: Negative for anxiety and agitation next: Neuro no focal deficits Extremities: Lower extremities slight swelling is present in both lower extremities also venous stasis changes without pruritus or infection Test 01/04/17 19:00 01/05/17 00:09 01/08/17 09:25 01/09/17 05:20 Troponin T < 0.010ug/L (0.0-0.011) Procalcitonin 0.06ng/mL (0.00-0.08) Hold [place] Top Tube Received (Received) Urine Color Dark yellow (YELLOW) Urine Appearance Hazy (CLEAR,HAZY) Urine pH 6.0 (5.0-8.0) Urine Specific [place] 1.015 (1.003-1.035) Urine Protein Negativemg/dL (NEG,TRACE) Urine Glucose (UA) Negativemg/dL (NEGATIVE) Urine Ketones Negativemg/dL (NEGATIVE) Urine Occult Blood Negative (NEGATIVE) Urine Nitrite Negative (NEGATIVE) Urine Bilirubin Negative (NEGATIVE) Urine Urobilinogen 1.0mg/dL (NORMAL) Urine Leukocyte Esterase Negative (NEGATIVE) Urine RBC 0-2/hpf (0-2) Urine WBC 0-5/hpf (0-5) Urine Epithelial Cells Occasional/hpf (NONE-MOD) Urine Crystals None seen (NONE SEEN) Urine Bacteria None/hpf (NONE-FEW) Urine Hyaline Casts None/lpf (NONE) Urine Granular Casts None seen (NONE SEEN) Urine Waxy Casts None seen (NONE SEEN) Urine Red Blood Cell Casts None seen (NONE SEEN) Urine White Blood Cell Casts None seen (NONE SEEN) Urine Mucus None seen (None Seen) Urine Trichomonas None seen (NONE SEEN) Urine Yeast None (NONE SEEN) Urinalysis Comment None Urine Culture Reflexed Not indicated Magnesium Level 1.3mg/dL (1.6-2.6) Erythrocyte Sedimentation Rate 63mm/hr (0-30) C-Reactive Protein 4.8mg/dL (0.0-0.5) Test 01/09/17 19:40 01/10/17 05:40 Vancomycin Level Trough 21.4mcg/mL White Blood Count 4.8th/mm3 (3.8-10.1) Red Blood Count 3.42mil/mm3 (4.40-5.80) Hemoglobin 9.6g/dL (13.8-17.2) Hematocrit 28.8% (41.0-50.0) Mean Corpuscular Volume 84.2fL (81-100) Mean Corpuscular Hemoglobin 28.1pg (27.0-35.0) Mean Corpuscular Hemoglobin Concent 33.3% (32.0-37.0) Red Cell Distribution Width 17.9% (12.3-15.4) Platelet Count 144bil/L (150-400) Neutrophils (%) (Auto) 50.0% (40-74) Lymphocytes (%) (Auto) 27.9% (14-46) Monocytes (%) (Auto) 15.1% (4-12) Eosinophils (%) (Auto) 5.6% (0-5) Basophils (%) (Auto) 0.6% (0-3) Sodium Level 131mEq/L (134-144) Potassium Level 3.4mEq/L (3.5-5.2) Chloride Level 89mEq/L (97-108) Carbon Dioxide Level 30mmol/L (18-29) Blood Urea Nitrogen 9mg/dL (8-27) Creatinine 0.64mg/dL (0.76-1.27) Estimat Glomerular Filtration Rate 131mL/min (>59) Glucose Level 107mg/dL (60-99) Calcium Level 9.0mg/dL (8.5-10.1) Total Bilirubin 1.2mg/dL (0.0-1.2) Aspartate Amino Transf (AST/SGOT) 24U/L (0-50) Alanine Aminotransferase (ALT/SGPT) 10U/L (0-44) Alkaline Phosphatase 70U/L (25-160) Total Protein 6.0g/dL (6.4-8.4) Albumin 3.0g/dL (3.4-5.0) Discharge Medications Discharge Medications Ascorbate Calcium (Vitamin C) 500 Mg Tablet 500 MG PO DAILY (Reported) Cholecalciferol (Vitamin D3) (Vitamin D3) 5,000 Unit Capsule 5,000 UNIT PO DAILY (Reported) Clindamycin (Clindamycin) 300 Mg Capsule 300 MG PO QID Prescribed by: DAWN VICK MD Fluticasone Propionate (Flonase Allergy Relief) 50 Mcg/Actuation [place].susp 1 SPRAY NASAL DAILY (Reported) Furosemide (Furosemide) 40 Mg Tablet 40 MG PO BID (Reported) Gabapentin (Gabapentin) 300 Mg Capsule 300 MG PO BID (Reported) AM, NOON Gabapentin (Gabapentin) 300 Mg Capsule 600 MG PO HS (Reported) 6PM Ketoconazole (Ketoconazole) 120 Ml Shampoo 1 APPLIC TP WEEKLY (Reported) Multivitamin (Multivitamins) 1 Each Capsule 1 EACH PO DAILY (Reported) Mupirocin Nasal Oint (Bactroban Nasal Oint) 1 Gm Oint...g. 1 APPLIC NASAL BID Prescribed by: DAWN VICK MD Potassium Chloride ER (Potassium Chloride ER) 10 Meq Tablet 10 MEQ PO DAILY ( Reported) Spironolactone (Spironolactone) 50 Mg Tablet 50 MG PO DAILY (Reported) Sulfacetamide Sodium (Sodium Sulfacetamide) 10 % Clnsr.gel 1 APPLIC TP BID ( Reported) for rosacea Vancomycin/0.9 % Sod Chloride (Vancomycin 1 G/100Ml-0.9% NaCl) 1 Gram/100 Ml Plast..bag 1 GM IV BID Prescribed by: DAWN VICK MD As needed Lactulose (Lactulose) 10 Gm/15 Ml Solution 10 GM PO PRN For Constipation ( Reported) oxyCODONE (oxyCODONE) 5 Mg Tablet 5 MG PO Q3H PRN PRN For Pain (Reported) Followup Plan Disposition: home with Follow-up plan Please follow-up with Dr. Drew 1-2 weeks. Discharge Diet: Low fat, Low Sodium Discharge Activity: Limited until seen by PCP Patient Instructions you were hospitalized due to right wrist septic joint and osteomyelitis. Please continue vancomycin 1 g twice daily IV on February 17. Please continue clindamycin 300 mg 4 times a day through February 17. Please continue mupirocin nasal ointment for 4 days. Please follow-up with Dr. Drew in 1-2 weeks. Please follow-up At [facility] with Dr. Arora on 01/17 or 01/18 Follow-up Provider: Tata Leonardo MD Follow-up with PCP in: 2 weeks Provider: Ludwig Drew MD Follow-up in: 1 week Mid-level Provider: Norberto Arora DO Follow-up with Mid-level in: 1 week Time spent 40 minutes copies to: Norberto Arora DO; Tata Leonardo MD; Ludwig Drew MD, Melaku MD January 10, 2017 13:50
--- NOTE | 2017-01-10 14:54 | PROG NOTE ---
[address] [address] PROGRESS NOTE PATIENT: OBN CUNHA : 1945 MR#: [id number] ADMIT: 01/04/2017 JOB ID: [id number] DATE: 01/10/2017 REASON FOR FOLLOW UP: Severe MRSA osteomyelitis and septic joint, right forearm. INTERVAL HISTORY: Over the weekend, the patient has felt relatively well except some pain in the right wrist and forearm area. His wound has been evaluated and the dressings changed including today by Orthopedics who thinks there is some improvement and minimal drainage from the wound. The patient has had no fevers, chills, cough, nausea, vomiting or diarrhea. He has no skin rash or issues with the antibiotics and is eager to be discharged as soon as possible. This case discussed in person with the patient, his family, and representatives from the home infusion company. PHYSICAL EXAMINATION: Reveals an afebrile gentleman, temp 36.9, pulse 76, respiratory rate 18, blood pressure 106/90. He is saturating well on room air and in no acute distress. Eyes without scleral icterus. Oral cavity negative. Lungs clear. Abdomen. Soft and nontender. No suprapubic fullness is noted. The right wrist is in a large bulky cast applied by the orthopedic PA early this morning, so I read her description of the wound but did not remove it myself for obvious reasons. LABORATORIES: Include white count 4800 today. CRP 4.8. Creatinine has come down to 0.64 after an initial bump. LFTs are normal. Albumin 3.0. Vanc trough 21. Blood cultures negative but the wound culture of course as well as the nasal culture growing MRSA. IMPRESSION: This patient is improving on our combination of vancomycin and high-dose clindamycin. At this point, he is anxious to be discharged. Given that he is already set up with a home infusion company from his last problem, I think we can go ahead and get started. RECOMMENDATION: 1. Will continue with vancomycin as an outpatient through February 17. Will start with 1 g q.12 h. with probable down dosing as we go forward, given he tends to run relatively high trough levels. 2. Even though the data is somewhat minimal, I think it is reasonable to add clindamycin and hope for some synergy as well as better bone penetration. The clindamycin could be 300 q.i.d. and this should also continue through February 17 as the patient tolerates. 3. I have written for home IV antibiotics as well as home labs which will include CBC, CMP, CRP, and vancomycin trough every Tuesday and to be sent to my office. 4. The patient will see me in clinic January 19. 5. All the patient's questions were answered.
[2017-01-10] MEDS ORDERED: OXYC-474 PO (15:40)
[2017-01-11] MEDS ORDERED: Vancomycin Serum Trough XX ONE ×2 (08:00→20:00)
== END 2017-01-10 15:47 | disposition home health service (06) | DRG 506 ==
LOC: OSC 17:36
PROVIDERS: ADMIT Family Medicine; ATTEND Family Medicine
PROC: 0PBM0ZZ Excision of Right Carpal, Open Approach (ICD-10-PCS; 2017-01-05)
PROC: 0PBP0ZZ Excision of Right Metacarpal, Open Approach (ICD-10-PCS; 2017-01-05)
PROC: 3E0V329 Introduction of Other Anti-infective into Bones, Percutaneous Approach (ICD-10-PCS; 2017-01-05)
PROC: 0R9N0ZZ Drainage of Right Wrist Joint, Open Approach (ICD-10-PCS; principal; 2017-01-05 16:00)
DX: M00.9 Pyogenic arthritis, unspecified (principal); M86.641 Other chronic osteomyelitis, right hand; K70.30 Alcoholic cirrhosis of liver without ascites; Z87.891 Personal history of nicotine dependence; I87.8 Other specified disorders of veins; G62.9 Polyneuropathy, unspecified; B95.62 Methicillin resistant Staphylococcus aureus infection as the cause of diseases classified elsewhere; E87.6 Hypokalemia

== ENCOUNTER 2017-01-14 14:33 | Inpatient (IN) | payer MEDICARE, OTHER ==
[2017-01-14] VITALS (7 sets, daily range): BP systolic 105–129; BP diastolic 48–64; PULSE 18–81; RESP 16–18; O2SAT 95–97
[~2017-01-14] VITALS: Ht 168.9 cm; Wt 80.7 kg
[~2017-01-14 14:33] MED LIST changes: +ASCO-294 PO; -ASCO500C6 PO; +CLIN-78 PO; -FUR20 PO; +FURO40TA4 PO; +LACT10SO27 PO; -LACT10SO60 PO; +MUPI1OIN5 NASAL; +OXYC-474 PO; -OXYC5TAB72 PO; -PANT40TA3 PO; +POTA10TA12 PO; -POTA10TA14 PO; -PRED-508 PO; -VANC1.5P11 IV; +VANC1PLA10 IV
--- NOTE | 2017-01-14 15:15 | ED.REPORT ---
HPI-General Illness Date of Service January 14, 2017 ED Provider: The patient is a 71 year old male with history of anxiety and alcoholic hepatic cirrhosis, who was sent to the emergency department by his home health nurse for low blood pressure. The patient states when his home health nurse checked his blood pressure it was initially 105 systolic. His blood pressure is normally around 130 systolic. She was concerned and wanted the patient to be evaluated in the emergency department. The patient denies lightheadedness, dizziness, chest pain, palpitations or shortness of breath. The patient does mention increased lower extremity swelling over the last 4 days. The patient is currently being treated for a MRSA infection to his right wrist. He is currently getting IV antibiotics. Dr. Drew and Dr. Doll are managing his care for this infection. The home health nurse changed his bandage today and was not concerned for worsening infection. Nursing Notes Stated Complaint: KIDNEY ISSUE Chief Complaint: General Complaint Nursing Notes Reviewed: Yes Allergies: Coded Allergies: aspirin (Verified Allergy, Severe, GI BLEED, 01/14/17) daptomycin (Verified Allergy, Severe, Pulmonary toxicity, 01/14/17) colchicine (Verified Adverse Reaction, Severe, gi upset, 01/14/17) niacin (Verified Adverse Reaction, Severe, GI UPSET, 01/14/17) Uncoded Allergies: SEASONAL ALLERGIES (Allergy, Severe, ITCH/RASH, 10/13/16) Scheduled Ascorbate Calcium (Vitamin C) 500 Mg Tablet 500 MG PO DAILY Cholecalciferol (Vitamin D3) (Vitamin D3) 5,000 Unit Capsule 5,000 UNIT PO DAILY Fluticasone Propionate (Flonase Allergy Relief) 50 Mcg/Actuation [place].susp 1 SPRAY NASAL DAILY Furosemide (Furosemide) 40 Mg Tablet 40 MG PO BID Gabapentin (Gabapentin) 300 Mg Capsule 300 MG PO BID AM, NOON Gabapentin (Gabapentin) 300 Mg Capsule 600 MG PO HS 6PM Ketoconazole (Ketoconazole) 120 Ml Shampoo 1 APPLIC TP WEEKLY Multivitamin (Multivitamins) 1 Each Capsule 1 EACH PO DAILY Mupirocin Nasal Oint (Bactroban Nasal Oint) 1 Gm Oint...g. 1 APPLIC NASAL BID Potassium Chloride ER (Potassium Chloride ER) 10 Meq Tablet 10 MEQ PO DAILY Spironolactone (Spironolactone) 50 Mg Tablet 50 MG PO DAILY Sulfacetamide Sodium (Sodium Sulfacetamide) 10 % Clnsr.gel 1 APPLIC TP BID for rosacea Scheduled PRN Lactulose (Lactulose) 10 Gm/15 Ml Solution 10 GM PO PRN For Constipation Oxycodone (Roxicodone) 5 Mg Tablet 5 MG PO Q3H PRN PRN For Pain General Time Seen by MD: 15:14 Chief Complaint Other (low blood pressure) Hx Obtained From: Patient, Son Arrived By: Walk-in Sudden in Onset?: Yes Onset Occurred: 1 - 4 hours ago Symptom Duration: Since onset Severity: Current: No pain currently Severity: Maximum: No pain Recent Healthcare: Recent doctor visit, Recent hospitalization Similar Sx Previous: No Past Medical History Past Medical History Alcoholic hepatic cirrhosis Anxiety Gout Venous stasis ulcer Thrombocytopenic disorder Past Surgical History Appendicitis Left Knee derangement Agent orange exposure Miltary serice [place] Family History Noncontributory Smoking History Former Smoker Social History Alcohol Use: In recovery Drug Use: Denies drug use Other Social History: Good social support, Local resident Ambulatory Status Independent Review of Systems +low blood pressure Full Review of Systems Respiratory: Denies: Shortness of breath Cardiovascular: Denies: Chest pain, Palpitations Musculoskeletal: Reports: Extremity swelling Neurologic: Denies: Dizziness, Lightheaded Complete sys rev & neg: except as marked. Physical Exam Vital Signs Vital Signs Date Time Temp Pulse Resp B/P Pulse Ox O2 Delivery O2 Flow Rate FiO2 01/14/17 18:16 70 16 115/50 96 Room Air 01/14/17 16:45 16 122/48 01/14/17 15:17 129/64 01/14/17 14:46 36.4 81 16 105/56 95 Room Air Initial VS: Reviewed Head / Eyes: Atraumatic, Normocephalic, PERRL ENT: Mucous membranes moist, Conjunctiva normal, No scleral icterus Neck: Supple, Non-tender, Full range of motion Respiratory: Breath sounds normal, Clear to auscultation, No respiratory distress Cardiovascular: Regular rate & rhythm, Heart sounds normal, Intact distal pulses Abdomen / GI: Soft, Non-tender, No guarding, No rebound, No distention Extremities: Vascular intact, Neuro intact Skin: Warm, Dry, No cyanosis Neurologic: Alert, Oriented, Nonfocal Psychiatric: Mood/affect normal, Behavior normal, Normal thought content General/Constitutional: Awake, Alert Wrist / Hand: Neurologic intact, Vascular intact He has a 12 cm incision that is sutured to the dorsum of his right hand and wrist. The incision is clean with minimal serosanguineous drainage on the bandage. The erythema is significantly reduced from where the velarde were previously drawn. There is no induration or fluctuance. Lower Extremity / Pelvis / MS: Neurologic intact, Vascular intact 1+ pitting edema bilaterally. There is no erythema, warmth, or signs of cellulitis. Interpretation & Diagnostics Lab Results Interpretation Result Diagram: 01/15/17 0509 01/16/17 0520 Test 01/14/17 17:45 Band Neutrophils % 0% (1-5) Direct Bilirubin 0.7mg/dL (0.0-0.3) C-Reactive Protein 3.2mg/dL (0.0-0.5) Vancomycin Level Trough 41.5mcg/mL Re-Eval/Medical Decision Med Decision/Clinical Course 71-year-old male with a history of hypertension and alcohol abuse who was recently hospitalized for osteomyelitis treated with surgical debridement presents after creatinine was found to be elevated in the setting of home vancomycin infusion therapy. Patient is essentially asymptomatic. Initially my understanding was that he was here for hypotension. After his wound appeared to be healing well and we had 6 normal blood pressure readings I was ready to discharge the patient. Dr. Drew came to the emergency department and informed me of the patient's abnormal lab values and patient was advised not to leave and labs were performed demonstrating a vancomycin trough of 42 and acute kidney injury with a creatinine of 3.6. Dr. Drew will be consulted during the hospitalization and has spoken with Dr. Live in regards to the kidney function. Source of Hx: Old records, Family Time of Eval: 16:16 Re-Evaluation/Progress Note: Rechecked the patient. Discussed plan for discharge. All questions were addressed. Time of Eval: 17:08 Re-Evaluation/Progress Note: The patient was actually sent to the emergency department for abnormal creatinine values. Will order labs. Time of Eval: 19:50 Re-Evaluation/Progress Note: Rechecked the patient. Discussed plan for admission. All questions were addressed. Consultation #1: Referral / Consult Name: Ludwig Drew MD Call Returned at: 19:18 It Business Systems Analyst: Agrees with eval, Agrees with plan Note: Recommends admission. He spoke with Dr. Live already who will follow the patient. Consultation #2: Referral / Consult Name: Natalie Welch DO Consulted With: Hospitalist Requested Call at: 19:51 Call Returned at: 20:47 [employer] Business [employer] Analyst: Will see patient, Agrees with eval, Agrees with plan, Accepts admit Counseled Regarding: Diagnosis, Lab results, Need for admission Discharge & Departure Primary Impression: KERLINE (acute kidney injury) Additional Impressions: Vancomycin adverse reaction Encounter type: initial encounter Qualified Code: T36.8X5A - Adverse effect of other systemic antibiotics, initial encounter Osteomyelitis Osteomyelitis type: unspecified type Laterality: right Anemia Anemia type: unspecified type Qualified Code: D64.9 - Anemia, unspecified Hyponatremia Disposition: ADMITTED TO HOSPITAL Discharge Condition All VS Reviewed: Yes Condition: Stable Referrals: Tata Doll MD (PCP) Ludwig Drew MD [employer] Attestation Portions of this note were transcribed by Lacy Alas. I, Dr. Sims personally performed the history, physical exam and medical decision-making; I reviewed and confirmed the accuracy of the information in the transcribed note. Signed by: Liz Reyes, 01/14/2017 at 2050. copies to: Tata Doll MD; Ludwig Drew MD, Gary R DO January 14, 2017 15:15 Lacy Alas January 14, 2017 15:20 addressed. Time of Eval: 17:08 Re-Evaluation/Progress Note: The patient was actually sent to the emergency department for abnormal creatinine values. Will order labs. Time of Eval: 19:50 Re-Evaluation/Progress Note: Rechecked the patient. Discussed plan for admission. All questions were addressed. Consultation #1: Referral / Consult Name: Ludwig Drew MD Call Returned at: 19:18 It Business [employer] Analyst: Agrees with eval, Agrees with plan Note: Recommends admission. He spoke with Dr. Calos shipley who will follow the patient. Consultation #2: Referral / Consult Name: Natalie Welch DO Consulted With: Hospitalist Requested Call at: 19:51 Call Returned at: 20:47 [employer] Analyst: Will see patient, Agrees with eval, Agrees with plan, Accepts admit Counseled Regarding: Diagnosis, Lab results, Need for admission Discharge & Departure Primary Impression: KERLINE (acute kidney injury) Additional Impression: Hypotension Hypotension type: unspecified hypotension type Qualified Code: I95.9 - Hypotension, unspecified Disposition: ADMITTED TO HOSPITAL Discharge Condition All VS Reviewed: Yes Condition: Stable Referrals: Tata Doll MD (PCP) Ludwig Drew MD [employer] Attestation Portions of this note were transcribed by Lacy Alas. I, Dr. Sims personally performed the history, physical exam and medical decision-making; I reviewed and confirmed the accuracy of the information in the transcribed note. Signed by: Liz Reyes, 01/14/2017 at 2050. copies to: Tata Doll MD; Ludwig Drew MD, Gary R DO January 14, 2017 15:15 Lacy Alas January 14, 2017 15:20
--- NOTE | 2017-01-14 19:00 | PROG NOTE ---
[address] [address] PROGRESS NOTE PATIENT: BON CUNHA : 1945 MR#: [id number] ADMIT: 01/14/2017 JOB ID: [id number] INFECTIOUS DISEASE FOLLOWUP NOTE: DATE: 01/14/2017 REASON FOR FOLLOWUP: MRSA osteomyelitis of right forearm with possible acute renal failure secondary to antibiotic toxicity. INTERVAL HISTORY: The patient is a 71-year-old gentleman who was in the hospital up until Tuesday, January 10, for treatment of osteomyelitis of his right forearm. Recall, this is a gentleman who was hospitalized originally a couple of months ago with a MRSA osteo of his forearm. 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 He finished his therapy with a bit of vancomycin and was well for about one month, the entire month of December, without any evidence of ongoing right forearm infection and with a normal CRP. Around the end of December, the patient's forearm pain, swelling and tenderness returned. He was taken back to the OR by Dr. Arora who found extensive bony destruction and soft tissue infection and purulence and did a thorough debridement and obtained many cultures which once again grew MRSA. We could not use daptomycin again because the patient had developed daptomycin-induced lung injury and so we were forced to go with vancomycin. Upon discharge on January 10, I had a long discussion with the pharmacist at [facility] and we decided to go with a very low dose of vancomycin, 750 q.12 h., and check his vancomycin trough and creatinine twice a week so as to avoid any potential nephrotoxicity with the attendant hazards of hepatorenal syndrome. This morning about 11 o'clock, I was called by [facility] to inform me that the creatinine done on January 13, only 72 hours after his discharge, was 3. This is astounding given that his creatinine was 0.65 on Tuesday. I then called the patient and was told that his urine output has been diminished and he was having leg swelling and directed him to the emergency department. I notified the emergency department that he would be coming and we should readmit him, or at a minimum at least repeat a stat creatinine. The patient has now arrived in the emergency department. He tells me he has had no fevers, chills, sweats, or headache. No visual complaint. He had one canker type sore in his mouth since he went home four days ago. He denies significant shortness of breath, cough or chest pain. He denies swelling of his abdomen, even though he has in fact had ascitic swelling in the past due to his cirrhosis. He states his urine output has been off and on; sometimes pretty good and sometimes minimal. This is unusual for him and he usually has a good urinary output. He also notes that he has had swelling in his lower extremities, much worse on the left than the right and that is fairly new over the last three or four days. His right forearm is relatively pain free and the dressing is intact. There has been no problems with his PICC line. PHYSICAL EXAMINATION: Reveals an afebrile gentleman with a normal blood pressure as recorded by the emergency department staff with systolic about 150. His pulse is in the 80s, respiratory rate in the teens. He is awake and alert and does not appear sick, and I have seen this patient many times over the last couple months. The examination of the eyes shows no scleral icterus. The oral cavity has a one shallow left buccal ulcer. The neck is without adenopathy. Lungs: Quite clear posteriorly. Cardiac tones: Regular rate and rhythm without new murmur. The abdomen has minimal to no ascites. No palpable liver or spleen this afternoon. His left lower extremity has 3+ edema, of the right lower extremity perhaps 2+. This is worse than when he left the hospital on Tuesday. His right forearm surgical work is covered by a dressing which I did not remove. His left upper extremity PICC line is benign. LABORATORY DATA: I was informed today that his creatinine has gone to 3 as of yesterday, January 13, from a known level of 0.64 on Tuesday. I have had no access to any other labs as the computer system is now down. IMPRESSION: The patient looks fine and I am inclined to believe that the creatinine of 3 could even be a laboratory error except that he tells me his urine output has been fluctuating in a downward trend and his leg is swollen which could go along with acute renal failure. If he does have renal failure due to vancomycin, it is quite surprising because he was on vancomycin at even higher doses of 1 g q.12 in the hospital before we lowered the dose for safety's sake to 750 q.12 h. for discharge. A creatinine going from 0.65 to 3 in three days would suggest complete renal failure at about the time he left the hospital. RECOMMENDATIONS: 1. I discussed with the emergency department doctor in person. 2. A stat CMP, CRP and CBC will be ordered. 3. If his creatinine has in fact quadrupled over three days, of course, he will need to be admitted for evaluation for hepatorenal syndrome. 4. If his creatinine is in fact normal, and that was a lab error mixup, then he could be discharged as he really does not appear much different than his baseline except for the swelling in his extremities. MTDD
[2017-01-14 19:28] LABS: Mean Corpuscular Hemoglobin 28.4 pg (27.0-35.0); Mean Corpuscular Volume 83 fL (81-100); Platelet Count 198 bil/L (150-400)
[2017-01-14 19:31] LABS: BASOPHILS % (AUTO) 1 % (0-3); EOSINOPHILS % (AUTO) 5 % (0-5); MONOCYTES % (AUTO) 15 % (4-12); NEUTROPHILS % (AUTO) 59 % (40-74)
[2017-01-14 19:41] LABS: Vancomycin, Trough 41.5 mcg/mL
[2017-01-14] MEDS ORDERED: 0.9% Sodium Chloride 1,000 ML IV SCH (20:55)
[2017-01-14] MEDS ORDERED: Polyethylene Glycol (PEG) 17 Gm Powder PO PRN (20:55)
[2017-01-14] MEDS ORDERED: Alum-Mag Hydrox-Simeth 30 mL Suspension PO PRN (20:55)
[2017-01-14 21:38] LABS: Bilirubin, Direct 0.7 mg/dL (0.0-0.3)
--- NOTE | 2017-01-14 21:50 | PCM.HPMED ---
Subjective Date of Service January 14, 2017 Primary Provider: Admitting Physician: Natalie Welch DO Primary Care Physician: Tata Doll MD Attending Physician: Natalie Welch DO Admit Status: From the Emergency Department Chief Complaint: Adverse reaction to Vancomycin History of Present Illness: Thiago Potts is a 71 year old man with a PMH of HTN, agent orange exposure in [place], Alcoholic cirrhosis, PVD, and anxiety who was recently discharged from [facility] on 01/10/17 after receiving treatment for right forearm osteomyelitis s/ p surgical debridement by Dr. Arora. He had been scheduled to receive continued outpatient infusion of Vancomycin to be administered by infusion solutions and overseen by Dr. Drew from infectious disease who recommended serial Cr measurements. [facility] contacted Dr. Drew today to inform him that the patient's Cr had increased to >3 after being <1 upon discharge just days earlier. This prompted Dr. Drew to send this gentleman to the ED for confirmation of this lab value and admission should it prove accurate. The patient himself is essentially asymptomatic, his only complaint being a minimal reduction in Urine output and twitching of his right arm. He denies chest pain, abdominal distension, pain with urination, confusion, abdominal pain, diarrhea, fevers or chills. In the ED laboratory evaluation revealed elevated Cr, mild normocytic anemia, Grossly elevated Vanco trough, and mildly elevated CRP. Review of Systems: Comprehensive ROS negative except as outlined above in the HPI Allergies Coded Allergies: aspirin (Verified Allergy, Severe, GI BLEED, 01/14/17) daptomycin (Verified Allergy, Severe, Pulmonary toxicity, 01/14/17) colchicine (Verified Adverse Reaction, Severe, gi upset, 01/14/17) niacin (Verified Adverse Reaction, Severe, GI UPSET, 01/14/17) Uncoded Allergies: SEASONAL ALLERGIES (Allergy, Severe, ITCH/RASH, 10/13/16) Home Medications Scheduled Ascorbate Calcium (Vitamin C) 500 Mg Tablet 500 MG PO DAILY Cholecalciferol (Vitamin D3) (Vitamin D3) 5,000 Unit Capsule 5,000 UNIT PO DAILY Clindamycin (Clindamycin) 300 Mg Capsule 300 MG PO QID Fluticasone Propionate (Flonase Allergy Relief) 50 Mcg/Actuation [place].susp 1 SPRAY NASAL DAILY Furosemide (Furosemide) 40 Mg Tablet 40 MG PO BID Gabapentin (Gabapentin) 300 Mg Capsule 300 MG PO BID AM, NOON Gabapentin (Gabapentin) 300 Mg Capsule 600 MG PO HS 6PM Ketoconazole (Ketoconazole) 120 Ml Shampoo 1 APPLIC TP WEEKLY Multivitamin (Multivitamins) 1 Each Capsule 1 EACH PO DAILY Mupirocin Nasal Oint (Bactroban Nasal Oint) 1 Gm Oint...g. 1 APPLIC NASAL BID Potassium Chloride ER (Potassium Chloride ER) 10 Meq Tablet 10 MEQ PO DAILY Spironolactone (Spironolactone) 50 Mg Tablet 50 MG PO DAILY Sulfacetamide Sodium (Sodium Sulfacetamide) 10 % Clnsr.gel 1 APPLIC TP BID for rosacea Vancomycin/0.9 % Sod Chloride (Vancomycin 1 G/100Ml-0.9% NaCl) 1 Gram/100 Ml Plast..bag 1 GM IV BID Scheduled PRN Lactulose (Lactulose) 10 Gm/15 Ml Solution 10 GM PO PRN For Constipation Oxycodone (Roxicodone) 5 Mg Tablet 5 MG PO Q3H PRN PRN For Pain PMH Alcoholic hepatic cirrhosis Anxiety Gout Venous stasis ulcer Thrombocytopenic disorder Agent orange exposure [place] serice [place] Surgical History Appendectomy Left Knee derangement Family History Patient not aware of any adverse medical history in parents Son with DM2 Social History Hx Alcohol Use: Yes (1-3 beers daily (PT SAYS QUIT IN 2014; SAYS DRINKING)) Hx Substance Use: No Hx Tobacco Use: Yes (quit 1975) Smoking Status: Former Smoker Exam Vital Signs Vital Sign - Last Date Time Temp Pulse Resp B/P Pulse Ox O2 Delivery O2 Flow Rate FiO2 01/14/17 21:02 36.4 70 16 115/50 96 Room Air Exam Gen: A/O x3 pleasant cooperative slightly somnolent patient with myoclonic jerks approx every 30 seconds Neck: Supple, non tender, no thyromegaly, no JVD, kyphotic HEENT: PERRL, EOMI, no scleral icterus, no conjunctival pallor, mucous membranes slightly dry, shallow left buccal ulcer CV: RRR, no murmurs rubs or gallops Pulm: Lungs CTA BL, no wheezing rales or rhonchi GI: Soft, non tender, no organomegaly, no rebound masses or guarding Extr: Moderate L>R LE edema, right forearm with surgical dressing left in place , right fingers slightly swollen with minimal reduction in ROM, L UE PICC in place and appears patent without associated erythema Skin: as per above otherwise no erythema, rash, or ecchymosis Lymph: no cervical or supraclavicular lymphadenopathy Neuro: CN 2-12 grossly intact, no focal neurologic deficit Psych: Pleasant and appropriate mood and affect Lab and Diagnostics Labs Item Value Date Time Red Blood Count 3.66 mil/mm3 L 01/14/171744 Red Cell Distribution Width 18.7 % H 01/14/171744 Neutrophils (%) (Auto) 59 % 01/14/171744 Lymphocytes (%) (Auto) 20 % 01/14/171744 Monocytes (%) (Auto) 15 % H 01/14/171744 Eosinophils (%) (Auto) 5 % 01/14/171744 Basophils (%) (Auto) 1 % 01/14/171744 Band Neutrophils % 0 % L 01/14/171744 Estimat Glomerular Filtration Rate 18 mL/min 01/14/171744 Calcium Level 9.4 mg/dL 01/14/171744 C-Reactive Protein 3.2 mg/dL H 01/14/171744 Vancomycin Level Trough 41.5 mcg/mL *H 01/14/171744 Result Diagram: 01/14/17174401/14/171744 Assessment & Plan Thiago Potts is a 71 year old man who was recently discharged on 01/10/17 for treatment of osteomyelitis of his right forearm on outpatient Vancomycin infusions; this morning infusion solutions informed Dr. Drew who had been managing the patient's therapy that his Cr had abruptly increased concurrent with a decrease in urine output; the patient was brought to the ED where the increase in Cr was confirmed... 1. KERLINE, POA, acute. Active -Likely secondary to adverse reaction to Vancomycin administration -Holding Gabapentin as it is renally excreted -Avoid nephrotoxic medications whenever possible -Initial concern for Hepatorenal syndrome less likely in the setting of normal liver function tests -Patient appears fluid overloaded, however due to hypotension diuresis will be held -Infectious disease consulted, DC Vancomycin per Dr. Drew -Nephrology consult requested, Dr. Live is aware of the patient and likely see him in the AM 2. Osteomyelitis of right forearm, POA, acute. Active -Holding further Vancomycin as trough level was grossly elevated at 41.1 -Per ED physician who inspected the surgical site there was marked reduction in erythema compared to previously demarcated site -Will defer further antibiotic management to Dr. Drew who is actively involved in the case 3. Mild Hyponatremia, POA, acute. Active -Likely secondary to the above with concurrent Furosemide use -Holding Diuretic as above -Will repeat CMP in the AM -Nephrology consult as above 4. Mild Metabolic alkalosis, POA, likely acute. Active -pH 7.452 HCO3 27.4 -Likely secondary to Diuretic -Holding Diuretic as above 5. History of alcoholism, POA, chronic. Active -Patient denies active drinking -Low threshold to initiate CIWA protocol Code Status: FULL CODE Disposition: Inpatient, anticipated length of stay >2 midnights due to severity of condition and complexity of treatment plan. Pain Evaluation: Adequate Pain Control GI Prophylaxis: H2 albert VTE Prophylaxis: Sub-Q Heparin (Unfractionated) VTE Mechanical Devices: Intermittant Pneumatic CD Resuscitation Status: CPR: Attempt Resuscitation Attending Statement The patient was seen and examined together with house staff on 01/14/2017 and I agree with the history, exam and plan as outlined in the note above. Thiago Granger DO January 14, 2017 21:50 Natalie Welch DO January 15, 2017 02:35
--- NOTE | 2017-01-14 21:52 | ABG ---
DateTimeAnalyzed 21:48:00 -_ pH ____7.452 - 7.350 7.450 pCO2 ___39.8__ -mmHg 35.0 45.0 pO2 ___71.5__ -mmHg 69.0 116 HCO3- ___27.4__ -mmol/L 22.0 26.0 ABE ____3.6__ -mmol/L -2.0 2.0 tHb ____9.4__ -g/dL O2Hb ___92.5__ -% COHb ____1.9__ -% MetHb ____0.9__ -% sO2 ___95.2__ -% 25.0 FIO2 ___21.0__ -% Drawn By LT - Date/Time Notified____ 21:52:00 -_ Notified By LT - Notified Whom JOSE, RN - B 756 -mmHg tO2 ___12.3__ -Vol% Rangel test _Positive -
[2017-01-14] MEDS: SULFACETAMIDE SODIUM TOPICAL SCH (22:00)
[2017-01-15 00:48] VITALS: BP 125/48; PULSE 79; RESP 18; O2SAT 93
[2017-01-15] MEDS: Sodium Chloride LOK Flush 10 mL Syringe IVFLUSH SCH ×3 (01:05→16:17)
[2017-01-15] MEDS: Heparin 5,000 Unit/mL Inj SUBQ SCH ×3 (01:06→17:23)
--- NOTE | 2017-01-15 03:49 | NUR ---
Admission Patient arrived to floor from ED at 2114. Dx: KERLINE, vanco toxicity. A/O x 3, pleasant and cooperative. Minimum assist for mobility, verbal cues to turn onto side. Bilat buttocks w/ dry, flaky abrasions. areas cleansed, covered w/ mepilex. RUE wrist w/ soft splint, KARINA wrapped and elevated on pillows. Bilat groin w/ redness, area cleansed, left [employer]. Wound consult protocol initiated.
[2017-01-15 05:28] VITALS: BP 100/46; PULSE 70; RESP 20; O2SAT 96
[2017-01-15 05:57] LABS: BASOPHILS % (AUTO) 0.8 % (0-3); EOSINOPHILS % (AUTO) 5.1 % (0-5); MONOCYTES % (AUTO) 17.3 % (4-12); Mean Corpuscular Hemoglobin 28.6 pg (27.0-35.0); Mean Corpuscular Volume 84.4 fL (81-100); NEUTROPHILS % (AUTO) 46.8 % (40-74); Platelet Count 171 bil/L (150-400)
[2017-01-15 06:11] LABS: Magnesium 2.1 mg/dL (1.6-2.6); Phosphorus 6.3 mg/dL (2.5-4.9)
[2017-01-15] MEDS: Mupirocin 2% 22 Gm Ointment TOPICAL SCH ×2 (07:54→20:49)
[2017-01-15] MEDS: Ascorbic Acid 500 mg Tablet PO SCH (07:54)
[2017-01-15] MEDS: SULFACETAMIDE SODIUM TOPICAL SCH ×2 (08:09→20:30)
[2017-01-15] MEDS ORDERED: Fluticasone 0.05% 15 Spray/2 Gm 16 Gm Nasal Spray NASAL PRN (08:30)
--- NOTE | 2017-01-15 10:26 | DRSVH ---
PROCEDURE: US RETROPERITONEAL SONOGRAM ([id number]) INDICATIONS: KERLINE TECHNIQUE: Real-time scanning was performed of the kidneys and bladder, with image documentation. COMPARISON: None. FINDINGS: Kidneys: Kidneys are normal in size. Right kidney measures 10.2 cm long; left kidney measures 12.0 cm long. Right renal cortical thickness is 1.0 cm; left renal cortical thickness is 1.1 cm. Renal c ortical echotexture is normal. No hydronephrosis or nephrolithiasis. No suspicious solid mass lesio ns. Bladder: Pre-void bladder volume is 236 mL. Post-void residual is 6.5 mL. Pre-void images demonstr ate no intraluminal masses or stones. On pre-void images, both of the ureteral jets are noted with c olor Doppler interrogation. (Of note, ureteral jets may not be detectable in up to 25% of cases due to insufficient differences in specific gravity between ureteral and bladder urine). Miscellaneous: No free pelvic fluid. IMPRESSION: No hydronephrosis. Minimal postvoid residual as above Dictated by: Rickie Booker M.D. on 01/15/2017 at 10:24 Approved by: Rickie Booker M.D. on 01/15/2017 at 10:25
--- NOTE | 2017-01-15 10:31 | PROG NOTE ---
[address] [address] PROGRESS NOTE PATIENT: BON CUNHA : 1945 MR#: [id number] ADMIT: 01/14/2017 JOB ID: [id number] DATE: 01/15/2017 REASON FOR FOLLOWUP: MRSA osteomyelitis, right forearm, and acute renal failure. 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 During his first episode a couple of months ago with his MRSA osteo, he was treated with daptomycin. 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 When this infection recurred after being infection-free for the entire month of December, he was taken back to the OR and had additional debridement by Dr. Arora of his MRSA osteo and septic joint. We were then forced to use vancomycin, as we could not use daptomycin, and Zyvox seemed unwise considering his thrombocytopenia and other issues, as well as the need for a long course. We started vancomycin last week in the hospital, and the patient tolerated it reasonably well with close monitoring on levels. He was eventually discharged home on January 10. When he left the hospital, he was on 1 g q.12, but after discussions with [facility], we decided to err on the side of caution and reduce his dose to 750 q.12 with close monitoring of levels every three days or so. Unfortunately, after only really three days at home, his first followup creatinine was 3, up from 0.65 just three days prior. This precipitated my notifying the patient and advising him to come to the ER yesterday where I saw him and facilitated his admission to the hospitalist team and then bar pilot consult. At that time that we asked the patient to come to the ER and get admitted, he had basically no symptoms except for some swelling in his legs which was a little more than normal. This morning, the patient continues in that same vein. He tells me he has no fevers, no chills. No sweats. His right forearm surgical site is no different than it was a few days ago. He is not short of breath, has no significant cough. No chest pain and no abdominal swelling. He does note he still has some lower extremity edema which is more than baseline, and he states he is making good amounts of urine. PHYSICAL EXAMINATION: Reveals an afebrile gentleman, temperature 36.7, blood pressure 100/46, pulse 80, respiratory rate 18, saturating well on room air. The patient is in no acute distress. As usual, he is making jokes and completely lucid. Oral cavity negative. No jugular venous distention. Lungs quite clear. Cardiac tones without new murmur. Abdomen nondistended. The lower extremity edema is as it was last night, more on the left than the right, 3+ on the left, 2+ on the right. His right forearm incisions are covered with a dressing I did not remove, but his hand protrudes from the dressing, and he can move it fairly normally. LABORATORIES: Include a white count 5100, today. Quite normal diff except 5% eosinophils. Creatinine is 3.62, which is the same as last night's admission 3.58. Bicarb is good though at 27. CRP 3.2. Albumin 2.8. Vancomycin trough was 41. Retroperitoneal ultrasound was just done, but there is no interpretation. IMPRESSION: This patient is confusing. We had been very judicious with his vancomycin dosing when he went home and started with what was the lower end of what we thought would be reasonable range after consultation with the pharmacist at the infusion company. Despite being on the dose of 750 q.12 h. and having a normal renal function when he left, the patient has now developed acute renal failure. This may represent hepatorenal syndrome in this cirrhotic gentleman, but we certainly hope that it is not. It may also be vancomycin toxicity, though it is possible at least that he has an obstructive or other cause of his renal failure and that the high vancomycin level is ineffective as renal failure rather than the cause. RECOMMENDATIONS: 1. We await the retroperitoneal ultrasound. 2. I would send urine for a standard urinalysis, as well as urine sodium and urine eosinophils. 3. Dr. Live has been consulted and will be seeing the patient from the Nephrology perspective later today. 4. The patient's vancomycin levels are more than adequate for the time being. As his creatinine improves, will use ceftaroline, as this is about the only option we have left in terms of intravenous drugs for treating his very severe MRSA, osteo, and septic arthritis.
[2017-01-15 10:56] LABS: APPEARANCE,URINE CLEAR (CLEAR,HAZY); COLOR,URINE STRAW (YELLOW); OCCULT BLOOD,URINE NEGATIVE (NEGATIVE); UROBILINOGEN,URINE NORMAL (NORMAL)
[2017-01-15] MEDS ORDERED: Sodium Chloride LOK Flush 10 mL Syringe IVFLUSH PRN ×2 (13:05)
[2017-01-15] MEDS ORDERED: Alteplase (Cathflo) 1 mg/mL 2 mL Inj IVPUSH ONE ×2 (13:05)
--- NOTE | 2017-01-15 14:03 | CONS ---
[address] [address] CONSULTATION REPORT PATIENT: BON CUNHA : 1945 MR#: [id number] ADMIT: 01/14/2017 JOB ID: [id number] CORRECTED REPORT: DATE OF SERVICE: 01/15/2017 HISTORY: The patient is a very pleasant, 71-year-old, gentleman who was admitted to [facility] for acute exacerbation of MRSA cellulitis and osteomyelitis. In addition to this, he presents with acute kidney injury. Renal consultation is being sought for further evaluation of his renal dysfunction. He has a history of osteomyelitis of the right forearm which included the metacarpals, carpals, and distal radius and ulna. He underwent a surgical debridement by Dr. Arora and had been on a course of antibiotics. This subsequently recurred and he underwent a 2nd surgical debridement by Dr. Arora and once again was started on vancomycin. He had also been seen by Dr. Ludwig Drew from Infectious Disease. His creatinine levels have remained within normal limits. His most recent creatinine was obtained on January 10, several days prior to admission. At that time, it was 0.64 mg/dL. Yesterday, his creatinine was found to be 3.58 mg/dL. He was readmitted, and at time of admission, his random vancomycin level was 40. He denies any history of any prior renal problems. Furthermore, he denies a history of any prior diabetes, prostate problems, difficulty in urination until recently, hematuria, proteinuria, recurrent urinary tract infections, renal lithiasis, history of hepatitis, or recent use of nonsteroidal anti-inflammatories or other [id number] medications. Furthermore, he states that he has not had any nausea, vomiting, diarrhea, constipation, but he has noticed some decreased urine output over the last several days. He denies any arthralgias other than the infected area of his right arm or skin rashes. He states he has not had any headache, chest pain, shortness of breath, cough, wheezing, or lower extremity edema. PAST MEDICAL HISTORY: Significant for recurrent osteomyelitis as detailed above. He also has a history of advanced alcoholic cirrhosis but states he quit drinking approximately two years ago. He has not noticed any scleral icterus or increasing abdominal girth. There is a remote history of Agent [place] exposure during [place] era and history of hypertension. Otherwise, his past medical history is significant for gout, allergic rhinitis, peripheral neuropathy, venous stasis ulcer, and thrombocytopenia. PAST SURGICAL HISTORY: Significant for a left knee repair and an appendectomy. ALLERGIES: He is allergic to: 1. ASPIRIN. 2. COLCHICINE. 3. DAPTOMYCIN. 4. NIACIN. SOCIAL HISTORY: There is some question as far as current alcohol use. However, he states he has not had any alcohol in two years. His states that he continues to drink. There is A remote history of tobacco use and he denies use of illicit drugs. FAMILY HISTORY: Remarkable for type 2 diabetes in his son but no family history of any renal problems. REVIEW OF SYSTEMS: Detailed above. MEDICATIONS: At time of admission, include calcium, vitamin D, clindamycin, Flonase, Lasix, gabapentin, ketoconazole shampoo, potassium chloride, spironolactone, and vancomycin 1 g IV twice a day until recently. PHYSICAL EXAMINATION: Revealed a thin, well-developed 71-year-old, gentleman who was alert and oriented x3, in no distress at time of my evaluation. His blood pressure was 100/46 with a pulse rate of 70. HEENT examination is remarkable for pale sclerae. Cornea, conjunctivae, pupils, and extraocular muscles were within normal limits. Neck is supple without adenopathy, thyromegaly or jugular venous distention. Lungs are clear, though there were some rare end-expiratory wheezes noted. There were rales or rhonchi noted. Heart was regular and rhythmical with a soft systolic murmur. Abdomen is soft and nondistended. There were normal bowel sounds and there was no evidence of any fluid wave. There was no tenderness, rebound, guarding, masses or hepatosplenomegaly. Extremities showed the right forearm to be bandaged and this was not unwrapped. Otherwise, there was no clubbing, cyanosis, edema, or [id number]-utc-ugzj nails. Skin turgor was good and there was no evidence of any rashes. Renal ultrasound obtained yesterday showed normal sized kidneys with normal cortical medullary differentiation. There were no masses or evidence of obstruction nor was there any evidence of any increased postvoid residual or ascites. LABORATORY EXAMINATION: This morning, his white count is 5.1, hemoglobin of 9.0, hematocrit 26.6. Red cell indices, platelet count were normal. His differential was remarkable for 17% monocytes and 5.1% eosinophils. His sodium was 129, potassium 5.1, chloride of 89, bicarbonate 27. BUN and creatinine were 33 and 3.63. Liver function studies were normal with the exception of his total bili was 1.4. His albumin was 2.8 and phosphorus was 6.3. As noted above, is vanco level was 41.5 mg. Urinalysis on admission showed a specific gravity 1.010, pH was 7.0. Tests for protein, glucose, ketones, occult blood, and nitrites were all negative, as was his microscopic. IMPRESSION: 1. Drug-induced acute kidney injury secondary to vancomycin. 2. Normocytic normochromic anemia. 3. Hypertension with hypertensive heart disease. RECOMMENDATION: Obviously we need to hold his vancomycin and continue to monitor his levels. I would also like to get a re-scan of his bladder. I would like to also order urine for eosinophils and we need to closely follow his intake, output, and vancomycin levels. Hopefully, this will resolve. I would also have some concern about a latent, post-infectious glomerulonephritis such as a Staph glomerulonephritis Once again, I would like to thank you for allowing me to participate in the care of this most pleasant and interesting patient. I will be following him closely with you. Corrected by HALEIGH 01/27/17 at 1:27pm DOS
[2017-01-15 14:08] VITALS: BP 114/47; PULSE 74; RESP 14; O2SAT 97
--- NOTE | 2017-01-15 14:19 | NUR ---
Dressing change RUE dressing changed this afternoon. Adaptic, 4x4 gauze, splint and jayjay wrap used. Wound is well approximated. Minimal serous drainage. Red area has been mapped out and redness appears to be improved from the original outline. Mild pitting edema. Per DC instructions from previous visit, Dressing to be changed daily by nursing staff.
--- NOTE | 2017-01-15 14:26 | PCM.PNMED ---
Subjective Date of Service January 15, 2017 Subjective Patient has no new complaints. Patient is here due to KERLINE noted on lab work. Right wrist pain control. Exam Vital Signs Vital Sign - Last Date Time Temp Pulse Resp B/P Pulse Ox O2 Delivery O2 Flow Rate FiO2 01/15/17 14:08 36.5 74 14 114/47 97 Room Air Intake and Output 01/14/17 01/14/17 01/15/17 Cumulative From/Thru 14:59 22:59 06:59 01/14/17 14:46 - 01/15/17 06:23 Intake Total 100 ml 100 ml Output Total 500 ml 500 ml Balance -400 ml -400 ml Intake Oral 100 ml 100 ml Output Urine Total 500 ml 500 ml # Voids 1 1 Exam Gen: A/O x3 pleasant cooperative slightly somnolent patient with myoclonic jerks approx every 30 seconds Neck: Supple, non tender, no thyromegaly, no JVD, kyphotic HEENT: PERRL, EOMI, no scleral icterus, no conjunctival pallor, mucous membranes slightly dry, shallow left buccal ulcer CV: RRR, no murmurs rubs or gallops Pulm: Lungs CTA BL, no wheezing rales or rhonchi GI: Soft, non tender, no organomegaly, no rebound masses or guarding Extr: Moderate L>R LE edema, right forearm with surgical dressing left in place , right fingers slightly swollen with minimal reduction in ROM, L UE PICC in place and appears patent without associated erythema Skin: as per above otherwise no erythema, rash, or ecchymosis Lymph: no cervical or supraclavicular lymphadenopathy Neuro: CN 2-12 grossly intact, no focal neurologic deficit Psych: Pleasant and appropriate mood and affect IVs and Medications Medications Reviewed: Medications were reviewed in detail Lab and Diagnostics Result Diagram: 01/15/17 0509 01/15/17 1020 X-Rays, CTs and MRIs PROCEDURE: US RETROPERITONEAL SONOGRAM ([id number]) INDICATIONS: KERLINE TECHNIQUE: Real-time scanning was performed of the kidneys and bladder, with image documentation. COMPARISON: None. FINDINGS: Kidneys: Kidneys are normal in size. Right kidney measures 10.2 cm long; left kidney measures 12.0 cm long. Right renal cortical thickness is 1.0 cm; left renal cortical thickness is 1.1 cm. Renal cortical echotexture is normal. No hydronephrosis or nephrolithiasis. No suspicious solid mass lesions. Bladder: Pre-void bladder volume is 236 mL. Post-void residual is 6.5 mL. Pre -void images demonstrate no intraluminal masses or stones. On pre-void images, both of the ureteral jets are noted with color Doppler interrogation. (Of note , ureteral jets may not be detectable in up to 25% of cases due to insufficient differences in specific gravity between ureteral and bladder urine). Miscellaneous: No free pelvic fluid. IMPRESSION: No hydronephrosis. Minimal postvoid residual as above Dictated by: Rickie Booker M.D. on 01/15/2017 at 10:24 Assessment & Plan Thiago Potts is a 71 year old man who was recently discharged on 01/10/17 for treatment of osteomyelitis of his right forearm on outpatient Vancomycin infusions; this morning infusion solutions informed Dr. Drew who had been managing the patient's therapy that his Cr had abruptly increased concurrent with a decrease in urine output; the patient was brought to the ED where the increase in Cr was confirmed... 1. KERLINE, POA, acute. Active -Likely secondary to adverse reaction to Vancomycin administration -Holding Gabapentin as it is renally excreted -Avoid nephrotoxic medications whenever possible -Patient states he has history of cirrhosis with ascites and has been on Lasix and Aldactone for 2 and half years. Patient has no significant ascites currently. Patient does not seem he needs Lasix and Aldactone. will discontinue Lasix and Aldactone indefinitely. Patient has history of significant ascites requiring diuretics which has resolved now. I explained to patient that i will stop his diuretics and he can discuss with PCP and restart if any significant ascites. -Ultrasound negative for obstruction -Patient appears fluid overloaded, however due to hypotension diuresis will be held -Infectious disease consulted, DC Vancomycin per Dr. Drew -Nephrology consult Dr. Live 2. Osteomyelitis of right forearm, POA, acute. Active -Holding further Vancomycin as trough level was grossly elevated at 41.1 -Per ED physician who inspected the surgical site there was marked reduction in erythema compared to previously demarcated site -Will defer further antibiotic management to Dr. Drew who is actively involved in the case 3. Mild Hyponatremia, POA, acute. Active -Holding Diuretic as above -Nephrology consult as above 4. Mild Metabolic alkalosis, POA, likely acute. Active -pH 7.452 HCO3 27.4 -Likely secondary to Diuretic -Holding Diuretic as above 5. History of alcoholism, POA, chronic. Active -Patient denies active drinking -Low threshold to initiate CIWA protocol Code Status: FULL CODE Disposition: Inpatient, anticipated length of stay >2 midnights due to severity of condition and complexity of treatment plan. GI Prophylaxis: H2 albert VTE Prophylaxis: Sub-Q Heparin (Unfractionated) VTE Mechanical Devices: Intermittant Pneumatic CD Resuscitation Status: CPR: Attempt Resuscitation Balta Lopez MD January 15, 2017 14:26
[2017-01-15] MEDS ORDERED: 0.9% Sodium Chloride 1,000 ML IV ONE (14:40)
[2017-01-15] MEDS: 0.9% Sodium Chloride 1,000 ML IV SCH (16:58)
[2017-01-15 20:15] VITALS: BP 106/50; PULSE 76; RESP 18; O2SAT 95
[2017-01-16] MEDS: Sodium Chloride LOK Flush 10 mL Syringe IVFLUSH SCH ×3 (00:30→16:30)
[2017-01-16] MEDS: Heparin 5,000 Unit/mL Inj SUBQ SCH ×3 (00:36→17:04)
--- NOTE | 2017-01-16 02:34 | NUR ---
SKIN Right wrist re-wrapped w/ extra gauze layer for patient comfort. + CSM. Elevated on 2 pillows. Tolerated OOB to chair for meal. Calmoseptine applied to dry bilat buttock open areas, new mepilex applied to maintain skin integrity. Nystatin to bilat groin; much improved from yesterday. Tolerated OOB to chair for meal. frequent position changes thru NOC.
[2017-01-16 05:14] VITALS: BP 125/57; PULSE 75; RESP 18; O2SAT 95
[2017-01-16] MEDS: 0.9% Sodium Chloride 1,000 ML IV SCH ×2 (05:32→22:09)
[2017-01-16] MEDS: Ascorbic Acid 500 mg Tablet PO SCH (08:28)
--- NOTE | 2017-01-16 11:19 | PCM.PNNEPH ---
Subjective Date of Service January 16, 2017 Subjective Patient's renal function has improved today. He complains of some coarse but denies any headache, chest pain, shortness of breath, nausea, vomiting, or diarrhea. His blood pressure has averaged 100 and 120s systolic. Intake and output show 2191 in and 1150 out. His vancomycin level this morning is 27.9. Sodium is 133, potassium 4.6, chloride 96, bicarbonate 23, BUN and creatinine were 31 and 2.8 respectively. Urine for eosinophils were negative. Exam Vital Signs Vital Sign - Last Date Time Temp Pulse Resp B/P Pulse Ox O2 Delivery O2 Flow Rate FiO2 01/16/17 05:14 36.8 75 18 125/57 95 Room Air Intake and Output 01/15/17 01/15/17 01/16/17 Cumulative From/Thru 15:00 23:00 07:00 01/14/17 14:46 - 01/16/17 05:33 Intake Total 2090 ml 862 ml 3052 ml Output Total 650 ml 1150 ml Balance 1440 ml 862 ml 1902 ml Intake Oral 1036 ml 1136 ml IV Total 1054 ml 862 ml 1916 ml Output Urine Total 650 ml 1150 ml # Voids 1 Exam HEENT examination is remarkable for pale sclerae. Cornea, conjunctiva, pupils, and extraocular muscles within normal limits. Neck is supple without adenopathy , thyromegaly, or jugular venous distention. Lungs are clear to auscultation though somewhat diminished in both bases. Heart was regular with medical with a soft systolic murmur. Abdomen is soft without any tenderness rebound guarding masses or hepatosplenomegaly. Extremities do not show any evidence of any clubbing, cyanosis, or edema. Skin turgor is good nurse nor evidence of any rashes. Lab and Diagnostics Result Diagram: 01/15/17 0509 01/16/17 0520 X-Rays, CTs and MRIs PROCEDURE: US RETROPERITONEAL SONOGRAM ([id number]) INDICATIONS: KERLINE TECHNIQUE: Real-time scanning was performed of the kidneys and bladder, with image documentation. COMPARISON: None. FINDINGS: Kidneys: Kidneys are normal in size. Right kidney measures 10.2 cm long; left kidney measures 12.0 cm long. Right renal cortical thickness is 1.0 cm; left renal cortical thickness is 1.1 cm. Renal cortical echotexture is normal. No hydronephrosis or nephrolithiasis. No suspicious solid mass lesions. Bladder: Pre-void bladder volume is 236 mL. Post-void residual is 6.5 mL. Pre -void images demonstrate no intraluminal masses or stones. On pre-void images, both of the ureteral jets are noted with color Doppler interrogation. (Of note , ureteral jets may not be detectable in up to 25% of cases due to insufficient differences in specific gravity between ureteral and bladder urine). Miscellaneous: No free pelvic fluid. IMPRESSION: No hydronephrosis. Minimal postvoid residual as above Dictated by: Rickie Booker M.D. on 01/15/2017 at 10:24 Plan Impression Impression #1 drug induced acute kidney injury secondary to vancomycin toxicity which is improved #2 hyponatremia which is improved #3 hyperuricemia #4 hypertension with hypertensive heart disease and hypertensive nephrosclerosis which is unchanged. Recommendations #1 I would like to continue to hold vancomycin for now and I will follow his levels and his renal function. I would also like to decrease his IV fluids a bit. I would also like to start allopurinol 100 mg once a day. Ludwig Live DO January 16, 2017 11:19
[2017-01-16] MEDS: Mupirocin 2% 22 Gm Ointment TOPICAL SCH ×2 (11:24→22:04)
[2017-01-16] MEDS: SULFACETAMIDE SODIUM TOPICAL SCH ×2 (11:25→22:16)
--- NOTE | 2017-01-16 12:29 | NUR ---
SHAKA signed. Cecilia Brewer MOISTURE METER READER
--- NOTE | 2017-01-16 12:33 | NUR ---
[facility] [employer] [facility]- Initial Assessment Data: See Initial Assessment. Pt is a 71 year old male admitted 01/14/17 for acute kidney injury, vancomycin toxicity per H&P. Pt's insurance is [employer]. Pt's PCP is Tata Doll MD. NOK is Ana María Potts, . Readmit risk score is 3, high risk. SW met with pt and daughter at bedside regarding discharge plan, SW role explained. Pt alert and oriented x3. Pt resides in [place] with his and remains independent at baseline. Pt uses a cane at baseline, continues to drive. Pt is currently open with [facility] for IV abx. T/C to [facility] and [facility] regarding pt's hospitalization, access provided and clinicals faxed. Pt has no [facility] insurance or [place] benefits. Pt has history at [facility]. ID is following pt, [employer]ST[employer]ING B[employer]ER to follow recommendations closely regarding IV abx type and course. J[employer]STING [employer]ING B[employer]ER spoke with pt privately about remote history of etoh use per H&P, pt verified that he has not drank for over two years, adamantly stated "that will kill me." No etoh use concerns at this time. Pt has completed Advance Directives on file in chart and EMR. Pt likely to discharge home with resume [facility], SW will continue to follow. Assessment: Pt who is open with [facility] for IV abx. Plan: ID is following pt, [employer]ER to follow recommendations closely regarding IV abx type and course. Pt likely to discharge home with resume [facility], SW will continue to follow. URIEL An Addendum: 01/16/17 at 1241 by NILDA COLLIER Amended: Links added.
--- NOTE | 2017-01-16 13:05 | PCM.PNMED ---
Subjective Date of Service January 16, 2017 Subjective pt c/o swelling and pain on Rt hand, mildly nauseated but no vomiting vanc trough still >25 this AM no dosing Ceftaroline yet by ID Cr trending down Exam Vital Signs Vital Sign - Last Date Time Temp Pulse Resp B/P Pulse Ox O2 Delivery O2 Flow Rate FiO2 01/16/17 05:14 36.8 75 18 125/57 95 Room Air Intake and Output 01/15/17 01/15/17 01/16/17 Cumulative From/Thru 15:00 23:00 07:00 01/14/17 14:46 - 01/16/17 05:33 Intake Total 2090 ml 862 ml 3052 ml Output Total 650 ml 1150 ml Balance 1440 ml 862 ml 1902 ml Intake Oral 1036 ml 1136 ml IV Total 1054 ml 862 ml 1916 ml Output Urine Total 650 ml 1150 ml # Voids 1 Exam NAD, comfortably laying down on the bed no JVD, MMM, no LAD RRR, nl s1, s2 no mrg CTAB, no w,c S,ND,NT,normoactive BS+ warm, no edema, pulses 2/2 sterilely dressed Rt wrist, tenderness mild erythema/swelling on Rt hand Lab and Diagnostics Result Diagram: 01/15/17 0509 01/16/17 0520 X-Rays, CTs and MRIs PROCEDURE: US RETROPERITONEAL SONOGRAM ([id number]) INDICATIONS: KERLINE TECHNIQUE: Real-time scanning was performed of the kidneys and bladder, with image documentation. COMPARISON: None. FINDINGS: Kidneys: Kidneys are normal in size. Right kidney measures 10.2 cm long; left kidney measures 12.0 cm long. Right renal cortical thickness is 1.0 cm; left renal cortical thickness is 1.1 cm. Renal cortical echotexture is normal. No hydronephrosis or nephrolithiasis. No suspicious solid mass lesions. Bladder: Pre-void bladder volume is 236 mL. Post-void residual is 6.5 mL. Pre -void images demonstrate no intraluminal masses or stones. On pre-void images, both of the ureteral jets are noted with color Doppler interrogation. (Of note , ureteral jets may not be detectable in up to 25% of cases due to insufficient differences in specific gravity between ureteral and bladder urine). Miscellaneous: No free pelvic fluid. IMPRESSION: No hydronephrosis. Minimal postvoid residual as above Dictated by: Rickie Booker M.D. on 01/15/2017 at 10:24 Assessment & Plan Thiago Potts is a 71 year old man who was recently discharged on 01/10/17 for treatment of osteomyelitis of his right forearm on outpatient Vancomycin infusions; this morning infusion solutions informed Dr. Drew who had been managing the patient's therapy that his Cr had abruptly increased concurrent with a decrease in urine output; the patient was brought to the ED where the increase in Cr was confirmed... 1. KERLINE, POA, acute. Active, ddx: prerenal with diuretics, unlikely vanc toxicity given urine EO neg, -Cr further improving, clinically stable, -appreciate Nephrology consult Dr. Live -Holding Gabapentin as it is renally excreted -Avoid nephrotoxic medications whenever possible -Patient states he has history of cirrhosis with ascites and has been on Lasix and Aldactone for 2 and half years. Patient has no significant ascites currently. Patient does not seem he needs Lasix and Aldactone. discontinued Lasix and Aldactone indefinitely. follow up with PCP. -Ultrasound negative for obstruction -Patient appears fluid overloaded, however due to hypotension diuresis will be held -Infectious disease consulted, DC Vancomycin per Dr. Drew 2. Osteomyelitis of right forearm, POA, acute. Active, holding further Vancomycin as trough level was grossly elevated at 41.1 -still covered with vanc with high trough, plan to switch to Ceftaroline per ID , appreciate follow up 3. Mild Hyponatremia, POA, acute. Active -Holding Diuretic as above -Nephrology consult as above 4. Mild Metabolic alkalosis, POA, likely acute. Active -pH 7.452 HCO3 27.4 -Likely secondary to Diuretic -Holding Diuretic as above 5. History of alcoholism, POA, chronic. Active -Patient denies active drinking -Low threshold to initiate CIWA protocol Code Status: FULL CODE Disposition: 2-3more days. GI Prophylaxis: H2 albert VTE Prophylaxis: Sub-Q Heparin (Unfractionated) VTE Mechanical Devices: Intermittant Pneumatic CD Resuscitation Status: CPR: Attempt Resuscitation Time spent 35min Meeta Powers MD January 16, 2017 10:07
--- NOTE | 2017-01-16 14:45 | NUR ---
Dressing Change Dressing on right forearm changed at approximately 1430. The wound is well approximated with small amounts of sero-sanguineous drainage. The site appeared very red and does not appear to have improved from previous markings. Pitting edema of the hand and fingers; patient will continue to elevate arm to decrease edema. R arm is splinted and rewrapped with adaptic, 4x4 gauze, and jayjay wrap. Addendum: 01/16/17 at 1459 by SELENE THOMSON RN Agree w/ above documentation.
[2017-01-16 15:01] VITALS: BP 117/58; PULSE 71; RESP 16; O2SAT 96
[2017-01-16 20:33] VITALS: BP 93/51; PULSE 76; RESP 16; O2SAT 96
[2017-01-17] MEDS: Sodium Chloride LOK Flush 10 mL Syringe IVFLUSH SCH ×3 (00:50→16:28)
[2017-01-17] MEDS: Heparin 5,000 Unit/mL Inj SUBQ SCH ×3 (00:50→16:28)
--- NOTE | 2017-01-17 03:12 | NUR ---
pain / skin Medicated at HS x 1 for 8/10 wrist pain. Soft splint to R hand, elevated on 2 pillows. skin in between his fingers slightly mascerated, odorous. cleansed w/ warm water + washcloth, dried well. + CSM checks. Skin to bilat buttocks slightly improved from yesterday, area cleansed and barrier cream applied, as well as frequent turning thru the NOC. continues w/ NS at 50cc/hour via 2 lumen PICC.
[2017-01-17 05:05] VITALS: BP 104/54; PULSE 72; RESP 18; O2SAT 95
[2017-01-17 06:50] LABS: BASOPHILS % (AUTO) 1.3 % (0-3); EOSINOPHILS % (AUTO) 5.8 % (0-5); MONOCYTES % (AUTO) 15.3 % (4-12); NEUTROPHILS % (AUTO) 51.3 % (40-74); Platelet Count 144 bil/L (150-400)
[2017-01-17 07:30] LABS: Magnesium 1.7 mg/dL (1.6-2.6); Phosphorus 4.1 mg/dL (2.5-4.9)
[2017-01-17] MEDS: SULFACETAMIDE SODIUM TOPICAL SCH ×2 (08:30→21:17)
[2017-01-17 09:14] VITALS: BP 91/46; PULSE 73; RESP 18; O2SAT 96
[2017-01-17] MEDS: Ascorbic Acid 500 mg Tablet PO SCH (09:39)
[2017-01-17] MEDS: Mupirocin 2% 22 Gm Ointment TOPICAL SCH ×2 (09:41→21:17)
--- NOTE | 2017-01-17 10:09 | NUR ---
Wound note Wound evaluation orders received, Pt seen at bedside. 71 yo male admitted for acute kidney failure, currently under ID and ortho service for osteomylitis of his right hand. Currently patient has a constellation of small skin abrasions at his buttocks bilaterally which range in size from 1-2 cms in length, beds are granular and they do not appear in any way infected. These were redressed with a mepilex sacral dressing, nursing can continue to apply clear criticaid moisture barrier to these areas daily and replace dressing daily, patient is on a low airloss bed and is actually quite mobile so i'm not entirely sure why he has abraded like this, may be due to dry skin and fissuring. Patient also presents with a right dorsal wrist/hand incision which is closed by primary intention it looks like,approx 7 cm in length, no erythema or induration, draining scant blood on old dressing,fingers are edematous. redressed with xeroform, 4x4 gauze and conform wrap with stockinette and soft splint reapplied then jayjay wrapped. Recommend he keep this elevated, don't think this dressing will need to be redressed this hospitalization, but will follow in case patients length of stay is longer than I expect it to be.
--- NOTE | 2017-01-17 10:50 | PCM.PNMED ---
Subjective Date of Service January 17, 2017 Subjective pt is doing well, eating well with moderate appetite c/o frequent urination all over the night Exam Vital Signs Vital Sign - Last Date Time Temp Pulse Resp B/P Pulse Ox O2 Delivery O2 Flow Rate FiO2 01/17/17 09:14 36.7 73 18 91/46 96 Room Air Intake and Output 01/16/17 01/16/17 01/17/17 Cumulative From/Thru 15:00 23:00 07:00 01/14/17 14:46 - 01/17/17 06:32 Intake Total 782 ml 1316 ml 5150 ml Output Total 1550 ml 2700 ml Balance 782 ml -234 ml 2450 ml Intake Oral 880 ml 2016 ml IV Total 782 ml 436 ml 3134 ml Output Urine Total 1550 ml 2700 ml # Voids 1 Exam NAD, comfortably laying down on the bed no JVD, MMM, no LAD RRR, nl s1, s2 no mrg CTAB, no w,c S,ND,NT,normoactive BS+ warm, no edema, pulses 2/2 sterilely dressed Rt wrist, tenderness mild erythema/swelling on Rt hand, unchanged from yesterday IVs and Medications Medications Reviewed: Medications were reviewed in detail Lab and Diagnostics Result Diagram: 01/17/1762901/17/17629 X-Rays, CTs and MRIs PROCEDURE: US RETROPERITONEAL SONOGRAM ([id number]) INDICATIONS: KERLINE TECHNIQUE: Real-time scanning was performed of the kidneys and bladder, with image documentation. COMPARISON: None. FINDINGS: Kidneys: Kidneys are normal in size. Right kidney measures 10.2 cm long; left kidney measures 12.0 cm long. Right renal cortical thickness is 1.0 cm; left renal cortical thickness is 1.1 cm. Renal cortical echotexture is normal. No hydronephrosis or nephrolithiasis. No suspicious solid mass lesions. Bladder: Pre-void bladder volume is 236 mL. Post-void residual is 6.5 mL. Pre -void images demonstrate no intraluminal masses or stones. On pre-void images, both of the ureteral jets are noted with color Doppler interrogation. (Of note , ureteral jets may not be detectable in up to 25% of cases due to insufficient differences in specific gravity between ureteral and bladder urine). Miscellaneous: No free pelvic fluid. IMPRESSION: No hydronephrosis. Minimal postvoid residual as above Dictated by: Rickie Booker M.D. on 01/15/2017 at 10:24 Assessment & Plan Thiago Potts is a 71 year old man who was recently discharged on 01/10/17 for treatment of osteomyelitis of his right forearm on outpatient Vancomycin infusions; this morning infusion solutions informed Dr. Drew who had been managing the patient's therapy that his Cr had abruptly increased concurrent with a decrease in urine output; the patient was brought to the ED where the increase in Cr was confirmed... 1. KERLINE, POA, acute. Active, ddx: prerenal with diuretics, probable vanc toxicity , elevated eosinophils. -Cr further improving, clinically stable, -appreciate Nephrology consult Dr. Live, added allopurinol 01/16 -Holding Gabapentin as it is renally excreted -Avoid nephrotoxic medications whenever possible -Patient states he has history of cirrhosis with ascites and has been on Lasix and Aldactone for 2 and half years. Patient has no significant ascites currently. Patient does not seem he needs Lasix and Aldactone. discontinued Lasix and Aldactone indefinitely. follow up with PCP. -Ultrasound negative for obstruction -Patient appears fluid overloaded, however due to hypotension diuresis will be held -Infectious disease consulted, DC Vancomycin per Dr. Drew 2. Osteomyelitis of right forearm, POA, acute. Active, holding further Vancomycin as trough level was grossly elevated at 41.1 -vanc with trough 17.9, likely to start Ceftaroline per ID, appreciate follow up 3. Mild Hyponatremia, POA, acute. Active -Holding Diuretic as above -Nephrology consult as above 4. Mild Metabolic alkalosis, POA, likely acute. Active -pH 7.452 HCO3 27.4 -Likely secondary to Diuretic -Holding Diuretic as above 5. History of alcoholism, POA, chronic. Active -Patient denies active drinking -Low threshold to initiate CIWA protocol Code Status: FULL CODE Disposition: 2-3more days. GI Prophylaxis: H2 albert VTE Prophylaxis: Sub-Q Heparin (Unfractionated) VTE Mechanical Devices: Intermittant Pneumatic CD Resuscitation Status: CPR: Attempt Resuscitation Time spent 35min Meeta Powers MD January 17, 2017 10:50
--- NOTE | 2017-01-17 11:25 | PCM.PNNEPH ---
Subjective Date of Service January 17, 2017 Subjective He denies F/C/N/V/CP/SOB. Serum creatinine continues to improve. UOP considerably well. Exam Vital Signs Vital Sign - Last Date Time Temp Pulse Resp B/P Pulse Ox O2 Delivery O2 Flow Rate FiO2 01/17/17 09:14 36.7 73 18 91/46 96 Room Air Intake and Output 01/16/17 01/16/17 01/17/17 Cumulative From/Thru 15:00 23:00 07:00 01/14/17 14:46 - 01/17/17 06:32 Intake Total 782 ml 1316 ml 5150 ml Output Total 1550 ml 2700 ml Balance 782 ml -234 ml 2450 ml Intake Oral 880 ml 2016 ml IV Total 782 ml 436 ml 3134 ml Output Urine Total 1550 ml 2700 ml # Voids 1 Exam GA: AAOx3, NAD. HEENT: Atraumatic, moist MM, mild pallor, no icteric sclerae, no JVD, no LAD. Heart: RRR, S1/S2, no M/R/G. Lungs: CTA, B/L. Abd: soft, NT, ND, no fluid wave appreciated. Ext: no edema, dressing on right forearm. Lab and Diagnostics Result Diagram: 01/17/1762901/17/17629 X-Rays, CTs and MRIs PROCEDURE: US RETROPERITONEAL SONOGRAM ([id number]) INDICATIONS: KERLINE TECHNIQUE: Real-time scanning was performed of the kidneys and bladder, with image documentation. COMPARISON: None. FINDINGS: Kidneys: Kidneys are normal in size. Right kidney measures 10.2 cm long; left kidney measures 12.0 cm long. Right renal cortical thickness is 1.0 cm; left renal cortical thickness is 1.1 cm. Renal cortical echotexture is normal. No hydronephrosis or nephrolithiasis. No suspicious solid mass lesions. Bladder: Pre-void bladder volume is 236 mL. Post-void residual is 6.5 mL. Pre -void images demonstrate no intraluminal masses or stones. On pre-void images, both of the ureteral jets are noted with color Doppler interrogation. (Of note , ureteral jets may not be detectable in up to 25% of cases due to insufficient differences in specific gravity between ureteral and bladder urine). Miscellaneous: No free pelvic fluid. IMPRESSION: No hydronephrosis. Minimal postvoid residual as above Dictated by: Rickie Booker M.D. on 01/15/2017 at 10:24 Plan Impression 1. KERLINE vancomycin-induced ATN and component of prerenal - improving. 2. Acute right forearm osteomyelitis. 3. H/o ETOH abuse and liver cirrhosis. 4. Hyponatremia, improving. 5. Hyperuricemia. Plan: Continue to hold lasix and aldactone. Continue IV NS for another day. Repeat BMP in am. Avoid nephrotoxins. Renally dose all meds. Sahra Damon MD January 17, 2017 11:25
[2017-01-17] MEDS: 0.9% Sodium Chloride 1,000 ML IV SCH (13:29)
--- NOTE | 2017-01-17 14:09 | NUR ---
Skin care / dressings Pt has no c/o pain in his wrist today. Satnam from wound care saw pt today and changed his right wrist dressing. He applied xeroform, gauze wrap, then the splint and Joseph wrap. Pt keeping right forearm elevated. Wound care also evaluated pt's sacrum and applied Mepilex dressing. Wound care advised it would be okay to apply barrier cream and a new Mepilex as needed. Turning pt Q2 hours when in bed and reminding pt to shift his weight when sitting up in the chair. Care continues
--- NOTE | 2017-01-17 16:07 | PROG NOTE ---
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 INTERVAL HISTORY: The patient has felt somewhat better over the weekend. He denies any fevers, chills, or sweats. No significant shortness of breath or cough. He has had some nausea relieved with Zofran. He notes his urine output is now excellent. PHYSICAL EXAMINATION: Reveals an afebrile gentleman. Note that he has been afebrile since admission. Temperature 36.7, pulse 73, respiratory rate 18, blood pressure 91/46, saturating well on room air. Urine output has been greater than 1500 cc the last 24 hours. Patient's mental status is clear. Oral cavity negative. Lungs fairly clear posteriorly. Cardiac tones without new murmur. Abdomen benign. His right forearm is in a large cast. Can move his fingers easily. LABORATORIES: Include white count stable at 4000, platelets 144. Creatinine 2.2 and note that his creatinine came in at 3.6 on the , dropped to 2.8 yesterday and now 2.2, so he is dropping about seven-tenths per day which is excellent. No cultures have been done. Urine eosinophils negative. Urine sodium 54. Retroperitoneal ultrasound without obstruction. IMPRESSION: This patient has suffered an acute renal injury in association with receiving IV vancomycin. It is still a little unclear to me why he left the hospital a week ago today with reasonable vancomycin troughs on a dose of 1 g q.12, and then we lowered his dose to 750 q.12 to avoid any renal toxicity and only three days later his creatinine had quadrupled and he was readmitted. Nonetheless, I think we must consider this to be acute renal failure to be on the basis of vancomycin toxicity and not use his antimicrobial again. 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 About the only drug left with a reasonable track record here would be ceftaroline, which is little used for osteo but is known to penetrate well into bone. RECOMMENDATIONS: 1. Will start ceftaroline 400 q.12 this evening. 2. We have not needed any antibiotics earlier in the hospital stay as there was still plenty of vancomycin around but it is now dissipating. 3. Once the patient is ready for discharge will likely increase his dose of ceftaroline to at least 600 q.12 if not 600 q.8 for his outpatient dose and then arrange for him to resume his home IV therapy through [facility] which is scheduled to go to February 17. 4. Obviously, the patient is not ready for discharge at this point, so will hold off on writing those home infusion orders.
[2017-01-17] MEDS: Ceftaroline Inj 400 MG in Dextrose 5% 250 ML IV SCH (19:47)
[2017-01-17 20:18] VITALS: BP 118/64; PULSE 74; RESP 20; O2SAT 97
[2017-01-18] MEDS: Sodium Chloride LOK Flush 10 mL Syringe IVFLUSH SCH ×3 (00:30→16:30)
[2017-01-18] MEDS: Heparin 5,000 Unit/mL Inj SUBQ SCH ×3 (01:17→17:51)
--- NOTE | 2017-01-18 04:01 | NUR ---
Activity/pain Pt reporting right wrist pain increasing at night time up to 9-10/10 and requiring Oxycodone 5mg q4 hrs to provide relief, pt reports adequate relief with Oxy. Arm elevated on pillows, wiggling fingers and sensation intact. KARINA wrap dressing is CDI. Pt voiding per urinal without issues. Pt helpful with turns in bed q2 hrs and Mepilex dressing intact to coccyx.
[2017-01-18 05:47] VITALS: BP 111/58; PULSE 69; RESP 20; O2SAT 94
[2017-01-18 06:41] LABS: MONOCYTES % (AUTO) 13.7 % (4-12); Mean Corpuscular Hemoglobin 28.7 pg (27.0-35.0); Mean Corpuscular Volume 86.4 fL (81-100); NEUTROPHILS % (AUTO) 51.4 % (40-74); Platelet Count 147 bil/L (150-400)
[2017-01-18 07:04] LABS: Magnesium 1.5 mg/dL (1.6-2.6); Phosphorus 4.3 mg/dL (2.5-4.9)
[2017-01-18 08:55] VITALS: BP 118/69; PULSE 74; RESP 18; O2SAT 94
[2017-01-18] MEDS: Ascorbic Acid 500 mg Tablet PO SCH (09:43)
[2017-01-18] MEDS: Mupirocin 2% 22 Gm Ointment TOPICAL SCH ×2 (09:46→20:23)
[2017-01-18] MEDS: SULFACETAMIDE SODIUM TOPICAL SCH ×2 (09:48→20:23)
[2017-01-18] MEDS: 0.9% Sodium Chloride 1,000 ML IV SCH (10:44)
[2017-01-18] MEDS: Ceftaroline Inj 400 MG in Dextrose 5% 250 ML IV SCH ×2 (10:44→20:22)
--- NOTE | 2017-01-18 11:14 | PCM.PNMED ---
Subjective Date of Service January 18, 2017 Subjective patient is doing well, still had significant edema on hands, pain is controlled had mild nausea, required zofran, otherwise eating well this morning denied abdominal pain Exam Vital Signs Vital Sign - Last Date Time Temp Pulse Resp B/P Pulse Ox O2 Delivery O2 Flow Rate FiO2 01/18/17 08:55 36.7 74 18 118/69 94 Room Air Intake and Output 01/17/17 01/17/17 01/18/17 Cumulative From/Thru 15:00 23:00 07:00 01/14/17 14:46 - 01/18/17 06:49 Intake Total 670 ml 1069 ml 6889 ml Output Total 1350 ml 4050 ml Balance 670 ml -281 ml 2839 ml Intake Oral 300 ml 2316 ml IV Total 670 ml 769 ml 4573 ml Output Urine Total 1350 ml 4050 ml # Voids 1 Exam NAD, comfortably laying down on the bed no JVD, MMM, no LAD RRR, nl s1, s2 no mrg CTAB, no w,c S,ND,NT,normoactive BS+ warm, no edema, pulses 2/2 sterilely dressed Rt wrist, tenderness mild erythema/swelling on Rt hand, unchanged from yesterday IVs and Medications Medications Reviewed: Medications were reviewed in detail Lab and Diagnostics Result Diagram: 01/18/1760401/18/17604 X-Rays, CTs and MRIs PROCEDURE: US RETROPERITONEAL SONOGRAM ([id number]) INDICATIONS: KERLINE TECHNIQUE: Real-time scanning was performed of the kidneys and bladder, with image documentation. COMPARISON: None. FINDINGS: Kidneys: Kidneys are normal in size. Right kidney measures 10.2 cm long; left kidney measures 12.0 cm long. Right renal cortical thickness is 1.0 cm; left renal cortical thickness is 1.1 cm. Renal cortical echotexture is normal. No hydronephrosis or nephrolithiasis. No suspicious solid mass lesions. Bladder: Pre-void bladder volume is 236 mL. Post-void residual is 6.5 mL. Pre -void images demonstrate no intraluminal masses or stones. On pre-void images, both of the ureteral jets are noted with color Doppler interrogation. (Of note , ureteral jets may not be detectable in up to 25% of cases due to insufficient differences in specific gravity between ureteral and bladder urine). Miscellaneous: No free pelvic fluid. IMPRESSION: No hydronephrosis. Minimal postvoid residual as above Dictated by: Rickie Booker M.D. on 01/15/2017 at 10:24 Assessment & Plan Thiago Potts is a 71 year old man who was recently discharged on 01/10/17 for treatment of osteomyelitis of his right forearm on outpatient Vancomycin infusions; this morning infusion solutions informed Dr. Drew who had been managing the patient's therapy that his Cr had abruptly increased concurrent with a decrease in urine output; the patient was brought to the ED where the increase in Cr was confirmed... acute, active 1. KERLINE, POA, acute. Active, ddx: prerenal with diuretics and vanc toxicity with elevated eosinophils. -Cr further improving, clinically stable, -appreciate Nephrology consult , added allopurinol 01/16 -Holding Gabapentin as it is renally excreted -Avoid nephrotoxic medications whenever possible -Patient states he has history of cirrhosis with ascites and has been on Lasix and Aldactone for 2 and half years. Patient has no significant ascites currently. Patient does not seem he needs Lasix and Aldactone. discontinued Lasix and Aldactone indefinitely. follow up with PCP. -Ultrasound negative for obstruction -Patient appears fluid overloaded, however due to hypotension diuresis will be held 2. Osteomyelitis of right forearm, POA, acute. Active, Vancomycin .1 on admission to 17.9 01/17. -start Ceftaroline 400mg q12h per ID, appreciate follow up chronic, stable, resolved 3. Mild Hyponatremia, POA, resolved with Holding Diuretic 4. Mild Metabolic alkalosis, could contraction alkalosis, resolved 5. History of alcoholism, not active Code Status: FULL CODE Disposition: 1-2more days home Full Code GI Prophylaxis: H2 albert VTE Prophylaxis: Sub-Q Heparin (Unfractionated) VTE Mechanical Devices: Intermittant Pneumatic CD Resuscitation Status: CPR: Attempt Resuscitation Time spent 35min Meeta Powers MD January 18, 2017 11:14 Meeta Powers MD January 18, 2017 11:14
--- NOTE | 2017-01-18 11:35 | PCM.PNNEPH ---
Subjective Date of Service January 18, 2017 Subjective Continue to improve slowly, no F/C/CP/SOB. Nauseated, no vomiting. Exam Vital Signs Vital Sign - Last Date Time Temp Pulse Resp B/P Pulse Ox O2 Delivery O2 Flow Rate FiO2 01/18/17 08:55 36.7 74 18 118/69 94 Room Air Intake and Output 01/17/17 01/17/17 01/18/17 Cumulative From/Thru 15:00 23:00 07:00 01/14/17 14:46 - 01/18/17 06:49 Intake Total 670 ml 1069 ml 6889 ml Output Total 1350 ml 4050 ml Balance 670 ml -281 ml 2839 ml Intake Oral 300 ml 2316 ml IV Total 670 ml 769 ml 4573 ml Output Urine Total 1350 ml 4050 ml # Voids 1 Exam GA: AAOx3, NAD. HEENT: Atraumatic, moist MM, mild pallor, no icteric sclerae, no JVD, no LAD. Heart: RRR, S1/S2, no M/R/G. Lungs: CTA, B/L. Abd: soft, NT, ND, no fluid wave appreciated. Ext: no edema, dressing on right forearm. Lab and Diagnostics Result Diagram: 01/18/1760401/18/17604 X-Rays, CTs and MRIs PROCEDURE: US RETROPERITONEAL SONOGRAM ([id number]) INDICATIONS: KERLINE TECHNIQUE: Real-time scanning was performed of the kidneys and bladder, with image documentation. COMPARISON: None. FINDINGS: Kidneys: Kidneys are normal in size. Right kidney measures 10.2 cm long; left kidney measures 12.0 cm long. Right renal cortical thickness is 1.0 cm; left renal cortical thickness is 1.1 cm. Renal cortical echotexture is normal. No hydronephrosis or nephrolithiasis. No suspicious solid mass lesions. Bladder: Pre-void bladder volume is 236 mL. Post-void residual is 6.5 mL. Pre -void images demonstrate no intraluminal masses or stones. On pre-void images, both of the ureteral jets are noted with color Doppler interrogation. (Of note , ureteral jets may not be detectable in up to 25% of cases due to insufficient differences in specific gravity between ureteral and bladder urine). Miscellaneous: No free pelvic fluid. IMPRESSION: No hydronephrosis. Minimal postvoid residual as above Dictated by: Rickie Booker M.D. on 01/15/2017 at 10:24 Plan Impression 1. KERLINE vancomycin-induced ATN and component of prerenal - improving. 2. Acute right forearm osteomyelitis. 3. H/o ETOH abuse and liver cirrhosis. 4. Hyponatremia, improving. 5. Hyperuricemia. 6. Hypocomplementemia, low c4. rule out related to liver cirrhosis. Plan: Continue to hold lasix and aldactone. Continue IV NS, d/c when the current bag is over. Repeat BMP in am. Avoid nephrotoxins. Renally dose all meds. Check CH50 level. Sahra Damon MD January 18, 2017 11:35
[2017-01-18] MEDS: Ondansetron 2 mg/mL 2 mL Inj IVPUSH PRN (12:08)
--- NOTE | 2017-01-18 17:02 | PROG NOTE ---
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 INTERVAL HISTORY: Overnight, the patient has felt relatively well. No fevers, chills, or sweats. No cough, shortness of breath, nausea, vomiting, diarrhea. Still has pain in his right forearm which is little changed. PHYSICAL EXAMINATION: Reveals an afebrile, comfortable gentleman. Temp 36.7, pulse 74, respiratory rate 18, blood pressure 118/69, saturating well on room air. No acute distress. Oral cavity negative. Lungs clear. Abdomen benign. Right forearm with cast around the lower portion. Fingers move well and have normal sensation. LABORATORIES: Include white count of 3900. He has 7% eosinophils. Creatinine 1.89, steadily declining. LFTs are normal. His urine eosinophils were negative. IMPRESSION: The patient's renal function is rapidly returning. It appears that he has gotten through this vancomycin-induced acute renal failure. 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 Ceftaroline in limited human case studies and animal models appears like it should work well for MRSA osteo, and we know that this patient's organism is susceptible so we will carry on with ceftaroline escalating doses for treatment. RECOMMENDATIONS: Will continue with the current dose of ceftaroline which is 400 q.12 with plans to increase to 600 q.12 soon and get the patient discharged to complete a long course of IV therapy to be followed by an even longer course of oral therapy for this recalcitrant and recurring MRSA osteo. MTDD
--- NOTE | 2017-01-18 19:24 | NUR ---
Mentation continuous contact precautions. No sign and symptoms of pain noted. Stable mood. Patient tolerating PO and meals well. No sign and symptoms of cardiac and respiratory discomfort noted. Call light with in reach and uses appropriately. Dressing to PICC line clean dry and intact. Continue to monitor vital signs, safety, and pain.
[2017-01-18 22:00] VITALS: BP 130/61; PULSE 75; RESP 18; O2SAT 97
[2017-01-19] MEDS: Heparin 5,000 Unit/mL Inj SUBQ SCH ×4 (00:30→23:51)
[2017-01-19] MEDS: Sodium Chloride LOK Flush 10 mL Syringe IVFLUSH SCH ×4 (00:31→23:51)
--- NOTE | 2017-01-19 04:23 | NUR ---
Social Work-readiness for discharge: Data:EMR Reviewed.Pt is on day 5 of hospitalization for acute kidney injury per H&P. Pt is not medically stable anticipate 1-2 more days. Pt resides at home with family and will return at discharge. Pt is open with [facility] for IV abx and will need these per ID MD notes at discharge. SW to update [facility] at discharge. Pt is also open with [facility] for RN,PT, and OT. Pt will need resume orders at discharge. Pt's family to provide transport home at discharge. SW will continue to follow. Assessment:Pt who will need resume infusion and HH. Plan:Pt to discharge home when medically stable via POV. Pt will need resume [facility] for RN,PT, and OT. Pt will also need resume IV abx orders through [facility].SW will continue to follow. URIEL Will
[2017-01-19 05:31] VITALS: BP 123/52; RESP 18; O2SAT 93
--- NOTE | 2017-01-19 05:44 | NUR ---
Activity/pain Pt reported pain from 5-03/14 and has been taking 5mg Oxycodone with adequate relief. Pt will be SL once current bag of fluids is done infusing per orders. Wrist in jayjay wrap continues to be elevated on pillows and is CDI. Criticaid applied to coccyx open areas and changed Mepilex dressing.
[2017-01-19 06:15] LABS: Magnesium 1.5 mg/dL (1.6-2.6); Phosphorus 4.5 mg/dL (2.5-4.9)
[2017-01-19] MEDS: 0.9% Sodium Chloride 1,000 ML IV SCH (07:52)
[2017-01-19 08:02] VITALS: BP 116/54; PULSE 68; RESP 18; O2SAT 92
[2017-01-19] MEDS: Ascorbic Acid 500 mg Tablet PO SCH (08:31)
[2017-01-19] MEDS: SULFACETAMIDE SODIUM TOPICAL SCH ×2 (08:37→21:35)
[2017-01-19] MEDS: Mupirocin 2% 22 Gm Ointment TOPICAL SCH ×2 (08:37→21:35)
[2017-01-19] MEDS: Ondansetron 2 mg/mL 2 mL Inj IVPUSH PRN (09:19)
[2017-01-19] MEDS ORDERED: Magnesium Sulf 2 Gm/50mL Water 2 GM in IV Premix 1 EACH IV ONE (10:00)
[2017-01-19] MEDS ORDERED: 0.9% Sodium Chloride 250 ML ONE (10:23)
[2017-01-19 10:40] VITALS: PULSE 70
--- NOTE | 2017-01-19 11:20 | PCM.PNMED ---
Subjective Date of Service January 19, 2017 Subjective pt c/o nausea throughout, dry heaves didn't think it coincide with abx, not a/w eating no vomiting Exam Vital Signs Vital Sign - Last Date Time Temp Pulse Resp B/P Pulse Ox O2 Delivery O2 Flow Rate FiO2 01/19/17 10:40 70 01/19/17 08:02 36.6 18 116/54 92 Room Air Intake and Output 01/18/17 01/18/17 01/19/17 Cumulative From/Thru 15:00 23:00 07:00 01/14/17 14:46 - 01/19/17 06:37 Intake Total 1595 ml 936 ml 9420 ml Output Total 1200 ml 1200 ml 6450 ml Balance 395 ml -264 ml 2970 ml Intake Oral 800 ml 100 ml 3216 ml IV Total 795 ml 836 ml 6204 ml Output Urine Total 1200 ml 1200 ml 6450 ml # Voids 1 # Bowel Movements 1 1 Exam NAD, comfortably laying down on the bed no JVD, MMM, no LAD RRR, nl s1, s2 no mrg CTAB, no w,c S,ND,NT,normoactive BS+ warm, no edema, pulses 2/2 sterilely dressed Rt wrist, tenderness mild erythema/swelling on Rt hand, unchanged from yesterday IVs and Medications Medications Reviewed: Medications were reviewed in detail Lab and Diagnostics Result Diagram: 01/18/17 0605 01/19/17 0520 X-Rays, CTs and MRIs PROCEDURE: US RETROPERITONEAL SONOGRAM ([id number]) INDICATIONS: KERLINE TECHNIQUE: Real-time scanning was performed of the kidneys and bladder, with image documentation. COMPARISON: None. FINDINGS: Kidneys: Kidneys are normal in size. Right kidney measures 10.2 cm long; left kidney measures 12.0 cm long. Right renal cortical thickness is 1.0 cm; left renal cortical thickness is 1.1 cm. Renal cortical echotexture is normal. No hydronephrosis or nephrolithiasis. No suspicious solid mass lesions. Bladder: Pre-void bladder volume is 236 mL. Post-void residual is 6.5 mL. Pre -void images demonstrate no intraluminal masses or stones. On pre-void images, both of the ureteral jets are noted with color Doppler interrogation. (Of note , ureteral jets may not be detectable in up to 25% of cases due to insufficient differences in specific gravity between ureteral and bladder urine). Miscellaneous: No free pelvic fluid. IMPRESSION: No hydronephrosis. Minimal postvoid residual as above Dictated by: Rickie Booker M.D. on 01/15/2017 at 10:24 Assessment & Plan Thiago Potts is a 71 year old man who was recently discharged on 01/10/17 for treatment of osteomyelitis of his right forearm on outpatient Vancomycin infusions; this morning [facility] informed Dr. Drew who had been managing the patient's therapy that his Cr had abruptly increased concurrent with a decrease in urine output; the patient was brought to the ED where the increase in Cr was confirmed... acute, active 1. KERLINE, POA, acute. Active, ddx: prerenal with diuretics and vanc toxicity with elevated eosinophils. -Cr improved, then plateaued, clinically stable, -appreciate Nephrology consult , added allopurinol 01/16 -Holding Gabapentin as it is renally excreted -Avoid nephrotoxic medications whenever possible -Patient states he has history of cirrhosis with ascites and has been on Lasix and Aldactone for 2 and half years. Patient has no significant ascites currently. Patient does not seem he needs Lasix and Aldactone. discontinued Lasix and Aldactone indefinitely. follow up with PCP. -Ultrasound negative for obstruction -Patient appears fluid overloaded, however due to hypotension diuresis will be held 2. Osteomyelitis of right forearm, POA, acute. Active, Vancomycin [id number] on admission to 17.9 01/17. -start Ceftaroline 400mg q12h per ID, appreciate follow up intractable nausea, developed 01/18-, likely medicine induced, uremia is unlikely given level, -will try premed with zofran prior to Ceftaroline -replete mg>2, K>4 chronic, stable, resolved 3. Mild Hyponatremia, POA, resolved with Holding Diuretic 4. Mild Metabolic alkalosis, could contraction alkalosis, resolved 5. History of alcoholism, not active Code Status: FULL CODE Disposition: 1-2more days home Full Code GI Prophylaxis: H2 albert VTE Prophylaxis: Sub-Q Heparin (Unfractionated) VTE Mechanical Devices: Intermittant Pneumatic CD Resuscitation Status: CPR: Attempt Resuscitation Time spent 35min Meeta Powers MD January 19, 2017 11:20
--- NOTE | 2017-01-19 11:39 | PROG NOTE ---
[address] [address] PROGRESS NOTE PATIENT: BON CUNHA : 1945 MR#: [id number] ADMIT: 01/14/2017 JOB ID: [id number] DATE: 01/19/2017 INFECTIOUS DISEASE FOLLOW UP NOTE: REASON FOR FOLLOWUP: MRSA osteo right forearm with complicating factors including daptomycin pneumonitis and vanco induced acute renal failure. INTERVAL HISTORY: Today, the patient has had some back sliding. He reports he feels cold all the time, though he does not have overt chills. He has also had nausea, and in fact, vomited on one occasion. He has not had any overt fevers nor has he had chills or rigors. He has also noticed a bit of increase in his sputum production which is unusual for him. He denies laura shortness of breath. PHYSICAL EXAMINATION: Reveals an afebrile gentleman, temperature 36.6, pulse 70, respiratory rate 18, blood pressure 116/54. He is saturating okay on room air. He is in no acute distress, but he does not look quite as perky as yesterday. Oral cavity negative. Lungs relatively clear. No change in his right forearm which is largely covered by the dressing. LABORATORIES: Include a white count 3900 yesterday, not repeated today. His creatinine 1.88 today, exactly the same as yesterday so his daily improvement in creatinine has stopped. His LFTs are normal. His albumin is okay at 2.8. IMPRESSION: The patient was steadily improving over his first few days here in the hospital with rapid improvement in his renal function and strength. At this point, he is troubled by nausea and vomiting which would be a possible but unusual reaction to ceftaroline. Given that this is our last IV option to treat his MRSA osteo, I am inclined to push on and see if he tolerates it before we consider some desperation such as early switch to oral therapy or dalbavancin. RECOMMENDATIONS: 1. Continue with adjusted dose of ceftaroline 400 q.12. 2. Once his creatinine clearance is above 50, will go to ceftaroline 600 q.12. 3. The patient still has weeks of IV therapy to go hopefully for his MRSA osteo. 4. We will continue to follow this complex patient with you.
[2017-01-19 13:16] VITALS: BP 124/64; PULSE 66; RESP 18; O2SAT 92
[2017-01-19] MEDS: Ceftaroline Inj 400 MG in Dextrose 5% 250 ML IV SCH ×2 (13:31→21:34)
--- NOTE | 2017-01-19 19:01 | NUR ---
Abx/Mg/Emesis Pt with IV abx orders of Ceftaroline at 400mg, received wrong dose of 600mg. Pharmacy made aware. Pt also with Mg of 1.5, received 2GM Magnesium Sulfate - Telemetry placed for duration of infusion. Pt tolerated without issue. Abx hung late d/t wrong dose and then Magnesium infusion. Pt with seemingly constant nausea with wretching and per pt, stated emesis post breakfast. geophysical data technician provided IVP Zofran - resolved. Pt with off and on nausea throughout shift, encouraged pt to call prior to eating meals for dose of Zofran. Pt did not call for Zofran prior to dinner but was able to tolerate half of dinner tray and denied nausea at completion. Calm and pleasant - care continues.
[2017-01-19 19:55] VITALS: BP 106/45; PULSE 64; RESP 18; O2SAT 95
--- NOTE | 2017-01-20 03:22 | NUR ---
Pain Pt has swelling in his right arm. Elevated on 2 pillows overnight. Oxycodone given earlier this eveing. Pt appears comfortable
[2017-01-20] MEDS: 0.9% Sodium Chloride 1,000 ML IV SCH (04:19)
[2017-01-20 04:53] VITALS: BP 117/60; PULSE 67; RESP 18; O2SAT 94
[2017-01-20 05:13] LABS: BASOPHILS % (AUTO) 1.2 % (0-3); EOSINOPHILS % (AUTO) 9.2 % (0-5); MONOCYTES % (AUTO) 13.5 % (4-12); Mean Corpuscular Hemoglobin 28.2 pg (27.0-35.0); Mean Corpuscular Volume 85.2 fL (81-100); NEUTROPHILS % (AUTO) 45.5 % (40-74); Platelet Count 139 bil/L (150-400)
[2017-01-20 08:11] VITALS: BP 107/52; PULSE 66; RESP 18; O2SAT 91
[2017-01-20] MEDS: Ascorbic Acid 500 mg Tablet PO SCH (09:25)
[2017-01-20] MEDS: Sodium Chloride LOK Flush 10 mL Syringe IVFLUSH SCH ×2 (09:26→18:01)
[2017-01-20] MEDS: Heparin 5,000 Unit/mL Inj SUBQ SCH ×2 (09:29→18:01)
[2017-01-20] MEDS: Mupirocin 2% 22 Gm Ointment TOPICAL SCH ×2 (09:41→22:33)
--- NOTE | 2017-01-20 10:12 | PROG NOTE ---
[address] [address] PROGRESS NOTE PATIENT: BON CUNHA : 1945 MR#: [id number] ADMIT: 01/14/2017 JOB ID: [id number] DATE: 01/20/2017 INFECTIOUS DISEASE FOLLOW UP NOTE: REASON FOR FOLLOWUP: MRSA osteomyelitis of the right forearm with vancomycin induced acute renal failure. INTERVAL HISTORY: The patient reports today he is feeling quite a bit better. No nausea, no vomiting, no fevers, chills or sweats. He has some pain in his right forearm but it is tolerable. He reports no abdominal pain and says he is making copious amounts of urine. PHYSICAL EXAMINATION: Reveals a more comfortable gentleman in no acute distress. Temperature 36.7, blood pressure 107/52, pulse 66, respiratory rate 18, saturating 94% on room air. He is in no acute distress. Oral cavity is benign. Lungs quite clear. Cardiac tones without new murmur. Abdomen slightly distended, but soft and nontender. No flank tenderness is noted. He does not have a Madison catheter. His right forearm is in the cast as it typically is. He can move his fingers which protrude from that cast. LABORATORIES: Include a white count today 5300, still with 9% eosinophils. Creatinine is down to 1.79. It had been stuck at 1.89 the past couple days. Creatinine clearance is now calculated at 40. Liver function tests normal. IMPRESSION: This is a complex patient with cirrhosis and MRSA osteo of the right forearm. During an earlier treatment this year, he developed daptomycin induced lung toxicity. Most recently, he was sent home on vancomycin to try and treat a recurrence of his MRSA osteo of the forearm but he developed a rather fulminant renal failure. At this point, the patient is doing well on ceftaroline as we watch his renal function improve. The patient's nausea and vomiting of yesterday has resolved. The etiology of it remains unclear but probably not due to ceftaroline as we have continued that antibiotic throughout. RECOMMENDATIONS: 1. I would continue to watch the patient until his creatinine gets a bit lower and then in concert with recommendations of the nephrologists, he could be sent back home. 2. His creatinine clearance is now 40 and so will keep him on ceftaroline 400 b.i.d., but if his creatinine improves even slightly, will go our projected long-term dose of 600 mg IV q.12 with an anticipated duration through February 17. 3. Once the patient finishes his IV ceftaroline on February 17, hopefully uneventfully, will transition to long-term oral therapy with doxycycline.
--- NOTE | 2017-01-20 11:17 | PCM.PNNEPH ---
Subjective Date of Service January 20, 2017 Subjective He is feeling better today, no longer nauseated. Kidney function continues to improved slowly. Pain is controlled. Exam Vital Signs Vital Sign - Last Date Time Temp Pulse Resp B/P Pulse Ox O2 Delivery O2 Flow Rate FiO2 01/20/17 08:11 36.7 66 18 107/52 91 Room Air Intake and Output 01/19/17 01/19/17 01/20/17 Cumulative From/Thru 15:00 23:00 07:00 01/14/17 14:46 - 01/20/17 06:24 Intake Total 1228 ml 250 ml 30071 ml Output Total 1200 ml 350 ml 8000 ml Balance 28 ml -100 ml 2898 ml Intake Oral 800 ml 250 ml 4266 ml IV Total 428 ml 6632 ml Output Urine Total 1200 ml 350 ml 8000 ml # Voids 1 # Bowel Movements 0 1 Exam GA: AAOx3, NAD. HEENT: Atraumatic, moist MM, mild pallor, no icteric sclerae, no JVD, no LAD. Heart: RRR, S1/S2, no M/R/G. Lungs: CTA, B/L. Abd: soft, NT, ND, active BS. Ext: no edema, dressing on right forearm. Lab and Diagnostics Result Diagram: 01/20/17 0500 01/20/17 0500 X-Rays, CTs and MRIs PROCEDURE: US RETROPERITONEAL SONOGRAM ([id number]) INDICATIONS: KERLINE TECHNIQUE: Real-time scanning was performed of the kidneys and bladder, with image documentation. COMPARISON: None. FINDINGS: Kidneys: Kidneys are normal in size. Right kidney measures 10.2 cm long; left kidney measures 12.0 cm long. Right renal cortical thickness is 1.0 cm; left renal cortical thickness is 1.1 cm. Renal cortical echotexture is normal. No hydronephrosis or nephrolithiasis. No suspicious solid mass lesions. Bladder: Pre-void bladder volume is 236 mL. Post-void residual is 6.5 mL. Pre -void images demonstrate no intraluminal masses or stones. On pre-void images, both of the ureteral jets are noted with color Doppler interrogation. (Of note , ureteral jets may not be detectable in up to 25% of cases due to insufficient differences in specific gravity between ureteral and bladder urine). Miscellaneous: No free pelvic fluid. IMPRESSION: No hydronephrosis. Minimal postvoid residual as above Dictated by: Rickie Booker M.D. on 01/15/2017 at 10:24 Plan Impression 1. KERLINE vancomycin-induced ATN and component of prerenal - improving. 2. Acute right forearm MRSA osteomyelitis. 3. H/o ETOH abuse and liver cirrhosis. 4. Hypocomplementemia, low c4. rule out related to liver cirrhosis. Plan: Continue to hold lasix and aldactone. Repeat BMP in am. Avoid nephrotoxins. Renally dose all meds. Check CH50 level. Sahra Damon MD January 20, 2017 11:17
[2017-01-20] MEDS: Ceftaroline Inj 400 MG in Dextrose 5% 250 ML IV SCH ×2 (11:51→22:25)
[2017-01-20] MEDS: SULFACETAMIDE SODIUM TOPICAL SCH ×2 (11:52→20:30)
--- NOTE | 2017-01-20 11:59 | PCM.PNMED ---
Subjective Date of Service January 20, 2017 Subjective pt less nauseated overnight, tolerated diet, however, eosinophils still trending up Exam Vital Signs Vital Sign - Last Date Time Temp Pulse Resp B/P Pulse Ox O2 Delivery O2 Flow Rate FiO2 01/20/17 08:11 36.7 66 18 107/52 91 Room Air Intake and Output 01/19/17 01/19/17 01/20/17 Cumulative From/Thru 15:00 23:00 07:00 01/14/17 14:46 - 01/20/17 06:24 Intake Total 1228 ml 250 ml 79736 ml Output Total 1200 ml 350 ml 8000 ml Balance 28 ml -100 ml 2898 ml Intake Oral 800 ml 250 ml 4266 ml IV Total 428 ml 6632 ml Output Urine Total 1200 ml 350 ml 8000 ml # Voids 1 # Bowel Movements 0 1 Exam NAD, comfortably laying down on the bed no JVD, MMM, no LAD RRR, nl s1, s2 no mrg CTAB, no w,c S,ND,NT,normoactive BS+ warm, no edema, pulses 2/2 sterilely dressed Rt wrist, tenderness mild erythema/swelling on Rt hand, unchanged from yesterday IVs and Medications Medications Reviewed: Medications were reviewed in detail Lab and Diagnostics Result Diagram: 01/20/17 0500 01/20/17 0500 X-Rays, CTs and MRIs PROCEDURE: US RETROPERITONEAL SONOGRAM ([id number]) INDICATIONS: KERLINE TECHNIQUE: Real-time scanning was performed of the kidneys and bladder, with image documentation. COMPARISON: None. FINDINGS: Kidneys: Kidneys are normal in size. Right kidney measures 10.2 cm long; left kidney measures 12.0 cm long. Right renal cortical thickness is 1.0 cm; left renal cortical thickness is 1.1 cm. Renal cortical echotexture is normal. No hydronephrosis or nephrolithiasis. No suspicious solid mass lesions. Bladder: Pre-void bladder volume is 236 mL. Post-void residual is 6.5 mL. Pre -void images demonstrate no intraluminal masses or stones. On pre-void images, both of the ureteral jets are noted with color Doppler interrogation. (Of note , ureteral jets may not be detectable in up to 25% of cases due to insufficient differences in specific gravity between ureteral and bladder urine). Miscellaneous: No free pelvic fluid. IMPRESSION: No hydronephrosis. Minimal postvoid residual as above Dictated by: Rickie Booker M.D. on 01/15/2017 at 10:24 Assessment & Plan Thiago Potts is a 71 year old man who was recently discharged on 01/10/17 for treatment of osteomyelitis of his right forearm on outpatient Vancomycin infusions; this morning [facility] informed Dr. Drew who had been managing the patient's therapy that his Cr had abruptly increased concurrent with a decrease in urine output; the patient was brought to the ED where the increase in Cr was confirmed... acute, active 1. KERLINE, POA, acute. Active, ddx: prerenal with diuretics and vanc toxicity with elevated eosinophils. -Cr improved, then plateaued, clinically stable, -appreciate Nephrology consult , added allopurinol 01/16 then discontinued concern fo eosinophilia -Holding Gabapentin as it is renally excreted -Avoid nephrotoxic medications whenever possible -Patient states he has history of cirrhosis with ascites and has been on Lasix and Aldactone for 2 and half years. Patient has no significant ascites currently. Patient does not seem he needs Lasix and Aldactone. discontinued Lasix and Aldactone indefinitely. follow up with PCP. -Ultrasound negative for obstruction -Patient appears fluid overloaded, however due to hypotension diuresis will be held 2. Osteomyelitis of right forearm, POA, acute. Active, Vancomycin .1 on admission to 17.9 01/17. -start Ceftaroline 400mg q12h per ID, appreciate follow up, plan to increase to 600mg when eGFR allows intractable nausea, developed , likely medicine induced, uremia is unlikely given level, -will try premed with zofran prior to Ceftaroline, stop oxycodone, will try morphine instead for pain control -replete mg>2, K>4 eosinophilia, POA, trending up no signs of DRESS, normal liver enzymes, no fever , no rash.likely med induced as vancomycin, pepcid, allopurinol -held pepcid, allopurinol 01/19, -trend EO daily chronic, stable, resolved 3. Mild Hyponatremia, POA, resolved with Holding Diuretic 4. Mild Metabolic alkalosis, could contraction alkalosis, resolved 5. History of alcoholism, not active Code Status: FULL CODE Disposition:likely 2-3more days Full Code GI Prophylaxis: H2 albert VTE Prophylaxis: Sub-Q Heparin (Unfractionated) VTE Mechanical Devices: Intermittant Pneumatic CD Resuscitation Status: CPR: Attempt Resuscitation Time spent 35min Meeta Powers MD January 20, 2017 11:47
[2017-01-20 15:23] VITALS: BP 115/61; PULSE 75; RESP 16; O2SAT 94
--- NOTE | 2017-01-20 16:18 | NUR ---
Pain/edema Patient with pain to right wrist area and edema noted to arm and especially his fingers. Extremity is elevated on pillows to reduce swelling. patient continues to have intermittent nausea especially when his meals arrive. Yannick was given this am as ordered. patient up sat in chair for lunch.
[2017-01-20 19:50] VITALS: BP 119/49; PULSE 64; RESP 20; O2SAT 94
[2017-01-21] MEDS: 0.9% Sodium Chloride 1,000 ML IV SCH ×2 (00:19→20:19)
[2017-01-21] MEDS: Heparin 5,000 Unit/mL Inj SUBQ SCH ×3 (03:04→18:30)
[2017-01-21] MEDS: Sodium Chloride LOK Flush 10 mL Syringe IVFLUSH SCH ×3 (03:04→18:29)
--- NOTE | 2017-01-21 05:26 | NUR ---
wrist splint / pain right thumb w/ edema, c/o pain. PRN morphine effective for pain. still c/o some nausea, zofran helpful. tolerated rewrap of R wrist. cleansed in between fingers w/ gauze, dried well. elevated on 2 pillows thru noc. VS are stable, CTM for changes.
[2017-01-21 06:10] VITALS: BP 108/47; PULSE 67; RESP 20; O2SAT 94
[2017-01-21 08:07] LABS: BASOPHILS % (AUTO) 2.2 % (0-3); EOSINOPHILS % (AUTO) 9.4 % (0-5); MONOCYTES % (AUTO) 15.6 % (4-12); Mean Corpuscular Hemoglobin 28.3 pg (27.0-35.0); Mean Corpuscular Volume 85.8 fL (81-100); NEUTROPHILS % (AUTO) 42.4 % (40-74); Platelet Count 130 bil/L (150-400)
[2017-01-21] MEDS: SULFACETAMIDE SODIUM TOPICAL SCH ×2 (08:30→20:08)
[2017-01-21 09:50] VITALS: BP 107/56; PULSE 67; RESP 16; O2SAT 99
[2017-01-21 09:55] VITALS: BP 122/60
[2017-01-21 10:00] VITALS: BP 137/66
[2017-01-21] MEDS: Ascorbic Acid 500 mg Tablet PO SCH (10:37)
[2017-01-21] MEDS: Mupirocin 2% 22 Gm Ointment TOPICAL SCH ×2 (10:38→20:08)
[2017-01-21] MEDS: Ceftaroline Inj 400 MG in Dextrose 5% 250 ML IV SCH ×2 (10:45→20:27)
--- NOTE | 2017-01-21 11:49 | PCM.PNMED ---
Subjective Date of Service January 21, 2017 Subjective pt denied nausea, after oxycodone was stopped, required intermittent morphine still has ongoing pain on Left wrist Exam Vital Signs Vital Sign - Last Date Time Temp Pulse Resp B/P Pulse Ox O2 Delivery O2 Flow Rate FiO2 01/21/17 10:00 137/66 01/21/17 09:50 36.4 67 16 99 Room Air Intake and Output 01/20/17 01/20/17 01/21/17 Cumulative From/Thru 15:00 23:00 07:00 01/14/17 14:46 - 01/21/17 06:37 Intake Total 820 ml 1010 ml 86813 ml Output Total 1220 ml 1040 ml 81860 ml Balance -400 ml -30 ml 2468 ml Intake Oral 820 ml 680 ml 5766 ml IV Total 330 ml 6962 ml Output Urine Total 1220 ml 1040 ml 88044 ml # Voids 1 # Bowel Movements 1 Exam NAD, comfortably laying down on the bed no JVD, MMM, no LAD RRR, nl s1, s2 no mrg CTAB, no w,c S,ND,NT,normoactive BS+ warm, no edema, pulses 2/2 sterilely dressed Rt wrist, tenderness mild erythema/swelling on Rt hand, unchanged from yesterday IVs and Medications Medications Reviewed: Medications were reviewed in detail Lab and Diagnostics Result Diagram: 01/21/17 0800 01/21/17 0800 X-Rays, CTs and MRIs PROCEDURE: US RETROPERITONEAL SONOGRAM ([id number]) INDICATIONS: KERLINE TECHNIQUE: Real-time scanning was performed of the kidneys and bladder, with image documentation. COMPARISON: None. FINDINGS: Kidneys: Kidneys are normal in size. Right kidney measures 10.2 cm long; left kidney measures 12.0 cm long. Right renal cortical thickness is 1.0 cm; left renal cortical thickness is 1.1 cm. Renal cortical echotexture is normal. No hydronephrosis or nephrolithiasis. No suspicious solid mass lesions. Bladder: Pre-void bladder volume is 236 mL. Post-void residual is 6.5 mL. Pre -void images demonstrate no intraluminal masses or stones. On pre-void images, both of the ureteral jets are noted with color Doppler interrogation. (Of note , ureteral jets may not be detectable in up to 25% of cases due to insufficient differences in specific gravity between ureteral and bladder urine). Miscellaneous: No free pelvic fluid. IMPRESSION: No hydronephrosis. Minimal postvoid residual as above Dictated by: Rickie Booker M.D. on 01/15/2017 at 10:24 Assessment & Plan Thiago Potts is a 71 year old man who was recently discharged on 01/10/17 for treatment of osteomyelitis of his right forearm on outpatient Vancomycin infusions; this morning [facility] informed Dr. Drew who had been managing the patient's therapy that his Cr had abruptly increased concurrent with a decrease in urine output; the patient was brought to the ED where the increase in Cr was confirmed... acute, active 1. KERLINE, POA, acute. Active, ddx: prerenal with diuretics and vanc toxicity with elevated eosinophils. -Cr improving, clinically stable, -appreciate Nephrology consult , added allopurinol 01/16 then discontinued concern fo eosinophilia -Holding Gabapentin as it is renally excreted -Avoid nephrotoxic medications whenever possible -Patient states he has history of cirrhosis with ascites and has been on Lasix and Aldactone for 2 and half years. Patient has no significant ascites currently. Patient does not seem he needs Lasix and Aldactone. discontinued Lasix and Aldactone indefinitely. follow up with PCP. -Ultrasound negative for obstruction -Patient appears fluid overloaded, however due to hypotension diuresis will be held 2. Osteomyelitis of right forearm, POA, acute. Active, Vancomycin [id number] on admission to 17.9 01/17. -start Ceftaroline 400mg q12h per ID, appreciate follow up, plan to increase to 600mg when eGFR allows >50 intractable nausea, developed , likely medicine induced, Oxycodone, uremia is unlikely given level, -will try premed with zofran prior to Ceftaroline, stopped oxycodone, continue morphine instead for pain control -replete mg>2, K>4 eosinophilia, POA, trending up no signs of DRESS, normal liver enzymes, no fever , no rash.likely med induced as vancomycin, pepcid, allopurinol -held pepcid, allopurinol 01/19, -trend EO daily, plateaued today chronic, stable, resolved 3. Mild Hyponatremia, POA, resolved with Holding Diuretic 4. Mild Metabolic alkalosis, could contraction alkalosis, resolved 5. History of alcoholism, probable cirrhosis, not active Code Status: FULL CODE Disposition:likely 2-3more days Full Code GI Prophylaxis: H2 albert VTE Prophylaxis: Sub-Q Heparin (Unfractionated) VTE Mechanical Devices: Intermittant Pneumatic CD Resuscitation Status: CPR: Attempt Resuscitation Time spent 35min Meeta Powers MD January 21, 2017 11:49
[2017-01-21] MEDS ORDERED: 0.9% Sodium Chloride 250 ML ONE ×2 (11:58→21:46)
--- NOTE | 2017-01-21 13:22 | NUR ---
Activity Pt agreeable to getting up to chair today after some encouragement from CNAs and RN. R arm elevated on pillows and medicated for pain. He has also agreed to a full shower for skin care instead of bed bath. Will continue to encourage activity and monitor closely.
--- NOTE | 2017-01-21 13:28 | NUR ---
Social Work- Continued D/C Planning Data:EMR Reviewed. Pt is on day 7 of hospitalization for acute kidney injury per H&P. Wound Care is following pt. Nephrology is following pt. ID is following pt. Pt is not medically stable anticipate multiple more days as pts kidney function improves and abx dosing is adjusted. Pt resides at home with family and will return at discharge. Pt is open with [facility] for IV abx and will need these per ID MD notes at discharge. SW to update [facility] at discharge. Pt is also open with [facility] for RN,PT, and OT. Pt will need resume orders at discharge. Pt's family to provide transport home at discharge. SW will continue to follow. Assessment: Pt who will need resume infusion and HH. Plan: Pt to discharge home when medically stable via POV. Pt will need resume [facility] for RN,PT, and OT. Pt will also need resume IV abx orders through [facility].SW will continue to follow. URIEL An
[2017-01-21 14:19] VITALS: BP 120/67; PULSE 77; RESP 16; O2SAT 92
[2017-01-21 20:44] VITALS: BP 105/58; PULSE 71; RESP 18; O2SAT 93
[2017-01-22] MEDS: Sodium Chloride LOK Flush 10 mL Syringe IVFLUSH SCH ×2 (00:30→09:10)
[2017-01-22] MEDS: Heparin 5,000 Unit/mL Inj SUBQ SCH ×2 (01:43→09:11)
--- NOTE | 2017-01-22 02:25 | NUR ---
activity patient sitting up in chair until approximately midnight given pericare. applied nystatin to zuly area. removed mepilex to allow more are to the area sba with walker when ambulating. encouraged patient to "take his time. and stand up straight" for improved balance and mobility. patient demonstrated. medicated for pain to right hand splint as documented.
[2017-01-22 04:15] LABS: BASOPHILS % (AUTO) 1.1 % (0-3); EOSINOPHILS % (AUTO) 7.7 % (0-5); MONOCYTES % (AUTO) 14.7 % (4-12); Mean Corpuscular Hemoglobin 28.9 pg (27.0-35.0); Mean Corpuscular Volume 86.1 fL (81-100); NEUTROPHILS % (AUTO) 54.6 % (40-74); Platelet Count 135 bil/L (150-400)
--- NOTE | 2017-01-22 05:34 | PROG NOTE ---
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 INTERVAL HISTORY: Overnight, the patient has felt quite well. No fevers. No chills. No sweats. No cough, chest pain, or shortness of breath. No nausea, vomiting, or diarrhea. His right arm splint/cast was redone, and his wrist now has more range of motion and less swelling. PHYSICAL EXAMINATION: Reveals an afebrile gentleman, in no acute distress. He has been afebrile now throughout his hospital stay for one week. Pulse 77, respiratory rate 16, blood pressure 120/67, saturating 92% on room air. He is in no acute distress. Mental status normal. Lungs: Clear. Cardiac tones: Regular rate and rhythm without new murmur. Abdomen benign. The right forearm and wrist are in a splint but the remainder of the hand is actually less swollen and less erythematous than it has been. White blood count 3700. Creatinine 1.66. LFT are normal. Strongyloides antibody has come back negative. Micro studies were not done during this admission. IMPRESSION: This patient is doing well. At this point, I think he is nearing the point where we could increase the dose of ceftaroline to 600 b.i.d. and discharge him. Note that his creatinine is falling every day, and his creatinine clearance calculation would not be a steady state. It is probably better than what we see. RECOMMENDATIONS: 1. If his creatinine is any lower tomorrow, I would switch the ceftaroline to 600 q.12 h. 2. Assuming his creatinine is little bit lower, tomorrow I would feel very comfortable sending the patient home from an infectious disease perspective with [facility] to give the twice a day infusions of ceftaroline 600 b.i.d. through February 17, with weekly labs as written. 3. Follow up in my clinic February 02.
[2017-01-22 05:38] VITALS: BP 115/64; PULSE 75; RESP 16; O2SAT 95
[2017-01-22] MEDS ORDERED: CEFT600V IV (07:29)
[2017-01-22] MEDS ORDERED: MORP10SO PO (08:14)
[2017-01-22] MEDS ORDERED: POLY17PO6 PO (08:14)
[2017-01-22] MEDS ORDERED: SENN-133 PO (08:14)
[2017-01-22] MEDS ORDERED: ONDA4TAB12 PO (08:14)
[2017-01-22] MEDS ORDERED: DOCU-41 PO (08:15)
[2017-01-22] MEDS: SULFACETAMIDE SODIUM TOPICAL SCH (08:30)
[2017-01-22] MEDS: Ascorbic Acid 500 mg Tablet PO SCH (09:10)
[2017-01-22] MEDS: Mupirocin 2% 22 Gm Ointment TOPICAL SCH (09:11)
[2017-01-22] MEDS: Ceftaroline Inj 400 MG in Dextrose 5% 250 ML IV SCH (09:13)
--- NOTE | 2017-01-22 10:52 | PCM.DIMED ---
Discharge Instructions Date of Service January 22, 2017 Dates of Hospitalization January 14, 2017 at 19:58 Discharge Diagnosis Discharge Diagnosis Acute kidney injury likely due to diuretics, vancomycin toxicity known Osteomyelitis of right forearm Eosinophilia likely med induced as vancomycin, pepcid, allopurinol Medication Instructions Your diuretics, Lasix, Aldactone were stopped given acute kidney injury, no compelling indications Please take morphine 5mg to 10mg as needed twice to four times per day for your pain Please also take Bowel regimen to prevent constipation Please avoid Oxycodone, which is likely related to your nausea Diet Heart Healthy Activity Home Health Phyical Therapy Call your provider Fever or Chills Patient Instructions You were hospitalized with acute kidney injuries from antibiotic, persistent pain with known osteomyelitis on her right wrist. Your kidney function got improved with supportive treatment. Antibiotic was switched to new one. Please note that you will be set up with home IV antibiotic infusion through the PICC line. Ceftaroline 600mg every 12hours through February 17, with weekly labs as written. Please follow-up with your primary doctor in 2 weeks You will follow up with infectious disease doctor on February 02. Follow-up Provider: Tata Doll MD Follow-up with PCP in: 2 weeks Meeta Powers MD January 22, 2017 10:52
--- NOTE | 2017-01-22 13:06 | NUR ---
Social Work Note: Discharge Data& Assessment: EMR reviewed. Per pt is medically ready to discharge home via POV with resume [facility] and resume [facility], PT, and OT. Thiago Potts is a 71 year old male admitted on 01/14/2017 for acute kidney injury and vancomycin toxicity. Per pt is medically improved and ready to discharge home via POV. ISA spoke with on-call pharmacist Laquita with [facility] to notify her of pt discharge, final DC orders and IV ABX orders faxed. Home land commissioner will meet pt at home today at 2p.m. ISA also spoke with Alivia from [facility] to notify her of pt discharge. ISA met with pt at bedside to confirm discharge plan and assess for any unmet needs. Pt family to transport home today. Pt denies any other needs. No other discharge needs identified. All updated and agreeable to plan. Plan: Per pt is medically ready to discharge home via POV with resume [facility] and resume [facility] RN, PT, and OT. Pt denies any other needs. No other discharge needs identified. All updated and agreeable to plan. URIEL Burton
--- NOTE | 2017-01-22 15:01 | PCM.DC.MED ---
Discharge Summary Date of Service January 22, 2017 Dates of Hospitalization Date of Hospital Admission January 14, 2017 at 19:58 Date of Discharge: January 22, 2017 Providers: Admitting Physician: Natalie Welch DO Primary Care Physician: Tata Doll MD Attending Physician: Natalie Welch DO Diagnosis at Time of Discharge Diagnosis at Time of Discharge acute dx Acute kidney injury likely due to diuretics, vancomycin toxicity known Osteomyelitis of right forearm Eosinophilia likely med induced as vancomycin, pepcid, allopurinol intractable nausea, likely medicine induced, Oxycodone, Eosinophilia, likely med induced as vancomycin, pepcid, allopurinol. chronic dx History of alcoholism, probable cirrhosis Consultations Infectious disease Dr. Drew Procedures XRay, CTs & MRIs PROCEDURE: US RETROPERITONEAL SONOGRAM ([id number]) INDICATIONS: KERLINE TECHNIQUE: Real-time scanning was performed of the kidneys and bladder, with image documentation. COMPARISON: None. FINDINGS: Kidneys: Kidneys are normal in size. Right kidney measures 10.2 cm long; left kidney measures 12.0 cm long. Right renal cortical thickness is 1.0 cm; left renal cortical thickness is 1.1 cm. Renal cortical echotexture is normal. No hydronephrosis or nephrolithiasis. No suspicious solid mass lesions. Bladder: Pre-void bladder volume is 236 mL. Post-void residual is 6.5 mL. Pre -void images demonstrate no intraluminal masses or stones. On pre-void images, both of the ureteral jets are noted with color Doppler interrogation. (Of note , ureteral jets may not be detectable in up to 25% of cases due to insufficient differences in specific gravity between ureteral and bladder urine). Miscellaneous: No free pelvic fluid. IMPRESSION: No hydronephrosis. Minimal postvoid residual as above Dictated by: Rickie Booker M.D. on 01/15/2017 at 10:24 Brief History HPI performed by Dr. Welch on 01/14 Thiaog Potts is a 71 year old man with a PMH of HTN, agent orange exposure in [place], Alcoholic cirrhosis, PVD, and anxiety who was recently discharged from [facility] on 01/10/17 after receiving treatment for right forearm osteomyelitis s/ p surgical debridement by Dr. Arora. He had been scheduled to receive continued outpatient infusion of Vancomycin to be administered by [facility] and overseen by Dr. Drew from infectious disease who recommended serial Cr measurements. [facility] contacted Dr. Drew today to inform him that the patient's Cr had increased to >3 after being <1 upon discharge just days earlier. This prompted Dr. Drew to send this gentleman to the ED for confirmation of this lab value and admission should it prove accurate. The patient himself is essentially asymptomatic, his only complaint being a minimal reduction in Urine output and twitching of his right arm. He denies chest pain, abdominal distension, pain with urination, confusion, abdominal pain, diarrhea, fevers or chills. In the ED laboratory evaluation revealed elevated Cr, mild normocytic anemia, Grossly elevated Vanco trough, and mildly elevated CRP. Hospital Course Thiago Potts is a 71 year old man who was recently discharged on 01/10/17 for treatment of osteomyelitis of his right forearm on outpatient Vancomycin infusions; this morning [facility] informed Dr. Drew who had been managing the patient's therapy that his Cr had abruptly increased concurrent with a decrease in urine output; the patient was brought to the ED where the increase in Cr was confirmed... acute dx KERLINE, due to prerenal with diuretics and vanc toxicity with elevated eosinophils. pt was monitored closely in the hospital, nothing in was improving as vancomycin and diuretics were held. Ultrasound negative for obstruction. Although patient carries dx of cirrhosis with ascites. Given prerenal etiology , it was decided to stop Lasix, aldactone, lactulose as well. patient remained euvolemic, did not develop any signs of HE. renal functions was still not reached to baseline, however, given good trends, culprit meds being identified, pt deemed safe for d/c. Osteomyelitis of right forearm, initially came in with Vancomycin [id number] on admission, as per , started Ceftaroline 400mg q12h, increased to 600mg q12h, plan is to set up with home IV antibiotic infusion through the PICC line. Ceftaroline 600mg every 12hours through February 17, with weekly labs as written per . intractable nausea, developed 01/18-, likely medicine induced, Oxycodone, Eosinophilia, likely med induced as vancomycin, pepcid, allopurinol.There was no signs of DRESS, no fever, no rash. Eventually Eosinophila% were trended down upon d/c chronic dx History of alcoholism, probable cirrhosis, as above Exam Vital Signs (Last) Date Time Temp Pulse Resp B/P Pulse Ox O2 Delivery O2 Flow Rate FiO2 01/22/17 05:38 36.8 75 16 115/64 95 Room Air Exam NAD, comfortably laying down on the bed no JVD, MMM, no LAD RRR, nl s1, s2 no mrg CTAB, no w,c S,ND,NT,normoactive BS+ warm, no edema, pulses 2/2 sterilely dressed Rt wrist, tenderness mild erythema/swelling on Rt hand, unchanged from yesterday Test 01/14/17 17:45 01/14/17 21:26 01/15/17 10:29 01/16/17 05:20 Band Neutrophils % 0% (1-5) Direct Bilirubin 0.7mg/dL (0.0-0.3) C-Reactive Protein 3.2mg/dL (0.0-0.5) Vancomycin Level Trough 41.5mcg/mL Hold [place] Top Tube Received (Received) Urine Color Straw (YELLOW) Urine Appearance Clear (CLEAR,HAZY) Urine pH 7.0 (5.0-8.0) Urine Specific [place] 1.010 (1.003-1.035) Urine Protein Negativemg/dL (NEG,TRACE) Urine Glucose (UA) Negativemg/dL (NEGATIVE) Urine Ketones Negativemg/dL (NEGATIVE) Urine Occult Blood Negative (NEGATIVE) Urine Nitrite Negative (NEGATIVE) Urine Bilirubin Negative (NEGATIVE) Urine Urobilinogen Normalmg/dL (NORMAL) Urine Leukocyte Esterase Negative (NEGATIVE) Urine RBC 0-2/hpf (0-2) Urine WBC 0-5/hpf (0-5) Urine Epithelial Cells Occasional/hpf (NONE-MOD) Urine Crystals None seen (NONE SEEN) Urine Bacteria None/hpf (NONE-FEW) Urine Hyaline Casts None/lpf (NONE) Urine Granular Casts None seen (NONE SEEN) Urine Waxy Casts None seen (NONE SEEN) Urine Red Blood Cell Casts None seen (NONE SEEN) Urine White Blood Cell Casts None seen (NONE SEEN) Urine Mucus None seen (None Seen) Urine Trichomonas None seen (NONE SEEN) Urine Yeast None (NONE SEEN) Urinalysis Comment None Urine Random Sodium 54mEq/L Erythrocyte Sedimentation Rate 72mm/hr (0-30) Rheumatoid Factor <10.0IU/mL (0.0-13.9) Complement C3 110mg/dL (82-167) Complement C4 7mg/dL (14-44) Test 01/17/17 06:30 01/19/17 05:20 01/20/17 05:00 01/21/17 04:00 Random Vancomycin Level 17.9ug/mL Rx Phosphorus Level 4.5mg/dL (2.5-4.9) Strongyloides IgG Antibody Negative (Negative) Uric Acid 6.1mg/dL (2.6-7.2) Magnesium Level 1.9mg/dL (1.6-2.6) Total Creatine Kinase 23U/L (21-232) Test 01/22/17 04:00 White Blood Count 4.7th/mm3 (3.8-10.1) Red Blood Count 3.32mil/mm3 (4.40-5.80) Hemoglobin 9.6g/dL (13.8-17.2) Hematocrit 28.6% (41.0-50.0) Mean Corpuscular Volume 86.1fL (81-100) Mean Corpuscular Hemoglobin 28.9pg (27.0-35.0) Mean Corpuscular Hemoglobin Concent 33.6% (32.0-37.0) Red Cell Distribution Width 18.5% (12.3-15.4) Platelet Count 135bil/L (150-400) Neutrophils (%) (Auto) 54.6% (40-74) Lymphocytes (%) (Auto) 21.7% (14-46) Monocytes (%) (Auto) 14.7% (4-12) Eosinophils (%) (Auto) 7.7% (0-5) Basophils (%) (Auto) 1.1% (0-3) Sodium Level 132mEq/L (134-144) Potassium Level 4.3mEq/L (3.5-5.2) Chloride Level 95mEq/L (97-108) Carbon Dioxide Level 25mmol/L (18-29) Blood Urea Nitrogen 14mg/dL (8-27) Creatinine 1.64mg/dL (0.76-1.27) Estimat Glomerular Filtration Rate 44mL/min (>59) Glucose Level 110mg/dL (60-99) Calcium Level 9.1mg/dL (8.5-10.1) Total Bilirubin 1.1mg/dL (0.0-1.2) Aspartate Amino Transf (AST/SGOT) 26U/L (0-50) Alanine Aminotransferase (ALT/SGPT) 9U/L (0-44) Alkaline Phosphatase 63U/L (25-160) Total Protein 6.6g/dL (6.4-8.4) Albumin 3.2g/dL (3.4-5.0) Discharge Medications Discharge Medications Ascorbate Calcium (Vitamin C) 500 Mg Tablet 500 MG PO DAILY (Reported) Ceftaroline Fosamil Acetate (Teflaro) 600 Mg Vial 600 MG IV Q12H Prescribed by: MEETA FINNEY MD Cholecalciferol (Vitamin D3) (Vitamin D3) 5,000 Unit Capsule 5,000 UNIT PO DAILY (Reported) Fluticasone Propionate (Flonase Allergy Relief) 50 Mcg/Actuation [place].susp 1 SPRAY NASAL DAILY (Reported) Gabapentin (Gabapentin) 300 Mg Capsule 300 MG PO BID (Reported) AM, NOON Gabapentin (Gabapentin) 300 Mg Capsule 600 MG PO HS (Reported) 6PM Ketoconazole (Ketoconazole) 120 Ml Shampoo 1 APPLIC TP WEEKLY (Reported) Multivitamin (Multivitamins) 1 Each Capsule 1 EACH PO DAILY (Reported) Mupirocin Nasal Oint (Bactroban Nasal Oint) 1 Gm Oint...g. 1 APPLIC NASAL BID Prescribed by: DAWN VICK MD Polyethylene Glycol 3350 (Miralax) 17 Gm Powd.pack 17 GM PO DAILY Prescribed by: MEETA FINNEY MD Sennosides (Senna) 8.6 Mg Tablet 17.2 MG PO BID Prescribed by: MEETA FINNEY MD Sulfacetamide Sodium (Sodium Sulfacetamide) 10 % Clnsr.gel 1 APPLIC TP BID ( Reported) for rosacea As needed Docusate Sodium (Colace) 100 Mg Capsule 100 MG PO BID PRN PRN For Constipation Prescribed by: MEETA FINNEY MD Morphine Sulfate Oral Soln (Morphine Sulfate Oral Soln) 10 Mg/5 Ml Solution 5 MG PO TID PRN PRN For Pain Prescribed by: MEETA FINNEY MD Ondansetron ODT (Ondansetron ODT) 4 Mg Tab.rapdis 4 MG PO Q12H PRN PRN For Nausea Prescribed by: MEETA FINNEY MD Additional med instructions Your diuretics, Lasix, Aldactone were stopped given acute kidney injury, no compelling indications Please take morphine 5mg to 10mg as needed twice to four times per day for your pain Please also take Bowel regimen to prevent constipation Please avoid Oxycodone, which is likely related to your nausea Followup Plan Disposition: Home with home health Discharge Diet: Heart Healthy Discharge Activity: Home Health Phyical Therapy Patient Instructions You were hospitalized with acute kidney injuries from antibiotic, persistent pain with known osteomyelitis on her right wrist. Your kidney function got improved with supportive treatment. Antibiotic was switched to new one. Please note that you will be set up with home IV antibiotic infusion through the PICC line. Ceftaroline 600mg every 12hours through February 17, with weekly labs as written. Please follow-up with your primary doctor in 2 weeks You will follow up with infectious disease doctor on February 02. Follow-up Provider: Tata Doll MD Follow-up with PCP in: 2 weeks Time spent 65 minutes Meeta Finney MD January 22, 2017 12:10
--- NOTE | 2017-01-22 15:16 | NUR ---
Discharge To home via private vehicle with family. PICC line left in place for home IV antibiotics. Home infusion nurse did visit pt in hospital prior to discharge. Pt expresses understanding of all discharge instructions and carenotes, including meds and followup. All belongings sent with pt.
== END 2017-01-22 14:50 | disposition home health service (06) | DRG 699 ==
LOC: SED 14:33 → OSC 19:58
PROVIDERS: ADMIT Internal Medicine; ATTEND Internal Medicine
PROC: 4A033B1 Measurement of Arterial Pressure, Peripheral, Percutaneous Approach (ICD-10-PCS; principal; 2017-01-14)
PROC: 2W3CX1Z Immobilization of Right Lower Arm using Splint (ICD-10-PCS; 2017-01-21)
DX: N14.1 Nephropathy induced by other drugs, medicaments and biological substances (principal); E87.2 Acidosis; E87.1 Hypo-osmolality and hyponatremia; M86.131 Other acute osteomyelitis, right radius and ulna; N17.0 Acute kidney failure with tubular necrosis; T36.8X5A Adverse effect of other systemic antibiotics, initial encounter; K70.30 Alcoholic cirrhosis of liver without ascites; D72.1 Eosinophilia; R11.2 Nausea with vomiting, unspecified; J30.9 Allergic rhinitis, unspecified; M10.9 Gout, unspecified; I11.9 Hypertensive heart disease without heart failure; F10.21 Alcohol dependence, in remission; B95.62 Methicillin resistant Staphylococcus aureus infection as the cause of diseases classified elsewhere; D69.6 Thrombocytopenia, unspecified; Z88.6 Allergy status to analgesic agent; Z87.891 Personal history of nicotine dependence

== ENCOUNTER 2017-01-25 15:06 | Inpatient (IN) | payer MEDICARE, OTHER ==
[~2017-01-25] VITALS: Ht 167.6 cm; Wt 74.6 kg
[~2017-01-25 15:06] MED LIST changes: +CEFT600V IV; -CLIN-78 PO; +DOCU-41 PO; -FURO40TA4 PO; -LACT10SO27 PO; +MORP10SO PO; +ONDA4TAB12 PO; -OXYC-474 PO; +POLY17PO6 PO; -POTA10TA12 PO; +SENN-133 PO; -SPIR50TA2 PO; -VANC1PLA10 IV
[2017-01-25 15:10] VITALS: BP 130/63; PULSE 66; RESP 22; O2SAT 97
--- NOTE | 2017-01-25 15:49 | ED.REPORT ---
HPI-General Illness Date of Service January 25, 2017 ED Provider: Kvng Kessler MD This is a 71 year old male with history of HTN, alcoholic cirrhosis, PVD, anxiety and osteomyelitis of right forearm with home infusion of Ceftaroline through PICC line, who presents to [facility] ED accompanied by his daughter c/o generalized weakness, nausea, vomiting, diarrhea for the last three days. Patient has recently been hospitalized, 01/14-2016 with acute kidney injury due to Vancomycin toxicity. Patient had right forearm surgical debridement by Dr. Arora and was discharged on outpatient Vancomycin infusion. Shortly after he was found to have creatinine of 3 that led to his recent hospitalization. According yo his daughter, patient lives alone with his disabled and can not care for himself. She is visiting him daily and she reports that patient has been getting weaker and weaker over the last three days. He denies chest pain, shortness of breath, irregular heart palpitations. He reports diminished oral intake due to vomiting and nausea. Nursing Notes Stated Complaint: NOT FEELING WELL Chief Complaint: General Complaint Nursing Notes Reviewed: Yes Allergies: Coded Allergies: aspirin (Verified Allergy, Severe, GI BLEED, 01/25/17) daptomycin (Verified Allergy, Severe, Pulmonary toxicity, 01/25/17) colchicine (Verified Adverse Reaction, Severe, gi upset, 01/25/17) niacin (Verified Adverse Reaction, Severe, GI UPSET, 01/25/17) vancomycin (Verified Adverse Reaction, Severe, 01/25/17) Renal fiazwai-wivgor-qcfkhkr cautious dosing Uncoded Allergies: SEASONAL ALLERGIES (Allergy, Severe, ITCH/RASH, 10/13/16) Scheduled Ascorbate Calcium (Vitamin C) 500 Mg Tablet 500 MG PO DAILY Ceftaroline Fosamil Acetate (Teflaro) 600 Mg Vial 600 MG IV Q12H Cholecalciferol (Vitamin D3) (Vitamin D3) 5,000 Unit Capsule 5,000 UNIT PO DAILY Fluticasone Propionate (Flonase Allergy Relief) 50 Mcg/Actuation [place].susp 1 SPRAY NASAL DAILY Gabapentin (Gabapentin) 300 Mg Capsule 300 MG PO BIDBL Gabapentin (Gabapentin) 300 Mg Capsule 600 MG PO QPM Ketoconazole (Ketoconazole) 120 Ml Shampoo 1 APPLIC TP WEEKLY Multivitamin (Multivitamins) 1 Each Capsule 1 EACH PO DAILY Mupirocin Nasal Oint (Bactroban Nasal Oint) 1 Gm Oint...g. 1 APPLIC NASAL BID Polyethylene Glycol 3350 (Miralax) 17 Gm Powd.pack 17 GM PO DAILY Sennosides (Senna) 8.6 Mg Tablet 17.2 MG PO BID Sulfacetamide Sodium (Sodium Sulfacetamide) 10 % Clnsr.gel 1 APPLIC TP BID for rosacea Scheduled PRN Docusate Sodium (Colace) 100 Mg Capsule 100 MG PO BID PRN PRN For Constipation Morphine Sulfate Oral Soln (Morphine Sulfate Oral Soln) 10 Mg/5 Ml Solution 5 MG PO TID PRN PRN For Pain Ondansetron ODT (Ondansetron ODT) 4 Mg Tab.rapdis 4 MG PO Q12H PRN PRN For Nausea General Time Seen by MD: 15:48 Chief Complaint Diarrhea, Not feeling well, Vomiting Hx Obtained From: Patient, Daughter Arrived By: Walk-in Onset Occurred: 3 days ago Symptom Duration: Since onset Severity: Current: No pain currently Recent Healthcare: Recent hospitalization Past Medical History Past Medical History Alcoholic hepatic cirrhosis Anxiety Gout Venous stasis ulcer Thrombocytopenic disorder Past Surgical History Appendicitis Left Knee derangement Agent orange exposure Miltary serice [facility] Family History Noncontributory Smoking History Former Smoker Social History Alcohol Use: In recovery Drug Use: Denies drug use Other Social History: Good social support, Local resident Ambulatory Status Independent Review of Systems Full Review of Systems Constitutional: Reports: Chills, Fatigue, Lethargy, Malaise, Weakness - generalized, Denies: Fever Respiratory: Denies: Dyspnea on exertion Cardiovascular: Denies: Chest pain GI: Reports: Abdominal pain Male: Denies Dysuria, Denies Flank pain, Denies Incontinence Musculoskeletal: Denies: Back pain, Extremity pain, Extremity swelling Skin: Denies Diaphoresis, Denies Rash, Denies Swelling Neurologic: Denies: Focal weakness Physical Exam Vital Signs Vital Signs Date Time Temp Pulse Resp B/P Pulse Ox O2 Delivery O2 Flow Rate FiO2 01/25/17 17:30 62 17 147/61 97 Room Air 01/25/17 15:10 36.3 66 22 130/63 97 Room Air Initial VS: Reviewed, Vital signs normal General/Constitutional: Well-developed, Well-nourished Head / Eyes: Atraumatic, Normocephalic, PERRL ENT: Mucous membranes moist, Conjunctiva normal, No scleral icterus Neck: Supple, Non-tender, Full range of motion Respiratory: Breath sounds normal, Clear to auscultation, No respiratory distress Cardiovascular: Regular rate & rhythm, Heart sounds normal, Intact distal pulses Back: No CVA tenderness Lymphatic: No lymphadenopathy Extremities: Vascular intact, Neuro intact, No swelling, No tenderness Skin: Warm, Dry, No cyanosis Neurologic: Oriented, Nonfocal Psychiatric: Mood/affect normal Tenderness/Guarding/Rebound: Positive: Tender epigastric Interpretation & Diagnostics Lab Results Interpretation Result Diagram: 01/26/17 2210 01/26/17 0617 Test 01/25/17 16:25 Lactic Acid Level 1.5mmol/L (0.4-2.0) BMP / CMP Interpretation K+ low (3.1), Total bilirubin elevated (1.3), Lipase elevated (85) Re-Eval/Medical Decision Med Decision/Clinical Course This is a 71 year old male with history osteomyelitis of right forearm with home infusion of Ceftaroline through PICC line, presented to ED with generalized weakness, nausea, vomiting, diarrhea for the last three days. Patient lab work is significant for low potassium of 3.1 for which he received oral replacement. His creatinine and total billirubin around his baseline. He has elevated lipase of 85. He has received IV fluids. Patient's family reports patient's difficulty managing home antibiotic infusions. Patient case has been discussed with hospitalist, Dr Lopez, who agrees with the plan to admit the patient. Consultation : Requested Call at: 17:35 Hemming And Tacking Machine Operator: Agrees with plan, Accepts admit (Dr. Lopez) Discharge & Departure Shift Change Sign-Out Response to Therapy: Unchanged Primary Impression: Hypokalemia Additional Impressions: Vomiting Vomiting type: unspecified Vomiting Intractability: unspecified Nausea presence: with nausea Qualified Code: R11.2 - Nausea with vomiting, unspecified Diarrhea Diarrhea type: unspecified type Qualified Code: R19.7 - Diarrhea, unspecified Disposition: ADMITTED TO HOSPITAL Discharge Condition Condition: Stable Referrals: Tata Doll MD (PCP) EDSupervising Provider for APC: Kvng Kessler MD Attending Statement Attending attestation: I saw this patient in conjunction with the above named resident. I was present for all soriano portions of the history taking and physical examination. I agree with the workup, evaluation, treatment and disposition. Kvng Kessler MD copies to: Tata Doll MD,Kvng Richardson MD January 25, 2017 15:48 Clare Sequeira DO January 25, 2017 17:27 Carbon Dioxide Level 20mmol/L (18-29) Blood Urea Nitrogen 13mg/dL (8-27) Creatinine 1.35mg/dL (0.76-1.27) Estimat Glomerular Filtration Rate 56mL/min (>59) Glucose Level 102mg/dL (60-99) Lactic Acid Level 1.5mmol/L (0.4-2.0) Calcium Level 9.3mg/dL (8.5-10.1) Total Bilirubin 1.3mg/dL (0.0-1.2) Aspartate Amino Transf (AST/SGOT) 25U/L (0-50) Alanine Aminotransferase (ALT/SGPT) 9U/L (0-44) Alkaline Phosphatase 60U/L (25-160) Total Protein 7.4g/dL (6.4-8.4) Albumin 3.4g/dL (3.4-5.0) Lipase 85U/L (13-60) BMP / CMP Interpretation K+ low (3.1), Total bilirubin elevated (1.3), Lipase elevated (85) Re-Eval/Medical Decision Med Decision/Clinical Course This is a 71 year old male with history osteomyelitis of right forearm with home infusion of Ceftaroline through PICC line, presented to ED with generalized weakness, nausea, vomiting, diarrhea for the last three days. Patient lab work is significant for low potassium of 3.1 for which he received oral replacement. His creatinine and total billirubin around his baseline. He has elevated lipase of 85. He has received IV fluids. Patient's family reports patient's difficulty managing home antibiotic infusions. Patient case has been discussed with hospitalist, Dr Lopez, who agrees with the plan to admit the patient. Consultation : Requested Call at: 17:35 Hemming And Tacking Machine Operator: Agrees with plan, Accepts admit (Dr. Lopez) Discharge & Departure Shift Change Sign-Out Response to Therapy: Unchanged Primary Impression: Hypokalemia Additional Impressions: Vomiting Vomiting type: unspecified Vomiting Intractability: unspecified Nausea presence: with nausea Qualified Code: R11.2 - Nausea with vomiting, unspecified Diarrhea Diarrhea type: unspecified type Qualified Code: R19.7 - Diarrhea, unspecified Disposition: ADMITTED TO HOSPITAL Discharge Condition Condition: Stable Referrals: Tata Doll MD (PCP) EDSupervising Provider for APC: Kvng Kessler MD copies to: Tata Doll MD, Beck O MD January 25, 2017 15:48 Clare Sequeira DO January 25, 2017 17:27
[2017-01-25 16:31] LABS: BASOPHILS % (AUTO) 0.4 % (0-3); EOSINOPHILS % (AUTO) 0.8 % (0-5); MONOCYTES % (AUTO) 8.3 % (4-12); Mean Corpuscular Hemoglobin 28.9 pg (27.0-35.0); Mean Corpuscular Volume 85.8 fL (81-100); NEUTROPHILS % (AUTO) 75.2 % (40-74); Platelet Count 128 bil/L (150-400)
[2017-01-25] MEDS ORDERED: 0.9% Sodium Chloride 500 ML IV ONE (17:20)
[2017-01-25 17:30] VITALS: BP 147/61; PULSE 62; RESP 17; O2SAT 97
--- NOTE | 2017-01-25 17:35 | DRSVH ---
PROCEDURE: X-RAY CHEST ONE VIEW, PORTABLE ([id number]) INDICATIONS: cough TECHNIQUE: One view of the chest was acquired. COMPARISON: [facility], CR, XR CHEST 1VW (PORTABLE), 01/04/2017, 5:53. FINDINGS: Surgical changes and devices: Left PICC tip in the upper SVC. Lungs and pleura: No pleural effusions or pneumothorax. Right apical scarring otherwise the lungs ar e clear. Mediastinum: Mediastinal contours appear normal. Heart size is normal. Bones and chest wall: No suspicious bony lesions. Overlying soft tissues appear unremarkable. IMPRESSION: Stable left PICC. Otherwise normal chest. Dictated by: Geraldo Garcia M.D. on 01/25/2017 at 17:26 Approved by: Geraldo Garcia M.D. on 01/25/2017 at 17:28
[2017-01-25] MEDS ORDERED: Potassium Chloride 20 mEq SR Tablet PO ONE ×2 (17:45→17:55)
[2017-01-25] MEDS: 0.9% Sodium Chloride 1,000 ML IV SCH (17:49)
[2017-01-25] MEDS ORDERED: Polyethylene Glycol (PEG) 17 Gm Powder PO PRN (17:50)
[2017-01-25] MEDS ORDERED: Alum-Mag Hydrox-Simeth 30 mL Suspension PO PRN (17:50)
[2017-01-25] MEDS ORDERED: CEFTAROLINE 600 MG IV SCH (17:55)
[2017-01-25] MEDS ORDERED: Potassium Chloride Inj 20 MEQ in Dextrose 5% 250 ML IV ONE (17:55)
--- NOTE | 2017-01-25 17:55 | PCM.HPMED ---
Subjective Date of Service January 25, 2017 Primary Provider: Admitting Physician: Balta Lopez MD Primary Care Physician: Tata Doll MD Attending Physician: Balta Lopez MD Admit Status: From the Emergency Department Chief Complaint: Diarrhea/one day Nausea and vomiting History of Present Illness: Background history 71-year-old gentleman with past medical history of hypertension, cirrhosis, PVD , anxiety currently on treatment for MRSA osteomyelitis of right wrist was discharged on 01/22 after being admitted on 01/14 due to acute kidney failure secondary to combination of poor oral intake, use of Lasix and Aldactone for his history of ascites/cirrhosis and concurrent IV vancomycin use for right wrist osteomyelitis. On last admission he presented with creatinine of 3.58 and vancomycin level of 41. Lasix and Aldactone was discontinued, IV fluids given, vancomycin switched to Ceftarolin and patient eventually improved and discharged with creatinine of 1.64 on 01/22. He also had another admission prior to his recent admission at beginning of this month for right wrist MRSA cellulitis/osteomyelitis and underwent I&D on 01/10 and was discharged on vancomycin. 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 He also has nausea and an episodes of vomiting. He continued to have diarrhea today and was brought in to ED. He and his daughter at bedside also state they have been overwhelmed by his bid IV antibiotic infusion at home. Daughter states she is able to give him only night time doses since she works during the day. She called him yesterday during the day to ask if he is taking his IV antibiotics and he told her he is overwhelmed with instructions and timing of taking the medication from refrigerator and putting it in room temperature before using it and not taking it. Patient and daughter state managing his prolonged IV antibiotics for 2 episodes of osteomyelitis is overwhelming them. Denies fever. Denies abdominal pain. daughter called PCP and was advised to take him to ED ED course : Vitals unremarkable. Exam unremarkable. Hypokalemia 3.1, creatinine 1.35( improved from discharge), lactate 1.5,tbili 1.3, lipase 85 Stool for C. difficile requested an admission requested for diarrhea Review of Systems: Comprehensive review of systems performed, pertinent positives and negatives included in history of present illness Allergies Coded Allergies: aspirin (Verified Allergy, Severe, GI BLEED, 01/14/17) daptomycin (Verified Allergy, Severe, Pulmonary toxicity, 01/14/17) colchicine (Verified Adverse Reaction, Severe, gi upset, 01/14/17) niacin (Verified Adverse Reaction, Severe, GI UPSET, 01/14/17) vancomycin (Verified Adverse Reaction, Severe, 01/17/17) Renal nxrvkxk-xplagq-eukdetu cautious dosing Uncoded Allergies: SEASONAL ALLERGIES (Allergy, Severe, ITCH/RASH, 10/13/16) Home Medications From recent discharge summary Ascorbate Calcium (Vitamin C) 500 Mg Tablet 500 MG PO DAILY (Reported) Ceftaroline Fosamil Acetate (Teflaro) 600 Mg Vial 600 MG IV Q12H Prescribed by: KOKI FINNEY MD Cholecalciferol (Vitamin D3) (Vitamin D3) 5,000 Unit Capsule 5,000 UNIT PO DAILY (Reported) Fluticasone Propionate (Flonase Allergy Relief) 50 Mcg/Actuation [place].susp 1 SPRAY NASAL DAILY (Reported) Gabapentin (Gabapentin) 300 Mg Capsule 300 MG PO BID (Reported) AM, NOON Gabapentin (Gabapentin) 300 Mg Capsule 600 MG PO HS (Reported) 6PM Ketoconazole (Ketoconazole) 120 Ml Shampoo 1 APPLIC TP WEEKLY (Reported) Multivitamin (Multivitamins) 1 Each Capsule 1 EACH PO DAILY (Reported) Mupirocin Nasal Oint (Bactroban Nasal Oint) 1 Gm Oint...g. 1 APPLIC NASAL BID Prescribed by: BALTA LOPEZ MD Polyethylene Glycol 3350 (Miralax) 17 Gm Powd.pack 17 GM PO DAILY Prescribed by: KOKI FINNEY MD Sennosides (Senna) 8.6 Mg Tablet 17.2 MG PO BID Prescribed by: KOKI FINNEY MD Sulfacetamide Sodium (Sodium Sulfacetamide) 10 % Clnsr.gel 1 APPLIC TP BID ( Reported) for rosacea As needed Docusate Sodium (Colace) 100 Mg Capsule 100 MG PO BID PRN PRN For Constipation Prescribed by: KOKI FINNEY MD Morphine Sulfate Oral Soln (Morphine Sulfate Oral Soln) 10 Mg/5 Ml Solution 5 MG PO TID PRN PRN For Pain Prescribed by: KOKI FINNEY MD Ondansetron ODT (Ondansetron ODT) 4 Mg Tab.rapdis 4 MG PO Q12H PRN PRN For Nausea Prescribed by: KOKI FINNEY MD [facility] History of cirrhosis Recurrent right wrist MRSA osteomyelitis Surgical History Recent right wrist debridement, appendectomy, nerve surgery on the inner thigh Family History Son with diabetes Social History Hx Alcohol Use: Yes (hx of alcoholism) Hx Substance Use: No Hx Tobacco Use: Yes (quit 1975) Smoking Status: Former Smoker Exam Vital Signs Vital Sign - Last Date Time Temp Pulse Resp B/P Pulse Ox O2 Delivery O2 Flow Rate FiO2 01/25/17 15:10 36.3 66 22 130/63 97 Room Air Exam Gen. patient is lying comfortably in hospital bed HEENT: Head is normocephalic atraumatic, Pupils equal and reactive, extraocular movements intact, Lungs clear to auscultation bilaterally Heart regular rate and rhythm without murmurs gallops or rubs Abdomen soft nontender without hepatosplenomegaly Extremities pulses are present dorsalis pedis posterior tibialis and radial. right wrist slightly tender Psych alert and oriented to person place and time Neuro cranial nerves II through XII are grossly intact Lymph: There is no lymphadenopathy appreciated in the cervical supra infraclavicular regions : no redd Lab and Diagnostics Result Diagram: 01/25/17 1625 01/25/17 1625 Assessment & Plan 71-year-old gentleman with past medical history of hypertension, cirrhosis, PVD , anxiety currently on treatment for MRSA osteomyelitis of right wrist came with diarrhea # Acute watery diarrhea -NS at 100ml/h -Stool for C. difficile sent. will start empiric vancomycin po while awaiting results -zofran prn for nausea # Hyperkalemia -Due to diarrhea -Repleted # Recent right wrist MRSA osteomyelitis -Continue ceftaroline for now -notify Dr Drew in am of patient's admission # Recent KERLINE -Creatinine improved from discharge but not at baseline yet # History of cirrhosis -Aldactone and Lasix recently discontinued -No ascites on physical exam -Remain discontinued -Elevated bilirubin noted, patient has on and off high Tbili # Elevated lipase -Pancreatitis unlikely, no abdominal pain or tenderness. Consider CT abdomen if no improvement by tomorrow # HTN -Continue medications full code Patient admitted under inpatient status with expected length of stay > 2 midnights for severity of present symptoms, complexities of treatment plan and risk for adverse events Disposition: Patient may need to be discharged to longterm facility as he seems not capable of taking IV abx Pain Evaluation: Adequate Pain Control copies to: Tata Doll MD, Melaku MD January 25, 2017 17:55
[2017-01-25 18:20] VITALS: BP 161/72; PULSE 63; RESP 19; O2SAT 98
--- NOTE | 2017-01-25 18:21 | NUR ---
admit pt transferred from ED to [facility] via [facility]. pt was transferred to bed by transporter, DIRECTOR MARKET RESEARCH, and RN. pt's line was caught on edge of the bed and was tugged, some discomfort felt by patient. pt states that his ankles are healing from an old wound and are sensitive to the touch. pt denies CP, pain, or distress. pt has active diarrhea and states that he feels slightly nauseated. waiting on orders
[2017-01-25 18:26] VITALS: PULSE 66
[2017-01-25] MEDS ORDERED: Magnesium Sulf 2 Gm/50mL Water 2 GM in IV Premix 1 EACH IV ONE (18:35)
[2017-01-25] MEDS ORDERED: Sodium Chloride LOK Flush 10 mL Syringe IVFLUSH PRN ×2 (19:45)
[2017-01-25] MEDS: Ondansetron 2 mg/mL 2 mL Inj IVPUSH PRN ×2 (19:46→21:45)
[2017-01-25 20:00] VITALS: PULSE 70
[2017-01-25] MEDS: Mupirocin 2% 22 Gm Ointment NASAL SCH (20:30)
[2017-01-25] MEDS: SULFACETAMIDE SODIUM 10% TOPICAL SCH (20:30)
--- NOTE | 2017-01-25 21:24 | NUR ---
GI: pt. was nauseas, retching, had bile colored emesis 200cc, pt. given 4mg iv zofran, nausea improved, brief changed for small amount diarrhea, pt. resting now, still wants to hold off on his po evening meds. Pt. states his GI sx started on tuesday
[2017-01-25] MEDS: Vancomycin 125 mg Oral Capsule PO SCH (21:30)
[2017-01-25 21:35] VITALS: BP 147/56; PULSE 66; RESP 16; O2SAT 95
[2017-01-25] MEDS: Ceftaroline 600 mg/250 mL D5W IV SCH ×2 (23:47)
[2017-01-26] MEDS: Ondansetron 2 mg/mL 2 mL Inj IVPUSH PRN ×3 (00:06→20:28)
[2017-01-26] MEDS: HYDROmorphone 1 mg/mL Inj IVPUSH PRN ×3 (00:34→20:51)
[2017-01-26 02:07] VITALS: BP 122/52; PULSE 60; RESP 17; O2SAT 96
[2017-01-26] MEDS: 0.9% Sodium Chloride 1,000 ML IV SCH (02:32)
[2017-01-26 06:16] VITALS: BP 141/63; PULSE 64; RESP 16; O2SAT 97
[2017-01-26 06:37] LABS: BASOPHILS % (AUTO) 0.3 % (0-3); EOSINOPHILS % (AUTO) 1.2 % (0-5); MONOCYTES % (AUTO) 9.4 % (4-12); Mean Corpuscular Hemoglobin 28.6 pg (27.0-35.0); Mean Corpuscular Volume 86.4 fL (81-100); NEUTROPHILS % (AUTO) 73.8 % (40-74); Platelet Count 119 bil/L (150-400)
--- NOTE | 2017-01-26 06:45 | NUR ---
: pt. had not voided in brief, bladder scanned for 597, hospitalist paged, ok to place redd for retention, pt. then felt urge to void and went 350cc in urinal.
[2017-01-26] MEDS: Polyethylene Glycol (PEG) 17 Gm Powder PO SCH (08:29)
[2017-01-26] MEDS: SULFACETAMIDE SODIUM 10% TOPICAL SCH ×2 (08:30→20:30)
[2017-01-26] MEDS: Vancomycin 125 mg Oral Capsule PO SCH ×4 (08:30→21:50)
[2017-01-26] MEDS: Mupirocin 2% 22 Gm Ointment NASAL SCH ×2 (08:31→21:50)
[2017-01-26] MEDS: Ascorbic Acid 500 mg Tablet PO SCH (08:31)
[2017-01-26] MEDS: Ceftaroline 600 mg/250 mL D5W IV SCH ×4 (08:32→16:53)
[2017-01-26] MEDS: Fluticasone 0.05% 15 Spray/2 Gm 16 Gm Nasal Spray NASAL SCH (08:35)
[2017-01-26 10:47] VITALS: PULSE 62
[2017-01-26 11:18] VITALS: BP 138/57; PULSE 56; RESP 18; O2SAT 96
--- NOTE | 2017-01-26 11:24 | PROG NOTE ---
[address] [address] PROGRESS NOTE PATIENT: BON CUNHA : 1945 MR#: [id number] ADMIT: 01/25/2017 JOB ID: [id number] DATE: 01/26/2017 INFECTIOUS DISEASE FOLLOW UP NOTE: REASON FOR FOLLOWUP: Readmission for GI symptoms. HISTORY OF PRESENT ILLNESS: Recall this is the incredibly complicated 71-year-old alcoholic gentleman whose alcoholism is now in remission but who has advanced cirrhosis. He was admitted to this facility three months ago or so with a severe MRSA septic wrist with osteomyelitis and bone destruction. He had a remarkable recovery with daptomycin following debridement by Dr. Arora and recovered almost all function in his wrist. 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 He finished his first course of therapy uneventfully and did well for a month at home throughout the month of December only to be readmitted near the end of December with recurrent right wrist MRSA osteomyelitis. This was again debrided by Dr. Arora and there was considerable bone and tissue destruction the second time. Following the second debridement, the patient was started on IV vancomycin and after making sure that his blood levels were well controlled, the patient was sent home only to return four days later with renal failure. During the admission which ended last week, the patient was carefully monitored and switched to ceftaroline for treatment of his MRSA osteo. His creatinine gradually improved and he was finally ready to go home a few days ago on ceftaroline 600 mg IV q.12 hours with a plan of continuous ceftaroline through February 17. Unfortunately the patient has only been home a couple days and he has developed severe nausea, anorexia, vomiting and diarrhea. All of these GI symptoms led him back to the hospital. He had no fevers or chills, however, and notes that his wrist is not any worse and in fact continues to slowly improve. He has not had pulmonary symptoms and he denies headache, sore throat, cough or chest pain. He notes that, in addition to the nausea, vomiting, diarrhea and anorexia, he and his family have had a lot of trouble giving the ceftaroline twice a day and he has mostly been getting it just once a day since his discharge home. He was admitted by Dr. Lopez last night who has kindly asked me to review his case again today. PHYSICAL EXAMINATION: Reveals an afebrile gentleman, temperature 36.7, pulse 64, respiratory rate 16, blood pressure 141/63. He is saturating 97% on room air. He is awake, alert and in no acute distress. Eyes without scleral icterus today. Oral cavity benign. Lungs relatively clear. Cardiac tones without new murmur. PICC line is present in the left upper extremity and looks benign. Abdomen without hepatosplenomegaly or obvious ascites. It is relatively nontender. No skin rashes noted. His right wrist dressing was removed. He has about a 9 cm long healing wound over his dorsal distal forearm and wrist. There is no evidence of inflammation or infection of that site. LABORATORIES: Include a white count today 9400, platelet count 119,000. Creatinine 1.04. ALT and AST are normal. Lipase slightly elevated at 77. Micro studies have not been done on this admission but a C difficile PCR has been ordered and it has not yet been received in the lab. IMPRESSION: This is an extremely difficult case of a gentleman who was apparently successfully treated for severe MRSA osteo of the right wrist and forearm with dapto earlier this year in October and November only to recur for at the end of December after he had been off therapy and apparently "cured" for one month. He was then restarted on vanco, but developed renal failure, and for that reason, has now been transitioned to ceftaroline. He was only sent home three days ago and now is back with intractable nausea, vomiting, anorexia and diarrhea. There has also been issues with taking his ceftaroline twice a day as prescribed. Whether or not his nausea, vomiting and diarrhea are due to ceftaroline, which did not seem to be a problem in the hospital when he first started it, or is due to some intercurrent problems such as C difficile colitis or perhaps an acquired viral gastroenteritis remains unclear. RECOMMENDATIONS: 1. Will continue with ceftaroline 600 mg IV q.12 hours. 2. We will await the results of the PCR study. 3. I think this patient will need to be placed in a fdc through February 17 to complete his course of ceftaroline or whatever other antibiotic we may be forced to switch to as I do not see that this is going to work out well for him at home having been readmitted twice now after stays of only 3-4 days each time at home before complications ensued. It seems as if he and his family are not able to give a q.12 hour drug though they were able to give a once a day drug at home.
--- NOTE | 2017-01-26 15:11 | NUR ---
Social Work- Initial Assessment Data: See Initial Assessment. Pt is a 71 year old male admitted 01/25/17 for hypokalemia, lipase delgado per H&P. Pt is a recent readmit, last d/c 01/22/2017. Pt's insurance is [employer] and [employer]. Pt's PCP is Tata Doll MD. NOKalyan is Ana María Potts, . Readmit risk score is 3, high risk. SW met with pt at bedside regarding discharge plan, SW role explained. Pt alert and oriented x3. Pt resides in [place] with his and remains independent at baseline. Pt uses a cane and walker at baseline, continues to drive but noted that he hasn' t been driving lately due to being in poor health. According to SW notes from last visit pt is open with [facility] for RN/PT/OT. After last hospitalization pt went home with [facility] for IV abx. T/C to [facility] and [facility] regarding pt's hospitalization, access provided. Pt has no LT insurance or VA benefits. Pt has history at [facility]. Pt stated he believes he needs to go to SNF as he didn't do well with home IVABX. ID is following [facility] to follow recommendations closely regarding IV abx type and course. Pt reports he is working to complete DPOA/Advance Care Directive paperwork and will provide hospital with a copy when completed. SW is awaiting orders from MD re: HH vs SNF and ID re: IVABX. SW will continue to follow. Assessment: Pt who is open with [facility] and [facility] for IV abx. Plan: ID is following [facility] to follow recommendations closely regarding IV abx type and course and MD orders re: HH vs SNF, SW will continue to follow. URIEL Milan Addendum: 01/26/17 at 1522 by ARLENE THEODORE Amended: Links added.
--- NOTE | 2017-01-26 16:35 | PCM.PNMED ---
Subjective Date of Service January 26, 2017 Subjective Denies any new issues/complaints. says feeling better and diarrhea seems to be improving Exam Vital Signs Vital Sign - Last Date Time Temp Pulse Resp B/P Pulse Ox O2 Delivery O2 Flow Rate FiO2 01/26/17 11:18 36.8 56 18 138/57 96 Room Air Intake and Output 01/25/17 01/25/17 01/26/17 Cumulative From/Thru 15:00 23:00 07:00 01/25/17 15:10 - 01/26/17 06:16 Intake Total 1273 ml 1273 ml Output Total 460 ml 460 ml Balance 813 ml 813 ml Intake Oral 100 ml 100 ml IV Total 1173 ml 1173 ml Output Urine Total 360 ml 360 ml Emesis 100 ml 100 ml # Bowel Movements 1 1 General: Alert, Cooperative, No Acute Distress Head: Normal Eyes: Scleral Anicteric Nose: Mucous Membr Moist/[place] Mouth: Mucous Membr Moist/[place] Neck: Supple Chest & Lungs: Chest Wall Normal, Clear to auscultation & percussion Cardiovascular: Regular Rate/Rhythm Abdomen: Non-tender, Non-distended, Normoactive bowel tones, Soft Extremities: No cyanosis/clubbing/edma bilat Neurological: Grossly Neurologically Intact, Normal Speech IVs and Medications Medications Reviewed: Medications were reviewed in detail Lab and Diagnostics Result Diagram: 01/26/1761601/26/17616 Assessment & Plan 71-year-old gentleman with past medical history of hypertension, cirrhosis, PVD , anxiety currently on treatment for MRSA osteomyelitis of right wrist came with diarrhea # Acute watery diarrhea, present on admission. Improving - Followup pending stool PCR - Continue with supportive care # Acute Hypokalemia, present on admission. Improved - Replete and followup # Recent right wrist MRSA osteomyelitis, present on admission and ongoing. - Appreciate ID consult. Will followup with recommendations - Continue IV Ceftaroline for now # Acute kidney injury, present on admission. Resolved - Continue with hydration and followup # History of cirrhosis - Aldactone and Lasix recently discontinued - No ascites on physical exam # Elevated lipase - Pancreatitis unlikely, no abdominal pain or tenderness. - Consider CT abdomen if no improvement by tomorrow # HTN, chronic. stable - Continue medications Dispo: ? SNF in 1-2 days Clifton Blakely January 26, 2017 16:35
--- NOTE | 2017-01-26 17:12 | NUR ---
Nausea/GI: Patient has been nauseated today. IV nausea MED was given before patients pills and meals which has been effective in controlling the nausea. Patient continues to be on oral vancomycin. He had one BM early this morning. He has had no diarrhea today.Stool sample will be sent to the lab when patient has next BM (for C diff test ordered by ).
[2017-01-26 17:36] VITALS: BP 132/67; PULSE 57; RESP 18; O2SAT 97
[2017-01-26 21:24] VITALS: BP 112/49; PULSE 60; RESP 17; O2SAT 94
[2017-01-27] VITALS (9 sets, daily range): BP systolic 92–121; BP diastolic 42–57; PULSE 63–95; RESP 12–20; O2SAT 94–95
[2017-01-27] MEDS: Ondansetron 2 mg/mL 2 mL Inj IVPUSH PRN ×5 (01:23→20:28)
[2017-01-27] MEDS: HYDROmorphone 1 mg/mL Inj IVPUSH PRN ×5 (01:23→20:28)
[2017-01-27] MEDS: 0.9% Sodium Chloride 1,000 ML IV SCH ×3 (02:37→20:33)
--- NOTE | 2017-01-27 05:30 | NUR ---
GI symptoms Pt complaining of increasing nausea and abdominal pain 02/12. Administered Zofran and dilaudid as ordered. Pain relieved and nausea decreased. Burgundy, liquid stools. Notified MD. Collected stool culture and guaiac. Orders received for H&H.
[2017-01-27] MEDS: Vancomycin 125 mg Oral Capsule PO SCH (06:07)
[2017-01-27] MEDS: Ceftaroline 600 mg/250 mL D5W IV SCH ×4 (06:08→16:00)
--- NOTE | 2017-01-27 07:21 | NUR ---
bloody stool Pt had less bloody diarrhea in the reminder of the shift. H/H drawn Q4hrs. dilaudid and Zofran given per pt's request for nausea and abdominal pain with good relief.
[2017-01-27] MEDS ORDERED: KCl 40 mEq/D5W 500 mL 40 MEQ in IV Premix 500 EACH IV ONE (08:19)
[2017-01-27] MEDS: Polyethylene Glycol (PEG) 17 Gm Powder PO SCH (08:30)
[2017-01-27] MEDS: Fluticasone 0.05% 15 Spray/2 Gm 16 Gm Nasal Spray NASAL SCH (08:30)
[2017-01-27] MEDS: SULFACETAMIDE SODIUM 10% TOPICAL SCH ×2 (08:30→20:30)
[2017-01-27 08:42] LABS: BASOPHILS % (AUTO) 0.4 % (0-3); EOSINOPHILS % (AUTO) 4.9 % (0-5); MONOCYTES % (AUTO) 10.6 % (4-12); Mean Corpuscular Volume 83.8 fL (81-100); Platelet Count 115 bil/L (150-400)
--- NOTE | 2017-01-27 09:56 | PROG NOTE ---
[address] [address] PROGRESS NOTE PATIENT: BON CUNHA : 1945 MR#: [id number] ADMIT: 01/25/2017 JOB ID: [id number] DATE: 01/27/2017 REASON FOR FOLLOWUP: MRSA osteomyelitis right forearm with multiple complications of medicines including daptomycin induced eosinophilic pneumonia, vanco induced renal failure, and now apparently ceftaroline induced nausea and vomiting with diarrhea. INTERVAL HISTORY: The patient states that overnight he has been free of fevers, chills, or sweats. He has no significant pain in his right forearm which seems to be healing fairly well. No cough or shortness of breath, but he does have rather severe ongoing nausea and vomiting which are made better by symptomatic therapies and frequent loose stools. He has not received any antimotility agents for loose stools because we have been ruling out C. diff. PHYSICAL EXAMINATION: Reveals a comfortable afebrile gentleman. Temp 36.6, pulse 72, respiratory rate 16, blood pressure 94/42. He is saturating well on room air. He is in no acute distress. His oral cavity negative. Lungs fairly clear. Cardiac tones without new murmur. No obvious ascites. The abdomen is soft, basically nontender. His right wrist was examined yesterday it looks uninfected. LABORATORIES: Include white count 7900 today, platelets 115 which is normal for him. Creatinine 0.81. Micro studies include the stool studies which just came back for multiplex PCR. They are completely negative. A stool for occult blood however was positive there were reports yesterday of maroon-colored blood. 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 He was being treated initially with daptomycin developed eosinophilic lung syndrome. He was subsequently switched to vancomycin and after these levels were carefully adjusted here in the hospital he went home only to return 4 days later with acute renal failure. He was discharged the second time and now has been readmitted with nausea, vomiting, and diarrhea. We have no clear source for the nausea, vomiting, and diarrhea. I am suspect that it could be due to the ceftaroline. Gastrointestinal side effects are well reported, but are fairly infrequent with ceftaroline but this patient has not been frank with antibiotics so far, and I think that this is probably yet another antibiotic related complication. Given the lack of available parenteral IV therapies for methicillin resistant Staphylococcus aureus for this patient I think our best bet is to try and push on a bit with the ceftaroline if we can using antiemetics and antidiarrheal agents. RECOMMENDATIONS: 1. I would try to continue with ceftaroline 600 q.12 through February 17 which is our goal for the end of therapy. 2. Given the negative PCR studies I think we can add antimotility agents such as Imodium or Lomotil to his regimen. 3. The patient's frailty and problems with home antibiotics as well as many complications of antibiotics have led me to recommend that the patient plans on spending the rest of his time in a senior care facility. Note that the ceftaroline should be done on February 17 and at that time, he should definitely be switched to an oral lifelong suppressive regimen. Thank you very much.
[2017-01-27] MEDS: Mupirocin 2% 22 Gm Ointment NASAL SCH ×2 (10:23→20:34)
[2017-01-27] MEDS: Ascorbic Acid 500 mg Tablet PO SCH (10:23)
[2017-01-27] MEDS ORDERED: Vancomycin 125 mg Oral Capsule PO SCH (14:30)
--- NOTE | 2017-01-27 15:16 | PCM.PNMED ---
Subjective Date of Service January 27, 2017 Subjective Denies any new issues/complaints. says feeling better and diarrhea seems to be improving. per nursing report overnight patient noted to have bloody bowel movement. patient says he has not been paying any attention to his stools Exam Vital Signs Vital Sign - Last Date Time Temp Pulse Resp B/P Pulse Ox O2 Delivery O2 Flow Rate FiO2 01/27/17 14:36 36.6 67 14 112/57 95 Room Air Intake and Output 01/26/17 01/26/17 01/27/17 Cumulative From/Thru 15:00 23:00 07:00 01/25/17 15:10 - 01/27/17 05:54 Intake Total 1385 ml 1348 ml 4006 ml Output Total 450 ml 725 ml 1635 ml Balance 935 ml 623 ml 2371 ml Intake Oral 360 ml 200 ml 660 ml IV Total 1025 ml 1148 ml 3346 ml Output Urine Total 450 ml 725 ml 1535 ml Emesis 100 ml # Bowel Movements 4 5 Exam General: Alert, Cooperative, No Acute Distress Head: Normal Eyes: Scleral Anicteric Nose: Mucous Membr Moist/[place] Mouth: Mucous Membr Moist/[place] Neck: Supple Chest & Lungs: Chest Wall Normal, Clear to auscultation bilat Cardiovascular: Regular Rate/Rhythm Abdomen: Non-tender, Non-distended, Normoactive bowel tones, Soft Extremities: No cyanosis/clubbing/edema bilat Neurological: Grossly Neurologically Intact, Normal Speech IVs and Medications Medications Reviewed: Medications were reviewed in detail Lab and Diagnostics Result Diagram: 01/27/17 0545 01/27/17 0230 Assessment & Plan 71-year-old gentleman with past medical history of hypertension, cirrhosis, PVD , anxiety currently on treatment for MRSA osteomyelitis of right wrist came with diarrhea # Acute watery diarrhea, present on admission. Improving - Stool PCR negative3 - Continue with supportive care # Acute Hypokalemia, present on admission. Improved - Replete and followup # Recent right wrist MRSA osteomyelitis, present on admission and ongoing. - Appreciate ID consult. Will followup with recommendations - Continue with ceftaroline 600 q.12 through February 17. "Ceftaroline should be done on February 17 and at that time, he should definitely be switched to an oral lifelong suppressive regimen." # Acute GI bleed. not present on admission - Stool guaiac positive. - Followup repeat H/H and if further drop will consider GI consult. # Acute kidney injury, present on admission. Resolved - Continue with hydration and followup # History of cirrhosis - Aldactone and Lasix recently discontinued - No ascites on physical exam # Elevated lipase - Pancreatitis unlikely, no abdominal pain or tenderness. - Consider CT abdomen if no improvement by tomorrow # HTN, chronic. stable - Continue medications Dispo: ? SNF in 1-2 days Clifton Blakely January 27, 2017 15:16
--- NOTE | 2017-01-27 16:24 | NUR ---
Gave access and faxed facesheet to [facility] and Padmini Hussein per BENCH SCIENTIST
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
--- NOTE | 2017-01-27 18:33 | NUR ---
Diarrhea: Patient has had several loose burgundy stools today. MD aware of this information. Patient has received IV Zofran for nausea and IV Dilaudid for general pain with good relief. His brief was changed as needed after each incontinent episodes and his skin was coated with barrier cream to protect it from excoriation. Patients Stool culture results were negative for C Diff .
[2017-01-27] MEDS ORDERED: Pantoprazole 4 mg/mL 10 mL Inj IVPUSH ONE (22:45)
[2017-01-28] VITALS (15 sets, daily range): BP systolic 90–150; BP diastolic 42–60; PULSE 61–68; RESP 16–18; O2SAT 93–96
[2017-01-28] MEDS: HYDROmorphone 1 mg/mL Inj IVPUSH PRN ×2 (00:35→10:02)
[2017-01-28] MEDS: Ondansetron 2 mg/mL 2 mL Inj IVPUSH PRN ×2 (00:36→10:09)
--- NOTE | 2017-01-28 02:45 | NUR ---
Diarrhea: Patient has had several loose burgundy stools during shift. Continues to complaint of nausea and stomach pain "6" out of 10. Pt reports soreness in throat from "stomach acid." Administered Zofran for nausea and Dilaudid for pain. MD notified. New order: Protonix, one time order, NS 250 bolus and stat HH. MD notified of when labs resulted. No new orders at this time. Pt states, "stomach feeling a little better" after taking Protonix. Barrier cream applied to skin to prevent breakdown. Call light within reach, using appropriately. Pleasant and cooperative with care.
[2017-01-28] MEDS: Ceftaroline 600 mg/250 mL D5W IV SCH ×4 (05:09→19:30)
[2017-01-28 06:21] LABS: Mean Corpuscular Hemoglobin 28.9 pg (27.0-35.0); Mean Corpuscular Volume 83.6 fL (81-100)
[2017-01-28 07:54] LABS: INR 1.24 ratio
[2017-01-28] MEDS: SULFACETAMIDE SODIUM 10% TOPICAL SCH ×2 (08:30→20:30)
[2017-01-28] MEDS: Polyethylene Glycol (PEG) 17 Gm Powder PO SCH (08:30)
[2017-01-28 08:37] LABS: Magnesium 1.5 mg/dL (1.6-2.6)
[2017-01-28] MEDS: Fluticasone 0.05% 15 Spray/2 Gm 16 Gm Nasal Spray NASAL SCH (10:09)
[2017-01-28] MEDS ORDERED: 0.9% Sodium Chloride 250 ML IV ONE (10:10)
[2017-01-28] MEDS ORDERED: Pantoprazole 4 mg/mL 10 mL Inj IVPUSH SCH ×2 (10:10→20:30)
[2017-01-28] MEDS: Mupirocin 2% 22 Gm Ointment NASAL SCH ×2 (10:11→21:29)
[2017-01-28] MEDS: Ascorbic Acid 500 mg Tablet PO SCH (10:11)
[2017-01-28] MEDS ORDERED: Pantoprazole 80 mg/100 mL NS Bolus IV ONE ×2 (10:20)
--- NOTE | 2017-01-28 12:34 | PCM.PNORTH ---
Subjective Date of Service: January 28, 2017 Visit Information: Reason for Visit Hypokalemia, Lipase Ankur Surgery/Surgery Date Post-Op Day # Date of Admission: January 25, 2017 at 17:44 Hospital Day # Subjective Thiago is 3 weeks status post I&D of a right wrist septic arthritis with multifocal osteomyelitis. He was lost to follow-up as he has been hospitalized twice now since the surgery and this is first postop visit in the office. My office realized he was in the hospital and contacted me to see him. I stopped by today to see how he is doing. The patient states his wrist is feeling better. He has maintained in the postoperative splint and the dressings. He is able to move his fingers more. His pain to the wrist itself is well- controlled. Objective Exam Objective Gen - alert, NAD Ext - incision has well-healed to the dorsal aspect of the wrist, there are intact sutures that were removed today without any complication No erythema, active drainage or signs of infection Wrist range of motion is limited to 45 supination, full pronation and 20 of dorsiflexion and 30 of volar flexion Patient has improved range of motion of the fingers and can almost demonstrate a full fist Vital Signs and I/O Vital Sign - Last Date Time Temp Pulse Resp B/P Pulse Ox O2 Delivery O2 Flow Rate FiO2 01/28/17 10:00 37.1 65 16 90/52 94 Room Air Intake and Output 01/27/17 01/27/17 01/28/17 Cumulative From/Thru 15:00 23:00 07:00 01/25/17 15:10 - 01/28/17 05:15 Intake Total 1798 ml 1009 ml 6813 ml Output Total 606 ml 2241 ml Balance 1192 ml 1009 ml 4572 ml Intake Oral 470 ml 1130 ml IV Total 1328 ml 1009 ml 5683 ml Output Urine Total 600 ml 2135 ml Stool Total 6 ml 6 ml Emesis 100 ml # Bowel Movements 5 Lab & Micro Results Laboratory Tests Test 01/27/17 23:00 01/28/17 05:00 01/28/17 05:50 01/28/17 08:15 Hemoglobin 7.8g/dL (13.8-17.2) 6.7g/dL (13.8-17.2) 6.7g/dL (13.8-17.2) Hematocrit 23.1% (41.0-50.0) 19.4% (41.0-50.0) 19.6% (41.0-50.0) Prothrombin Time 13.3sec (8.1-12.5) Prothromb Time International Ratio 1.24ratio Activated Partial Thromboplast Time 21.5sec (22.8-33.0) Sodium Level 136mEq/L (134-144) Potassium Level 3.5mEq/L (3.5-5.2) Chloride Level 107mEq/L (97-108) Carbon Dioxide Level 19mmol/L (18-29) Blood Urea Nitrogen 11mg/dL (8-27) Creatinine 0.80mg/dL (0.76-1.27) Estimat Glomerular Filtration Rate 102mL/min (>59) Glucose Level 109mg/dL (60-99) Calcium Level 7.8mg/dL (8.5-10.1) Magnesium Level 1.5mg/dL (1.6-2.6) White Blood Count 6.9th/mm3 (3.8-10.1) Red Blood Count 2.32mil/mm3 (4.40-5.80) Mean Corpuscular Volume 83.6fL (81-100) Mean Corpuscular Hemoglobin 28.9pg (27.0-35.0) Mean Corpuscular Hemoglobin Concent 34.5% (32.0-37.0) Red Cell Distribution Width 18.7% (12.3-15.4) Platelet Count 76bil/L (150-400) Microbiology 01/26/17 Stool Occult Blood ([facility]ARIQ) - Final, Complete Result Diagram: 01/28/17 0815 01/28/17 0500 Assessment & Plan Impression 3 weeks status post I&D of a right wrist secondary to septic arthritis and multifocal osteomyelitis Problems: Plan Continue with the antibiotics as prescribed by Dr. Drew I have removed the splint and would like you to start working on range of motion of your hand and wrist with occupational therapy Follow-up in 2 weeks in the clinic, we will repeat x-rays of the wrist at that time Norberto Arora DO January 28, 2017 12:34
--- NOTE | 2017-01-28 13:11 | PCM.CHPMED ---
Subjective Date of Service: January 28, 2017 Primary Physician: Admitting Physician: Balta Lopez MD Primary Care Physician: Tata Doll MD Attending Physician: Balta Lopez MD Chief Complaint: Chief Complaint: Diarrhea/nausea/vomiting History of Present Illness: GI consult note 71-year-old male with a history of hypertension, alcoholic cirrhosis, recurrent osteomyelitis with MRSA, and previous GI bleed in September 2015 presents to the emergency department with complaints of watery diarrhea started the evening before he was admitted on January 25, having a total of 6 episodes overnight. She has intermittent nausea with one episode of vomiting. Since he was admitted to hospital his nausea has been under control. He denies fevers, chills, chest pain, shortness of breath, or epigastric pain, but does endorse mild sharp intermittent abdominal pain in the lower right quadrant. Since admission the patient has had a declining H&H. Per nursing notes patient has been having loose burgundy stools. Patient denies ongoing epigastric pain as well as dizziness or shortness of breath or chest pain. Patient's last GI bleed was in September 2015 with the patient reporting a lesion in the right colon and a negative EGD. Patient denies taking any NSAIDs. Has a history of chronic alcohol abuse ended 2 years ago. Denies abdominal surgeries other than an appendectomy. Current labs show H&H of 6.7/19.6, CMP is relatively unremarkable with only mild elevation of lipase on 01/26. GI was consulted for endoscopy to investigate a GI bleed. Review of Systems: See history of present illness PMH Past Medical History GI bleed September 2015 History of cirrhosis Recurrent right wrist MRSA osteomyelitis Hx Any Other Health Problems?: YesHx Diabetes: No Surgical History Recent right wrist debridement, appendectomy, nerve surgery on the inner thigh Home Medications Ascorbate Calcium (Vitamin C) 500 Mg Tablet 500 MG PO DAILY Ceftaroline Fosamil Acetate (Teflaro) 600 Mg Vial 600 MG IV Q12H Cholecalciferol (Vitamin D3) (Vitamin D3) 5,000 Unit Capsule 5,000 UNIT PO DAILY Fluticasone Propionate (Flonase Allergy Relief) 50 Mcg/Actuation [place].susp 1 SPRAY NASAL DAILY Gabapentin (Gabapentin) 300 Mg Capsule 300 MG PO BID Gabapentin (Gabapentin) 300 Mg Capsule 600 MG PO HS Ketoconazole (Ketoconazole) 120 Ml Shampoo 1 APPLIC TP WEEKLY Multivitamin (Multivitamins) 1 Each Capsule 1 EACH PO DAILY Mupirocin Nasal Oint (Bactroban Nasal Oint) 1 Gm Oint...g. 1 APPLIC NASAL BID Polyethylene Glycol 3350 (Miralax) 17 Gm Powd.pack 17 GM PO DAILY Sennosides (Senna) 8.6 Mg Tablet 17.2 MG PO BID Sulfacetamide Sodium (Sodium Sulfacetamide) 10 % Clnsr.gel 1 APPLIC TP BID Docusate Sodium (Colace) 100 Mg Capsule 100 MG PO BID PRN PRN For Constipation Morphine Sulfate Oral Soln (Morphine Sulfate Oral Soln) 10 Mg/5 Ml Solution 5 MG PO TID PRN PRN For Pain Ondansetron ODT (Ondansetron ODT) 4 Mg Tab.rapdis 4 MG PO Q12H PRN PRN For Nausea Allergies: Coded Allergies: aspirin (Verified Allergy, Severe, GI BLEED, 01/25/17) daptomycin (Verified Allergy, Severe, Pulmonary toxicity, 01/25/17) colchicine (Verified Adverse Reaction, Severe, gi upset, 01/25/17) niacin (Verified Adverse Reaction, Severe, GI UPSET, 01/25/17) vancomycin (Verified Adverse Reaction, Severe, 01/25/17) Renal hzyxsga-vsrkkl-enzvena cautious dosing Uncoded Allergies: SEASONAL ALLERGIES (Allergy, Severe, ITCH/RASH, 10/13/16) Family History Family History No history of colon, gastric, pancreatic cancer. Mother of alcoholism father is still alive at the age of 89 Social History Hx Alcohol Use: NoHx Substance Use: NoHx Tobacco Use: Yes (quit 1975) Smoking Status: Former Smoker Exam Vital Signs Vital Sign - Last Date Time Temp Pulse Resp B/P Pulse Ox O2 Delivery O2 Flow Rate FiO2 01/28/17 10:00 37.1 65 16 90/52 94 Room Air Intake and Output 01/27/17 01/27/17 01/28/17 Cumulative From/Thru 15:00 23:00 07:00 01/25/17 15:10 - 01/28/17 05:15 Intake Total 1798 ml 1009 ml 6813 ml Output Total 606 ml 2241 ml Balance 1192 ml 1009 ml 4572 ml Intake Oral 470 ml 1130 ml IV Total 1328 ml 1009 ml 5683 ml Output Urine Total 600 ml 2135 ml Stool Total 6 ml 6 ml Emesis 100 ml # Bowel Movements 5 General: Alert, Oriented X3, Cooperative, No Acute Distress Eyes: Scleral Anicteric Mouth: Mucous Membr Moist/[place] Chest & Lungs: Chest Wall Normal, Clear to auscultation & percussion Cardiovascular: Exam Unremarkable, Regular Rate/Rhythm Abdomen: Tender (epigastric palpation), Non-distended, Normoactive bowel tones Extremities: No cyanosis/clubbing/edma bilat Neurological: Grossly Neurologically Intact Lab and Diagnostics Result Diagram: 01/28/17 0815 01/28/17 0500 Assessment & Plan Assessment Assessment 71-year-old male with a history of GI bleed reportedly from the ascending colon who presented due to nausea, vomiting, diarrhea since become hematochezia. Patient denies symptoms of anemia or severe nausea and vomiting when seen today. He does have tenderness in the epigastric palpation however. Review of records identifies a EGD done by Dr. Rodríguez in February 2016. Indications time appear to be a for follow-up of his bleed in September. On the EGD they found portal gastropathy and healing duodenal ulcers with residual very small ulcerations. The patient is a former alcohol abuser with no history of varices and at the subjective history not indicative of severe nausea or hematemesis is unlikely be ongoing variceal bleed. Still, it could be due to any number of etiologies including gastric or ulcer, AVM, polyp, colon cancer, or diverticular bleed. Recommendations -Start GoLYTELY tonight -Make nothing by mouth -EGD/colonoscopy tomorrow - protonix 40mg iv bid will cont to follow Problems: Pain Evaluation: Adequate Pain Control Attending Statement agree with assessment and plan above Woo Beck DO January 28, 2017 13:11 Thiago Brar MD January 28, 2017 13:34
--- NOTE | 2017-01-28 13:57 | PCM.PNMED ---
Subjective Date of Service January 28, 2017 Subjective Denies any new issues/complaints. Exam Vital Signs Vital Sign - Last Date Time Temp Pulse Resp B/P Pulse Ox O2 Delivery O2 Flow Rate FiO2 01/28/17 13:21 37.3 64 16 102/52 96 Room Air Intake and Output 01/27/17 01/27/17 01/28/17 Cumulative From/Thru 15:00 23:00 07:00 01/25/17 15:10 - 01/28/17 05:15 Intake Total 1798 ml 1009 ml 6813 ml Output Total 606 ml 2241 ml Balance 1192 ml 1009 ml 4572 ml Intake Oral 470 ml 1130 ml IV Total 1328 ml 1009 ml 5683 ml Output Urine Total 600 ml 2135 ml Stool Total 6 ml 6 ml Emesis 100 ml # Bowel Movements 5 Exam General: Alert, Cooperative, No Acute Distress Head: Normal Eyes: Scleral Anicteric Nose: Mucous Membr Moist/[place] Mouth: Mucous Membr Moist/[place] Neck: Supple Chest & Lungs: Chest Wall Normal, Clear to auscultation bilat Cardiovascular: Regular Rate/Rhythm Abdomen: Non-tender, Non-distended, Normoactive bowel tones, Soft Extremities: No cyanosis/clubbing/edema bilat. right wrist in dressing Neurological: Grossly Neurologically Intact, Normal Speech IVs and Medications Medications Reviewed: Medications were reviewed in detail Lab and Diagnostics Result Diagram: 01/28/17 0815 01/28/17 0500 Assessment & Plan 71-year-old gentleman with past medical history of hypertension, cirrhosis, PVD , anxiety currently on treatment for MRSA osteomyelitis of right wrist came with diarrhea # Acute GI bleed and significant anemia. not present on admission - Stool guaiac positive. - Transfuse 2 units PRBC today - Start IV Protonix - GI consulted. Will followup with recs # Acute watery diarrhea, present on admission. Improving - Stool PCR negative3 - Continue with supportive care # Acute Hypokalemia, present on admission. Improved - Replete and followup # Acute hyomagnesemia. Present on admission - Replete and followup # Recent right wrist MRSA osteomyelitis, present on admission and ongoing. - Appreciate ID consult. Will followup with recommendations - Continue with ceftaroline 600 q.12 through February 17. "Ceftaroline should be done on February 17 and at that time, he should definitely be switched to an oral lifelong suppressive regimen." Likely Doxy # Acute kidney injury, present on admission. Resolved - Continue with hydration and followup # History of cirrhosis - Aldactone and Lasix recently discontinued - No ascites on physical exam # Elevated lipase - Pancreatitis unlikely, no abdominal pain or tenderness. - Followup with GI consult recs # HTN, chronic. stable - Continue medications Dispo: ? SNF in 2-3 days Clifton Blakely January 28, 2017 13:57
[2017-01-28] MEDS ORDERED: Magnesium Sulf 2 Gm/50mL Water 2 GM in IV Premix 1 EACH IV ONE ×2 (14:00→20:15)
--- NOTE | 2017-01-28 14:10 | NUR ---
NUTRITION ASSESSMENT: ASSESS: Pt admitted with MRSA osteomyelitis of R Wrist, new GI bleed--GI consulted, and diarrhea-improving. Pt eating fair, some c/o nausea. PMHX:ETOH,Cirrhosis,HTN,PVD DIET: Heart Healthy Diabetic. PO 50%= fair LABS: Glu 109,Ca 7.8,Mg 1.5,Alb 3.2 MEDS: Reviewed GI:4 BM 01/28 SKIN: Tommy 13 WEIGHT: 76.5kg BMI: 27.2 EST.NEEDS: CIRRHOSIS Kcal: 2995-8008 Pro: 90-115g NUTRITION DIAGNOSIS: (1) Increased energy/protein needs related to increased demand for nutrients as evidenced by PMhx of Cirrhosis. INTERVENTION: (1) Supplements (Ensure) added to meal trays to promote adequate kcal/pro intake. MONITOR/EVALUATE: PO intake, lab values, GI status/bleed. F/U per moderate risk.
--- NOTE | 2017-01-28 16:14 | NUR ---
Bleeding Pt is having laura red blood pooling out of rectum, pt has gone through 5 blue chucks pads satured with blood. paged, gave order to page GI doctor for accurate report.
[2017-01-28] MEDS ORDERED: Pantoprazole Inj 80 MG in 0.9% Sodium Chloride 100 ML IV ONE (16:35)
[2017-01-28] MEDS ORDERED: PEG/Electrolytes 4,000 mL Solution PO ONE ×2 (17:20→20:20)
--- NOTE | 2017-01-28 18:30 | NUR ---
Bleeding/Transfer to PCC: Patient has had 6 large laura red stools, almost continuous flow while bed pad /brief being changed.Patient was transferred to PCC room 2019 at 1815 per MD order. Per MD patient received Protonics drip over 30 minutes earlier today and then another dose of protonics this evening. Octreotide IV push was administered over 5 minutes before transferring patient to [facility]. He also received . Unit # 1 of the 4 units of blood to be administered before transferring.. Patients vital signs are stable B/P 119/60 HR in the 60s at transfer.Report was given to Cathline the nurse that will be taking over patient care. All of patients belongings were brought to PCC with him and his meds were brought to PCC also. Instructions were given to start patients colyte prep once he arrives to PCC .
[2017-01-28] MEDS: Octreotide Inj 500 MCG in 0.9% Sodium Chloride 100 ML IV SCH (19:29)
[2017-01-28] MEDS: 0.9% Sodium Chloride 1,000 ML IV SCH (19:29)
[2017-01-28] MEDS: Pantoprazole Inj 80 MG in 0.9% Sodium Chloride 80 ML IV SCH (19:30)
[2017-01-29] VITALS (12 sets, daily range): BP systolic 127–156; BP diastolic 41–77; PULSE 57–71; RESP 14–25; O2SAT 91–96
[2017-01-29] MEDS: Pantoprazole Inj 80 MG in 0.9% Sodium Chloride 80 ML IV SCH (04:35)
[2017-01-29 04:54] LABS: APPEARANCE,URINE CLEAR (CLEAR,HAZY); COLOR,URINE YELLOW (YELLOW); OCCULT BLOOD,URINE NEGATIVE (NEGATIVE); UROBILINOGEN,URINE NORMAL (NORMAL)
[2017-01-29 05:17] LABS: Mean Corpuscular Hemoglobin 28.4 pg (27.0-35.0); Mean Corpuscular Volume 84.9 fL (81-100)
[2017-01-29] MEDS: Octreotide Inj 500 MCG in 0.9% Sodium Chloride 100 ML IV SCH (05:22)
[2017-01-29 05:44] LABS: Magnesium 1.7 mg/dL (1.6-2.6)
[2017-01-29] MEDS: Ceftaroline 600 mg/250 mL D5W IV SCH ×4 (05:51→18:40)
--- NOTE | 2017-01-29 06:27 | NUR ---
Pt finished approx. 3/4 of colyte prep. FMS inserted per pt's request for protection of skin. Pt had large amt of output via FMS tube, much more clear. Stool is clear, greenish in color with small flecks of stool. Pt unable to continue to drink colyte, sleeping and too tired. 3rd and 4th unit of blood not given. H/H done after 2nd unit and results were 8.5/27.7. Consulted with Dr. Welch and new orders received to not give more blood and check H/H Q4H. Labs stabilized, last results 8.5/25.4. Pt's vital signs remain stable. HR sinus in the 60's. Pt scheduled for scope this am. Will continue to monitor pt closely.
--- NOTE | 2017-01-29 07:11 | PCM.HPANE ---
Patient Data Surgeon Admitting Provider:Balta Lopez MD Attending Provider:Balta Lopez MD Primary Care Physician:Tata Doll MD Other Provider: Reason for Visit Hypokalemia, Lipase Ankur Ht/WT & BMI Height (Feet): 5 Height (Inches): 6.00 Weight (Kilograms): 76.500 Body Mass Index 27.10 Allergies Coded Allergies: aspirin (Verified Allergy, Severe, GI BLEED, 01/25/17) daptomycin (Verified Allergy, Severe, Pulmonary toxicity, 01/25/17) colchicine (Verified Adverse Reaction, Severe, gi upset, 01/25/17) niacin (Verified Adverse Reaction, Severe, GI UPSET, 01/25/17) vancomycin (Verified Adverse Reaction, Severe, 01/25/17) Renal jfxewso-gnjgvi-qenutqs cautious dosing Uncoded Allergies: SEASONAL ALLERGIES (Allergy, Severe, ITCH/RASH, 10/13/16) Past Anesthesia History Anesthesia History: Denies:: Abnormal Airway, Anesthesia Reactions, Difficult Intubation, Fam Anesthesia Reaction, Fam Malignant Hypertherm, Malignant Hyperthermia Diabetes History Hx Diabetes?: No MRSA MRSA: Yes (hx of mrsa in wrist ) Medications Active Scripts Docusate Sodium (Colace)100 Mg Eranumm200 Mg PO BID PRN For Constipation 30 Days Ref 0 Prov:Meeta Powers MD 01/22/17 Morphine Sulfate Oral Soln 10 Mg/5 Ml Solution5 Mg PO TID PRN For Pain #100 ML Prov:Meeta Powers MD 01/22/17 Ondansetron ODT 4 Mg Tab.rapdis4 Mg PO Q12H PRN For Nausea 30 Days Prov:Meeta Powers MD 01/22/17 Sennosides (Senna)8.6 Mg Wkdglq24.2 Mg PO BID 30 Days Prov:Meeta Powers MD 01/22/17 Polyethylene Glycol 3350 (Miralax)17 Gm Powd.pack17 Gm PO DAILY 30 Days Prov:Meeta Powers MD 01/22/17 Ceftaroline Fosamil Acetate (Teflaro)600 Mg Kwwj858 Mg IV Q12H 27 Days Prov:Meeta Powers MD 01/22/17 Mupirocin Nasal Oint (Bactroban Nasal Oint)1 Gm Oint...g.1 Applic NASAL BID 4 Days Prov:Balta Lopez MD 01/10/17 Reported Medications Ascorbate Calcium (Vitamin C)500 Mg Oscxpp269 Mg PO DAILY 01/05/17 Gabapentin 300 Mg Xnsjofm115 Mg PO QPM 11/05/16 Ketoconazole 120 Ml Shampoo1 Applic TP WEEKLY 11/05/16 Gabapentin 300 Mg Zunfpnw408 Mg PO BIDBL 10/13/16 Fluticasone Propionate (Flonase Allergy Relief)50 Mcg/Actuation [place].susp1 [place] NASAL DAILY CONGESTION 10/13/16 Multivitamin (Multivitamins)1 Each Capsule1 Each PO DAILY 01/13/16 Cholecalciferol (Vitamin D3) (Vitamin D3)5,000 Unit Capsule5,000 Unit PO DAILY 09/23/15 Sulfacetamide Sodium (Sodium Sulfacetamide)10 % Clnsr.gel1 Applic TP BID for rosacea 09/23/15 Discontinued Reported Medications Potassium Chloride ER 10 Meq [place]19 Meq PO DAILY #30 01/05/17 Furosemide 40 Mg Lgroyg06 Mg PO BID #30 01/05/17 Lactulose 10 Gm/15 Ml Ebwzyxgm15 Gm PO PRN For Constipation #473 01/05/17 Spironolactone 50 Mg Rmlfcf08 Mg PO DAILY 10/13/16 Discontinued Scripts Oxycodone (Roxicodone)5 Mg Tablet5 Mg PO Q3H PRN For Pain #30 TABLET Ref 0 Prov:Balta Lopez MD 01/10/17 History History of ENT Problems?: No HEENT History: Positive for:: Cataracts (surgery both eyes 3 years ago) Denies:: Abnormal Airway Difficult Intubation Dysphagia Hearing Problem Sinus Problem Denture Type: None Teeth Condition: Within Normal Limits Hx of Heart Problems?: No Cardiovascular History: Positive for:: Edema Denies:: AICD Atrial Fibrillation Cardiac Surgery Chest Pain Congestive Heart Failure Heart Murmur Hypertension Irregular Heartbeat Pacemaker Thrombophlebitis Valvular Heart Disease Hx of Respiratory Problem?: No Respiratory History: Positive for:: Pneumonia ("antibiotic side effect" per patient. see H+P) Denies:: Asthma COPD Chest Surgery Cough Dyspnea Emphysema Hemoptysis Tuberculosis Use of C-PAP Machine (SNORES) Hx Neurologic Problems?: No Neurological History: Denies:: Alzheimer's Disease CVA Dementia Dizziness Headaches Parkinson's Disease Seizures Hx of GI Problems?: No Other GI Pertinent History: pt. having retching, vomiting,diarrhea Hx of Problems?: No Genitourinary History: Denies:: HX of Hemodialysis Kidney Stones Urinary Tract Infection HX of Peritoneal Dialysis: No Male Hx: Denies:: Prostate Problems Scrotal Mass Testicular Surgery Skin History: Denies:: History Skin Disorders? (rosacea, psoriasis, exposed to agent orange) Pressure Ulcers (LR VENOUS STASIS ULCERATIONS S/P I&D/DEBRIDEMENT) Hx Musculoskeletal Problems?: Yes Musculoskeletal History: Positive for:: Back Injury (C/OF LOWER BACK PAIN) Musculoskeletal Trauma (shrapnel injuries from [place] S/P LT KNEE SCOPE) Denies:: Joint Replacement Hx of Psycho/Social Problems?: No Psycho Social History: Positive for:: Hx Depression Denies:: Anxiety Bipolar Disorder Suicide Attempt Hx Surgeries?: Yes (2 wrist surgeries ) Hx Any Other Health Problems?: Yes Other History: Positive for:: Hospitalization (wrist infection complications. ) Denies:: Cancer Endocrine Disease Thyroid Disease History Blood Transfusions: Denies:: Accept Blood Products? Blood Transfuse Reaction Blood Transfusions Hx Diabetes: No Hx Alcohol Use: NoHx Substance Use: No Smoking Status: Former Smoker Have You Smoked inLast 12 mo: No Stop/Bang Treated for Sleep Apnea?: No Do You Have a CPAP Machine?: No S-Snoring: Do You Snore Loudly: Yes T-Tired: feel tired, fatigued: No O-Obsered: Observed not breath: No P-Blood Pressure: treated: No B- Body Mass Index > 35 kg/m2: No A- Age over 50: Yes N- Neck Large Circumference: No G- Gender Male: Yes AMRITA Total Score: 2 AMRITA Risk Assessment: Low Risk, <3 Yes Risk Assessment Category Category 1A: Patient has history of documented sleep apnea, and HAS NOT received any narcotic, sedative or anesthesia administration during this stay. Category 1B: Patient has history of documented sleep apnea, and HAS received any narcotic , sedative or anesthesia administration during this stay Category 2: Patient has SUSPECTED Obstructive Sleep Apnea, and HAS received any narcotic , sedative or anesthesia administration during this stay. Category 3: Patient has SUSPECTED Obstructive Sleep Apnea and HAS NOT received narcotic, sedative or anesthesia administration during this stay. Category 4: Outpatient in Procedural Areas with known sleep apnea or who screen positive for High Risk via the STOP/BANG questionnaire. Exam Exam Vital Signs Vital Signs Date Time Temp Pulse Resp B/P Pulse Ox O2 Delivery O2 Flow Rate FiO2 01/29/17 05:45 65 01/29/17 04:30 37.2 65 18 137/44 94 Room Air 01/29/17 00:30 37.1 62 16 127/77 94 Room Air 01/28/17 23:13 37.1 61 16 150/46 General Appearance: Alert, Oriented X3, Cooperative, No Acute Distress HEENT/AIRWAY: MP 2 Lungs: Clear to Auscultation, Normal Air Movement Heart: Exam Unremarkable, Regular Rate/Rhythm, No Murmurs/Rubs/Gallops Meds/Labs/Diagnostics Admission Meds Current Medications Pantoprazole 80 mg/Sodium Chloride 100 ml @ 400 mls/hr ONCE ONCE IV Last administered on 01/28/17 10:20; Start 01/28/17 at 10:20; Stop 01/28/17 at 10:34 ; Status DC Pantoprazole 80 mg/Sodium Chloride 120 ml @ 480 mls/hr ONCE ONCE IV Last administered on 01/28/17 17:40; Start 01/28/17 at 16:35; Stop 01/28/17 at 16:49 ; Status DC Pantoprazole/ Sodium Chloride (Protonix Inj/ Normal Saline) 100 ml @ 10 mls/hr Q10H IV Last administered on 01/29/17 04:35; Start 01/28/17 at 16:35 Octreotide Acetate 50 mcg 50 mcg ONCE ONCE IVPUSH Last administered on 17:38; Start 01/28/17 at 16:40; Stop 01/28/17 at 16:52; Status DC Magnesium Sulfate/ Premix (Magnesium Sulf 2 Gm/50mL Water/ IV Premix) 50 ml @ 50 mls/hr ONCE ONCE IV Last administered on 01/28/17 20:30; Start 01/28/17 at 20:15; Stop 01/28/17 at 21:14; Status DC Polyethylene Glycol/ Electrolytes (Colyte) 4,000 ml ONCE ONCE PO Last administered on 01/28/17 20:30; Start 01/28/17 at 20:20; Stop 01/28/17 at 20:21 ; Status DC Labs Test 01/25/17 16:25 01/26/17 06:17 01/27/17 05:45 01/28/17 05:00 Lactic Acid Level 1.5mmol/L (0.4-2.0) Total Bilirubin 1.1mg/dL (0.0-1.2) Aspartate Amino Transf (AST/SGOT) 22U/L (0-50) Alanine Aminotransferase (ALT/SGPT) 9U/L (0-44) Alkaline Phosphatase 56U/L (25-160) Total Protein 6.5g/dL (6.4-8.4) Albumin 3.2g/dL (3.4-5.0) Lipase 77U/L (13-60) Neutrophils (%) (Auto) 63.0% (40-74) Lymphocytes (%) (Auto) 21.0% (14-46) Monocytes (%) (Auto) 10.6% (4-12) Eosinophils (%) (Auto) 4.9% (0-5) Basophils (%) (Auto) 0.4% (0-3) Prothrombin Time 13.3sec (8.1-12.5) Prothromb Time International Ratio 1.24ratio Activated Partial Thromboplast Time 21.5sec (22.8-33.0) Test 01/29/17 04:40 01/29/17 05:00 Urine Color Yellow (YELLOW) Urine Appearance Clear (CLEAR,HAZY) Urine pH 6.0 (5.0-8.0) Urine Specific [place] 1.020 (1.003-1.035) Urine Protein Negativemg/dL (NEG,TRACE) Urine Glucose (UA) Negativemg/dL (NEGATIVE) Urine Ketones Tracemg/dL (NEGATIVE) Urine Occult Blood Negative (NEGATIVE) Urine Nitrite Negative (NEGATIVE) Urine Bilirubin Negative (NEGATIVE) Urine Urobilinogen Normalmg/dL (NORMAL) Urine Leukocyte Esterase Negative (NEGATIVE) Urine RBC 0-2/hpf (0-2) Urine WBC 0-5/hpf (0-5) Urine Epithelial Cells Few/hpf (NONE-MOD) Urine Crystals None seen (NONE SEEN) Urine Bacteria Few/hpf (NONE-FEW) Urine Hyaline Casts Occasional/lpf (NONE) Urine Granular Casts None seen (NONE SEEN) Urine Waxy Casts None seen (NONE SEEN) Urine Red Blood Cell Casts None seen (NONE SEEN) Urine White Blood Cell Casts None seen (NONE SEEN) Urine Mucus Present (None Seen) Urine Trichomonas None seen (NONE SEEN) Urine Yeast None (NONE SEEN) Urinalysis Comment None Urine Culture Reflexed Not indicated White Blood Count 5.1th/mm3 (3.8-10.1) Red Blood Count 2.99mil/mm3 (4.40-5.80) Hemoglobin 8.5g/dL (13.8-17.2) Hematocrit 25.4% (41.0-50.0) Mean Corpuscular Volume 84.9fL (81-100) Mean Corpuscular Hemoglobin 28.4pg (27.0-35.0) Mean Corpuscular Hemoglobin Concent 33.5% (32.0-37.0) Red Cell Distribution Width 17.7% (12.3-15.4) Platelet Count 81bil/L (150-400) Sodium Level 135mEq/L (134-144) Potassium Level 3.6mEq/L (3.5-5.2) Chloride Level 104mEq/L (97-108) Carbon Dioxide Level 18mmol/L (18-29) Blood Urea Nitrogen 7mg/dL (8-27) Creatinine 0.74mg/dL (0.76-1.27) Estimat Glomerular Filtration Rate 111mL/min (>59) Glucose Level 138mg/dL (60-99) Calcium Level 7.8mg/dL (8.5-10.1) Magnesium Level 1.7mg/dL (1.6-2.6) Plan Impression Patient chart reviewed, patient interviewed and anesthestic plan with risks, benefits, and alternatives discussed, and informed consent obtained. NPO per Anesth. Guidelines: Yes Washington Eagle MD January 29, 2017 07:11
[2017-01-29] MEDS: 0.9% Sodium Chloride 1,000 ML IV SCH (07:33)
[2017-01-29] MEDS: SULFACETAMIDE SODIUM 10% TOPICAL SCH ×2 (07:34→20:30)
[2017-01-29] MEDS: Polyethylene Glycol (PEG) 17 Gm Powder PO SCH (07:34)
[2017-01-29] MEDS ORDERED: Lactated Ringer's 1,000 ML IV SCH (09:37)
--- NOTE | 2017-01-29 09:38 | PCM.ANEP1 ---
Post Anesthesia PACU Phase 1 Assessment Vital Signs Vital Signs Date Time Temp Pulse Resp B/P Pulse Ox O2 Delivery O2 Flow Rate FiO2 01/29/17 09:36 69 14 145/69 Nasal Cannula 4 99 01/29/17 08:47 58 14 156/41 95 Room Air 01/29/17 05:45 65 01/29/17 04:30 37.2 65 18 137/44 94 Room Air Anesthetic Administered: MAC Level of Alertness: Awake, talking TAFOYA's with Equal Strength: Yes Pain: No Pain Scale Score: 6 Nausea or Vomiting: No CV Function & Hydration Stable: No Airway Device: Oxygen Delivery: Nasal Cannula Lungs: Clear to Auscultation, Normal Air Movement PACU Phase 2 Assessment Complications: No Follow up Care: No Patient Instructions Provided: N/A Washington Eagle MD January 29, 2017 09:38
[2017-01-29] MEDS ORDERED: Ondansetron 2 mg/mL 2 mL Inj IVPUSH PRN (09:40)
[2017-01-29] MEDS ORDERED: MetoCLOpramide 5 mg/mL 2 mL Inj IVPUSH PRN (09:40)
[2017-01-29] MEDS: Ascorbic Acid 500 mg Tablet PO SCH (10:41)
[2017-01-29] MEDS: Mupirocin 2% 22 Gm Ointment NASAL SCH ×2 (10:42→21:06)
[2017-01-29] MEDS: Fluticasone 0.05% 15 Spray/2 Gm 16 Gm Nasal Spray NASAL SCH (10:42)
--- NOTE | 2017-01-29 11:10 | PCM.PNMED ---
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 Last night, he was transferred to the [facility] due to 6 large laura red stools. He was given 2 units of PRBCs Today, he reports some discomfort at his right wrist. He does not have chest pain or dyspnea. He has diffuse abdominal tenderness. He has not vomited today. He reports that at his previous colonoscopy there was a "tear in my colon." He also had an ulcer in his stomach. Exam Vital Signs Vital Sign - Last Date Time Temp Pulse Resp B/P Pulse Ox O2 Delivery O2 Flow Rate FiO2 01/29/17 05:45 65 01/29/17 04:30 37.2 18 137/44 94 Room Air Intake and Output 01/28/17 01/28/17 01/29/17 Cumulative From/Thru 15:00 23:00 07:00 01/25/17 15:10 - 01/29/17 06:00 Intake Total 200 ml 1723 ml 4283 ml 83755 ml Output Total 329 ml 600 ml 2885 ml 6055 ml Balance -129 ml 1123 ml 1398 ml 6964 ml Intake Oral 200 ml 773 ml 2760 ml 4863 ml IV Total 650 ml 1238 ml 7571 ml Packed Cells 300 ml 285 ml 585 ml Output Urine Total 325 ml 600 ml 1025 ml 4085 ml Stool Total 4 ml 1860 ml 1870 ml Emesis 100 ml # Voids 3 3 # Bowel Movements 6 11 Exam General: Alert, Cooperative, No Acute Distress Head: Normal Eyes: Scleral Anicteric Nose: Mucous Membr Moist/[place] Mouth: Mucous Membr Moist/[place] Neck: Supple Chest & Lungs: Chest Wall Normal, Clear to auscultation bilat Cardiovascular: Regular Rate/Rhythm Abdomen: Diffusely tender, Non-distended, Normoactive bowel tones, Soft Extremities: No cyanosis/clubbing/edema bilat. right wrist in dressing with ROM and capillary refill intact Neurological: Grossly Neurologically Intact, Normal Speech IVs and Medications Medications Reviewed: Medications were reviewed in detail Lab and Diagnostics Result Diagram: 01/29/17 0500 01/29/17 0500 Assessment & Plan 71-year-old gentleman with past medical history of hypertension, cirrhosis, PVD , anxiety currently on treatment for MRSA osteomyelitis of right wrist came with diarrhea Acute GI bleed and significant blood loss anemia. not present on admission, improving - Stool guaiac positive. - Transfused 2 units PRBC - Started IV Protonix - GI consulted. Will followup with recommendations - Colonoscopy and upper endoscopy today did not show active bleeding - Advance diet as tolerated - Monitor hemoglobin and hematocrit Acute watery diarrhea, present on admission. Improving - Stool PCR negative3 - Continue with supportive care Acute Hypokalemia, present on admission. Improved - Repleted and followup Acute hyomagnesemia. Present on admission - Repleted and followup Recent right wrist MRSA osteomyelitis, present on admission and ongoing. 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 Will followup with recommendations - Continue with ceftaroline 600 every 12 hours through February 17. "Ceftaroline should be done on February 17 and at that time, he should definitely be switched to an oral lifelong suppressive regimen." Likely Doxycycline. - Pt and his family had obstacles with administering IV antibiotics twice per day at home - Orthopedics recommended starting occupational therapy and follow up in [address] Arora as an outpatient with x-rays Acute kidney injury, present on admission. Resolved - Continue with hydration and followup History of cirrhosis - Aldactone and Lasix recently discontinued - No ascites on physical exam Elevated lipase - Pancreatitis unlikely, no abdominal pain or tenderness. - Followup with GI consult recs Hypertension, chronic. stable - Continue medications Dispo: Possible discharge to SNF in 2-3 days Attending Statement Patient seen and examined with house staff. Agree with all attached documentation. Karina Pappas DO January 29, 2017 07:44 Rangel Post MD January 30, 2017 07:41
--- NOTE | 2017-01-29 11:48 | NUR ---
SHAKA signed with pt's non dominant hand. Cecilia Brewer ENERGY SPECIALIST
--- NOTE | 2017-01-29 14:14 | ENDO ---
[address] [address] ENDOSCOPY PROCEDURE PATIENT: BON CUNHA : 1945 MR#: [id number] ADMIT: 01/25/2017 JOB ID: [id number] DATE: 01/29/2017 TYPE OF OPERATION: Esophagogastroduodenoscopy with biopsy. PREOPERATIVE DIAGNOSIS(ES): 1. Abdominal pain and rectal bleeding. 2. Diarrhea. POSTOPERATIVE DIAGNOSIS(ES): 1. Mild nonerosive gastritis. 2. Sigmoid diverticulosis. 3. Small internal hemorrhoids. 4. No overt signs of bleeding including the terminal ileum during the entire procedure. ANESTHESIA: Monitored anesthesia care. COMPLICATIONS: None. BLOOD LOSS: Minimal. DESCRIPTION OF PROCEDURE: After risks and benefits were explained to the patient, informed consent was obtained. After anesthesia administered, upper endoscope was then inserted into the mouth intubating to the esophagus, stomach, second portion of duodenum. Mucosa carefully examined. After the procedure was done, the scope was withdrawn and procedure terminated. Colonoscope was then inserted from the rectum to the terminal ileum and mucosa carefully examined. Prep of the patient was excellent. After the procedure was done, the scope withdrawn and procedure terminated. FINDINGS: Upon inspection of the esophagus, the esophagus was normal without masses, ulcers, or lesions. Z-line located 40 cm from incisors. Upon entering the stomach, there was a mild nonerosive gastritis that was seen. No ulcers or masses or lesions were seen. Retroflexion was normal. Duodenal bulb, first and second portion normal. Biopsy taken of the antrum and body of stomach. Upon inspection of the anus, no masses, hemorrhoids, ulcers, fissures that were seen. Throughout the entire examination, there was mild sigmoid diverticulosis. No polyps or masses were seen. No overt signs of bleeding were seen. Intubation at terminal ileum was normal. Biopsies taken at terminal ileum and random colon. Retroflexion showed small internal hemorrhoids. IMPRESSION: 1. Mild nonerosive gastritis. 2. Small internal hemorrhoids. 3. Mild sigmoid diverticulosis. RECOMMENDATIONS: 1. Await pathology results. 2. Okay to start clear liquid diet. Advance as tolerated.
--- NOTE | 2017-01-29 15:36 | NUR ---
Social Work- Readiness for Discharge Data: EMR reviewed. Pt is on day 4 of hospitalization for hypokalemia, lipase KERLINE per H&P. Pt is not medically stable for discharge. ISA spoke with Zofia, marin at [facility], who is agreeable to accepting pt at discharge with MD Mckenna to follow. Padmini Hussein continues to review pt. ISA met with pt at bedside regarding discharge plan, explained SNF update. Pt is agreeable to discharge to [facility] rather than [facility] [place]. SW updated Padmini Hussein regarding pt's discharge plan. Pt requested SW update his , Ana María. CHIEF CRUISER placed call to [facility] [phone] who is agreeable to pt discharging to [facility]. Ana María to update pt's daughter. SW will continue to follow and update pt's infusion and HH services prior to discharge. Paperwork and PASRR in folder. Assessment: Pt for whom SNF is medically necessary secondary to IV abx. Plan: Pt to discharge to [facility] with Bala to follow. SW will continue to follow and update pt's infusion and HH services prior to discharge. Paperwork and PASRR in folder. Cecilia Brewer, CHIEF CRUISER
--- NOTE | 2017-01-29 19:03 | NUR ---
Tele (rhythm change) / diet No reports of chest pain/pressure/discomfort. Tele SR 60s, no ectopy. BP 150s systolic this AM, 140s this afternoon. Per Tele-- patient had one episode of Mobitz Type 1 AV block, HR dropped to 38, short lived -- patient asymptomatic and went back into normal SR with no intervention. No reports of SOB/dizziness. SPO2 on RA mid 90s. No current reports of nausea, no emesis, denies abdominal pain. Bowel tones hyperactive, FMS removed by endoscopy prior to scope. Incontinent at times. Tolerating clear liquid diet fair, reports abdominal cramping "if he pushes it too much". Did not get OOB throughout shift, reports feeling "very weak". OT eval ordered.
[2017-01-29] MEDS: Ondansetron 2 mg/mL 2 mL Inj IVPUSH PRN (21:06)
[2017-01-29] MEDS: HYDROmorphone 1 mg/mL Inj IVPUSH PRN (21:07)
[2017-01-30 03:38] VITALS: BP 123/47; PULSE 54; RESP 12; O2SAT 91
--- NOTE | 2017-01-30 05:02 | NUR ---
Pain Pt reported pain of 6/10 at start of shift in his right wrist. Pt states he needs strong pain medicine as he usually doesn't tolerate anything much more than 4/10. Pt given 4mg Zofran IVP along with Dilaudid 1mg IVP with good effect. Pt in good spirits and enjoyed speaking with staff regarding his life as a [place] as well as his many grandchildren. Pt slept well throughout the night.
[2017-01-30 05:21] LABS: Magnesium 1.4 mg/dL (1.6-2.6)
[2017-01-30 05:22] VITALS: PULSE 59
[2017-01-30] MEDS: Ceftaroline 600 mg/250 mL D5W IV SCH ×4 (06:24→17:58)
[2017-01-30 08:30] VITALS: BP 137/52; PULSE 60; RESP 18; O2SAT 93
[2017-01-30] MEDS: Polyethylene Glycol (PEG) 17 Gm Powder PO SCH (08:30)
[2017-01-30] MEDS: SULFACETAMIDE SODIUM 10% TOPICAL SCH ×2 (08:30→20:30)
--- NOTE | 2017-01-30 08:43 | PCM.PNSURG ---
Subjective Date of Service: January 30, 2017 Date of Service: January 30, 2017 Visit Information: Subjective: no acute events overnight from gi perspective. hb 8.2 this am. no overt signs gi bleed. s/p egd/colon yesterday Postop General: No Complaints Objective Vital Sign- Last 8 Hours Date Time Temp Pulse Resp B/P Pulse Ox O2 Delivery O2 Flow Rate FiO2 01/30/17 05:22 59 01/30/17 03:38 36.6 54 12 123/47 91 Room Air Intake and Output- Last 8 Hour 01/30/17 Cumulative From/Thru 07:00 01/25/17 15:10 - 01/30/17 06:09 Intake Total 1252 ml 38743 ml Output Total 575 ml 7355 ml Balance 677 ml 7316 ml Intake Oral 910 ml 6173 ml IV Total 342 ml 7913 ml Packed Cells 585 ml Output Urine Total 575 ml 5385 ml Stool Total 1870 ml Emesis 100 ml Other 0 ml # Voids 3 # Bowel Movements 0 11 General: Oriented X3 Neck: Supple Lungs: Clear to Auscultation Heart: Exam Unremarkable Abdomen: Benign, Soft, Non-tender, Non-distended, Normoactive bowel tones Extremities: Distal Pulses Palpable Result Diagram: 01/30/17 0443 01/30/17 0443 Assessment & Plan Impression 71-year-old male with a history of GI bleed reportedly from the ascending colon who presented due to nausea, vomiting, diarrhea since become hematochezia. Patient denies symptoms of anemia or severe nausea and vomiting when seen today. He does have tenderness in the epigastric palpation however. Review of records identifies a EGD done by Dr. Rodríguez in February 2016. Indications time appear to be a for follow-up of his bleed in September. On the EGD they found portal gastropathy and healing duodenal ulcers with residual very small ulcerations. The patient is a former alcohol abuser with no history of varices and at the subjective history not indicative of severe nausea or hematemesis is unlikely be ongoing variceal bleed. Still, it could be due to any number of etiologies including gastric or ulcer, AVM, polyp, colon cancer, or diverticular bleed. Pt may have had a diverticular bleed during hospital stay and stopped on its own. No overt signs gi bleed found during egd/colon with intubation of TI showing no overt signs bleeding. s/p egd/colon 01/29/2017- FINDINGS: Upon inspection of the esophagus, the esophagus was normal without masses, ulcers, or lesions. Z-line located 40 cm from incisors. Upon entering the stomach, there was a mild nonerosive gastritis that was seen. No ulcers or masses or lesions were seen. Retroflexion was normal. Duodenal bulb, first and second portion normal. Biopsy taken of the antrum and body of stomach. Upon inspection of the anus, no masses, hemorrhoids, ulcers, fissures that were seen. Throughout the entire examination, there was mild sigmoid diverticulosis. No polyps or masses were seen. No overt signs of bleeding were seen. Intubation at terminal ileum was normal. Biopsies taken at terminal ileum and random colon. Retroflexion showed small internal hemorrhoids. IMPRESSION: 1. Mild nonerosive gastritis. 2. Small internal hemorrhoids. 3. Mild sigmoid diverticulosis. RECOMMENDATIONS: 1. Await pathology results. 2. Okay to start clear liquid diet. Advance as tolerated. Recommendations -advance diet as tolerate - await bx results - high fiber diet - stool softener prn will sign off. Problems: Thiago Brar MD January 30, 2017 08:43
[2017-01-30] MEDS: Fluticasone 0.05% 15 Spray/2 Gm 16 Gm Nasal Spray NASAL SCH (08:59)
[2017-01-30] MEDS: Mupirocin 2% 22 Gm Ointment NASAL SCH ×2 (08:59→20:30)
[2017-01-30] MEDS: Ascorbic Acid 500 mg Tablet PO SCH (08:59)
[2017-01-30 11:33] VITALS: PULSE 54
[2017-01-30] MEDS ORDERED: KCl 40 mEq/100 mL (CENTRAL) 40 MEQ in IV Premix 1 EACH IV ONE (11:45)
[2017-01-30] MEDS ORDERED: Magnesium Sulf 2 Gm/50mL Water 2 GM in IV Premix 1 EACH IV ONE (11:45)
[2017-01-30 12:30] VITALS: BP 140/48; PULSE 53; RESP 16; O2SAT 95
--- NOTE | 2017-01-30 12:35 | PCM.PNMED ---
Subjective Date of Service January 30, 2017 Subjective Patient is doing well today except for diarrhea. His diarrhea since admission. He was to decrease after being prepped for colonoscopy. No abdominal cramping nausea or vomiting. No blood per rectum overnight. His colonoscopy was fairly unrevealing. His stool PCR was negative. He requests antidiarrhea medication. He does have a low magnesium potassium today. She denies any chest pain, palpitations, or shortness of breath. No overnight events. Exam Vital Signs Vital Sign - Last Date Time Temp Pulse Resp B/P Pulse Ox O2 Delivery O2 Flow Rate FiO2 01/30/17 11:33 54 01/30/17 08:30 36.6 18 137/52 93 Room Air 01/29/17 09:36 4 99 Intake and Output 01/29/17 01/29/17 01/30/17 Cumulative From/Thru 15:00 23:00 07:00 01/25/17 15:10 - 01/30/17 06:09 Intake Total 400 ml 1252 ml 08390 ml Output Total 725 ml 575 ml 7355 ml Balance -325 ml 677 ml 7316 ml Intake Oral 400 ml 910 ml 6173 ml IV Total 342 ml 7913 ml Packed Cells 585 ml Output Urine Total 725 ml 575 ml 5385 ml Stool Total 1870 ml Emesis 100 ml Other 0 ml 0 ml # Voids 3 # Bowel Movements 0 11 Exam Alert and oriented -3, no distress. Fluent speech Anicteric sclera. Lungs are clear with normal rate and effort Heart is regular without murmur gallop or rub Abdomen soft nontender, flat Extremities are free of edema. Skin is free of rash or lesions. 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 Resolved. Hematocrit is stable today. He is having diarrhea but this is clear. - Stool guaiac positive. - Transfused 2 units PRBC - Started IV Protonix - GI consulted. Will followup with recommendations - Colonoscopy and upper endoscopy today did not show active bleeding - Advance diet as tolerated - Monitor hemoglobin and hematocrit Acute watery diarrhea, present on admission. Improving. Negative stool PCR. - Stool PCR negative3 - Continue with supportive care. We will trial Imodium today. Acute Hypokalemia, present on admission. Improved but persistent. - We will again give potassium and follow. We will try to control diarrhea. Acute hyomagnesemia. Present on admission -We will replete and follow labs as well as control diarrhea. Recent right wrist MRSA osteomyelitis, present on admission and ongoing. 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 Will followup with recommendations - Continue with ceftaroline 600 every 12 hours through February 17. "Ceftaroline should be done on February 17 and at that time, he should definitely be switched to an oral lifelong suppressive regimen." Likely Doxycycline. - Pt and his family had obstacles with administering IV antibiotics twice per day at home - Orthopedics recommended starting occupational therapy and follow up in [address] Arora as an outpatient with x-rays Acute kidney injury, present on admission. Resolved - Continue with hydration and followup History of cirrhosis - Aldactone and Lasix recently discontinued - No ascites on physical exam Elevated lipase - Pancreatitis unlikely, no abdominal pain or tenderness. - Followup with GI consult recs Hypertension, chronic. stable - Continue medications Dispo: Possible discharge to SNF tomorrow if diarrhea controlled and hematocrit stable, Tuesday. VTE Mechanical Devices: Intermittant Pneumatic CD Rangel oPst MD January 30, 2017 12:35
[2017-01-30] MEDS: HYDROmorphone 1 mg/mL Inj IVPUSH PRN ×2 (12:52→22:07)
--- NOTE | 2017-01-30 15:34 | NUR ---
Evaluation completed. Please go to "Notes" then click on "Assessments and Notes" (bottom left corner of screen). Then select appropriate discipline tab on top of screen.
--- NOTE | 2017-01-30 19:10 | NUR ---
Bowel movements/Tele/Pain Pt had multiple loose incontinent very dark colored bowel movements this shift. MD notified. Pt had Loperamide X2 this shift and the BMs have since slowed. Telemetry DCd today. Pt received dilaudid for R wrist pain at 01/12. Dilaudid brought the pain down to a 0.
[2017-01-30 20:31] VITALS: BP 130/71; PULSE 58; RESP 18; O2SAT 94
[2017-01-31 01:00] VITALS: BP 120/68; PULSE 55; RESP 18; O2SAT 94
--- NOTE | 2017-01-31 03:20 | NUR ---
Transfer Patient arrived to unit at 2030, in WC, able to transfer to bed independently. All belongings arrived with him. Right arm IV patent and asymptomatic. however LFT forearm peripheral line red and agitated. This line was removed tip intact. C/O pain in right wrist 8/10, given pain medication via peripheral line, patient states pain improved. Will continue plan of care.
[2017-01-31] MEDS: Ceftaroline 600 mg/250 mL D5W IV SCH ×4 (05:40→18:13)
[2017-01-31] MEDS: HYDROmorphone 1 mg/mL Inj IVPUSH PRN ×2 (05:40→09:43)
[2017-01-31 05:58] VITALS: BP 104/56; PULSE 76; RESP 16; O2SAT 96
[2017-01-31 06:21] LABS: Mean Corpuscular Hemoglobin 28.9 pg (27.0-35.0); Mean Corpuscular Volume 87.4 fL (81-100)
[2017-01-31 06:40] LABS: Magnesium 1.5 mg/dL (1.6-2.6)
[2017-01-31] MEDS ORDERED: fentaNYL-PF 50 mCg/mL 2 mL Inj ONE (06:47)
[2017-01-31] MEDS ORDERED: Propofol 10,000 mCg/mL 20 mL Inj ONE (06:47)
[2017-01-31] MEDS ORDERED: Glycopyrrolate 0.2 MG/ML 1mL Inj ONE (06:47)
[2017-01-31] MEDS: SULFACETAMIDE SODIUM 10% TOPICAL SCH ×2 (08:30→19:52)
[2017-01-31] MEDS: Polyethylene Glycol (PEG) 17 Gm Powder PO SCH (08:30)
[2017-01-31] MEDS: Ascorbic Acid 500 mg Tablet PO SCH (09:22)
[2017-01-31] MEDS: Fluticasone 0.05% 15 Spray/2 Gm 16 Gm Nasal Spray NASAL SCH (09:22)
[2017-01-31] MEDS: Mupirocin 2% 22 Gm Ointment NASAL SCH ×2 (09:22→19:49)
--- NOTE | 2017-01-31 10:43 | NUR ---
[facility] signed @ [id number]
--- NOTE | 2017-01-31 11:58 | NUR ---
Social Work: Continued Discharge Planning D: EMR reviewed. Pt is on day 6 of hospitalization for hypokalemia, lipase KERLINE per H&P. Pt is not medically stable for discharge. ISA spoke with marin Armijo at [facility], who is agreeable to accepting pt at discharge with MD Mckenna to follow. ISA will continue to follow and update pt's infusion and HH services prior to discharge. Paperwork and PASRR in folder. Assessment: Pt for whom a SNF has been deemed medically necessary secondary to IVABX. Pt is open with [facility] and [facility] for RN PT OT. Plan: Pt to discharge to [facility] with [facility] to follow. ISA will continue to follow and update pt's infusion ([facility]) and HH services ([facility]) prior to discharge. Paperwork and PASRR in folder. URIEL Guzman
[2017-01-31] MEDS: 0.9% Sodium Chloride 250 ML IV SCH (12:00)
[2017-01-31 12:06] VITALS: BP 126/83; PULSE 67; RESP 18
[2017-01-31 12:20] VITALS: BP 132/87; PULSE 68; RESP 16; O2SAT 93
[2017-01-31 15:15] VITALS: BP 105/60; PULSE 60; RESP 16
[2017-01-31] MEDS: Mineral Oil-Petroltum 120 Gm Cream TOPICAL PRN (18:14)
[2017-01-31] MEDS: Morphine 2 mg/mL 5 mL Oral Solution PO PRN (18:40)
--- NOTE | 2017-01-31 18:47 | NUR ---
Blood Admin/Stool Pt received 1unit PRBC at 1200; tolerated without issue via PICC line. VS were stable and pt slept through majority of infusion. Repeat H&H obtained, Hgb to 9.2 Pt up to BR for BM, appearing dark in color, gritty in texture this shift. MD aware and order received for Guaiac - pt yet to have add'l BM. Care continues.
--- NOTE | 2017-01-31 19:15 | PCM.PNMED ---
Subjective Date of Service January 31, 2017 Subjective Patient is seen and examined. His pain is improving. He states that his fairly confident he has no blood in his stool. Hemoglobin dropped to 7.8 this a.m. previous colonoscopy did not reveal any active bleeding. Staff say that his stool is dark but not bloody. He denies weakness. Exam Vital Signs Vital Sign - Last Date Time Temp Pulse Resp B/P Pulse Ox O2 Delivery O2 Flow Rate FiO2 01/31/17 01:00 36.6 55 18 120/68 94 Room Air 01/29/17 09:36 4 99 Intake and Output 01/30/17 01/30/17 01/31/17 Cumulative From/Thru 15:00 23:00 07:00 01/25/17 15:10 - 01/30/17 20:20 Intake Total 1388 ml 72044 ml Output Total 1000 ml 8355 ml Balance 388 ml 7704 ml Intake Oral 650 ml 6823 ml IV Total 738 ml 8651 ml Packed Cells 585 ml Output Urine Total 1000 ml 6385 ml Stool Total 1870 ml Emesis 100 ml Other 0 ml # Voids 3 # Bowel Movements 5 16 Exam Gen.: No acute distress HEENT: Normocephalic, atraumatic Heart: Regular rate and rhythm no S3-S4 sounds Lungs clear to auscultation no crackles or wheezes Abdomen soft nontender nondistended Musculoskeletal: Improved range of motion in the elbow and wrist of his right hand, improved erythema since his surgery several weeks ago, swelling and arm improved as well Neuro:: He denies altered sensation over right arm, no focal deficits Psych: Negative for anxiety IVs and Medications IV Fluids None Medications Reviewed: Medications were reviewed in detail Lab and Diagnostics Laboratory Tests Test 01/31/17 06:00 01/31/17 16:12 White Blood Count 5.4th/mm3 (3.8-10.1) Red Blood Count 2.70mil/mm3 (4.40-5.80) Hemoglobin 7.8g/dL (13.8-17.2) 9.2g/dL (13.8-17.2) Hematocrit 23.6% (41.0-50.0) 27.5% (41.0-50.0) Mean Corpuscular Volume 87.4fL (81-100) Mean Corpuscular Hemoglobin 28.9pg (27.0-35.0) Mean Corpuscular Hemoglobin Concent 33.1% (32.0-37.0) Red Cell Distribution Width 18.2% (12.3-15.4) Platelet Count 83bil/L (150-400) Sodium Level 137mEq/L (134-144) Potassium Level 3.5mEq/L (3.5-5.2) Chloride Level 105mEq/L (97-108) Carbon Dioxide Level 21mmol/L (18-29) Blood Urea Nitrogen 9mg/dL (8-27) Creatinine 0.75mg/dL (0.76-1.27) Estimat Glomerular Filtration Rate 109mL/min (>59) Glucose Level 112mg/dL (60-99) Calcium Level 7.9mg/dL (8.5-10.1) Magnesium Level 1.5mg/dL (1.6-2.6) Microbiology 01/26/17 Stool Occult Blood (TARIQ) - Final, Complete Result Diagram: 01/30/17 0443 01/30/17 0443 Assessment & Plan 71-year-old gentleman with past medical history of hypertension, cirrhosis, PVD , anxiety 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 Resolved. Hematocrit is stable today. He is having diarrhea but this is clear. - Stool guaiac positive. - Transfused 2 units PRBC previously - Started IV Protonix - GI consulted.:Colonoscopy and upper endoscopy today did not show active bleeding - Advance diet as tolerated - Monitor hemoglobin and hematocrit: Hemoglobin 7.8 on 01/31. One unit of PRBC transfused, post transfusion H&H came up appropriately -- Stool occult TARIQ is ordered, will follow up with GI. -- Folate, B12, reticulocyte count tests are added the a.m. lab Acute Hypokalemia, present on admission. Improved but persistent. - We will again give potassium and follow. We will try to control diarrhea. -- Resolved on 01/31 Acute hyomagnesemia. Present on admission -We will replete and follow labs as well as control diarrhea. -- Started patient on magnesium oxide 400 mg twice a day Recent right wrist MRSA osteomyelitis, present on admission and ongoing. 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 Will followup with recommendations - Continue with ceftaroline 600 every 12 hours through February 17. "Ceftaroline should be done on February 17 and at that time, he should definitely be switched to an oral lifelong suppressive regimen." Likely Doxycycline. - Pt and his family had obstacles with administering IV antibiotics twice per day at home - Orthopedics recommended starting occupational therapy and follow up in [address] Arora as an outpatient with x-rays -- Patient plans to go to [facility] to complete antibiotic therapy -- Change his pain medication to morphine from Dilaudid Acute kidney injury, present on admission. Resolved History of cirrhosis - Aldactone and Lasix recently discontinued - No ascites on physical exam Elevated lipase - Pancreatitis unlikely, no abdominal pain or tenderness. - Followup with GI consult recs Hypertension, chronic. stable - Continue medications Dispo: Possible discharge to SNF if diarrhea controlled and hematocrit stable. Pain Evaluation: Adequate Pain Control VTE Mechanical Devices: Intermittant Pneumatic CD Resuscitation Status: CPR: Attempt Resuscitation Tamela Maxwell DO January 31, 2017 05:46
[2017-01-31 19:48] VITALS: BP 145/80; PULSE 72; RESP 20; O2SAT 95
--- NOTE | 2017-02-01 02:11 | NUR ---
Pain Pt reporting pain to right wrist at 8, Oral morphine not yet available at that time and breakthrough dose of 2mg IV morphine given. On assessment, pt sleeping and appears comfortable. Right arm in Joseph wrap and up on pillows. Pt able to move independently in bed and encouraging turns q2 hrs. No BM yet since start of shift.
[2017-02-01 05:02] VITALS: BP 120/65; PULSE 66; RESP 20; O2SAT 96
[2017-02-01] MEDS: Ceftaroline 600 mg/250 mL D5W IV SCH ×4 (05:38→17:20)
[2017-02-01] MEDS: Morphine 2 mg/mL 5 mL Oral Solution PO PRN ×2 (05:41→17:20)
[2017-02-01 05:59] LABS: Mean Corpuscular Hemoglobin 28.9 pg (27.0-35.0); Mean Corpuscular Volume 87.8 fL (81-100)
[2017-02-01 06:41] LABS: Magnesium 1.4 mg/dL (1.6-2.6)
[2017-02-01] MEDS: Polyethylene Glycol (PEG) 17 Gm Powder PO SCH (07:39)
[2017-02-01] MEDS ORDERED: Magnesium Sulf 2 Gm/50mL Water 2 GM in IV Premix 1 EACH IV ONE (07:40)
[2017-02-01] MEDS: Mupirocin 2% 22 Gm Ointment NASAL SCH ×2 (08:01→20:21)
[2017-02-01] MEDS: Fluticasone 0.05% 15 Spray/2 Gm 16 Gm Nasal Spray NASAL SCH (08:01)
[2017-02-01] MEDS: Ascorbic Acid 500 mg Tablet PO SCH (08:02)
[2017-02-01] MEDS: SULFACETAMIDE SODIUM 10% TOPICAL SCH ×2 (08:03→20:23)
--- NOTE | 2017-02-01 09:26 | NUR ---
DC from PT; ambulate w/NSG Pt has met all PT goals and is discharged from further PT at this time; released and encouraged to ambulate w/nsg w/FWW 2-3x/day as tolerated.
[2017-02-01] MEDS: 0.9% Sodium Chloride 250 ML IV SCH (09:50)
--- NOTE | 2017-02-01 11:37 | PROG NOTE ---
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 INTERVAL HISTORY: Over the weekend, the patient's diarrhea has slowed and stopped. He was worked up for iron deficiency anemia without focal source found. Today, the patient tells me he is feeling pretty well except for some right wrist pain which was made worse when his wrist was inadvertently grabbed during a transfer. Other than that, he denies any fevers, chills or sweats. No significant cough and he has good urinary output. PHYSICAL EXAMINATION: Reveals an afebrile gentleman, in no acute distress, 36.8 temperature, pulse 66, respiratory rate 20, blood pressure 120/65, saturating well on room air. No acute distress. Eyes without conjunctivitis. Lungs clear. Cardiac tones without new murmur. Right wrist is wrapped and I did not remove the dressing as the patient is having some discomfort there secondary to the squeezing that happened inadvertently recently. No abdominal abnormality noted. LABORATORIES: Include white count 6300, hematocrit stable at 26, platelets stable at 86,000 in this cirrhotic gentleman. Creatinine is down to 0.68 which is approaching finally his baseline after his vanco induced renal failure. Urine white blood cells negative. Stool PCR done as part of his diarrhea workup negative. No new imaging is available. IMPRESSION: This patient continues to improve with respect to his renal function as well as his MRSA osteo. He had an inadvertent setback when his right wrist was squeezed or pulled on, but in general is improving. His GI symptoms have resolved even as he has continued to the ceftaroline, so apparently that was not the cause. Recall that there are really no options for IV therapy for MRSA osteo in this complex patient and we are stuck with ceftaroline. RECOMMENDATIONS: 1. Ceftaroline 600 q.12 through February 17. 2. Once the ceftaroline is done, I would switch the patient to doxycycline 100 mg p.o. b.i.d., with the plan of continuing that for at least six months and probably for the rest of his life. 3. If the patient is discharged today or tomorrow, I would like to see him back in my clinic on February 16 which I believe is on Tuesday, February 16, for followup. 4. If he goes to the alf to finish his therapy, he should receive weekly CBC and CMP as followup and I can check these labs if they forwarded them to me or they can be checked by the alf doctor, but in any event, I would like to see him February 16 5. Once he transitions to his long-term suppression with doxycycline, I will see him every month or two.
[2017-02-01 14:35] VITALS: BP 124/71; PULSE 62; RESP 20; O2SAT 96
--- NOTE | 2017-02-01 15:26 | NUR ---
Evaluation completed. Please go to "Notes" then click on "Assessments and Notes" (bottom left corner of screen). Then select appropriate discipline tab on top of screen.
[2017-02-01] MEDS: Mineral Oil-Petroltum 120 Gm Cream TOPICAL PRN (17:28)
--- NOTE | 2017-02-01 18:14 | NUR ---
Activity Pt up and ambulating to chair and BR. Right arm elevated on pillows. Alternating PO and IV pain medications and pt reporting pain 5-7/10. Pt had one BM, but was accidentally flushed w/o guaic done. At 1800 pt started feeling nauseous after PO iron given and tried eating some dinner, IV zofran given. Pt ended up vomiting 300cc bloody emesis. paged. Bed in low, call light in reach, continue to monitor.
[2017-02-01] MEDS ORDERED: Pantoprazole 4 mg/mL 10 mL Inj IVPUSH ONE (18:50)
[2017-02-01 19:13] VITALS: BP 104/60; PULSE 65; RESP 20; O2SAT 95
--- NOTE | 2017-02-01 19:57 | NUR ---
Transfer [place] [facility] [place] [facility] Rm 2023. Pt left with all belongings. VSS, on RA. H/H lab drawn from PICC line and sent to lab. Report given to Justine ROSSI.
[2017-02-01 20:18] VITALS: BP 109/45; PULSE 63; RESP 16; O2SAT 93
[2017-02-01] MEDS: Pantoprazole Inj 80 MG in 0.9% Sodium Chloride 80 ML IV SCH (20:20)
--- NOTE | 2017-02-01 22:05 | PCM.PNMED ---
Subjective Date of Service February 01, 2017 Subjective I was notified because he had coffee-ground emesis. He was also slight decrease in his hemoglobin. Currently he says he feels fine and denies any lightheadedness or dizziness or any further nausea or vomiting. Exam Vital Signs Vital Sign - Last Date Time Temp Pulse Resp B/P Pulse Ox O2 Delivery O2 Flow Rate FiO2 02/01/17 20:18 36.7 63 16 109/45 93 Room Air 01/29/17 09:36 4 99 Intake and Output 01/31/17 01/31/17 02/01/17 Cumulative From/Thru 15:00 23:00 07:00 01/25/17 15:10 - 02/01/17 06:35 Intake Total 285 ml 1225 ml 1059 ml 26482 ml Output Total 1000 ml 1000 ml 77410 ml Balance 285 ml 225 ml 59 ml 7873 ml Intake Oral 800 ml 400 ml 8273 ml IV Total 285 ml 125 ml 659 ml 9720 ml Packed Cells 300 ml 885 ml Output Urine Total 1000 ml 1000 ml 9035 ml Stool Total 1870 ml Emesis 100 ml Other 0 ml # Voids 5 # Bowel Movements 1 18 Exam Patient is alert and oriented comfortable Head and neck no icterus Lungs clear Cardiovascular regular rate and rhythm with normal S1-S2 Abdomen soft nontender nondistended with normoactive bowel sounds Skin shows no jaundice Lab and Diagnostics Result Diagram: 02/01/170 02/01/17 0545 Assessment & Plan 71-year-old gentleman with past medical history of hypertension, cirrhosis, PVD , anxiety who I was notified of coffee-ground emesis. I spoke to him and he said did not see blood in the vomitus earlier this afternoon. Vomitus contained food that he ate for late lunch around 3:00 pm and he also took iron pills which causes him to get nauseated. After that he did not vomit anymore. However the nursing reported to me that he had couple of episodes of red blood in his stools. However he remained hemodynamic stable with stable and no change in heart rate. Currently his hemoglobin is stable. He has not vomited anymore. He has not had any more bloody stools or any bowel movements. Acute GI bleed and acute blood loss anemia. He essentially had no source of bleeding from EGD and colonoscopy. There was decrease in hemoglobin. I have asked him to get hemoglobin every 6 hours and if he has more bleeding, notified the on-call center specialist. We will try to keep the hemoglobin level between 7 and 8. If there is evidence of persistent vomiting of blood or bloody BM, which transfuse him empirically. Since he has not had any more nausea vomiting and no bowel bowel movement, would hold off any intervention tonight. If situation changes, please contact the GI person operational intelligence officer for emergent intervention. Tomorrow morning please contact Dr. Brar for formal reevaluation. In the meantime, continue Protonix drip. VTE Mechanical Devices: Intermittant Pneumatic CD Resuscitation Status: CPR: Attempt Resuscitation Toribio San MD February 01, 2017 22:05
--- NOTE | 2017-02-01 23:23 | PCM.PNMED ---
Subjective Date of Service February 01, 2017 Subjective Patient is seen and examined this a.m. he was in good spirits once again he denied seeing any blood or bright red blood per rectum. He was tolerating normal diet for any problems, there was slight changes to his H&H required 1 more unit of blood transfusion earlier this week but has been stable since then. Discussed her discharge to [facility] for completion of IV antibiotics, however later in the day staff called saying that patient had 300 mL of the hematemesis. Vital signs were stable per staff. Exam Vital Signs Vital Sign - Last Date Time Temp Pulse Resp B/P Pulse Ox O2 Delivery O2 Flow Rate FiO2 02/01/17 20:18 36.7 63 16 109/45 93 Room Air 01/29/17 09:36 4 99 Intake and Output 01/31/17 01/31/17 02/01/17 Cumulative From/Thru 15:00 23:00 07:00 01/25/17 15:10 - 02/01/17 06:35 Intake Total 285 ml 1225 ml 1059 ml 52588 ml Output Total 1000 ml 1000 ml 20941 ml Balance 285 ml 225 ml 59 ml 7873 ml Intake Oral 800 ml 400 ml 8273 ml IV Total 285 ml 125 ml 659 ml 9720 ml Packed Cells 300 ml 885 ml Output Urine Total 1000 ml 1000 ml 9035 ml Stool Total 1870 ml Emesis 100 ml Other 0 ml # Voids 5 # Bowel Movements 1 18 Exam Gen.: No acute distress HEENT: Normocephalic, atraumatic Heart: Regular rate and rhythm no S3-S4 sounds Lungs clear to auscultation no crackles or wheezes Abdomen soft nontender nondistended Musculoskeletal: Improved range of motion in the elbow and wrist of his right hand, improved erythema since his surgery several weeks ago, swelling and arm improved as well Neuro:: He denies altered sensation over right arm, no focal deficits Psych: Negative for anxiety Neck: Trachea central, negative for JVD Skin: Dark hemosiderin deposits on legs Extremities: Positive for trace edema bilaterally IVs and Medications IV Fluids None Medications Reviewed: Medications were reviewed in detail Lab and Diagnostics Result Diagram: 02/01/17212902/01/17 0545 Assessment & Plan 71-year-old gentleman with past medical history of hypertension, cirrhosis, PVD , anxiety 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 Resolved. Hematocrit is stable today. He is having diarrhea but this is clear. - Stool guaiac positive on 01/26. - Transfused 2 units PRBC previously - GI was consulted.:Colonoscopy and upper endoscopy done by Dr. Brar did not show active bleeding -- Hemoglobin 7.8 on 01/31. One unit of PRBC transfused, post transfusion H&H came up appropriately -- Stool occult TARIQ is ordered, followe dup with Jan Brar who feels that there is no GI etiology whatsoever based on his scopes, he recommends an outpatient video capsule endoscopy -- Patient had a large hematemesis/dark red emesis 300 cc later in the evening: Contacted Dr. San, on-call GI physician who recommended that we started him on Protonix drip 80 mg bolus +8 mg/h. This was done, every 2 hour H&H ordered, 40 units of blood was typed and crossed. -- Patient is transferred to [facility] care as he is thought to be having active bleeding. -- Dr. San is that Dr. Contreras and be contacted if there is any further concern in the a.m. -- Dr San: "He essentially had no source of bleeding from EGD and colonoscopy. There was decrease in hemoglobin. I have asked him to get hemoglobin every 6 hours and if he has more bleeding, notified the on-scallop cutter machine. We will try to keep the hemoglobin level between 7 and 8. If there is evidence of persistent vomiting of blood or bloody BM, which transfuse him empirically. Since he has not had any more nausea vomiting and no bowel bowel movement, would hold off any intervention tonight. If situation changes, please contact the GI person flight surgeon for emergent intervention. Tomorrow morning please contact Dr. Brar for formal reevaluation. In the meantime, continue Protonix drip." Acute Hypokalemia, present on admission. Improved but persistent. - We will again give potassium and follow. We will try to control diarrhea. -- Resolved on 01/31 Acute hyomagnesemia. Present on admission -We will replete and follow labs as well as control diarrhea. -- Started patient on magnesium oxide 400 mg twice a day Recent right wrist MRSA osteomyelitis, present on admission and ongoing. 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 Will followup with recommendations - Continue with ceftaroline 600 every 12 hours through February 17. "Ceftaroline should be done on February 17 and at that time, he should definitely be switched to an oral lifelong suppressive regimen." Likely Doxycycline. - Pt and his family had obstacles with administering IV antibiotics twice per day at home - Orthopedics recommended starting occupational therapy and follow up in [address] Arora as an outpatient with x-rays -- Patient plans to go to [facility] to complete antibiotic therapy -- Discontinued IV morphine 02/01 -- ID d/c recs: "1. Ceftaroline 600 q.12 through February 17. 2. Once the ceftaroline is done, I would switch the patient to doxycycline 100 mg p.o. b.i.d., with the plan of continuing that for at least six months and probably for the rest of his life. 3. If the patient is discharged today or tomorrow, I would like to see him back in my clinic on February 16 which I believe is on Tuesday, February 16, for followup. 4. If he goes to the skilled nursing to finish his therapy, he should receive weekly CBC and CMP as followup and I can check these labs if they forwarded them to me or they can be checked by the skilled nursing doctor, but in any event, I would like to see him February 16 5. Once he transitions to his long-term suppression with doxycycline, I will see him every month or two." Acute kidney injury, present on admission. Resolved History of cirrhosis - Aldactone and Lasix recently discontinued - No ascites on physical exam Elevated lipase - Pancreatitis unlikely, no abdominal pain or tenderness. - Followup with GI consult recs Hypertension, chronic. stable - Continue medications Dispo: Possible discharge to SNF if diarrhea controlled and hematocrit stable. Pain Evaluation: Adequate Pain Control VTE Mechanical Devices: Intermittant Pneumatic CD Resuscitation Status: CPR: Attempt Resuscitation Pain Evaluation: Adequate Pain Control VTE Mechanical Devices: Intermittant Pneumatic CD Resuscitation Status: CPR: Attempt Resuscitation Time spent 40 min Tamela Maxwell DO February 01, 2017 23:23
[2017-02-01 23:28] VITALS: BP 105/45; PULSE 64; RESP 18
[2017-02-01 23:42] VITALS: BP 112/43; PULSE 63; RESP 16
[2017-02-02] VITALS (16 sets, daily range): BP systolic 69–150; BP diastolic 31–63; PULSE 55–95; RESP 12–17; O2SAT 92–99
[2017-02-02] MEDS ORDERED: 0.9% Sodium Chloride 1,000 ML IV SCH (04:30)
[2017-02-02] MEDS: Pantoprazole Inj 80 MG in 0.9% Sodium Chloride 80 ML IV SCH ×2 (04:46→16:31)
--- NOTE | 2017-02-02 05:44 | NUR ---
Stool Pt had red bloody diarrhea at HS this shift and black diarrhea at approx. 0300; guaiacs sent to lab; no emesis noted this shift. MD aware of bleeding; 1 unit PRBCs infused this shift per order. No adverse events noted. Hypotension to assessment this morning with systolic blood pressure 80s manually to upper extremities but low 100s to lower extremity as taken with all other measurements this shift. paged, NS at 100mls/hr initiated. Pt asymptomatic, VSS, good coloration to skin. No telemetry. Ongoing pain to RUE r/t underlying osteomyelitis; morphine IVP given PRN with pt reporting relief after administration.
[2017-02-02] MEDS: Ceftaroline 600 mg/250 mL D5W IV SCH ×4 (06:12→18:21)
--- NOTE | 2017-02-02 07:34 | PCM.PNSURG ---
Subjective Date of Service: February 02, 2017 Date of Service: February 02, 2017 Visit Information: Subjective: pt had 1 episode hematemesis and melena yesterday. transfuse 1u prbc hb 7.6-> 8.3. On protonix. will do egd this am. Postop General: No Complaints Objective Vital Sign- Last 8 Hours Date Time Temp Pulse Resp B/P Pulse Ox O2 Delivery O2 Flow Rate FiO2 02/02/17 04:14 36.5 95 16 80/35 95 Room Air 02/02/17 02:25 36.8 61 16 112/44 02/01/17 23:42 36.6 63 16 112/43 Intake and Output- Last 8 Hour 02/02/17 Cumulative From/Thru 07:00 01/25/17 15:10 - 02/02/17 06:12 Intake Total 714 ml 09823 ml Output Total 1400 ml 37891 ml Balance -686 ml 7595 ml Intake Oral 9073 ml IV Total 414 ml 84811 ml Packed Cells 300 ml 1185 ml Output Urine Total 9685 ml Stool Total 1870 ml Urine/Stool Mix 1400 ml 1400 ml Emesis 400 ml Other 0 ml # Voids 6 # Bowel Movements 19 General: Oriented X3 Neck: Supple Lungs: Clear to Auscultation Heart: Exam Unremarkable Abdomen: Benign, Soft, Non-tender, Non-distended, Normoactive bowel tones Extremities: Distal Pulses Palpable Result Diagram: 02/02/17 0340 02/01/17 0545 Assessment & Plan Impression 71-year-old male with a history of GI bleed reportedly from the ascending colon who presented due to nausea, vomiting, diarrhea since become hematochezia. Patient denies symptoms of anemia or severe nausea and vomiting when seen today. He does have tenderness in the epigastric palpation however. Review of records identifies a EGD done by Dr. Rodríguez in February 2016. Indications time appear to be a for follow-up of his bleed in September. On the EGD they found portal gastropathy and healing duodenal ulcers with residual very small ulcerations. The patient is a former alcohol abuser with no history of varices and at the subjective history not indicative of severe nausea or hematemesis is unlikely be ongoing variceal bleed. Still, it could be due to any number of etiologies including gastric or ulcer, AVM, polyp, colon cancer, or diverticular bleed. Pt may have had a diverticular bleed during hospital stay and stopped on its own. No overt signs gi bleed found during egd/colon with intubation of TI showing no overt signs bleeding. s/p egd/colon 01/29/2017- FINDINGS: Upon inspection of the esophagus, the esophagus was normal without masses, ulcers, or lesions. Z-line located 40 cm from incisors. Upon entering the stomach, there was a mild nonerosive gastritis that was seen. No ulcers or masses or lesions were seen. Retroflexion was normal. Duodenal bulb, first and second portion normal. Biopsy taken of the antrum and body of stomach. Upon inspection of the anus, no masses, hemorrhoids, ulcers, fissures that were seen. Throughout the entire examination, there was mild sigmoid diverticulosis. No polyps or masses were seen. No overt signs of bleeding were seen. Intubation at terminal ileum was normal. Biopsies taken at terminal ileum and random colon. Retroflexion showed small internal hemorrhoids. IMPRESSION: 1. Mild nonerosive gastritis. 2. Small internal hemorrhoids. 3. Mild sigmoid diverticulosis. RECOMMENDATIONS Post op: 1. Await pathology results. 2. Okay to start clear liquid diet. Advance as tolerated. 02/02/2017- pt had 1 episode hematemesis and melena yesterday. transfuse 1u prbc hb 7.6-> 8.3. Recommendations: -continue protonix gtt - npo except meds - EGD MAC today will continue to follow. Problems: Resuscitation Status: CPR: Attempt Resuscitation Thiago Brar MD February 02, 2017 07:33
[2017-02-02] MEDS: Ascorbic Acid 500 mg Tablet PO SCH (08:30)
--- NOTE | 2017-02-02 08:46 | NUR ---
To Endo pt alert and oriented. pt transported to endoscopy via gurney. pt departed floor at about 0830.
[2017-02-02] MEDS ORDERED: fentaNYL-PF 50 mCg/mL 2 mL Inj ONE (08:58)
--- NOTE | 2017-02-02 10:03 | ENDO ---
[address] [address] ENDOSCOPY PROCEDURE PATIENT: BON CUNHA : 1945 MR#: [id number] ADMIT: 01/25/2017 JOB ID: [id number] DATE: 02/02/2017 TYPE OF OPERATION: Esophagogastroduodenoscopy with APC and gold probe and hemoclip placement. PREOPERATIVE DIAGNOSIS(ES): Hematemesis and melena. POSTOPERATIVE DIAGNOSIS(ES): 1. Recent stigmata of bleeding at a biopsy site in the antrum status post hemoclip placement. 2. Oozing that was seen at the cardia on retroflexion at the areas of mild portal htn gastropathy/gastritis status post APC and gold probe thermal coagulation with good hemostasis. ANESTHESIA: 1. Fentanyl 125 mcg. 2. Versed 6 mg IV administered. COMPLICATIONS: None. BLOOD LOSS: Minimal. DESCRIPTION OF PROCEDURE: After risks and benefits were explained to the patient, informed consent was obtained. After anesthesia administered, upper endoscope was inserted into mouth intubating through esophagus, stomach, second portion of duodenum. Mucosa carefully examined. After procedure was done, the scope was withdrawn and procedure terminated. Upon inspection of the esophagus, the esophagus was normal without masses, ulcers or lesions. No esophageal varices was seen. Z-line located 40 cm from incisors. Upon entering the stomach, there was recent stigmata of bleed at a biopsy site at the antrum which was hemoclipped with good hemostasis. On retroflexion, there was oozing that was seen at the cardia, most likely from patient's mild portal htn gastropathy/gastritis status post argon plasma coagulation, gold probe thermocoagulation with good hemostasis. No masses or ulcers or gastric varices were seen. Duodenal bulb, first and second portion were normal. IMPRESSIONS: 1. Recent stigmata of bleed at a biopsy site at the antrum status post hemoclip placed with good hemostasis. 2. Oozing on retroflexion at the cardia most likely from patient's mild portal htn gastropathy/ gastritis status post argon plasma coagulation and gold probe thermocoagulation. RECOMMENDATIONS: 1. Continue Protonix drip x24 hours. 2. Serial hematocrits. 3. Carafate 1 g by mouth four times a day. 4. Continue n.p.o. except for medications. 5. Will continue to follow. MTDD
--- NOTE | 2017-02-02 10:46 | NUR ---
NUTRITION FOLLOW-UP: ASSESS: Pt is a 71yo M admitted with MRSA osteomyelitis of R Wrist. Pt was tolerating heart healthy diet well at 50-100% of meals. Overnight he experienced hematemesis and red, bloody stool. Pt is currently NPO and plan for EGD today and possible colonoscopy. PMHX: ETOH,Cirrhosis,HTN,PVD DIET: NPO LABS: [employer]room Att[employer] .68, Ca 8.1, Mg 1.4 MEDS: Reviewed. Vit C, Vit D, MVI GI:1 BM 02/02 SKIN: Tommy 19, no major issues WEIGHT: 74.6kg BMI: 26.5kg/m2, admit wt: 76.5kg EST.NEEDS: CIRRHOSIS Kcal: 2240-2610kcal/day (30-35kcal/kg) Pro: 90-115g/day (1.2-1.5g/kg) NUTRITION DIAGNOSIS: (1) Increased energy/protein needs related to increased demand for nutrients as evidenced by PMhx of Cirrhosis.--PERSISTS INTERVENTION: (1) Recommend advance diet when medically appropriate. Will monitor NPO status. MONITOR/EVALUATE: NPO, diet advance, wt, lab values, GI status/bleed. F/U per moderate risk.
[2017-02-02] MEDS: 0.9% Sodium Chloride 250 ML IV SCH (11:06)
[2017-02-02] MEDS: Polyethylene Glycol (PEG) 17 Gm Powder PO SCH (11:06)
[2017-02-02] MEDS: Mupirocin 2% 22 Gm Ointment NASAL SCH ×2 (11:08→21:49)
[2017-02-02] MEDS: Fluticasone 0.05% 15 Spray/2 Gm 16 Gm Nasal Spray NASAL SCH (11:09)
[2017-02-02] MEDS: SULFACETAMIDE SODIUM 10% TOPICAL SCH ×2 (11:11→20:30)
[2017-02-02 13:43] LABS: INR 1.16 ratio
--- NOTE | 2017-02-02 13:59 | PCM.PNMED ---
Subjective Date of Service February 02, 2017 Subjective A little drowsy from endoscopy. He denies any abdominal pain, chest pain or shortness of breath. No nausea. He did have some rectal blood or melena overnight. This prompted EGD this morning. Exam Vital Signs Vital Sign - Last Date Time Temp Pulse Resp B/P Pulse Ox O2 Delivery O2 Flow Rate FiO2 02/02/17 10:55 36.4 55 12 119/51 96 Room Air 01/29/17 09:36 4 99 Intake and Output 02/01/17 02/01/17 02/02/17 Cumulative From/Thru 15:00 23:00 07:00 01/25/17 15:10 - 02/02/17 06:12 Intake Total 1358 ml 714 ml 46543 ml Output Total 950 ml 1400 ml 95152 ml Balance 408 ml -686 ml 7595 ml Intake Oral 800 ml 9073 ml IV Total 558 ml 414 ml 58577 ml Packed Cells 300 ml 1185 ml Output Urine Total 650 ml 9685 ml Stool Total 1870 ml Urine/Stool Mix 1400 ml 1400 ml Emesis 300 ml 400 ml Other 0 ml # Voids 1 6 # Bowel Movements 1 19 Exam Alert and oriented -3, no distress. Fluent speech Anicteric sclera. Lungs are clear with normal rate and effort Heart is regular without murmur gallop or rub Abdomen soft nontender, flat Extremities are free of edema. Skin is free of rash or lesions. Peripheral wrist is wrapped. 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 Active. Hematocrit is stable today. He is having diarrhea but this is clear. - Stool guaiac positive on 01/26. - Transfused 2 units PRBC previously - GI was consulted.:Colonoscopy and upper endoscopy done by Dr. Brar did not show active bleeding, biopsy was taken today's ago. -- Hemoglobin 7.8 on 01/31. One unit of PRBC transfused, post transfusion H&H came up appropriately -- Stool occult TARIQ is ordered, followe dup with Jan Brar who feels that there is no GI etiology whatsoever based on his scopes, he recommends an outpatient video capsule endoscopy -- Patient had a large hematemesis/dark red emesis 300 cc later in the evening: Contacted Dr. San, on-call GI physician who recommended that we started him on Protonix drip 80 mg bolus +8 mg/h. This was done, every 2 hour H&H ordered, 40 units of blood was typed and crossed. -- [facility] he is thought to be having active bleeding. The patient underwent endoscopy revealing slight oozing from previous biopsy site. This was hemoclipped. The plan is to follow him clinically and by mouth , Protonix drip and serial hematocrits overnight. Acute Hypokalemia, present on admission. Improved but persistent. - We will again give potassium and follow. We will try to control diarrhea. -- Resolved on 01/31 We will recheck blood fluids tomorrow morning. Acute hyomagnesemia. Present on admission -We will replete and follow labs as well as control diarrhea. -- Started patient on magnesium oxide 400 mg twice a day We will recheck [facility]'s tomorrow morning. Recent right wrist MRSA osteomyelitis, present on admission and ongoing. 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 Will followup with recommendations - Continue with ceftaroline 600 every 12 hours through February 17. "Ceftaroline should be done on February 17 and at that time, he should definitely be switched to an oral lifelong suppressive regimen." Likely Doxycycline. - Pt and his family had obstacles with administering IV antibiotics twice per day at home - Orthopedics recommended starting occupational therapy and follow up in [address] Arora as an outpatient with x-rays -- Patient plans to go to [facility] to complete antibiotic therapy -- Discontinued IV morphine 02/01 -- ID d/c recs: "1. Ceftaroline 600 q.12 through February 17. 2. Once the ceftaroline is done, I would switch the patient to doxycycline 100 mg p.o. b.i.d., with the plan of continuing that for at least six months and probably for the rest of his life. 3. If the patient is discharged today or tomorrow, I would like to see him back in my clinic on [address] which I believe is on Tuesday, February 16, for followup. 4. If he goes to the retirement to finish his therapy, he should receive weekly CBC and CMP as followup and I can check these labs if they forwarded them to me or they can be checked by the retirement doctor, but in any event, I would like to see him February 16 5. Once he transitions to his long-term suppression with doxycycline, I will see him every month or two." Acute kidney injury, present on admission. Resolved History of cirrhosis - Aldactone and Lasix recently discontinued - No ascites on physical exam Elevated lipase - Pancreatitis unlikely, no abdominal pain or tenderness. - Followup with GI consult recs Hypertension, chronic. stable - Continue medications Dispo: Possible discharge to SNF if diarrhea controlled and hematocrit stable. Pain Evaluation: Adequate Pain Control VTE Mechanical Devices: Intermittant Pneumatic CD Resuscitation Status: CPR: Attempt Resuscitation VTE Mechanical Devices: Intermittant Pneumatic CD Resuscitation Status: CPR: Attempt Resuscitation Rangel Post MD February 02, 2017 13:59
[2017-02-02] MEDS: Sucralfate 100 mg/mL 10 mL Suspension PO SCH ×2 (16:31→21:48)
--- NOTE | 2017-02-02 18:01 | NUR ---
Transfer to [facility] Pt arrived to [facility] [id number] via bed from [facility] 2023 w/ RN. Pt A&Ox3, oriented to room and call light.
[2017-02-02] MEDS: Mineral Oil-Petroltum 120 Gm Cream TOPICAL PRN (21:49)
[2017-02-03] MEDS: Pantoprazole Inj 80 MG in 0.9% Sodium Chloride 80 ML IV SCH (03:13)
--- NOTE | 2017-02-03 05:29 | NUR ---
H&H serial H&H appear stable last 8.09/29.1 no s/sx of bleeding some blood in last stool
[2017-02-03 06:17] VITALS: BP 108/62; PULSE 64; RESP 16; O2SAT 93
[2017-02-03] MEDS: Sucralfate 100 mg/mL 10 mL Suspension PO SCH ×4 (06:23→21:32)
[2017-02-03] MEDS: Ceftaroline 600 mg/250 mL D5W IV SCH ×4 (08:04→20:02)
[2017-02-03] MEDS: Ascorbic Acid 500 mg Tablet PO SCH (08:05)
[2017-02-03] MEDS: Fluticasone 0.05% 15 Spray/2 Gm 16 Gm Nasal Spray NASAL SCH (08:06)
[2017-02-03] MEDS: Mupirocin 2% 22 Gm Ointment NASAL SCH ×2 (08:06→20:03)
[2017-02-03] MEDS: SULFACETAMIDE SODIUM 10% TOPICAL SCH ×2 (08:09→20:04)
--- NOTE | 2017-02-03 08:15 | PCM.PNSURG ---
Subjective Date of Service: Feb 03, 2017 Date of Service: Feb 03, 2017 Visit Information: Subjective: Pt had 1 bm with mild bright red blood overnight. hb stable 8.1 this am. Pt has small internal hemorrhoids. Pt on protonix gtt. No further melena, hematemsis. s/p egd yesterday. Postop General: No Complaints Objective Vital Sign- Last 8 Hours Date Time Temp Pulse Resp B/P Pulse Ox O2 Delivery O2 Flow Rate FiO2 02/03/17 06:17 36.9 64 16 108/62 93 Room Air Intake and Output- Last 8 Hour 02/03/17 Cumulative From/Thru 07:00 01/25/17 15:10 - 02/03/17 06:21 Intake Total 649 ml 93976 ml Output Total 79369 ml Balance 649 ml 9547 ml Intake Oral 30 ml 9103 ml IV Total 619 ml 55749 ml Packed Cells 1185 ml Output Urine Total 88709 ml Stool Total 1870 ml Urine/Stool Mix 1400 ml Emesis 400 ml Other 0 ml # Voids 1 7 # Bowel Movements 1 20 General: Oriented X3 Neck: Supple Lungs: Clear to Auscultation Heart: Exam Unremarkable Abdomen: Benign, Soft, Non-tender, Non-distended, Normoactive bowel tones Extremities: Distal Pulses Palpable Result Diagram: 02/03/17 0415 02/01/17 0545 Assessment & Plan Impression 71-year-old male with a history of cirrhosis by CT scan in past showing nodular liver, hx GI bleed reportedly from the ascending colon who presented due to nausea, vomiting, diarrhea since become hematochezia. Patient denies symptoms of anemia or severe nausea and vomiting when seen today. He does have tenderness in the epigastric palpation however. Review of records identifies a EGD done by Dr. Rodríguez in February 2016. Indications time appear to be a for follow-up of his bleed in September. On the EGD they found portal gastropathy and healing duodenal ulcers with residual very small ulcerations. The patient is a former alcohol abuser with no history of varices and at the subjective history not indicative of severe nausea or hematemesis is unlikely be ongoing variceal bleed. Still, it could be due to any number of etiologies including gastric or ulcer, AVM, polyp, colon cancer, or diverticular bleed. Pt may have had a diverticular bleed during hospital stay and stopped on its own. No overt signs gi bleed found during egd/colon with intubation of TI showing no overt signs bleeding. s/p egd/colon 01/29/2017- FINDINGS: Upon inspection of the esophagus, the esophagus was normal without masses, ulcers, or lesions. Z-line located 40 cm from incisors. Upon entering the stomach, there was a mild nonerosive gastritis that was seen. No ulcers or masses or lesions were seen. Retroflexion was normal. Duodenal bulb, first and second portion normal. Biopsy taken of the antrum and body of stomach. Upon inspection of the anus, no masses, hemorrhoids, ulcers, fissures that were seen. Throughout the entire examination, there was mild sigmoid diverticulosis. No polyps or masses were seen. No overt signs of bleeding were seen. Intubation at terminal ileum was normal. Biopsies taken at terminal ileum and random colon. Retroflexion showed small internal hemorrhoids. IMPRESSION: 1. Mild nonerosive gastritis. 2. Small internal hemorrhoids. 3. Mild sigmoid diverticulosis. RECOMMENDATIONS Post op: 1. Await pathology results. 2. Okay to start clear liquid diet. Advance as tolerated. 02/02/2017- pt had 1 episode hematemesis and melena yesterday. transfuse 1u prbc hb 7.6-> 8.3. s/p egd 02/02/2017- IMPRESSIONS: 1. Recent stigmata of bleed at a biopsy site at the antrum status post hemoclip placed with good hemostasis. 2. Oozing on retroflexion at the cardia most likely from patient's gastritis/portal htn gastropathy status post argon plasma coagulation and gold probe thermocoagulation. RECOMMENDATIONS: 1. Continue Protonix drip x24 hours. 2. Serial hematocrits. 3. Carafate 1 g by mouth four times a day. 4. Continue n.p.o. except for medications. 5. Will continue to follow. 02/03/2017- suspect pt most recent hematemesis/melena most likely from oozing from pt's gastritis/mild portal htn gastropathy and from previous bx site at antrum which were clipped, apc and gold probe. hb stable 8.1 this am. Recommendations: -d/c protonix gtt - start protonix 40mg bid - cont carafate 1g po qid - stool softener - advance diet as tolerated - will cont to follow while inhouse Problems: Resuscitation Status: CPR: Attempt Resuscitation Thiago Brar MD Feb 03, 2017 08:15
[2017-02-03 08:17] LABS: Magnesium 1.4 mg/dL (1.6-2.6)
[2017-02-03] MEDS: Polyethylene Glycol (PEG) 17 Gm Powder PO SCH (08:30)
[2017-02-03] MEDS: Mineral Oil-Petroltum 120 Gm Cream TOPICAL PRN (08:37)
--- NOTE | 2017-02-03 09:53 | NUR ---
LAP WINDER witnessed [facility]'s signature Venice Curry
[2017-02-03] MEDS: 0.9% Sodium Chloride 250 ML IV SCH (10:15)
[2017-02-03 10:20] VITALS: BP 117/56; PULSE 63; RESP 16; O2SAT 95
--- NOTE | 2017-02-03 11:26 | PROG NOTE ---
[address] [address] PROGRESS NOTE PATIENT: BON CUNHA : 1945 MR#: [id number] ADMIT: 01/25/2017 JOB ID: [id number] DATE: 02/03/2017 REASON FOR FOLLOWUP: MRSA infection, right wrist and forearm, with multiple serious drug toxicities. HISTORY OF PRESENT ILLNESS: Yesterday, the patient underwent upper endoscopy because of an ongoing upper GI bleed. It was found that he may have been bleeding from a prior biopsy site. Overnight, the patient has been stable and reports he feels fine today. He has no fevers, chills, or sweats. No abdominal pain, nausea, or vomiting. His wrist is feeling better after some recent minor trauma during a bed transfer. PHYSICAL EXAMINATION: Physical exam reveals an afebrile gentleman. Temperature 36.9, pulse 63, blood pressure 117/56. He is saturating well on room air. Examination of the head reveals no notable abnormalities. Oral cavity is benign. Lungs are clear. Cardiac tones without any murmur. Abdomen soft and nontender without ascites. Right wrist is in a splint. He can move the hand increasingly well. His movements of the hand are increasingly normal. LABORATORY DATA: Labs include hematocrit stable at 25. Creatinine 0.66. Vitamin B12 of 1000. White cells in the urine negative. IMPRESSION: This patient is doing very well from an Infectious Disease point of view. He has previously had disastrous complications of both daptomycin and vancomycin and is not a candidate for linezolid. 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 Once that is done, he will be switching to doxycyline suppression. RECOMMENDATIONS: 1. The patient should be here in the hospital or a [facility] facility through February 17 to complete his ceftaroline. We have no other IV option. 2. Once the ceftaroline is done, will transition to doxy 100 b.i.d. indefinitely. 3. I will continue to follow him here with you here in the hospital.
--- NOTE | 2017-02-03 11:30 | PATH ---
SURGICAL PATHOLOGY Attending Physician:Thiago Brar MD CASE STATUS: Signed Out PATIENT NAME: THIAGO CUNHA PID: [id number] : 1945 DATE COLLECTED:01/29/2017 00:00 SPECIMEN: 1: Duodenum, Biopsy 2: Stomach, Antrum, Biopsy 3: Gastric, Biopsy 4: Ileum, Biopsy 5: Colon, Biopsy CLINICAL HISTORY: 1. Duodenum Biopsy 2. Antrum Biopsy 3. Gastric Body Biopsy 4. Terminal Ileum Biopsy 5. Random Colon Biopsy FINAL DIAGNOSIS: 1. Duodenum Biopsy: Duodenal mucosa with no diagnostic abnormality. Negative for active inflammation, features of sprue, dysplasia, or malignancy. 2. Antrum Biopsy: Portions of gastric antral mucosa with mild chronic gastritis. No definite H. pylori organisms identified by H&E stain. Immunohistochemistry studies pending; results will be reported as an addendum. Negative for intestinal metaplasia, dysplasia, and malignancy. 3. Gastric Body, Biopsy: Portion of gastric body-type mucosa with no diagnostic abnormality. No definite H. pylori organisms identified by H&E stain. Negative for intestinal metaplasia, dysplasia, and malignancy. 4. Terminal Ileum, Biopsy: Portion of small intestinal mucosa with no diagnostic abnormality. Negative for dysplasia and malignancy. 5. Random Colon Biopsies: Colonic intraepithelial lymphocytosis. Please see comment. Negative for active inflammation, granulomas, dysplasia, and malignancy. ICD10: K52.89 NOTE: Part 5: Sections demonstrate patchy intraepithelial lymphocytosis (up to approximately 14 lymphocytes / 100 epithelial cells). These findings are not definitively consistent with lymphocytic colitis, which requires 20 lymphocytes / 100 epithelial cells. GROSS DESCRIPTION: The specimens are received in formalin, labeled with the patient's name, and sublabeled as the following: (1) duodenum biopsy; (2) antrum biopsy; (3) gastric body biopsy; (4) terminal ileum biopsy; (5) random colon biopsy. (1) The specimen consists of multiple fragments of duncan-white rubbery glistening semi-translucent tissue (0.6 x 0.2 x 0.1 cm in aggregate). Section code: (1A) tissue. Specimen entirely submitted. (2) The specimen consists of multiple fragments of duncan-white rubbery glistening semi-translucent tissue (0.8 x 0.4 x 0.1 cm in aggregate). Section code: (2A) tissue. Specimen entirely submitted. (3) The specimen consists of a fragment of duncan-white rubbery glistening semi-translucent tissue (0.2 x 0.2 x 0.1 cm). Section code: (3A) tissue. Specimen entirely submitted. (4) The specimen consists of a fragment of duncan-white rubbery glistening semi-translucent tissue (0.5 x 0.3 x 0.1 cm). Section code: (4A) tissue. Specimen entirely submitted. (5) The specimen consists of multiple fragments of duncan-white rubbery glistening semi-translucent tissue (0.8 x 0.2 x 0.1 cm in aggregate). Section code: (5A) tissue. Specimen entirely submitted. 01/30/17 ICD-9 CODES: CPT CODES: 1: 22893 2: 78437, 68878 3: 76903 4: 86381 5: 21092 PROCEDURE/ADDENDA: Immunohistochemistry SPI Interpretation {Not Entered} Results-Comments Immunohistochemistry Results: 2.ANTRUM BIOPSY: NEGATIVE FOR HELICOBACTER PYLORI BY IMMUNOHISTOCHEMISTRY. This test was developed and its performance characteristics determined by [facility]. It has not been cleared or approved by the U. S. Food and Drug Administration. The FDA has determined that such clearance or approval is not necessary. This test is used for clinical purposes. It should not be regarded as investigational or for research. Electronically Signed Out Garrett Ambrocio MD Electronically Signed Out Tori High MD [facility] Pathology [facility] [address], [place] [address] Technical component performed at [facility], [facility] [address], [place], [address]
--- NOTE | 2017-02-03 13:11 | NUR ---
Social Work Note - Readiness for d/c [facility] met with pt - pt states he is feeling some better - advancing diet and continuing on antibiotics. Pt plans to d/c to [facility] when medically stable. Per MD rounds today, pt may be stable for transfer tomorrow. Plan: [facility] (A) Bala by cabjames. ERIKA Torres
[2017-02-03] MEDS ORDERED: Magnesium Sulf 2 Gm/50mL Water 2 GM in IV Premix 1 EACH IV ONE (17:20)
[2017-02-03] MEDS: Pantoprazole 40 mg ER24 Tablet PO SCH (17:21)
[2017-02-03] MEDS: Morphine 2 mg/mL 5 mL Oral Solution PO PRN (18:08)
[2017-02-03 18:30] VITALS: BP 156/80; PULSE 69; RESP 20; O2SAT 94
--- NOTE | 2017-02-03 20:31 | PCM.PNMED ---
Subjective Date of Service Feb 03, 2017 Subjective Patient is seen and examined. He appears to be in good spirits, has not been up walking much. Encouraged him to ambulate. He understands that he may be discharged tomorrow and he says is okay with it. Denies weakness and fatigue. No other concerns Exam Vital Signs Vital Sign - Last Date Time Temp Pulse Resp B/P Pulse Ox O2 Delivery O2 Flow Rate FiO2 02/03/17 18:30 37.1 69 20 156/80 94 Room Air 01/29/17 09:36 4 99 Intake and Output 02/02/17 02/02/17 02/03/17 Cumulative From/Thru 15:00 23:00 07:00 01/25/17 15:10 - 02/03/17 06:21 Intake Total 50 ml 1703 ml 649 ml 20584 ml Output Total 450 ml 56695 ml Balance 50 ml 1253 ml 649 ml 77881 ml Intake Oral 30 ml 9103 ml IV Total 50 ml 1703 ml 619 ml 54269 ml Packed Cells 1185 ml Output Urine Total 450 ml 20570 ml Stool Total 1870 ml Urine/Stool Mix 1400 ml Emesis 400 ml Other 0 ml # Voids 1 7 # Bowel Movements 1 20 Exam Gen.: No acute distress HEENT: Normocephalic, atraumatic Heart: Regular rate and rhythm no S3-S4 sounds Lungs clear to auscultation no crackles or wheezes Abdomen soft nontender nondistended Musculoskeletal: Improved range of motion in the elbow and wrist of his right hand, improved erythema since his surgery several weeks ago, swelling and arm improved as well Neuro:: He denies altered sensation over right arm, no focal deficits Psych: Negative for anxiety Neck: Trachea central, negative for JVD Skin: Dark hemosiderin deposits on legs Extremities: Positive for trace edema bilaterally IVs and Medications IV Fluids None Medications Reviewed: Medications were reviewed in detail Lab and Diagnostics Result Diagram: 02/03/17 0944 02/03/17 0720 Assessment & Plan 71-year-old gentleman with past medical history of hypertension, cirrhosis, PVD , anxiety currently on treatment for MRSA osteomyelitis of right wrist came with diarrhea. He was underwent colonoscopy 1, EGD 2 second time to control bleeding from a prior biopsy site with EGD. Acute GI bleed and acute blood loss anemia. Active. Hematocrit is stable today. He is having diarrhea but this is clear. - Stool guaiac positive on 01/26. - Transfused 2 units PRBC previously - GI was consulted.:Colonoscopy and upper endoscopy done by Dr. Brar did not show active bleeding, biopsy was taken today's ago. -- Hemoglobin 7.8 on 01/31. One unit of PRBC transfused, post transfusion H&H came up appropriately -- Stool occult TARIQ is ordered, followe dup with Jan Brar who feels that there is no GI etiology whatsoever based on his scopes, he recommends an outpatient video capsule endoscopy -- Patient had a large hematemesis/dark red emesis 300 cc later in the evening: Contacted Dr. San, on-call GI physician who recommended that we started him on Protonix drip 80 mg bolus +8 mg/h. This was done, every 2 hour H&H ordered, 40 units of blood was typed and crossed. -- Patient is transferred to [facility] as he is thought to be having active bleeding. -- The patient underwent endoscopy revealing slight oozing from previous biopsy site on 02/02. This was hemoclipped. -- Patient was taken off of the protonix drip and was put on PO Protonix 40 mg BIDAC. Aslo Ordered Carafate QID 1000 mg -- H&H remained stable around 8.2 on 02/03. Acute Hypokalemia, present on admission. Improved but persistent. - We will again give potassium and follow. We will try to control diarrhea. -- Resolved on 01/31 Acute hyomagnesemia. Present on admission -We will replete and follow labs as well as control diarrhea. -- Started patient on magnesium oxide 400 mg twice a day Recent right wrist MRSA osteomyelitis, present on admission and ongoing. 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 Will followup with recommendations - Continue with ceftaroline 600 every 12 hours through February 17. "Ceftaroline should be done on February 17 and at that time, he should definitely be switched to an oral lifelong suppressive regimen." Likely Doxycycline. - Pt and his family had obstacles with administering IV antibiotics twice per day at home - Orthopedics recommended starting occupational therapy and follow up in [address] Arora as an outpatient with x-rays -- [facility] -- Discontinued IV morphine 02/01 -- ID d/c recs: "1. The patient should be here in the hospital or a senior care facility through February 17 to complete his ceftaroline. We have no other IV option. 2. Once the ceftaroline is done, will transition to doxy 100 b.i.d. indefinitely" Acute kidney injury, present on admission. Resolved History of cirrhosis - Aldactone and Lasix recently discontinued - No ascites on physical exam Elevated lipase - Pancreatitis unlikely, no abdominal pain or tenderness. - Followup with GI consult recs Hypertension, chronic. stable - Continue medications Dispo: Possible discharge to [facility] if hematocrit stable. Pain Evaluation: Adequate Pain Control VTE Mechanical Devices: Intermittant Pneumatic CD Resuscitation Status: CPR: Attempt Resuscitation Pain Evaluation: Adequate Pain Control VTE Mechanical Devices: Intermittant Pneumatic CD Resuscitation Status: CPR: Attempt Resuscitation Time spent 25 min Tamela Maxwell DO Feb 03, 2017 20:31 VTE Mechanical Devices: Intermittant Pneumatic CD Resuscitation Status: CPR: Attempt Resuscitation Tamela Maxwell DO Feb 03, 2017 20:31
[2017-02-03] MEDS ORDERED: PANT40TA3 PO (20:38)
[2017-02-03] MEDS ORDERED: SUCR1ORA PO (20:38)
[2017-02-03] MEDS ORDERED: FERR-74 PO (20:38)
[2017-02-03 21:35] VITALS: BP 100/50; PULSE 62; O2SAT 96
[2017-02-04] MEDS: Morphine 2 mg/mL 5 mL Oral Solution PO PRN ×2 (03:26→11:32)
--- NOTE | 2017-02-04 04:42 | NUR ---
Pain/GI Pt reporting pain to right arm 03/14. Medicated pt with 5mg PO morphine. Pt stating pain decreased to 4/10 after medication admin. Pt had liquid stool X1 this shift. Stool in toilet appeared to be dark colored, no blood noted when cleaning pt. H/H draws Q6 hours this shift. Last H/H 8.0 and 24.6. Will continue to monitor pt. Addendum: 02/04/17 at 0614 by MEREDITH FERRER RN Pt had another liquid dark BM, appeared to also be dark reddish in color but pt stooled in toilet. Placed hat in toilet for next BM.
[2017-02-04] MEDS ORDERED: CEFT600V IV (05:17)
[2017-02-04] MEDS ORDERED: DOXY100T2 PO (05:19)
[2017-02-04 05:21] VITALS: BP 101/59; PULSE 59; RESP 20; O2SAT 93
[2017-02-04] MEDS ORDERED: MORP10SO PO ×2 (05:22→08:21)
[2017-02-04] MEDS: Sucralfate 100 mg/mL 10 mL Suspension PO SCH ×2 (05:33→11:32)
--- NOTE | 2017-02-04 06:47 | PCM.PNSURG ---
Subjective Date of Service: Feb 04, 2017 Date of Service: Feb 04, 2017 Visit Information: Subjective: hb stable 8.0 this am. serial hcts stable. pt had 1 large bm overnight with mild burgendy red per nursing. pt has internal hemorrhoids. Postop General: No Complaints Objective Vital Sign- Last 8 Hours Date Time Temp Pulse Resp B/P Pulse Ox O2 Delivery O2 Flow Rate FiO2 02/04/17 05:21 36.6 59 20 101/59 93 Room Air Intake and Output- Last 8 Hour 02/04/17 Cumulative From/Thru 07:00 01/25/17 15:10 - 02/04/17 06:13 Intake Total 92199 ml Output Total 70213 ml Balance 86664 ml Intake Oral 9639 ml IV Total 25567 ml Packed Cells 1185 ml Output Urine Total 81832 ml Stool Total 1870 ml Urine/Stool Mix 1400 ml Emesis 400 ml Other 0 ml # Voids 1 8 # Bowel Movements 1 21 General: Oriented X3 Neck: Supple Lungs: Clear to Auscultation Heart: Exam Unremarkable Abdomen: Benign, Soft, Non-tender, Non-distended, Normoactive bowel tones Extremities: Distal Pulses Palpable Result Diagram: 02/04/17 0317 02/03/17 0720 Assessment & Plan Impression 71-year-old male with a history of cirrhosis by CT scan in past showing nodular liver, hx GI bleed reportedly from the ascending colon who presented due to nausea, vomiting, diarrhea since become hematochezia. Patient denies symptoms of anemia or severe nausea and vomiting when seen today. He does have tenderness in the epigastric palpation however. Review of records identifies a EGD done by Dr. Rodríguez in February 2016. Indications time appear to be a for follow-up of his bleed in September. On the EGD they found portal gastropathy and healing duodenal ulcers with residual very small ulcerations. The patient is a former alcohol abuser with no history of varices and at the subjective history not indicative of severe nausea or hematemesis is unlikely be ongoing variceal bleed. Still, it could be due to any number of etiologies including gastric or ulcer, AVM, polyp, colon cancer, or diverticular bleed. Pt may have had a diverticular bleed during hospital stay and stopped on its own. No overt signs gi bleed found during egd/colon with intubation of TI showing no overt signs bleeding. s/p egd/colon 01/29/2017- FINDINGS: Upon inspection of the esophagus, the esophagus was normal without masses, ulcers, or lesions. Z-line located 40 cm from incisors. Upon entering the stomach, there was a mild nonerosive gastritis that was seen. No ulcers or masses or lesions were seen. Retroflexion was normal. Duodenal bulb, first and second portion normal. Biopsy taken of the antrum and body of stomach. Upon inspection of the anus, no masses, hemorrhoids, ulcers, fissures that were seen. Throughout the entire examination, there was mild sigmoid diverticulosis. No polyps or masses were seen. No overt signs of bleeding were seen. Intubation at terminal ileum was normal. Biopsies taken at terminal ileum and random colon. Retroflexion showed small internal hemorrhoids. IMPRESSION: 1. Mild nonerosive gastritis. 2. Small internal hemorrhoids. 3. Mild sigmoid diverticulosis. RECOMMENDATIONS Post op: 1. Await pathology results. 2. Okay to start clear liquid diet. Advance as tolerated. 02/02/2017- pt had 1 episode hematemesis and melena yesterday. transfuse 1u prbc hb 7.6-> 8.3. s/p egd 02/02/2017- IMPRESSIONS: 1. Recent stigmata of bleed at a biopsy site at the antrum status post hemoclip placed with good hemostasis. 2. Oozing on retroflexion at the cardia most likely from patient's mild portal htn gastropathy/ gastritis status post argon plasma coagulation and gold probe thermocoagulation. RECOMMENDATIONS: 1. Continue Protonix drip x24 hours. 2. Serial hematocrits. 3. Carafate 1 g by mouth four times a day. 4. Continue n.p.o. except for medications. 5. Will continue to follow. 02/03/2017- suspect pt most recent hematemesis/melena most likely from oozing from pt's gastritis/mild portal htn gastropathy and from previous bx site at antrum which were clipped, apc and gold probe. hb stable 8.1 this am. 02/04- hb stable 8.0. serial hcts stable. Recommendations: - ok to d/c home today from gi standpoint - protonix 40mg po bid - cont carafate 1g po qid - stool softener - advance diet as tolerated - f/u outpatient gi clinic in 2-4 wks post discharge Problems: Resuscitation Status: CPR: Attempt Resuscitation Thiago Brar MD Feb 04, 2017 06:47
[2017-02-04] MEDS: Polyethylene Glycol (PEG) 17 Gm Powder PO SCH (07:36)
--- NOTE | 2017-02-04 08:18 | PROG NOTE ---
[address] [address] PROGRESS NOTE PATIENT: BON CUNHA : 1945 MR#: [id number] ADMIT: 01/25/2017 JOB ID: [id number] DATE: 02/04/2017 INFECTIOUS DISEASE FOLLOW UP NOTE: REASON FOR FOLLOWUP: MRSA infection right wrist and forearm. INTERVAL HISTORY: Overnight the patient has been quite stable. No fevers, chills or sweats. Minimal pain in the right wrist. No respiratory of GI symptoms. PHYSICAL EXAMINATION: Reveals an afebrile gentleman. No acute distress. Pulse 60, respiratory rate 20, blood pressure 101/59. He is saturating well on room air. He is awake and alert, no skin rashes noted. Lungs are clear. Right wrist incision is healing well. Increased range of motion and strength is noted in the right wrist though still far below that of the left. LABORATORIES: Include hematocrit stable at 25 after his recent GI bleed. Last creatinine was 0.66 yesterday. No new micro. IMPRESSION: This patient is doing extremely well with respect to his MRSA osteo of the right wrist. Recall that he had daptomycin-induced lung injury as well as vancomycin-induced renal failure. So, our only option to treat him is intravenously for his MRSA osteo with ceftaroline which is slated to go through February 17 with the transition the following day to indefinite doxycycline suppression. RECOMMENDATION: 1. The patient is being prepared to go to a prison later today. 2. Ceftaroline will be 600 mg IV q.12 hours through February 17. 3. Once that is done, he should be switched on February 18 to doxycycline 100 mg p.o. b.i.d. indefinitely. 4. I would like to see the patient in three or four weeks in my office and he has been notified of that and given my phone number. 5. ID will sign off at this time.
[2017-02-04] MEDS: Ceftaroline 600 mg/250 mL D5W IV SCH ×2 (08:25)
[2017-02-04] MEDS: Mupirocin 2% 22 Gm Ointment NASAL SCH (08:35)
[2017-02-04] MEDS: Pantoprazole 40 mg ER24 Tablet PO SCH (08:35)
[2017-02-04] MEDS: Fluticasone 0.05% 15 Spray/2 Gm 16 Gm Nasal Spray NASAL SCH (08:36)
[2017-02-04] MEDS: Ascorbic Acid 500 mg Tablet PO SCH (08:36)
[2017-02-04] MEDS: SULFACETAMIDE SODIUM 10% TOPICAL SCH (08:37)
[2017-02-04] MEDS ORDERED: FERR-83 PO (08:38)
[2017-02-04] MEDS ORDERED: MAGN400T4 PO (08:40)
--- NOTE | 2017-02-04 08:44 | PCM.DIMED ---
Discharge Instructions Date of Service Feb 04, 2017 Dates of Hospitalization January 25, 2017 at 17:44 Discharge Diagnosis Discharge Diagnosis Acute GI Bleed, rectal bleeding, MRSI osteomyelitis of R wrist Diet Discharge Diet: No restrictions Activity Discharge Activity: Other (walks with walker) Call your provider Call your provider for: Fever or Chills, Shortness of breath, Bleeding, Chest pain, Vomitting, Excessive diarrhea, Weakness (unilateral), Other Patient Instructions Patient Instructions Please use Teflaro abx as prescribed till the 02/17/17 then switch to PO doxycyccline on 02/18/17. Dr. Drew will provide with more refills of doxycycline at f/u Take your iron and magnesium supplements weekly CBC and CMP as followup and I can check these labs if they forwarded them to Dr. Drew or they can be checked by the retirement doctor , but in any event, Dr. Drew would like to see him February 16 Patient does not have a redd catheter. Generics may be substituted for medications. Do not crush pills. Patient may have general diet He needs MRSA precautions because of wrist osteomyelitis He needs PT/OT for the right hand and arm Patient is not on home oxygen. Keep the dressings clean and dry, patient will need wound care for the right wrist. Follow-up plan F/U with PCP at the [facility] upon arrival F/U with Dr. Drew on the 02/16/17 in his clinic F/U with GI Dr. Brar in his clinic in 2-4 weeks Follow-up in 1 weeks in the ortho clinic with Dr. Norberto Arora, we will repeat x- rays of the wrist at that time Tamela Maxwell DO Feb 04, 2017 08:44
[2017-02-04] MEDS: 0.9% Sodium Chloride 250 ML IV SCH (10:04)
--- NOTE | 2017-02-04 11:23 | NUR ---
Social Work: Discharge Data: Pt is on day 10 of hospitalization. D/C orders are in. UR specialist notifying [facility] to set up cabulance transportation for pt. No further d/c planning needs. PSYCHIATRY ADULT PHYSICIAN will continue to follow if needs arise. Assessment: Pt who is independent at baseline. Plan: Pt will d/c to [facility] via cabulance today. UR specialist setting up time and will notify pt's RN. No further d/c planning needs. PSYCHIATRY ADULT PHYSICIAN will continue to follow if needs arise. URIEL Ryan
[2017-02-04] MEDS: Mineral Oil-Petroltum 120 Gm Cream TOPICAL PRN (11:34)
[2017-02-04 12:45] VITALS: BP 104/61; PULSE 62; RESP 16; O2SAT 94
--- NOTE | 2017-02-04 13:45 | NUR ---
Discharge Pt discharged to [facility]. PICC left in place for ABO infusions. Pass off given to nurse Jc.
--- NOTE | 2017-02-07 14:52 | PCM.DC.MED ---
Discharge Summary Date of Service Feb 04, 2017 Dates of Hospitalization Date of Hospital Admission January 25, 2017 at 17:44 Date of Discharge: Feb 04, 2017 Providers: Admitting Physician: Balta Vick MD Primary Care Physician: Tata Doll MD Attending Physician: Balta Vick MD Diagnosis at Time of Discharge Diagnosis at Time of Discharge Acute GI Bleed, rectal bleeding, MRSI osteomyelitis of R wrist Consultations GI Procedures XRay, CTs & MRIs Patient Name: BON CUNHA MR#: [id number] Location: [facility] [place] Ordering Phys: HuaAleksandrClare Aurelio Date of Service: 01/25/17 1602 PROCEDURE: X-RAY CHEST ONE VIEW, PORTABLE ([id number]) INDICATIONS: cough TECHNIQUE: One view of the chest was acquired. COMPARISON: [facility], CR, XR CHEST 1VW (PORTABLE), 01/04/2017, 5: 53. FINDINGS: Surgical changes and devices: Left PICC tip in the upper SVC. Lungs and pleura: No pleural effusions or pneumothorax. Right apical scarring otherwise the lungs are clear. Mediastinum: Mediastinal contours appear normal. Heart size is normal. Bones and chest wall: No suspicious bony lesions. Overlying soft tissues appear unremarkable. IMPRESSION: Stable left PICC. Otherwise normal chest. Dictated by: Geraldo Garcia M.D. on 01/25/2017 at 17:26 Approved by: Geraldo Garcia M.D. on 01/25/2017 at 17:28 Brief History 71-year-old male with a history of hypertension, alcoholic cirrhosis, recurrent osteomyelitis with MRSA, and previous GI bleed in September 2015 presents to the emergency department with complaints of watery diarrhea started the evening before he was admitted on January 25, having a total of 6 episodes overnight. She has intermittent nausea with one episode of vomiting. Since he was admitted to hospital his nausea has been under control. He denies fevers, chills, chest pain, shortness of breath, or epigastric pain, but does endorse mild sharp intermittent abdominal pain in the lower right quadrant. Since admission the patient has had a declining H&H. Per nursing notes patient has been having loose burgundy stools. Patient denies ongoing epigastric pain as well as dizziness or shortness of breath or chest pain. Patient's last GI bleed was in September 2015 with the patient reporting a lesion in the right colon and a negative EGD. Patient denies taking any NSAIDs. Has a history of chronic alcohol abuse ended 2 years ago. Denies abdominal surgeries other than an appendectomy. Current labs show H&H of 6.7/19.6, CMP is relatively unremarkable with only mild elevation of lipase on 01/26. GI was consulted for endoscopy to investigate a GI bleed. Hospital Course 71-year-old gentleman with past medical history of hypertension, cirrhosis, PVD , anxiety currently on treatment for MRSA osteomyelitis of right wrist came with diarrhea. He was underwent colonoscopy 1, EGD 2 second time to control bleeding from a prior biopsy site with EGD. Acute GI bleed and acute blood loss anemia. Active. Hematocrit is stable today. He is having diarrhea but this is clear. - Stool guaiac positive on 01/26. - Transfused 2 units PRBC previously - GI was consulted.:Colonoscopy and upper endoscopy done by Dr. Brar did not show active bleeding, biopsy was taken today's ago. -- Hemoglobin 7.8 on 01/31. One unit of PRBC transfused, post transfusion H&H came up appropriately -- Stool occult TARIQ is ordered, followe dup with Jan Brar who feels that there is no GI etiology whatsoever based on his scopes, he recommends an outpatient video capsule endoscopy -- Patient had a large hematemesis/dark red emesis 300 cc later in the evening: Contacted Dr. San, on-call GI physician who recommended that we started him on Protonix drip 80 mg bolus +8 mg/h. This was done, every 2 hour H&H ordered, 40 units of blood was typed and crossed. -- Patient is transferred to [facility] care as he is thought to be having active bleeding. -- The patient underwent endoscopy revealing slight oozing from previous biopsy site on 02/02. This was hemoclipped. -- Patient was taken off of the protonix drip and was put on PO Protonix 40 mg BIDAC. Aslo Ordered Carafate QID 1000 mg -- H&H remained stable around 8.2 on 02/03. -- Patient is ambulating with a walker, tolerating general diet and his H&H is stable at the time of discharge. Acute Hypokalemia, present on admission. Improved but persistent. - We will again give potassium and follow. We will try to control diarrhea. -- Resolved on 01/31 Acute hyomagnesemia. Present on admission -We will replete and follow labs as well as control diarrhea. -- Started patient on magnesium oxide 400 mg twice a day Recent right wrist MRSA osteomyelitis, present on admission and ongoing. 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 Will followup with recommendations - Continue with ceftaroline 600 every 12 hours through February 17. "Ceftaroline should be done on February 17 and at that time, he should definitely be switched to an oral lifelong suppressive regimen." Likely Doxycycline. - Pt and his family had obstacles with administering IV antibiotics twice per day at home - Orthopedics recommended starting occupational therapy and follow up in [address] Arora as an outpatient with x-rays -- Patient plans to go [facility] to complete antibiotic therapy -- Discontinued IV morphine 02/01 -- ID d/c recs: "1. The patient should be here in the hospital or a fdc facility through February 17 to complete his ceftaroline. We have no other IV option. 2. Once the ceftaroline is done, will transition to doxy 100 b.i.d. indefinitely" Acute kidney injury, present on admission. Resolved History of cirrhosis - Aldactone and Lasix recently discontinued - No ascites on physical exam Elevated lipase - Pancreatitis unlikely, no abdominal pain or tenderness. - Followup with GI consult recs Hypertension, chronic. stable - Continue medications Exam Vital Signs (Last) Date Time Temp Pulse Resp B/P Pulse Ox O2 Delivery O2 Flow Rate FiO2 02/04/17 12:45 36.6 62 16 104/61 94 Room Air Exam Gen.: No acute distress HEENT: Normocephalic, atraumatic Heart: Regular rate and rhythm no S3-S4 sounds Lungs clear to auscultation no crackles or wheezes Abdomen soft nontender nondistended Musculoskeletal: Improved range of motion in the elbow and wrist of his right hand, improved erythema since his surgery several weeks ago, swelling and arm improved as well Neuro:: He denies altered sensation over right arm, no focal deficits Psych: Negative for anxiety Neck: Trachea central, negative for JVD Skin: Dark hemosiderin deposits on legs Extremities: Positive for trace edema bilaterally Test 01/25/17 16:25 01/26/17 06:17 01/27/17 05:45 01/28/17 05:00 Lactic Acid Level 1.5mmol/L (0.4-2.0) Lipase 77U/L (13-60) Neutrophils (%) (Auto) 63.0% (40-74) Lymphocytes (%) (Auto) 21.0% (14-46) Monocytes (%) (Auto) 10.6% (4-12) Eosinophils (%) (Auto) 4.9% (0-5) Basophils (%) (Auto) 0.4% (0-3) Activated Partial Thromboplast Time 21.5sec (22.8-33.0) Test 01/29/17 04:40 01/29/17 18:45 01/29/17 18:46 01/31/17 06:00 Urine Color Yellow (YELLOW) Urine Appearance Clear (CLEAR,HAZY) Urine pH 6.0 (5.0-8.0) Urine Specific [place] 1.020 (1.003-1.035) Urine Protein Negativemg/dL (NEG,TRACE) Urine Glucose (UA) Negativemg/dL (NEGATIVE) Urine Ketones Tracemg/dL (NEGATIVE) Urine Occult Blood Negative (NEGATIVE) Urine Nitrite Negative (NEGATIVE) Urine Bilirubin Negative (NEGATIVE) Urine Urobilinogen Normalmg/dL (NORMAL) Urine Leukocyte Esterase Negative (NEGATIVE) Urine RBC 0-2/hpf (0-2) Urine WBC 0-5/hpf (0-5) Urine Epithelial Cells Few/hpf (NONE-MOD) Urine Crystals None seen (NONE SEEN) Urine Bacteria Few/hpf (NONE-FEW) Urine Hyaline Casts Occasional/lpf (NONE) Urine Granular Casts None seen (NONE SEEN) Urine Waxy Casts None seen (NONE SEEN) Urine Red Blood Cell Casts None seen (NONE SEEN) Urine White Blood Cell Casts None seen (NONE SEEN) Urine Mucus Present (None Seen) Urine Trichomonas None seen (NONE SEEN) Urine Yeast None (NONE SEEN) Urinalysis Comment None Urine Culture Reflexed Not indicated Hold Purple Top Tube Received (Received) Hold [place] Top Tube Received (Received) Vitamin B12 Level 1013pg/mL (211-946) Folate 14.2ng/mL (>3.0) Test 02/01/17 05:45 02/02/17 13:00 02/03/17 07:20 02/04/17 03:17 White Blood Count 6.3th/mm3 (3.8-10.1) Red Blood Count 2.94mil/mm3 (4.40-5.80) Mean Corpuscular Volume 87.8fL (81-100) Mean Corpuscular Hemoglobin 28.9pg (27.0-35.0) Mean Corpuscular Hemoglobin Concent 32.9% (32.0-37.0) Red Cell Distribution Width 18.2% (12.3-15.4) Platelet Count 86bil/L (150-400) Prothrombin Time 12.5sec (8.1-12.5) Prothromb Time International Ratio 1.16ratio Sodium Level 139mEq/L (134-144) Potassium Level 3.7mEq/L (3.5-5.2) Chloride Level 107mEq/L (97-108) Carbon Dioxide Level 22mmol/L (18-29) Blood Urea Nitrogen 7mg/dL (8-27) Creatinine 0.66mg/dL (0.76-1.27) Estimat Glomerular Filtration Rate 127mL/min (>59) Glucose Level 89mg/dL (60-99) Calcium Level 8.2mg/dL (8.5-10.1) Magnesium Level 1.4mg/dL (1.6-2.6) Total Bilirubin 0.9mg/dL (0.0-1.2) Aspartate Amino Transf (AST/SGOT) 22U/L (0-50) Alanine Aminotransferase (ALT/SGPT) 9U/L (0-44) Alkaline Phosphatase 50U/L (25-160) Total Protein 4.6g/dL (6.4-8.4) Albumin 2.4g/dL (3.4-5.0) Hemoglobin 8.0g/dL (13.8-17.2) Hematocrit 24.6% (41.0-50.0) Discharge Medications Discharge Medications Ascorbate Calcium (Vitamin C) 500 Mg Tablet 500 MG PO DAILY (Reported) Ceftaroline Fosamil Acetate (Teflaro) 600 Mg Vial 600 MG IV Q12H Prescribed by: TAMELA CHRISTIE DO Cholecalciferol (Vitamin D3) (Vitamin D3) 5,000 Unit Capsule 5,000 UNIT PO DAILY (Reported) Doxycycline Hyclate (Doxycycline Hyclate) 100 Mg Tablet 100 MG PO BID Prescribed by: TAMELA CHRISTIE DO Ferrous Sulfate (Feosol) 325 Mg Tablet 325 MG PO Prescribed by: TAMELA CHRISTIE DO Fluticasone Propionate (Flonase Allergy Relief) 50 Mcg/Actuation [place].susp 1 SPRAY NASAL DAILY (Reported) Gabapentin (Gabapentin) 300 Mg Capsule 300 MG PO BIDBL (Reported) Gabapentin (Gabapentin) 300 Mg Capsule 600 MG PO QPM (Reported) Ketoconazole (Ketoconazole) 120 Ml Shampoo 1 APPLIC TP WEEKLY (Reported) Magnesium Oxide (Magnesium Oxide) 400 Mg Tablet 400 MG PO BID Prescribed by: TAMELA CHRISTIE DO Multivitamin (Multivitamins) 1 Each Capsule 1 EACH PO DAILY (Reported) Mupirocin Nasal Oint (Bactroban Nasal Oint) 1 Gm Oint...g. 1 APPLIC NASAL BID Prescribed by: BALTA VICK MD Pantoprazole DR (Pantoprazole DR) 40 Mg Tablet.dr 40 MG PO BIDAC Prescribed by: TAMELA CHRISTIE DO Polyethylene Glycol 3350 (Miralax) 17 Gm Powd.pack 17 GM PO DAILY Prescribed by: KOKI FINNEY MD Sennosides (Senna) 8.6 Mg Tablet 17.2 MG PO BID Prescribed by: KOKI FINNEY MD Sucralfate (Sucralfate) 1 Gm/10 Ml Oral.susp 1,000 MG PO QID Prescribed by: TAMELA CHRISTIE DO Sulfacetamide Sodium (Sodium Sulfacetamide) 10 % Clnsr.gel 1 APPLIC TP BID ( Reported) for rosacea As needed Docusate Sodium (Colace) 100 Mg Capsule 100 MG PO BID PRN PRN For Constipation Prescribed by: KOKI FINNEY MD Morphine Sulfate Oral Soln (Morphine Sulfate Oral Soln) 10 Mg/5 Ml Solution 5 MG PO BID PRN PRN For Pain Prescribed by: TAMELA CHRISTIE DO Ondansetron ODT (Ondansetron ODT) 4 Mg Tab.rapdis 4 MG PO Q12H PRN PRN For Nausea Prescribed by: KOKI FINNEY MD Followup Plan Follow-up plan F/U with PCP at the [facility] upon arrival F/U with Dr. Drew on the 02/16/17 in his clinic F/U with GI Dr. Brar in his clinic in 2-4 weeks Follow-up in 1 weeks in the ortho clinic with Dr. Norberto Arora, we will repeat x- rays of the wrist at that time Discharge Diet: No restrictions Discharge Activity: Other (walks with walker) Patient Instructions Please use Teflaro abx as prescribed till the 02/17/17 then switch to PO doxycyccline on 02/18/17. Dr. Drew will provide with more refills of doxycycline at f/u Take your iron and magnesium supplements weekly CBC and CMP as followup and I can check these labs if they forwarded them to Dr. Drew or they can be checked by the alf doctor , but in any event, Dr. Drew would like to see him February 16 Patient does not have a redd catheter. Generics may be substituted for medications. Do not crush pills. Patient may have general diet He needs MRSA precautions because of wrist osteomyelitis He needs PT/OT for the right hand and arm Patient is not on home oxygen. Keep the dressings clean and dry, patient will need wound care for the right wrist. Time spent Discharge took more than 30 min Tamela Christie DO Feb 07, 2017 14:52
== END 2017-02-04 13:45 | DRG 392 ==
LOC: SED 15:06 → MPC 17:44 → PCC 01-28 18:02 → OSC 01-30 20:17 → PCC 02-01 19:39 → MOC 02-02 18:17
PROVIDERS: ADMIT Internal Medicine; ATTEND Internal Medicine
PROC: 30233N1 Transfusion of Nonautologous Red Blood Cells into Peripheral Vein, Percutaneous Approach (ICD-10-PCS; 2017-01-28)
PROC: 0DBB8ZX Excision of Ileum, Via Natural or Artificial Opening Endoscopic, Diagnostic (ICD-10-PCS; 2017-01-29)
PROC: 0DBE8ZX Excision of Large Intestine, Via Natural or Artificial Opening Endoscopic, Diagnostic (ICD-10-PCS; 2017-01-29)
PROC: 0DB68ZX Excision of Stomach, Via Natural or Artificial Opening Endoscopic, Diagnostic (ICD-10-PCS; 2017-01-29 10:15)
PROC: 30233N1 Transfusion of Nonautologous Red Blood Cells into Peripheral Vein, Percutaneous Approach (ICD-10-PCS; 2017-01-31)
PROC: 30233N1 Transfusion of Nonautologous Red Blood Cells into Peripheral Vein, Percutaneous Approach (ICD-10-PCS; 2017-02-01)
PROC: 0W3P8ZZ Control Bleeding in Gastrointestinal Tract, Via Natural or Artificial Opening Endoscopic (ICD-10-PCS; principal; 2017-02-02 11:45)
DX: R19.7 Diarrhea, unspecified (principal); M86.9 Osteomyelitis, unspecified; N17.9 Acute kidney failure, unspecified; D62 Acute posthemorrhagic anemia; K76.6 Portal hypertension; K91.840 Postprocedural hemorrhage of a digestive system organ or structure following a digestive system procedure; K29.00 Acute gastritis without bleeding; B96.89 Other specified bacterial agents as the cause of diseases classified elsewhere; B95.7 Other staphylococcus as the cause of diseases classified elsewhere; B95.62 Methicillin resistant Staphylococcus aureus infection as the cause of diseases classified elsewhere; K31.89 Other diseases of stomach and duodenum; Z87.891 Personal history of nicotine dependence; K70.30 Alcoholic cirrhosis of liver without ascites; F10.21 Alcohol dependence, in remission; E87.6 Hypokalemia; I10 Essential (primary) hypertension; E83.42 Hypomagnesemia; K57.30 Diverticulosis of large intestine without perforation or abscess without bleeding